=== PATIENT | male | born 1960 | race Caucasian/White ===

== ENCOUNTER 2024-02-17 12:21 | Outpatient (OUT) | payer OTHER, SELFPAY ==
--- NOTE | 2024-02-17 12:44 | XR_ITS ---
The [address] [address] Patient Name: ATIF CLEMONS MRN: [id number] date: 1960 Sex: M Assigned Patient Location: LAB Current Patient Location: LAB Accession/Order Number: [id number] Exam Date: 02/17/2024 12:50 Report Date: 02/17/2024 18:34 At the request of: TERRELL CORONADO Procedure: XR chest 2V EXAM: XR chest 2V HISTORY: Dyspnea on exertion COMPARISON: 10/09/2013 TECHNIQUE: Upright PA and lateral chest x-ray FINDINGS: The heart has increased in size since the prior study and is now mildly enlarged with vascular congestion centrally. No acute infiltrate, effusion or pneumothorax is identified. The osseous structures are grossly intact. XR/XR chest 2V IMPRESSION: There appears to be mild cardiac enlargement without overt cardiac decompensation. No focal infiltrate is identified. Electronically authenticated by: JHOAN FELIPE Date: 02/17/2024 18:34
[2024-02-17 13:07] LABS: Hematocrit 39.9 % (42.0-54.0); Hemoglobin 13.5 g/dL (14.0-18.0); Mean Corpuscular HGB Conc 33.8 g/dL (29.9-35.2); Mean Corpuscular Hemoglobin 30.8 pg (25.9-34.0); Mean Corpuscular Volume 91.1 fL (80.0-94.0); Mean Platelet Volume 9.5 fL (9.5-13.5); Platelet Count 134 10^3/uL (150-450); Red Blood Count 4.38 10^6/uL (4.70-6.10); Red Cell Distribution Width 14.4 % (11.0-15.0)
[2024-02-17 13:13] LABS: White Blood Count 66.1 10^3/uL (4.0-11.0)
[2024-02-17 13:36] LABS: Alanine Aminotransferase 27 U/L (16-63); Albumin Globulin Ratio 1.5; Albumin Level 4.3 g/dL (3.4-5.0); Alkaline Phosphatase 78 U/L (46-116); Anion Gap 14.2; Aspartate Amino Transferase 17 U/L (15-37); BUN Creatinine Ratio 20.2; Bilirubin Total 1.2 mg/dL (0.2-1.0); Calcium 9.4 mg/dL (8.5-10.1); Carbon Dioxide 27.1 mmol/L (21.0-32.0); Chloride 95 mmol/L (98-107); Estimated GFR (African America >60 (>=60); Estimated GFR (Non-African Ame >60 (>=60); Globulin 2.8 g/dL; Glucose 103 mg/dL (74-106); Potassium 4.3 mmol/L (3.5-5.1); Sodium 132 mmol/L (136-145); TSH W/ REFLEX FT4 1.803 uIU/mL (0.358-3.740); Total Protein 7.1 g/dL (6.4-8.2)
[2024-02-17 14:06] LABS: Basophils Abs Manual 0.66 10^3/uL (0.00-0.10); Eosinophils Absolute Manual 0.66 10^3/uL (0.00-0.70); Lymphocytes Absolute Manual 58.16 10^3/uL (1.20-3.80); Monocytes Absolute Manual 1.32 10^3/uL (0.30-0.80); Segmented Neut Absolute Manual 5.28 10^3/uL (1.4-6.5)
== END 2024-02-17 12:22 | disposition home or self-care (01) ==
LOC: LAB 12:28
PROVIDERS: PCP Family Medicine; Visit Provider Nurse Practitioner
DX: R06.09 Other forms of dyspnea (principal)
CPT/HCPCS: 36415; 71046; 80053; 83880; 84443; 85007; 85027

== ENCOUNTER 2024-02-27 08:53 | Outpatient (OUT) | payer OTHER, SELFPAY ==
--- NOTE | 2024-02-27 09:00 | CA_ITS ---
Patient Name: ATIF CLEMONS MR#: [id number] : 1960 Exam Date: 02/27/2024 Ordering Doctor: TERRELL CORONADO ECHOCARDIOGRAM REPORT PROCEDURE: CA ECHO DOPPLER COMPLETE INDICATIONS: Dyspnea on exertion, h/ atrial fibrillation, edema, hypertension COMPARISON: None. DESCRIPTION: COMPLETE ECHOCARDIOGRAM Real-time transthoracic echocardiography with 2D, M-mode, spectral and color flow Doppler performed. QUALITY: Technical quality was good. LEFT VENTRICLE: Normal chamber size. Mild concentric left ventricular hypertrophy. Systolic function appears to be at the lower limits of normal. LV EF: Lower limits of normal left ventricular ejection fraction, (50-55%). DIASTOLIC: Not adequately assessed due to heart rhythm. ATRIAL SEPTUM: Visually appears intact. LEFT ATRIUM: Moderate dilatation. RIGHT ATRIUM: Moderate dilatation. RIGHT VENTRICLE: Mild dilatation. Mildly reduced right ventricular systolic function. TRICUSPID VALVE: Normal mobility and thickness. No stenosis with mild regurgitation. Doppler studies reveal mildly (35-45) elevated right sided pressures. RVSP 41 mmHg MITRAL VALVE: Mildly thickened with normal mobility. No evidence of mitral valve stenosis. Mild mitral annular calcification. Trivial mitral regurgitation. AORTIC VALVE: Normal trileaflet appearance. Mildly calcified aortic valve. Normal leaflet mobility. No evidence of aortic valve stenosis. No aortic regurgitation. AORTIC ROOT: Normal diameter and appearance. PULMONIC VALVE: Normal thickness and mobility. No stenosis. No regurgitation. PERICARDIUM: No evidence of pericardial effusion. IVC: Collapses with inspirations. IVC is dilated (2.4 cm) PLEURA: CONCLUSION: 1. Mild concentric left ventricular hypertrophy with low normal systolic function. LVEF is estimated at 50 to 55%. 2. Mildly dilated right ventricle with mildly reduced systolic function. 3. Moderate biatrial dilatation. 4. Mild tricuspid regurgitation. 5. Mildly elevated right-sided pressures. RVSP is 41 mmHg. 6. The patient appears to be in atrial fibrillation during the exam. Adult Echocardiography Procedure Report Left Ventricle LVEDD (3.7 - 5.6 cm): 5.84 cm LVESD (2.2 - 4.0 cm): 4.57 cm LVIVS thickness (0.6 - 1.2 cm): 1.27 cm LVPW thickness (0.5 - 1.0 cm): 1.24 cm LVOT Max Gradient: 1.37 mm[Hg] LVOT Area (cm2): 0.59 m/s Peak Velocity (LVOT): 0.59 m/s LVOT Diameter 2.29 cm Left Atrium LA Volume Index (2D A2C): 46.73 ml/m2 Left Atrium Systolic Dimension: 5.96 cm Mitral Valve Right Ventricle Aorta AO Root Diam: 3.40 cm Ascending Ao Diam: 3.59 cm Aortic Valve AoV Area (Peak Khang): 2.33 cm2, 2.33 cm2 Peak Velocity(Antegrade Flow): 1.04 m/s Peak Gradient(Antegrade Flow): 4.29 mm[Hg] Tricuspid Valve Peak Velocity (Regurgitant Flow): 2.87 m/s Pulmonic Valve Peak Velocity: 0.97 m/s Peak Gradient: 3.43 mm[Hg], 4.12 mm[Hg] Right Atrium Right Atrium Systolic Pressure: 90.61 ml, 90.61 ml Dictated by: Jhon Fine M.D. on 02/27/2024 at 17:28 Approved by: Jhon Fine M.D. on 02/27/2024 at 17:31
[2024-02-27 10:46] LABS: BUN Creatinine Ratio 20.4; Calcium 9.5 mg/dL (8.5-10.1); Carbon Dioxide 30.4 mmol/L (21.0-32.0); Chloride 92 mmol/L (98-107); Estimated GFR (African America >60 (>=60); Estimated GFR (Non-African Ame >60 (>=60); Glucose 105 mg/dL (74-106); Potassium 4.4 mmol/L (3.5-5.1); Sodium 127 mmol/L (136-145)
== END 2024-02-27 08:54 | disposition home or self-care (01) ==
LOC: CARD 08:54
PROVIDERS: PCP Family Medicine; Visit Provider Nurse Practitioner
DX: R06.09 Other forms of dyspnea (principal); I50.33 Acute on chronic diastolic (congestive) heart failure
CPT/HCPCS: 36415; 80048; 93306

== ENCOUNTER 2024-03-02 10:26 | Outpatient (OUT) | payer OTHER, SELFPAY ==
--- NOTE | 2024-03-02 | NM_ITS ---
Patient Name: ATIF CLEMONS MR#: [id number] : 1960 Exam Date: 03/02/2024 Ordering Doctor: TERRELL CORONADO RADIOLOGY REPORT PROCEDURE: NM PABLO PERF SPECT REST STR COMPARISON: None. INDICATIONS: Other forms of dyspnea TECHNIQUE: Exam Description: Rest/Stress two day protocol gated SPECT Rest Imagin.3 mCi Tc-99m Cardiolite IV on 03/02/2024 Stress Imaging 25.9 mCi Tc-99m Cardiolite IV on 03/03/2024 Exercise Protocol: 0.4 mg Lexiscan given IV Heart Rate (bpm): Rest: 74 Max: 95 PMHR: 61 Blood Pressure: Rest: 110/72 Max: 110/80 Symptoms: Rest and peak stress ECG findings were normal and the exercise portion of the study was normal per attending physician Dr. Fine . For more details please see separate cardiac stress test report. FINDINGS: QUALITY OF STUDY: Good. PERFUSION DEFECT: LOCATION: Basal anterior. Mid-anterior. Apical anterior. SIZE: SEVERITY: Mild. TYPE: Persistent. WALL MOTION: Mild hypokinesis: Basal anteroseptal. LV SIZE: Enlarged; EDV 154 mL. TID / TCD: None; 1.0 LVEF: Abnormal. Calculated EF 44%. SUMMARY: Myocardial perfusion imaging study has ABNORMAL findings. CONCLUSION: 1. No reversible ischemia 2. Dilated left ventricle, EDV 154 milliliters 3. Low left ventricular ejection fraction of 44% 4. Normal exercise test Dictated by: Niall Rodriguez MD on 03/04/2024 at 13:06 Approved by: Niall Rodriguez MD on 03/04/2024 at 13:10
--- OUTSIDE RECORDS SUMMARY | 2024-03-02 10:38 | XMS_ITS | CCD ---
Author Organization [facility] Care Team Providers Care Can Line Examiner Name Role Phone Ericka, Hollis Naidu Primary Care Provider AL-NSOUR, MOHAMMAD A Referring Unavailable BLUNT, HOLLIS M Primary Care Unavailable Blunt, Hollis M Primary Care Provider Blunt, Hollis M Primary Care Provider [phone] Blunt, Hollis M Primary Care Provider Blunt, Hollis M Primary Care Provider Blunt, Hollis M Primary Care Provider AL-NSOUR, MOHAMMAD A Referring Unavailable BLUNT, HOLLIS M Primary Care Unavailable AL-NSOUR, MOHAMMAD A Referring Unavailable BLUNT, HOLLIS M Primary Care Unavailable HASMUKH STILL Referring Unavailable BLUNT, HOLLIS M Primary Care Unavailable AL-NSOUR, MOHAMMAD A Referring Unavailable BLUNT, HOLLIS M Primary Care Unavailable AL-NSOUR, MOHAMMAD A Referring Unavailable BLUNT, HOLLIS M Primary Care Unavailable AL-NSOUR, MOHAMMAD A Referring Unavailable BLUNT, HOLLIS M Primary Care Unavailable SIGIFREDO LOPEZ Attending Unavailable IVONNE, TERRELL Attending Unavailable Ivonne, MACHINIST TOOL [employer] DIE-C Terrell Attending Provider [phone] Ivonne, Terrell Admitting Unavailable Ivonne, Trerell Attending Unavailable Blunt, Hollis M Primary Care Unavailable Blunt, Hollis M Attending Unavailable Blunt, Hollis M Primary Care Unavailable Blunt, Hollis M Attending Unavailable Blunt, Hollis M Primary Care Unavailable Blunt, Hollis M Attending Unavailable Blunt, Hollis M Primary Care Unavailable Blunt, Hollis M Attending Unavailable Blunt, Hollis M Primary Care Unavailable Blunt, Hollis M Attending Unavailable Blunt, Hollis M Attending Unavailable Blunt, Hollis M Primary Care Unavailable Blunt, Hollis M Admitting Unavailable Hollis Barnett Primary Care Unavailable Hollis Barnett Attending Unavailable Allergies Allergy Classification Reported Allergen(s) Allergy Type Date of Onset Reaction(s) Facility Penicillins (antibiotic) (1 source) Penicillins Drug Allergy 05-06-2014 [facility] (10 sources) Penicillins; Translations: [PENICILLINS] Propensity to adverse reactions to drug 05-06-2014 [facility] [place] [place] (3 sources) Penicillins Propensity to adverse reactions to drug 05-06-2014 [facility] Medications Current Medications Medication Drug Class(es) Dates Sig (Normalized) Sig (Original) amLODIPine 5 mg oral tablet (11 sources) Dihydropyridine Calcium Channel Stacey Start: 02-19-2019 take 1 tablet by mouth once daily amLODIPine (NORVASC) 5 MG tablet TAKE 1 TABLET BY MOUTH EVERY DAY 5 02/19/2019 Active apixaban 5 mg oral tablet (2 sources) Factor Xa Inhibitor Start: 10-22-2022 take 1 tablet by mouth at bedtime ELIQUIS 5 MG TABS tablet TAKE 1 TABLET BY MOUTH IN THE MORNING AND AT BEDTIME 0 10/22/2022 Active ascorbic acid 500 mg chewable tablet (12 sources) Vitamin C take 2 tablets by mouth once daily ascorbic acid (VITAMIN C) 500 MG tablet Take 2 tablets by mouth daily 0 Active take 2 tablets by mouth once jeanette ly ascorbic acid (VITAMIN C) 500 MG tablet Take 1,000 mg by mouth daily. 0 Active atorvastatin 20 mg oral tablet (5 sources) HMG-CoA Reductase Inhibitor take 1 tablet by mouth once daily atorvastatin (LIPITOR) 20 MG tablet Take 1 tablet by mouth daily 0 Active diclofenac sodium 50 mg delayed release oral tablet (12 sources) Nonsteroidal Anti-inflammatory Drug Start: 9 take 1 tablet by mouth twice daily diclofenac (VOLTAREN) 50 MG EC tablet TAKE 1 TABLET BY MOUTH TWICE A DAY 5 04/21/2019 Active Start: 04-15-2016 take 1 tablet by ethel twice daily ZORVOLEX 35 MG CAPS Take 1 tablet by mouth 2 times daily 0 04/15/2016 Active hydroCHLOROthiazide 25 mg / lisinopril 20 mg oral tablet (11 sources) Thiazide Diuretic, Angiotensin Converting Enzyme Inhibitor Start: 01-28-2023 take 1 tablet by mouth once daily lisinopril-hydroCHLOROthiazide (PRINZIDE;ZESTORETIC) 20-25 MG per tablet TAKE 1 TABLET BY MOUTH EVERY DAY 90 tablet 1 01/28/2023 Active Start: 10-17-2021 take 1 tablet by ethel th once daily lisinopril-hydroCHLOROthiazide (PRINZIDE;ZESTORETIC) 20-25 MG per tablet Take 1 tablet by mouth daily 30 tablet 5 10/17/2021 Active Start: 01-15-2018 take 1 tablet by ethel th once daily lisinopril-hydrochlorothiazide (PRINZIDE;ZESTORETIC) 10-12.5 MG per tablet Take 1 tablet by mouth daily 3 01/15/2018 Active lisinopril 20 mg oral tablet (2 sources) Angiotensin Converting Enzyme Inhibitor Start: 10-22-2022 take 1 tablet by mouth once daily in the morning lisinopril (PRINIVIL;ZESTRIL) 20 MG tablet Take 1 tablet by mouth every morning 0 10/22/2022 Active 24 hr metoprolol succinate 50 mg extended release oral tablet (2 sources) beta-Adrenergic Stacey Start: 01-25-2022 take 2 tablets by mouth once daily metoprolol succinate (TOPROL XL) 50 MG extended release tablet Take 2 tablets by mouth daily 0 01/25/2022 Active omeprazole 20 mg delayed release oral tablet (12 sources) Proton Pump Inhibitor Start: 04-25-2016 take 1 tablet by mouth once daily omeprazole (PRILOSEC OTC) 20 MG tablet Take 1 tablet by mouth daily 30 tablet 1 04/25/2016 Active 3 ml sodium chloride 9 mg/ml injection (2 sources) Start: 05-20-2019 sodium chloride flush 0.9 % injection 10 mL Start: 05-20-2019 End: 05-20-2019 0.9 % sodium chloride bolus Vitamin B 12 (12 sources) Vitamin B12 take 1 tablet by ethel th once daily Cyanocobalamin (VITAMIN B 12 PO) Take 1 tablet by mouth daily. 0 Active Completed/Discontinued Medications Medication Drug Class(es) Dates Sig (Normalized) Sig (Original) iohexol (OMNIPAQUE 240) injection 50 mL (1 source) Start: 05-20-2019 End: 05-20-2019 iohexol (OMNIPAQUE 240) injection 50 mL ioversol (OPTIRAY) 74 % injection 75 mL (1 source) Start: 05-20-2019 End: 05-20-2019 ioversol (OPTIRAY) 74 % injection 75 mL Problems Active Problems Problem Classification Problem Date Documented Date Episodic/Chronic Cardiac dysrhythmias (2 sources) Paroxysmal atrial fibrillation; Translations: [Paroxysmal atrial fibrillation] Onset: 03-20-2023 Chronic Congestive heart failure; nonhypertensive (2 sources) Acute on chronic diastolic (congestive) heart failure; Translations: [Acute on chronic diastolic (congestive) heart failure] Onset: 11-13-2022 Chronic Diseases of white blood cells (20 sources) Lymphocytosis; Translations: [Leukocytosis] Onset: 10-21-2013 Resolved: 11-17-2015 11-17-2015 Chronic Disorders of lipid metabolism (2 sources) Mixed hyperlipidemia; Translations: [Mixed hyperlipidemia] Onset: 02-12-2024 Chronic Esophageal disorders (12 sources) Gastroesophageal reflux disease without esophagitis; Translations: [Gastro-esophageal reflux disease without esophagitis] Onset: 05-05-2015 05-05-2015 Chronic Essential hypertension (15 sources) Essential hypertension; Translations: [Essential (primary) hypertension] Onset: 02-05-2018 02-05-2018 Chronic Non-Hodgkin`s lymphoma (20 sources) Small cell B-cell lymphoma, spleen; Translations: [Non-Hodgkin's lymphoma (clinical)] Onset: 11-15-2013 Resolved: 11-17-2015 11-17-2015 Chronic Other lower respiratory disease (2 sources) Other forms of dyspnea; Translations: [Other forms of dyspnea] Onset: 02-17-2024 Episodic Unclassified (4 sources) Other persistent atrial fibrillation; Translations: [Other persistent atrial fibrillation] Onset: 12-22-2022 Past or Other Problems Problem Classification Problem Date Documented Date Episodic/Chronic Gastritis and duodenitis (12 sources) Gastritis; Translations: [Gastritis, unspecified, without bleeding] Onset: 12-24-2013 12-24-2013 Episodic Other screening for suspected conditions (not mental disorders or infectious disease) (2 sources) Abnormal electrocardiogram [ECG] [EKG]; Translations: [Abnormal electrocardiogram (ECG) (EKG)] Onset: 03-20-2023 Episodic Unclassified (11 sources) 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 Resolved: 11-17-2015 11-17-2015 Unclassified (1 source) MARGINAL ZONE LYMPHOMA Onset: 10-29-2013 Resolved: 11-17-2015 11-17-2015 Results Test Name Value Interpretation Reference Range Facility Outside Recordson 02-27-2024 Outside Records [id number] .[id number] [facility] 36on 02-17-2024 36 Reguarding lab resul ts from 02/16 ONESIMO Bah [place] CBC stable with known elevated WBC, Renal function noted- normal Liver function normal And BNP- heart failure marker was elevated= fluid overload- so yes take lasix as I instructed and take fluid off Tried to leave a message but could not will try to call back tomorrow. [facility] 37on 02-17-2024 37 Take lasix twice jeanette ly (spiral gear generator and then early afternoon) for the next 3 days with potassium daily. Then take lasix daily 40 mg after that- may repeat twice daily as needed for fluid overload *Continue heart healthy diet and low sodium diet. *Monitor daily weights, fluid restriction 1.5-2Liters/day, lab work to check kidney/renal function and electrolytes *Call office for weight gain of 2 pounds in 1 day or 5 pounds in 1 week, increased leg swelling, shortness of breath or shortness of breath at night and having to sleep sitting up taller/more pillows than normal or in recliner. [facility] Rubens 02-17-2024 L Specimen: [id number] Received: 02/19/24 Status: KALANI Recourtney Num: [id number] Spec Type: Impression Subm Dr: Terrell HILL Tissues: PATHPER Procedures: PATHREVIEW Age/ Patient Sex Location Account Attending Physician Cristian Hernandez 63/M LABELL [id number] Terrell HILL SPEC NUM: [id number] RECD: 02/19/24 STATUS: SOUT REQ NUM: [id number] MARLA: 02/17/24-[address]: Terrell HILL ENTERED: 02/19/241142 OTHR DR: Lizzy Diaz SPEC TYPE: Impression DEPT: MEREDITH Galvan ENTERED BY: [id number] RECV BY: [id number] ORDERED: PATHREVIEW ORDERED: PATHREVIEW Pathologist Review Abnormal CBC for peripheral blood smear review: -Moderate leukocytosis with moderate lymphocytosis, demonstrating a monotonous population of intermediate sized lymphocytes with indistinct nucleoli and occasional larger prolymphocytoid cells, compatible with chronic lymphoproliferative disorder, including CLL/SLL -Mild anemia of normocytic type -Mild thrombocytopenia -Mild monocytosis -Few occasional smudge cells without obvious basophil observable Comment: -Flow cytometry analysis of the peripheral blood cell can be confirmatory for the monoclonal natures of the atypical lymphocytes, and the definitive classification of the lymphoproliferative disorder in this case, if clinically is also indicated CPT: 31927 ---- ---- Specimen: [id number] Received: 02/19/24 Status: KALANI Clay Num: [id number] Spec Type: Impression Subm Dr: Terrell HILL Tissues: PATHPER Procedures: PATHREVIEW ---- Patient: AndinigelCristian [id number] (Continued) ---- Signed (signature on file) Chin-Khalif Grier MD 02/20/24 1200 Normal [facility] Office Visiton 02-17-2024 Follow-up visit [id number] Cristian Hernandez Jr. 1960 M Date Provider Department Center 02/17/2024 120-TERRELL CORONADO JENY Chery Family History Family history unknown: Yes Level of Service:06545 NE OFFICE/OUTPATIENT ESTABLISHED MOD MDM 30 MIN Normal [facility] CBC with Diffon 12-17-2023 Abs. Basophil 0.00 k/uL Normal 0.0-0.2 [facility] Comment on above: Performed By: #### C P, CDP #### [facility] [address] [place] [address] Marketing Recruiter: Haider Garcia MD #### LD #### [address] [address] Marketing Recruiter: Robb Tran MD Abs.Neutrophil (Seg) 7.34 k/uL Normal 1.8-7.7 [facility] Comment on above: Performed By: #### C P, CDP #### [facility] [address] [place] [address] Marketing Recruiter: Haider Garcia MD #### LD #### [address] [address] Marketing Recruiter: Robb Tran MD Basophils/100 WBC (Bld) 0 % Normal 0-2 [facility] Comment on above: Performed By: #### C P, CDP #### [address] [phone] Marketing Recruiter: Haider Garcia MD #### LD #### [address] [phone] Marketing Recruiter: Robb Tran MD Eosinophils (Bld) [#/Vol] 0.67 10*3/uL High 0.0-0.4 [facility] Comment on above: Performed By: #### C P, CDP #### [address] [phone] Marketing Recruiter: Haider Garcia MD #### LD #### [address] [phone] Marketing Recruiter: Robb Tran MD Eosinophils/100 WBC (Bld) 1 % Normal 1-4 [facility] Comment on above: Performed By: #### C P, CDP #### [address] [phone] Marketing Recruiter: Haider Garcia MD #### LD #### [address] [address] Marketing Recruiter: Robb Tran MD Lymphocytes (Bld) [#/Vol] 58.02 10*3/uL High 1.0-4.8 [facility] Comment on above: Result Comment: R/O Chronic Lymphoproliferative Disorder, recommend peripheral blood Flow Cytometry, if clinically indicated. Performed By: #### C P, CDP #### [place] [address] Marketing Recruiter: Haider Garcia MD #### LD #### [address] [phone] Marketing Recruiter: Robb Tran MD Lymphocytes/100 WBC (Bld) 87 % High 24-44 [facility] Comment on above: Performed By: #### C P, CDP #### [place] [address] Marketing Recruiter: Haider Garcia MD #### LD #### [place] [address] Marketing Recruiter: Robb Tran MD Monocytes (Bld) [#/Vol] 0.67 10*3/uL Normal 0.1-0.8 [facility] Comment on above: Performed By: #### C P, CDP #### [place] [address] Marketing Recruiter: Haider Garcia MD #### LD #### [place] [address] Marketing Recruiter: Robb Tran MD Monocytes/100 WBC (Bld) 1 % Normal 1-7 [facility] Comment on above: Performed By: #### C P, CDP #### [place] [address] Marketing Recruiter: Haider Garcia MD #### LD #### [place] [phone] Marketing Recruiter: Robb Tran MD Morphology Ruben (Bld) [Interp] SMUDGE CELLS PRESENT Normal [facility] Comment on above: Performed By: #### C P, CDP #### [place] [address] Marketing Recruiter: Haider Garcia MD #### LD #### [place] [address] Marketing Recruiter: Robb Tran MD Neutrophil (Seg) 11 % Low 36-66 [facility] Comment on above: Performed By: #### C P, CDP #### [address] [address] Marketing Recruiter: Haider Garcia MD #### LD #### [address] [phone] Marketing Recruiter: Robb Tran MD Erythrocyte distribution width (RBC) [Ratio] 14.4 % Normal 12.5-15.4 [facility] Comment on above: Performed By: #### C P, CDP #### [address] [address] Marketing Recruiter: Haider Garcia MD #### LD #### [address] [phone] Marketing Recruiter: Robb Tran MD Hematocrit (Bld) [Volume fraction] 41.6 % Normal 41-53 [facility] Comment on above: Performed By: #### C P, CDP #### [address] [address] Marketing Recruiter: Haider Garcia MD #### LD #### [address] [phone] Marketing Recruiter: Robb Tran MD Hemoglobin (Bld) [Mass/Vol] 13.7 g/dL Normal 13.5-17.5 [facility] Comment on above: Performed By: #### C P, CDP #### [address] [address] Marketing Recruiter: Haider Garcia MD #### LD #### [address] [phone] Marketing Recruiter: Robb Tran MD MCH (RBC) [Entitic mass] 30.4 pg Normal 26-34 [facility] Comment on above: Performed By: #### C P, CDP #### [address] [address] Marketing Recruiter: Haider Garcia MD #### LD #### [address] [phone] Marketing Recruiter: Robb Tran MD MCHC (RBC) [Mass/Vol] 32.8 g/dL Normal 31-37 [facility] Comment on above: Performed By: #### C P, CDP #### [address] [address] Marketing Recruiter: Haider Garcia MD #### LD #### [address] [address] Marketing Recruiter: Robb Tran MD MCV (RBC) [Entitic vol] 92.7 fL Normal 80-100 [facility] Comment on above: Performed By: #### C P, CDP #### [address] [address] Marketing Recruiter: Haider Garcia MD #### LD #### [address] [address] Marketing Recruiter: Robb Tran MD Platelet mean volume (Bld) [Entitic vol] 7.5 fL Normal 6.0-12.0 [facility] Comment on above: Performed By: #### C P, CDP #### [address] [address] Marketing Recruiter: Haider Garcia MD #### LD #### [address] [address] Marketing Recruiter: Robb Tran MD Platelets (Bld) [#/Vol] 148 10*3/uL Normal 140-450 [facility] Comment on above: Performed By: #### C P, CDP #### [place] [address] Marketing Recruiter: Haider Garcia MD #### LD #### [place] [phone] Marketing Recruiter: Robb Tran MD RBC (Bld) [#/Vol] 4.49 10*6/uL Low 4.5-5.9 [facility] Comment on above: Performed By: #### C P, CDP #### [place] [address] Marketing Recruiter: Haider Garcia MD #### LD #### [place] [address] Marketing Recruiter: Robb Tran MD WBC (Bld) [#/Vol] 66.7 10*3/uL Critically high 3.5-11.0 [facility] Comment on above: Result Comment: TEST CONFIRMED Performed By: #### C P, CDP #### [place] [address] Marketing Recruiter: Haider Garcia MD #### LD #### [place] [address] Marketing Recruiter: Robb Tran MD Comp Metabolic Profon 2023 Albumin [Mass/Vol] 4.7 g/dL Normal 3.5-5.2 [facility] Comment on above: Performed By: #### C P, CDP #### [place] [address] Marketing Recruiter: Haider Garcia MD #### LD #### [address] [phone] Marketing Recruiter: Robb Tran MD Albumin/Glob Ratio 1.8 Normal 1.0-2.5 [facility] Comment on above: Performed By: #### C P, CDP #### [address] [phone] Marketing Recruiter: Haider Garcia MD #### LD #### [address] [phone] Marketing Recruiter: Robb Tran MD Alkaline Phos 74 U/L Normal 40-129 [facility] Comment on above: Performed By: #### C P, CDP #### [address] [phone] Marketing Recruiter: Haider Garcia MD #### LD #### [address] [address] Marketing Recruiter: Robb Tran MD ALT [Catalytic activity/Vol] 23 U/L Normal 5-41 [facility] Comment on above: Performed By: #### C P, CDP #### [address] [phone] Marketing Recruiter: Haider Garcia MD #### LD #### [address] [address] Marketing Recruiter: Robb Tran MD Anion gap [Moles/Vol] 10 mmol/L Normal 9-17 [facility] Comment on above: Performed By: #### C P, CDP #### [address] [phone] Marketing Recruiter: Haider Garcia MD #### LD #### [address] [phone] Marketing Recruiter: Robb Tran MD AST [Catalytic activity/Vol] 19 U/L Normal <40 [facility] Comment on above: Performed By: #### C P, CDP #### [address] [phone] Marketing Recruiter: Haider Garcia MD #### LD #### [address] [phone] Marketing Recruiter: Robb Tran MD Bilirubin [Mass/Vol] 0.7 mg/dL Normal 0.3-1.2 [facility] Comment on above: Performed By: #### C P, CDP #### [address] [phone] Marketing Recruiter: Haider Garcia MD #### LD #### [address] [phone] Marketing Recruiter: Robb Tran MD Calcium [Mass/Vol] 9.8 mg/dL Normal 8.6-10.4 [facility] Comment on above: Performed By: #### C P, CDP #### [address] [phone] Marketing Recruiter: Haider Garcia MD #### LD #### [address] [phone] Marketing Recruiter: Robb Tran MD Chloride [Moles/Vol] 90 mmol/L Low 98-107 [facility] Comment on above: Performed By: #### C P, CDP #### [address] [phone] Marketing Recruiter: Haider Garcia MD #### LD #### [address] [phone] Marketing Recruiter: Robb Tran MD CO2 [Moles/Vol] 27 mmol/L Normal 20-31 [facility] Comment on above: Performed By: #### C P, CDP #### [address] [phone] Marketing Recruiter: Haider Garcia MD #### LD #### [address] [phone] Marketing Recruiter: Robb Tran MD Creatinine [Mass/Vol] 0.8 mg/dL Normal 0.7-1.2 [facility] Comment on above: Performed By: #### C P, CDP #### [address] [address] Marketing Recruiter: Haider Garcia MD #### LD #### [address] [phone] Marketing Recruiter: Robb Tran MD GFR/1.73 sq M.predicted among non-blacks MDRD (S/P/Bld) [Vol rate/Area] mL/min/{1.73_m2} Normal >60 [facility] Comment on above: Result Comment: These results are not intended for use in patients <18 years of age. eGFR results are calculated without a race factor using the 2020 CKD-EPI equation. Careful clinical correlation is recommended, particularly when comparing to results calculated using previous equations. The CKD-EPI equation is less accurate in patients with extremes of muscle mass, extra-renal metabolism of creatine, excessive creatine ingestion, or following therapy that affects renal tubular secretion. Performed By: #### C P, CDP #### [address] [phone] Marketing Recruiter: Haider Garcia MD #### LD #### [address] [phone] Marketing Recruiter: Robb Tran MD Glucose [Mass/Vol] 111 mg/dL High 70-99 [facility] Comment on above: Performed By: #### C P, CDP #### [address] [phone] Marketing Recruiter: Haider Garcia MD #### LD #### [address] [phone] Marketing Recruiter: Robb Tran MD Potassium [Moles/Vol] 4.8 mmol/L Normal 3.7-5.3 [facility] Comment on above: Performed By: #### C P, CDP #### [address] [phone] Marketing Recruiter: Haider Garcia MD #### LD #### [address] [phone] Marketing Recruiter: Robb Tran MD Protein [Mass/Vol] 7.3 g/dL Normal 6.4-8.3 [facility] Comment on above: Performed By: #### C P, CDP #### [address] [phone] Marketing Recruiter: Haider Garcia MD #### LD #### [address] [phone] Marketing Recruiter: Robb Tran MD Sodium [Moles/Vol] 127 mmol/L Low 135-144 [facility] Comment on above: Performed By: #### C P, CDP #### [address] [phone] Marketing Recruiter: Haider Garcia MD #### LD #### [address] [phone] Marketing Recruiter: Robb Tran MD Urea nitrogen [Mass/Vol] 14 mg/dL Normal 8-23 [facility] Comment on above: Performed By: #### C P, CDP #### [place] [id number] [place] [address] Marketing Recruiter: Haider Garcia MD #### LD #### [address] [phone] Marketing Recruiter: Robb Tran MD Lactate Dehydrogenaseon 12-01 LDH [Catalytic activity/Vol] 146 U/L Normal 135-225 [facility] Comment on above: Performed By: #### C P, CDP #### [address] [address] Marketing Recruiter: Haider Garcia MD #### LD #### [address] [address] Marketing Recruiter: Robb Tran MD Coding Summaryon 12-09-2023 Coding Summary [employer] 64 EomzqekySXs8mNt+PGhlYW Q+BB7YJTAkX38xvMEftL7v B1MELXxSEekqRLOKYMqDNc YmuaDwNL3mjOGgDLUq IC8+MT2jAXOsKdtyvQUrr9 H1rFC0Q35qwd1sTYgtoON4 PHXcSoDmjgqcl2xyfBr2TT cuNmluOyBt YYKnlQ98JKG0qE09Xo39xQ DqxOOrw8zwmIt6AwSlOKTz APV7pZdzXZiib4MnOTUqA0 8feZVuy2E3 BNFknYmmiJRaWbXtwBJ2xQ 4rLLoxueuko2awesmkVjw1 dg17dPEbj8H6pUK3R4Gxln S1LNReuSQf AcfkzARJcP8lizklt3kfwm qtQbNcWBBbTVe0PFm9YYSv qWmhPgMqRW47GQT9LQRyrk FzT2TfFUUf gUwcPzX4q3V9Ko2NU6URSb uiD8AMBAJKTRiqaFM+PC90 mb09V3XjQlwtHin3NTZbSN B3xHJ7aJ3q RAGuPZltv6U6bBI8T1Mzzs Azbq3tm2lpQIJnJPbfG26d lORbl6B4MIKciCZ9RUVitR jcReRclV57 Oyc+FMDloUiia5FwFtely9 bih6hhdCt7BwnpYUSqvuDq cFvaIZA2k5KuUi6xAJVnwI Y7wYA7pU8c JeLrWwD7WAwcP651WuPtmZ QyRhgmQ49dZ8AoxDR+PHRy Edj4XAFkzYzkGO5xV6WkUX RpbmctbGVm zFvdKC9tAUAonfazZCEblW 6hJWWbS7n9TfIlQeN9RTjm P5LfKHZdbjocTr56bP2wDk TkVmE7KOzt N2VjhaR0WCVolGCxKFzpTQ L6N87uc0W4EDCzLNZjMKN7 oCA8zY7cwKgnmixejORxwC sgdmVydGlj WQnqLAhyA205MERzyZskWs NvZGluZyBEYXRlOiAgMDcv MDgvMjAyNDwvdGQ+PHRkIH M8wBihTZWk rLNfDCkoPg2fqLuekPgkWC 8hBLSpudggMTNapZ6cLHLb mUMjnLtgRH5hIXBegdjpo6 48FkIuHYL4 VFWeiAOwW0CdwI1rZkPxLN ApZCFgF9NevLBcXXdgZ907 UFjvMoQ6MLHiwyWeS3KbUP FsaWduOiB0 y3D1Jc3Cv7XsvrkfO1NwiJ KvRlHgFbbhBQb4Q9LpWels dHI+TK25NSMtUM96EPr8VG S6qWkwTDtf TOFfC2XakH5jKtHwRCSqXD RkOyc+PHRhYmxlIHdpZHRo MRqiZNWlYuCleCnyTX3pOt 9yZGVyLWNv gPvanSXzWjEtk3rwNRHlWY iuWP2ohTeyW3PltTU4OTWo a9r4Fa18M85yB5ZuuFS+PG OfkSN8eOL4 bS8nEaRqJdJ8MAeeY853Jo TwqLClFpmkw2osd3yczUr0 PgP2IQXcgqGkrSxzJUP2j0 FmDo63O28e IHdpZHRoPSIxNSUiIHZhbG psln8xvL2oRb8+PGNvbCB3 sFM5lK5bFfBcStO2YObhX6 49InRvcCIv Nagfn7wfy8rwbFb6YsEeNC HfmrOysDxtUXC3i2WzPf60 G7KfjPxxu0BlCdu9wu68oY Ehp0I6yUS7 C4NsKMUrhfcwcWOlnThmVJ 4jGHJhteoaBZTizU1rNIAh I2o1KdCfGzV8CAwbP9Nuas K5ECSylNVd TEWimAMXaV7xltuqt6svmj yiDwCkMCVbDEr1KRc5CEFh lIjcFqXmEOV1IbB1FXV6tI ImyC8dlBpz mlajrW2sCpt+LBF0rUJrpU IMTK6sArlxgCF+PHRkIHN0 yPugYIbeBCDioZ8lHSHpS7 k2KdXxJvK1 IVlmJ6NpprF9EDKnfNJxEV GbzOPRvN0fqmedy5wcyagf GtItCTNxWCw7ZRp4QLPfwP duOiBsZWZ0 SlQ4HRN1vKAljF5mvBkatp xzdV6zFli+QmlydGggRGF0 CWx2L1RlTok9UMUsvOxcMP 0ncGFkZGlu Sh9iiIijbZadAO5uSVNqmf peo114TsJnd0onOABfeWZa CHqlPUU0L40ik0T7FHKoMU KrXEZ8hEX4 gE0jrXtfzdbonFGxjFbxxw BdrVlmZKdsSBrcJ166XNRm wIeqWzKyXJv5E7WrPlf3TW MxmFelAN3p qQYcNDdoWw7hsFhxtLyeBG 6cXXIopdbtw679FqLil4ew AFXanKOaYOfbPPV0F54je7 U6OTAvNDUm GXM0lJE3rN4zqZacplbenB VmdDsgdmVydGljYWwtYWxp Z424QEUqeXvvYhDdgWc0J1 EcUcb5BIGr fUelTT7moBWbGBknGd9qlL fqjNbdCO0jVIKtvapit923 XcCiu2kxBSSzzMRcZBjnWQ R5H66qz4H9 ZRWrZWXcHVN2pFU5xS2ccM lnbjogbGVmdDsgdmVydGlj GCetMGghE766JRUmcAyxOx BhdGllbnQg DAtvCIw9C3OuIhlicOX+PC 43VORoLL94sKQyuTJkv6xs qVv5KaVtNGPvPIR7tSqoWS efk6MoSFRe L35mqNUsr1Y7VMClaNseoO CrZlUixNL0dR9mYAdgfkvh c2sskfyxMrxjo5ghwo40vP 86Q97hDZbb ZHRoPSIzMCUiIHZhbGlnbj 2lbD9nEd0+OXEycAP7lTC5 mV2zIDHkZrF9PBxuU292Pv RvcCIvPjxj w7auu7mryPn2SeB5HAKdaf XmgAfgVHA1e2KyWp82C70s IHdpZHRoPSIyMCUiIHZhbG hpkd2rtX0y Ii8+YVSyfFU2gIA9xI6pQi LrUtM8DXhiI813FiKptZDa HbuaR10cX4RqvUB+PHRyPj b9WETgaDfh BX1liPUlHNicVe4vCLB2Vl MpRuMiWRwiR3SqPQHuopdg eixkgFV0FPTtCRIfnA89Ve 9udDogMTBw qQTAiS9ihysrz5soaihwNu MtBCSiJVv1XAm4YEMhePir TeAhQKC8ElM0CEG0xPEboI 1hbGlnbjog lK2vV4BbOGCayfdaBl18fX 2gTpLeUoV9HArsAya+QkVI PW8CJfXQErhgNwXVWG4OZO TVPG57UO45 mUSgd9P7jCS8G1FfBGQxct ikpvzyoBU9KWEoJBGxhY91 gEZoSExnMs1px1P4s080JV HcJEXfdO46 Oa0kyZajASPfqFGMtY3icd ska4bdabagJgGwJIVuTGp4 WIx6OGOklPynHaBkWWE4Sp P8VPX4gQFb mX0veSttkfrioL2dVjo+MT QhJbohAPw4WStkuYB+PHRk YFP8nSbfPNisRLDqfY0tEE HbK0u4TqJw DtV3CTzsZ7JeDLZhqjynWu 28yT4xRgEfMoO6DJkhO3Mr agK9YIIrwKPbAQciCKL5F1 8is2D0KQHj EUDgBVL8vBS8zZ5tmAcoig ogbGVmdDsgdmVydGljYWwt POwsQ467NLAgkYmdWwF2IH gwYSCrUT24 GT43eUQkn8C1lEJ4R0KdII WiuddlkmyxnSH9KXAwTINx qT15qVIhHCwoFz6he0S2v8 06IDAuMDUw bB55Pi9dcLxtGAEzfCSFkG 8oxrumy1gewibfQzOyDGEu JJh7ONn6VALbwFbjHlHaSX M8GzU8YJQ5 sLUtnA0csQvexcovpF8lFx c+TUFMRTwvdGQ+PHRkIHN0 jUaaLGotXHOwmK0nAPThD5 y2HhUoOyY9 EVphB5ZqLBThdlyhRg91jZ 6hQkVpKiX3OZekL1WpswD9 XSJahEBrEEhsBQD9K39bb1 D9XMHmWHRh TXN2cMK4gD5diJednemyfW VmdDsgdmVydGljYWwtYWxp E001CVKxwJoeHk7BUO72CO 09H5XwWfio dGFibGU+PHRhYmxlIHdpZH YrCKzsCUIlAvCdiJkmKY7g Lp2lWLOpOHPbrGmyzJAnLz Uiv7euXXPu KQjjKP1heCucY1VhwVH3SP Rid3r3Uh27F10rK3DgfUQ+ GCQxhXS5nCG3iB8bAlTlOi X1GDibR392 LcGcuAOcSrswn3uia3wcxE a1FxOdTMHvenIiqZpcBQK1 y5FmRv00A30oVDzgXPHsJJ IyMCUiIHZh tLqppz5tjR2qKr2+PGNvbC A8nHU5dB8uBvCaOwJ0IHxu Q841RzSomUZdWftdS80xQ9 JvdXA+PHRy Gzj4NNEysTtmMY1diMHsQP yqCk8jIAN8VnVlNbFiOTbo Z9MrQANtkikytctkrYY6QD GxEKKjyC29 Et5ahGncNc6mXDUiLOT6HH DixZOyM7RlyL9hObLiNSLf VOScV3IcaTBaNXmsY170OM bhNyN9ZHKk ydBtE9KvQFUsoUieYqG8q6 D9Jn0BeRkogGQmBG9aNwOx FUh4H1GtXiu3YFGwtAivEX 0ncGFkZGlu Nf2dlEoisAqdKF0gZDWsyc srg767KsYny2lpUIDtsTEd RFmxRFI3Z08tq7Q1DNLuVS BnGVN7rLX2 gE8nrXvibnhljYEkbShpzm LimOerBJqpERowT787AXXa sNdcWvIYMkw1K3SwEhp7DS HehAfdZA0b qIVdEQbhBs3xzAoxgCljKF 9xLDZcewpzk506KcDzh2ur DXTyvSXyGFkdDCH5X69qc7 F5FHRrMLDe VCX5sIC9iF0sxKktgmainN VmdDsgdmVydGljYWwtYWxp A486JSScmQwhXv1OFwj8U5 FpJbg5PMPr nYkpNE0alSQvXUxgBr5yfW kzgQnmRD2qFMGigijpn672 PwDhh8ftBVKmaZVyUOxlVS G2G62ms1I0 BIZuOTHmQRB1tGW4hK1ndE lnbjogbGVmdDsgdmVydGlj IQttWZlnN942FAKdjCsvWq BheWVyOjwv dGQ+BB89aj78G7FcMnluJn f5KUKlEET2cLP4aV1dONGr BPczv8Y6xHI5V4TimcPqak 6in6qwIWUm ZTo (more content not included)... Normal [facility] .Auto Diff 11-25-2023 Auto Monona % 1 % Normal 12 [facility] Comment on above: Performed By: #### 7 261443, 49359351, [id number], 6457038643, 704247687, 1846452 #### [facility] (DEFAULT) [address] [place] [address] Baso Abs# 0.1 x10 Normal 0.0-0.2 [facility] Comment on above: Performed By: #### 7 174989, 92228410, 0873468189, 9434999757, 786904427, 0468191 #### [facility] (DEFAULT) [address] [place] [address] 45253 Basophils/100 WBC (Bld) 0.3 % Normal 0.2-2.[address] [facility] Comment on above: Performed By: #### 7 325080, 40005417, 0553614986, 1249586751, 810313753, 1691902 #### [facility] (DEFAULT) [address] [place] [address] 56917 Eos Abs# 0.3 x10 Normal 0.0-0.4 [facility] Comment on above: Performed By: #### 7 729188, 49170354, 4313025118, 8694865012, 998763207, 4304111 #### [facility] (DEFAULT) [address] [place] [address] 22220 Eosinophils/100 WBC (Bld) 0.8 % Low 0.9-4.0 [facility] Comment on above: Performed By: #### 7 119901, 85616624, 2089778967, 2289306518, 109899555, 2361646 #### [facility] (DEFAULT) [address] [place] [address] 25599 Lymph Abs# 34.2 x10 High 1.3-2.9 [facility] Comment on above: Performed By: #### 7 813746, 29769846, 2126893544, 8711652840, 184687080, 9036436 #### [facility] (DEFAULT) [address] [place] [address] 44963 Lymphocytes/100 WBC (Bld) 84 % High 14-48 [facility] Comment on above: Performed By: #### 7 469185, 23836815, 5535423684, 4863286021, 662236154, 8805977 #### [facility] (DEFAULT) [address] [place] [address] 12773 Monona Abs# 0.3 x10 Normal 0.0-0.8 [facility] Comment on above: Performed By: #### 7 937385, 01867665, 0260103092, 6725045986, 668460505, 5758823 #### [facility] (DEFAULT) [address] [place] [address] Neut Abs# 5.7 x10 Normal 1.5-9.2 [facility] Comment on above: Performed By: #### 7 402175, 24850604, 9845529989, 3200373531, 911988525, 7616358 #### [facility] (DEFAULT) [address] [place] [address] Neutrophils/100 WBC (Bld) 14 % Low 44-88 [facility] Comment on above: Performed By: #### 7 576474, 01714370, 7871846563, 9900233633, 153271684, 4006657 #### [facility] (DEFAULT) [address] [place] [address] CBC w/ Auto Diffon Erythrocyte distribution width (RBC) [Ratio] 14.0 % Normal 11.5-15.0 [facility] Comment on above: Performed By: #### 7 931869, 84882636, 0909886974, 1363525031, 526766942, 5004603 #### [facility] (DEFAULT) [address] [place] [address] Hematocrit (Bld) [Volume fraction] 41.4 % Normal 34.8-51.9 [facility] Comment on above: Performed By: #### 7 611132, 49497776, 0107756923, 6480587993, 296833029, 3045472 #### [facility] (DEFAULT) [address] [place] [address] Hemoglobin (Bld) [Mass/Vol] 13.8 g/dL Normal 11.8-17.7 [facility] Comment on above: Performed By: #### 7 832074, 79611468, 4850926231, 8076947276, 892635759, 3033631 #### [facility] (DEFAULT) [address] [place] [address] MCH (RBC) [Entitic mass] 31 pg Normal 24-34 [facility] Comment on above: Performed By: #### 7 091909, 60829917, 5804384651, 4304502485, 115180621, 7648448 #### [facility] (DEFAULT) [address] [place] [address] 69576 MCHC (RBC) [Mass/Vol] 33 g/dL Normal 26-37 [facility] Comment on above: Performed By: #### 7 095385, 65203496, 8738558877, 1054951067, 086694857, 1193483 #### [facility] (DEFAULT) [address] [place] [address] 98282 MCV (RBC) [Entitic vol] 92 fL Normal 81-[address] [facility] Comment on above: Performed By: #### 7 340112, 67719550, 3687696539, 9023758398, 410471495, 7218081 #### [facility] (DEFAULT) [address] [place] [address] 61310 Platelet 147 x10 Normal 138-427 [facility] Comment on above: Performed By: #### 7 595031, 40537062, 8926141074, 5384152624, 629131236, 9444076 #### [facility] (DEFAULT) [address] [place] [address] 61076 Platelet mean volume (Bld) [Entitic vol] 8.0 fL Normal 6.3-10.2 [facility] Comment on above: Performed By: #### 7 364412, 11053095, 1388113263, 1826584529, 533706614, 2175952 #### [facility] (DEFAULT) [address] [place] [address] 75226 RBC 4.50 x10 Normal 3.70-5.30 [facility] Comment on above: Performed By: #### 7 752418, 18457717, 9395318820, 0143848825, 998680291, 3046985 #### [facility] (DEFAULT) [address] [place] [address] WBC 40.7 x10 High 3.5-10.5 [facility] Comment on above: Result Comment: Slid e Reviewed Performed By: #### 7 220647, 60203420, 7582988448, 2203666433, 030956615, 2743305 #### [facility] (DEFAULT) [address] [place] [address] Man Diff? Auto Invalid Interpretation Code [facility] Comment on above: Performed By: #### 7 433380, 65989232, 7350369504, 0625362293, 354168100, 7913516 #### [facility] (DEFAULT) [address] [place] [address] CMP Standardon 11-25-2023 eGFR Non AA >60 Invalid Interpretation Code [facility] Comment on above: Performed By: #### 7 975722, 30996619, 9525169602, 0385309534, 153525079, 6976075 #### [facility] (DEFAULT) [address] [place] [address] eGFR AA >60 Invalid Interpretation Code [facility] Comment on above: Performed By: #### 7 159444, 98841139, 6450165912, 4601040142, 816413561, 5343803 #### [facility] (DEFAULT) [address] [place] [address] Albumin [Mass/Vol] 4.5 g/dL Normal 3.5-5.0 [facility] Comment on above: Performed By: #### 7 389766, 57815847, 7454516507, 4908717485, 654729551, 5979297 #### [facility] (DEFAULT) [address] [place] [address] Albumin/Globulin [Mass ratio] 1.4 {ratio} Normal 1.4-2.6 [facility] Comment on above: Performed By: #### 7 362499, 61043893, 9209221310, 5871137713, 177890276, 1691643 #### [facility] (DEFAULT) [address] [place] [address] Alk Phos 64 IU/L Normal 32-91 [facility] Comment on above: Performed By: #### 7 113067, 55232306, 1126724777, 2012835929, 620559616, 8034139 #### [facility] (DEFAULT) [address] [place] [address] 24625 ALT [Catalytic activity/Vol] 28.0 U/L Normal 17.0-63.0 [facility] Comment on above: Performed By: #### 7 583716, 30051065, 8275800716, 8922244628, 531377629, 1882097 #### [facility] (DEFAULT) [address] [place] [address] Anion gap [Moles/Vol] 13.2 mmol/L Normal 5.0-19.0 [facility] Comment on above: Performed By: #### 7 707342, 01159818, 7789847755, 0978821166, 816463903, 2692553 #### [facility] (DEFAULT) [address] [place] [address] AST [Catalytic activity/Vol] 30 U/L Normal 15-41 [facility] Comment on above: Performed By: #### 7 731780, 61205068, 3696372818, 8833025712, 430058494, 9824855 #### [facility] (DEFAULT) [address] [place] [address] Bili Total 0.6 mg/dL Normal 0.3-1.2 [facility] Comment on above: Performed By: #### 7 833959, 88774868, 7321028997, 4275959304, 087551656, 2231944 #### [facility] (DEFAULT) [address] [place] [address] 86263 Calcium [Mass/Vol] 9.1 mg/dL Normal 8.9-10.3 [facility] Comment on above: Performed By: #### 7 598781, 89542828, 5672494720, 6672481331, 862773600, 3165302 #### [facility] (DEFAULT) [address] [place] [address] 46806 Chloride [Moles/Vol] 94 mmol/L Low 101-111 [facility] Comment on above: Performed By: #### 7 135387, 61117498, 0944900044, 8472105451, 460854658, 7190801 #### [facility] (DEFAULT) [address] [place] [address] 08850 CO2 [Moles/Vol] 25 mmol/L Normal 21-32 [facility] Comment on above: Performed By: #### 7 394858, 56935548, 7730410617, 5963319337, 632190950, 8992807 #### [facility] (DEFAULT) [address] [place] [address] 91367 Creatinine [Mass/Vol] 0.87 mg/dL Low 0.90-1.30 [facility] Comment on above: Performed By: #### 7 643287, 76904707, 6563387337, 6610777590, 981439864, 6673349 #### [facility] (DEFAULT) [address] [place] [address] 53588 Globulin (S) [Mass/Vol] 3.2 g/dL Normal 1.5-4.[address] [facility] Comment on above: Performed By: #### 7 391013, 90942722, 9088395172, 3551662137, 807794389, 6024770 #### [facility] (DEFAULT) [address] [place] [address] 49139 Glucose [Mass/Vol] 102.0 mg/dL Normal 74.0-118.0 [facility] Comment on above: Performed By: #### 7 327996, 62244336, 4907219728, 2169267360, 458000847, 5823594 #### [facility] (DEFAULT) [address] [place] [address] 80046 Osmolality 257 mOsm/L Invalid Interpretation Code [facility] Comment on above: Performed By: #### 7 762975, 67159150, 7372663893, 7147459446, 772790278, 7773107 #### [facility] (DEFAULT) [address] [place] [address] 53563 Potassium [Moles/Vol] 4.2 mmol/L Normal 3.6-5.1 [facility] Comment on above: Performed By: #### 7 122263, 42773923, 8223252003, 9620778633, 959891710, 7634834 #### [facility] (DEFAULT) [address] [place] [address] 08316 Protein [Mass/Vol] 7.7 g/dL Normal 6.5-8.1 [facility] Comment on above: Performed By: #### 7 465683, 69181211, 5131059353, 7530794121, 126073945, 7312392 #### [facility] (DEFAULT) [address] [place] [address] 94731 Sodium [Moles/Vol] 128.0 mmol/L Low 136.0-144.0 [facility] Comment on above: Performed By: #### 7 225416, 92729859, 8763601400, 3452975333, 717589380, 6369915 #### [facility] (DEFAULT) [address] [place] [address] 25739 Urea nitrogen [Mass/Vol] 13 mg/dL Normal 8-26 [facility] Comment on above: Performed By: #### 7 224835, 82953220, 2178867692, 7857447449, 499742419, 3971346 #### [facility] (DEFAULT) [address] [place] [address] 45337 Urea nitrogen/Creatinine [Mass ratio] 14.9 mg/mg Normal 4.6-16.2 [facility] Comment on above: Performed By: #### 7 827340, 66242585, 7908572915, 3830460950, 747880202, 0471495 #### [facility] (DEFAULT) [address] [place] [address] 36650 Lipid Panel Standardon 11-24 Cholesterol [Mass/Vol] 97.0 mg/dL Normal 66.0-200.0 [facility] Comment on above: Performed By: #### 7 863311, 17787858, 6867996844, 9944578703, 295395929, 1466720 #### [facility] (DEFAULT) [address] [place] [address] 34087 Cholesterol in HDL [Mass/Vol] 29 mg/dL Low 40-71 [facility] Comment on above: Performed By: #### 7 116766, 79353616, 1578017056, 4029719545, 174513739, 0547705 #### [facility] (DEFAULT) [address] [place] [address] 82499 Cholesterol in LDL [Mass/Vol] 54 mg/dL Normal 1-100 [facility] Comment on above: Performed By: #### 7 704465, 54209252, 2370175279, 8254267729, 796088574, 8651845 #### [facility] (DEFAULT) [address] [place] [address] Cholesterol.total/Cindy sterol in HDL [Mass ratio] 3.3 {ratio} Normal 0.0-4.5 [facility] Comment on above: Performed By: #### 7 424500, 83452448, 8132725933, 8706179350, 912972034, 5212836 #### [facility] (DEFAULT) [address] [place] [address] Triglyceride [Mass/Vol] 69.0 mg/dL Normal 0.0-150.[address] [facility] Comment on above: Performed By: #### 7 864835, 55152561, 3288961266, 7471947263, 049752716, 8935775 #### [facility] (DEFAULT) [address] [place] [address] VLDL. 14 mg/dL Normal 5-40 [facility] Comment on above: Performed By: #### 7 976573, 43996273, 1097238156, 1945661181, 587836098, 2653789 #### [facility] (DEFAULT) [address] [place] [address] PSA Screenon 11-25-2023 PSA Screen 8.74 ng/mL High 0.00-4.00 [facility] Comment on above: Result Comment: [employer] System (Chemiluminescence) Values obtained with different assay methods or kits cannot be used interchangeably. Results cannot be interpreted as absolute evidence of the presence or absence of malignant disease. Performed By: #### 7 492365, 95265611, 8305343971, 2211320691, 259795293, 2616876 #### [facility] (DEFAULT) [address] [place] [address] 26239 TSH w/ Reflex to FT4on 11-24 TSH Qn 0.94 m[IU]/L Normal 0.45-5.33 [facility] Comment on above: Performed By: #### 7 812599, 79174791, 8237369006, 8590693934, 785930180, 7907997 #### [facility] (DEFAULT) [address] [place] [address] CBC with Diffon 08-20-2023 Abs. Atypical Lymphs 2.99 k/uL Normal [facility] Comment on above: Performed By: #### C P, CDP #### [place] [address] Marketing Recruiter: Haider Garcia MD Abs. Basophil 0.00 k/uL Normal 0.0-0.2 [facility] Comment on above: Performed By: #### C P, CDP #### [place] [address] Marketing Recruiter: Haider Garcia MD Abs.Neutrophil (Seg) 5.49 k/uL Normal 1.8-7.7 [facility] Comment on above: Performed By: #### C P, CDP #### [place] [address] Marketing Recruiter: Haider Garcia MD Atypical Lymphs 6 % Normal [facility] Comment on above: Performed By: #### C P, CDP #### [place] [address] Marketing Recruiter: Haider Garcia MD Basophils/100 WBC (Bld) 0 % Normal 0-2 [facility] Comment on above: Performed By: #### C P, CDP #### [place] [address] Marketing Recruiter: Haider Garcia MD Eosinophils (Bld) [#/Vol] 0.50 10*3/uL High 0.0-0.4 [facility] Comment on above: Performed By: #### C P, CDP #### [place] [address] Marketing Recruiter: Haider Garcia MD Eosinophils/100 WBC (Bld) 1 % Normal 1-4 [facility] Comment on above: Performed By: #### C P, CDP #### [place] [address] Marketing Recruiter: Haider Garcia MD Lymphocytes (Bld) [#/Vol] 39.42 10*3/uL High 1.0-4.8 [facility] Comment on above: Performed By: #### C P, CDP #### [place] [address] Marketing Recruiter: Haider Garcia MD Lymphocytes/100 WBC (Bld) 79 % High 24-44 [facility] Comment on above: Performed By: #### C P, CDP #### [place] [address] Marketing Recruiter: Haider Garcia MD Monocytes (Bld) [#/Vol] 1.50 10*3/uL High 0.1-0.8 [facility] Comment on above: Performed By: #### C P, CDP #### [place] [address] Marketing Recruiter: Haider Garcia MD Monocytes/100 WBC (Bld) 3 % Normal 1-7 [facility] Comment on above: Performed By: #### C P, CDP #### [facility] [address] [place], [place] [id number] Marketing Recruiter: Haider Garcia MD Morphology Ruben (Bld) [Interp] SMUDGE CELLS PRESENT Normal [facility] Comment on above: Performed By: #### C P, CDP #### [place] [address] Marketing Recruiter: Haider Garcia MD Neutrophil (Seg) 11 % Low 36-66 [facility] Comment on above: Performed By: #### C P, CDP #### [place] [address] Marketing Recruiter: Haider Garcia MD Erythrocyte distribution width (RBC) [Ratio] 13.2 % Normal 12.5-15.4 [facility] Comment on above: Performed By: #### C P, CDP #### [place] [address] Marketing Recruiter: Haider Garcia MD Hematocrit (Bld) [Volume fraction] 42.3 % Normal 41-53 [facility] Comment on above: Performed By: #### C P, CDP #### [place] [address] Marketing Recruiter: Haider Garcia MD Hemoglobin (Bld) [Mass/Vol] 14.4 g/dL Normal 13.5-17.5 [facility] Comment on above: Performed By: #### C P, CDP #### [place] [address] Marketing Recruiter: Haider Garcia MD MCH (RBC) [Entitic mass] 31.5 pg Normal 26-34 [facility] Comment on above: Performed By: #### C P, CDP #### [facility] [id number] [place] [address] Marketing Recruiter: Haider Garcia MD MCHC (RBC) [Mass/Vol] 34.0 g/dL Normal 31-37 [facility] Comment on above: Performed By: #### C P, CDP #### [place] [address] [employer] Recruiter: Haider Garcia MD MCV (RBC) [Entitic vol] 92.7 fL Normal 80-100 [facility] Comment on above: Performed By: #### C P, CDP #### [place] [address] Marketing Recruiter: Haider Garcia MD Platelet mean volume (Bld) [Entitic vol] 7.1 fL Normal 6.0-12.0 [facility] Comment on above: Performed By: #### C P, CDP #### [place] [address] [employer] Recruiter: Haider Garcia MD Platelets (Bld) [#/Vol] 122 10*3/uL Low 140-450 [facility] Comment on above: Performed By: #### C P, CDP #### [place] [address] [employer] Recruiter: Haider Garcia MD RBC (Bld) [#/Vol] 4.56 10*6/uL Normal 4.5-5.9 [facility] Comment on above: Performed By: #### C P, CDP #### [place] [id number] [employer] Recruiter: Haider Garcia MD WBC (Bld) [#/Vol] 49.9 10*3/uL Critically high 3.5-11.0 [facility] Comment on above: Result Comment: TEST CONFIRMED Performed By: #### C P, CDP #### [place] [address] [employer] Recruiter: Haider Garcia MD Comp Metabolic Profon 2023 Albumin [Mass/Vol] 4.6 g/dL Normal 3.5-5.2 [facility] Comment on above: Performed By: #### C P, CDP #### [place] [address] [employer] Recruiter: Haider Garcia MD Albumin/Glob Ratio 1.7 Normal 1.0-2.5 [facility] Comment on above: Performed By: #### C P, CDP #### [place] [address] [employer] Recruiter: Haider Garcia MD Alkaline Phos 73 U/L Normal 40-129 [facility] Comment on above: Performed By: #### C P, CDP #### [place] [address] [employer] Recruiter: Haider Garcia MD ALT [Catalytic activity/Vol] 35 U/L Normal 5-41 [facility] Comment on above: Performed By: #### C P, CDP #### [place] [address] Marketing Recruiter: Haider Garcia MD Anion gap [Moles/Vol] 10 mmol/L Normal 9-17 [facility] Comment on above: Performed By: #### C P, CDP #### [address] [address] [employer] Recruiter: Haider Garcia MD AST [Catalytic activity/Vol] 26 U/L Normal <40 [facility] Comment on above: Performed By: #### C P, CDP #### [place] [address] Marketing Recruiter: Haider Garcia MD Bilirubin [Mass/Vol] 0.5 mg/dL Normal 0.3-1.2 [facility] Comment on above: Performed By: #### C P, CDP #### [place] [address] Marketing Recruiter: Haider Garcia MD Calcium [Mass/Vol] 9.7 mg/dL Normal 8.6-10.4 [facility] Comment on above: Performed By: #### C P, CDP #### [place] [address] Marketing Recruiter: Haider Garcia MD Chloride [Moles/Vol] 94 mmol/L Low 98-107 [facility] Comment on above: Performed By: #### C P, CDP #### [place] [address] [employer] Recruiter: Haider Garcia MD CO2 [Moles/Vol] 26 mmol/L Normal 20-31 [facility] Comment on above: Performed By: #### C P, CDP #### [place] [address] [employer] Recruiter: Haider Garcia MD Creatinine [Mass/Vol] 0.7 mg/dL Normal 0.7-1.2 [facility] Comment on above: Performed By: #### C P, CDP #### [place] [address] Marketing Recruiter: Haider Garcia MD GFR/1.73 sq M.predicted among non-blacks MDRD (S/P/Bld) [Vol rate/Area] mL/min/{1.73_m2} Normal >60 [facility] Comment on above: Result Comment: These results are not intended for use in patients <18 years of age. eGFR results are calculated without a race factor using the 2020 CKD-EPI equation. Careful clinical correlation is recommended, particularly when comparing to results calculated using previous equations. The CKD-EPI equation is less accurate in patients with extremes of muscle mass, extra-renal metabolism of creatine, excessive creatine ingestion, or following therapy that affects renal tubular secretion. Performed By: #### C P, CDP #### [place] [address] Marketing Recruiter: Haider Garcia MD Glucose [Mass/Vol] 111 mg/dL High 70-99 [facility] Comment on above: Performed By: #### C P, CDP #### [place] [address] Marketing Recruiter: Haider Garcia MD Potassium [Moles/Vol] 4.6 mmol/L Normal 3.7-5.3 [facility] Comment on above: Performed By: #### C P, CDP #### [place] [address] Marketing Recruiter: Haider Garcia MD Protein [Mass/Vol] 7.3 g/dL Normal 6.4-8.3 [facility] Comment on above: Performed By: #### C P, CDP #### [place] [address] Marketing Recruiter: Haider Garcia MD Sodium [Moles/Vol] 130 mmol/L Low 135-144 [facility] Comment on above: Performed By: #### C P, CDP #### [place] [address] Marketing Recruiter: Haider Garcia MD Urea nitrogen [Mass/Vol] 12 mg/dL Normal 8-23 [facility] Comment on above: Performed By: #### C P, CDP #### [facility] [id number] [place], [place] [id number] Marketing Recruiter: Haider Garcia MD Lactate Dehydrogenaseon 08-01 LDH [Catalytic activity/Vol] 204 U/L Normal 135-225 [facility] Comment on above: Result Comment: SPEC IMEN SLIGHTLY HEMOLYZED, RESULTS MAY BE ADVERSELY AFFECTED. Performed By: #### C P, CDP #### [place] [address] Marketing Recruiter: Haider Garcia MD CBC with Diffon 05-21-2023 Abs. Basophil 0.00 k/uL Normal 0.0-0.2 [facility] Comment on above: Performed By: #### C P, CDP #### [place] [address] Marketing Recruiter: Haider Garcia MD Abs.Neutrophil (Seg) 7.59 k/uL Normal 1.8-7.7 [facility] Comment on above: Performed By: #### C P, CDP #### [place] [address] Marketing Recruiter: Haider Garcia MD Basophils/100 WBC (Bld) 0 % Normal 0-2 [facility] Comment on above: Performed By: #### C P, CDP #### [place] [id number] [place] [phone] Marketing Recruiter: Haider Garcia MD Eosinophils (Bld) [#/Vol] 0.00 10*3/uL Normal 0.0-0.4 [facility] Comment on above: Performed By: #### C P, CDP #### [place] [address] Marketing Recruiter: Haider Garcia MD Eosinophils/100 WBC (Bld) 0 % Low 1-4 [facility] Comment on above: Performed By: #### C P, CDP #### [place] [address] Marketing Recruiter: Haider Garcia MD Lymphocytes (Bld) [#/Vol] 40.99 10*3/uL High 1.0-4.8 [facility] Comment on above: Performed By: #### C P, CDP #### [place] [address] Marketing Recruiter: Haider Garcia MD Lymphocytes/100 WBC (Bld) 81 % High 24-44 [facility] Comment on above: Performed By: #### C P, CDP #### [place] [address] Marketing Recruiter: Haider Garcia MD Monocytes (Bld) [#/Vol] 2.02 10*3/uL High 0.1-0.8 [facility] Comment on above: Performed By: #### C P, CDP #### [place] [address] Marketing Recruiter: Haider Garcia MD Monocytes/100 WBC (Bld) 4 % Normal 1-7 [facility] Comment on above: Performed By: #### C P, CDP #### [place] [address] Marketing Recruiter: Haider Garcia MD Morphology Ruben (Bld) [Interp] Normal Normal [facility] Comment on above: Performed By: #### C P, CDP #### [place] [address] Marketing Recruiter: Haider Garcia MD Neutrophil (Seg) 15 % Low 36-66 [facility] Comment on above: Performed By: #### C P, CDP #### [place] [address] Marketing Recruiter: Haider Garcia MD Erythrocyte distribution width (RBC) [Ratio] 14.5 % Normal 12.5-15.4 [facility] Comment on above: Performed By: #### C P, CDP #### [place] [address] Marketing Recruiter: Haider Garcia MD Hematocrit (Bld) [Volume fraction] 40.1 % Low 41-53 [facility] Comment on above: Performed By: #### C P, CDP #### [place] [address] Marketing Recruiter: Haider Garcia MD Hemoglobin (Bld) [Mass/Vol] 13.5 g/dL Normal 13.5-17.5 [facility] Comment on above: Performed By: #### C P, CDP #### [place] [address] Marketing Recruiter: Haider Garcia MD MCH (RBC) [Entitic mass] 31.3 pg Normal 26-34 [facility] Comment on above: Performed By: #### C P, CDP #### [place] [id number] Marketing Recruiter: Haider Garcia MD MCHC (RBC) [Mass/Vol] 33.7 g/dL Normal 31-37 [facility] Comment on above: Performed By: #### C P, CDP #### [place] [address] Marketing Recruiter: Haider Garcia MD MCV (RBC) [Entitic vol] 92.6 fL Normal 80-100 [facility] Comment on above: Performed By: #### C P, CDP #### [place] [address] Marketing Recruiter: Haider Garcia MD Platelet mean volume (Bld) [Entitic vol] 7.4 fL Normal 6.0-12.0 [facility] Comment on above: Performed By: #### C P, CDP #### [place] [address] Marketing Recruiter: Haidre Garcia MD Platelets (Bld) [#/Vol] 116 10*3/uL Low 140-450 [facility] Comment on above: Performed By: #### C P, CDP #### [place] [address] Marketing Recruiter: Haider Garcia MD RBC (Bld) [#/Vol] 4.33 10*6/uL Low 4.5-5.9 [facility] Comment on above: Performed By: #### C P, CDP #### [place] [address] Marketing Recruiter: Haider Garcia MD WBC (Bld) [#/Vol] 50.6 10*3/uL Critically high 3.5-11.0 [facility] Comment on above: Result Comment: TEST CONFIRMED Performed By: #### C P, CDP #### [place] [address] Marketing Recruiter: Haider Garcia MD Comp Metabolic Profon 2022 Albumin [Mass/Vol] 4.4 g/dL Normal 3.5-5.2 [facility] Comment on above: Performed By: #### C P, CDP #### [place] [address] Marketing Recruiter: Haider Garcia MD Albumin/Glob Ratio 1.6 Normal 1.0-2.5 [facility] Comment on above: Performed By: #### C P, CDP #### [place] [address] Marketing Recruiter: Haider Garcia MD Alkaline Phos 90 U/L Normal 40-129 [facility] Comment on above: Performed By: #### C P, CDP #### [place] [address] Marketing Recruiter: Haider Garcia MD ALT [Catalytic activity/Vol] 30 U/L Normal 5-41 [facility] Comment on above: Performed By: #### C P, CDP #### [place] [address] Marketing Recruiter: Haider Garcia MD Anion gap [Moles/Vol] 10 mmol/L Normal 9-17 [facility] Comment on above: Performed By: #### C P, CDP #### [facility] [address] [place] [address] Marketing Recruiter: Haider Garcia MD AST [Catalytic activity/Vol] 25 U/L Normal <40 [facility] Comment on above: Performed By: #### C P, CDP #### [place] [address] Marketing Recruiter: Haider Garcia MD Bilirubin [Mass/Vol] 0.9 mg/dL Normal 0.3-1.2 [facility] Comment on above: Performed By: #### C P, CDP #### [place] [address] Marketing Recruiter: Haider Garcia MD Calcium [Mass/Vol] 9.4 mg/dL Normal 8.6-10.4 [facility] Comment on above: Performed By: #### C P, CDP #### [place] [address] Marketing Recruiter: Haider Garcia MD Chloride [Moles/Vol] 103 mmol/L Normal 98-107 [facility] Comment on above: Performed By: #### C P, CDP #### [place] [address] Marketing Recruiter: Haider Garcia MD CO2 [Moles/Vol] 26 mmol/L Normal 20-31 [facility] Comment on above: Performed By: #### C P, CDP #### [place] [address] Marketing Recruiter: Haider Garcia MD Creatinine [Mass/Vol] 0.8 mg/dL Normal 0.7-1.2 [facility] Comment on above: Performed By: #### C P, CDP #### [place] [address] Marketing Recruiter: Haider Garcia MD GFR/1.73 sq M.predicted among non-blacks MDRD (S/P/Bld) [Vol rate/Area] mL/min/{1.73_m2} Normal >60 [facility] Comment on above: Result Comment: These results are not intended for use in patients <18 years of age. eGFR results are calculated without a race factor using the 2020 CKD-EPI equation. Careful clinical correlation is recommended, particularly when comparing to results calculated using previous equations. The CKD-EPI equation is less accurate in patients with extremes of muscle mass, extra-renal metabolism of creatine, excessive creatine ingestion, or following therapy that affects renal tubular secretion. Performed By: #### C P, CDP #### [place] [address] Marketing Recruiter: Haider Garcia MD Glucose [Mass/Vol] 108 mg/dL High 70-99 [facility] Comment on above: Performed By: #### C P, CDP #### [place] [address] Marketing Recruiter: Haider Garcia MD Potassium [Moles/Vol] 4.4 mmol/L Normal 3.7-5.3 [facility] Comment on above: Performed By: #### C P, CDP #### [place] [address] Marketing Recruiter: Haider Garcia MD Protein [Mass/Vol] 7.1 g/dL Normal 6.4-8.3 [facility] Comment on above: Performed By: #### C P, CDP #### [place] [address] Marketing Recruiter: Haider Garcia MD Sodium [Moles/Vol] 139 mmol/L Normal 135-144 [facility] Comment on above: Performed By: #### C P, CDP #### [place] [address] Marketing Recruiter: Haider Garcia MD Urea nitrogen [Mass/Vol] 11 mg/dL Normal 8-23 [facility] Comment on above: Performed By: #### C P, CDP #### [facility] [address] [place] [id number] Marketing Recruiter: Haider Garcia MD Outside Recordson 04-10-2023 Outside Records [id number] 30 [id number] Normal [facility] Office Visiton 03-20-2023 Follow-up visit [id number] Cristian Hernandez Jr. 1960 M Date Provider Department Center 03/20/2023 [id number] LOPEZ CARD [facility] Family History Family history unknown: Yes Level of Service:76811 NE OFFICE/OUTPATIENT ESTABLISHED MOD MDM 30-39 MIN Normal [facility] CBC with Auto Differentialon 02-19-2023 Basophils (Bld) [#/Vol] 0.00 10*3/uL [facility] Basophils/100 WBC (Bld) 0 % 0 - 2 % B ON [facility] Eosinophils (Bld) [#/Vol] 0.00 10*3/uL [facility] Eosinophils/100 WBC (Bld) 0 % Low 1 - 4 % [facility] Erythrocyte distribution width (RBC) [Ratio] 13.4 % 12.5 - 15.4 % [facility] Hematocrit (Bld) [Volume fraction] 45.1 % 41 - 53 % [facility] Hemoglobin (Bld) [Mass/Vol] 14.8 g/dL 13.5 - 17.5 g/dL [facility] Interpretation and review of laboratory results Abnormal [facility] Lymphocytes/100 WBC (Bld) 81 % High 24 - 44 % [facility] Lymphocytes/100 WBC (Bld) 42.36 % High [facility] MCH (RBC) [Entitic mass] 31.2 pg 26 - 34 pg [facility] MCHC (RBC) [Mass/Vol] 32.8 g/dL 31 - 3 7 g/dL [facility] MCV (RBC) [Entitic vol] 94.9 fL 80 - 100 fL [facility] Monocytes/100 WBC (Bld) 3 % 1 - 7 % B ON [facility] Monocytes/100 WBC (Bld) 1.57 % High B ON [facility] Morphology Ruben (Bld) [Interp] Normal [facility] Neutrophils/100 WBC (Bld) 16 % Low 36 - 66 % [facility] Platelet mean volume (Bld) [Entitic vol] 7.7 fL 6.0 - 12.0 fL [facility] Platelets (Bld) [#/Vol] 113 10*3/uL Low [facility] RBC (Bld) [#/Vol] 4.75 10*6/uL 4.5 - 5.9 m/uL [facility] Segmented neutrophils/100 WBC (Bld) 8.37 % High [facility] WBC other (Bld) [#/Vol] 52.3 Critically high [facility] CBC with Diffon 02-19-2023 Abs. Basophil 0.00 k/uL Normal 0.0-0.2 [facility] Comment on above: Performed By: #### L D #### [place] [address] [facility] [address] Marketing Recruiter: Robb Tran MD #### CP, CDP #### [address] [address] Marketing Recruiter: Haider Garcia MD Abs.Neutrophil (Seg) 8.37 k/uL High 1.8-7.7 [facility] Comment on above: Performed By: #### L D #### [facility] [address] [place] [address] Marketing Recruiter: Robb Tran MD #### CP, CDP #### [address] [address] Marketing Recruiter: Haider Garcia MD Basophils/100 WBC (Bld) 0 % Normal 0-2 [facility] Comment on above: Performed By: #### L D #### [address] [phone] Marketing Recruiter: Robb Tran MD #### CP, CDP #### [address] [phone] Marketing Recruiter: Haider Garcia MD Eosinophils (Bld) [#/Vol] 0.00 10*3/uL Normal 0.0-0.4 [facility] Comment on above: Performed By: #### L D #### [address] [phone] Marketing Recruiter: Robb Tran MD #### CP, CDP #### [address] [phone] Marketing Recruiter: Haider Garcia MD Eosinophils/100 WBC (Bld) 0 % Low 1-4 [facility] Comment on above: Performed By: #### L D #### [address] [phone] Marketing Recruiter: Robb Tran MD #### CP, CDP #### [address] [phone] Marketing Recruiter: Haider Garcia MD Lymphocytes (Bld) [#/Vol] 42.36 10*3/uL High 1.0-4.8 [facility] Comment on above: Performed By: #### L D #### [address] [phone] Marketing Recruiter: Robb Tran MD #### CP, CDP #### [address] [phone] Marketing Recruiter: Haider Garcia MD Lymphocytes/100 WBC (Bld) 81 % High 24-44 [facility] Comment on above: Performed By: #### L D #### [address] [id number] Marketing Recruiter: Robb Tran MD #### CP, CDP #### [address] [phone] Marketing Recruiter: Haider Garcia MD Monocytes (Bld) [#/Vol] 1.57 10*3/uL High 0.1-0.8 [facility] Comment on above: Performed By: #### L D #### [address] [phone] Marketing Recruiter: Robb Tran MD #### CP, CDP #### [address] [phone] Marketing Recruiter: Haider Garcia MD Monocytes/100 WBC (Bld) 3 % Normal 1-7 [facility] Comment on above: Performed By: #### L D #### [address] [id number] Marketing Recruiter: Robb Tran MD #### CP, CDP #### [address] [phone] Marketing Recruiter: Haider Garcia MD Morphology Ruben (Bld) [Interp] Normal Normal [facility] Comment on above: Performed By: #### L D #### [address] [phone] Marketing Recruiter: Robb Tran MD #### CP, CDP #### [address] [phone] Marketing Recruiter: Haider Garcia MD Neutrophil (Seg) 16 % Low 36-66 [facility] Comment on above: Performed By: #### L D #### [address] [phone] Marketing Recruiter: Robb Tarn MD #### CP, CDP #### [address] [phone] Marketing Recruiter: Haider Garcia MD Erythrocyte distribution width (RBC) [Ratio] 13.4 % Normal 12.5-15.4 [facility] Comment on above: Performed By: #### L D #### [address] [phone] Marketing Recruiter: Robb Tran MD #### CP, CDP #### [address] [address] Marketing Recruiter: Haider Garcia MD Hematocrit (Bld) [Volume fraction] 45.1 % Normal 41-53 [facility] Comment on above: Performed By: #### L D #### [address] [id number] Marketing Recruiter: Robb Tran MD #### CP, CDP #### [address] [address] Marketing Recruiter: Haider Gacria MD Hemoglobin (Bld) [Mass/Vol] 14.8 g/dL Normal 13.5-17.5 [facility] Comment on above: Performed By: #### L D #### [address] [phone] Marketing Recruiter: Robb Tran MD #### CP, CDP #### [address] [phone] Marketing Recruiter: Haider Garcia MD MCH (RBC) [Entitic mass] 31.2 pg Normal 26-34 [facility] Comment on above: Performed By: #### L D #### [address] [phone] Marketing Recruiter: Robb Tran MD #### CP, CDP #### [address] [phone] Marketing Recruiter: Haider Garcia MD MCHC (RBC) [Mass/Vol] 32.8 g/dL Normal 31-37 [facility] Comment on above: Performed By: #### L D #### [address] [phone] Marketing Recruiter: Robb Tran MD #### CP, CDP #### [address] [address] Marketing Recruiter: Haider Garcia MD MCV (RBC) [Entitic vol] 94.9 fL Normal 80-100 [facility] Comment on above: Performed By: #### L D #### [address] [id number] Marketing Recruiter: Robb Tran MD #### CP, CDP #### [address] [address] Marketing Recruiter: Haider Garcia MD Platelet mean volume (Bld) [Entitic vol] 7.7 fL Normal 6.0-12.0 [facility] Comment on above: Performed By: #### L D #### [address] [phone] Marketing Recruiter: Robb Tran MD #### CP, CDP #### [address] [address] Marketing Recruiter: Haider Garcia MD Platelets (Bld) [#/Vol] 113 10*3/uL Low 140-450 [facility] Comment on above: Performed By: #### L D #### [address] [address] Marketing Recruiter: Robb Tran MD #### CP, CDP #### [address] [phone] Marketing Recruiter: Haider Garcia MD RBC (Bld) [#/Vol] 4.75 10*6/uL Normal 4.5-5.9 [facility] Comment on above: Performed By: #### L D #### [address] [address] Marketing Recruiter: Robb Tran MD #### CP, CDP #### [place] [phone] Marketing Recruiter: Haider Garcia MD WBC (Bld) [#/Vol] 52.3 10*3/uL Critically high 3.5-11.0 [facility] Comment on above: Performed By: #### L D #### [address] [address] Marketing Recruiter: Robb Tran MD #### CP, CDP #### [address] [phone] Marketing Recruiter: Haider Garcia MD Comp Metabolic Profon 2022 Albumin [Mass/Vol] 4.8 g/dL Normal 3.5-5.2 [facility] Comment on above: Performed By: #### L D #### [address] [address] Marketing Recruiter: Robb Tran MD #### CP, CDP #### [address] [phone] Marketing Recruiter: Haider Garcia MD Albumin/Glob Ratio 2.2 Normal 1.0-2.5 [facility] Comment on above: Performed By: #### L D #### [address] [address] Marketing Recruiter: Robb Tran MD #### CP, CDP #### [address] [phone] Marketing Recruiter: Haider Garcia MD Alkaline Phos 70 U/L Normal 40-129 [facility] Comment on above: Performed By: #### L D #### [address] [address] Marketing Recruiter: Robb Tran MD #### CP, CDP #### [address] [address] Marketing Recruiter: Haider Garcia MD ALT [Catalytic activity/Vol] 28 U/L Normal 5-41 [facility] Comment on above: Performed By: #### L D #### [address] [address] Marketing Recruiter: Robb Tran MD #### CP, CDP #### [address] [phone] Marketing Recruiter: Haider Garcia MD Anion gap [Moles/Vol] 10 mmol/L Normal 9-17 [facility] Comment on above: Performed By: #### L D #### [address] [address] Marketing Recruiter: Robb Tran MD #### CP, CDP #### [address] [phone] Marketing Recruiter: Haider Garcia MD AST [Catalytic activity/Vol] 25 U/L Normal <40 [facility] Comment on above: Performed By: #### L D #### [address] [address] Marketing Recruiter: Robb Tran MD #### CP, CDP #### [address] [phone] Marketing Recruiter: Haider Garcia MD Bilirubin [Mass/Vol] 0.7 mg/dL Normal 0.3-1.2 [facility] Comment on above: Performed By: #### L D #### [address] [phone] Marketing Recruiter: Robb Tran MD #### CP, CDP #### [address] [phone] Marketing Recruiter: Haider Garcia MD Calcium [Mass/Vol] 9.4 mg/dL Normal 8.6-10.4 [facility] Comment on above: Performed By: #### L D #### [address] [phone] Marketing Recruiter: Robb Tran MD #### CP, CDP #### [address] [phone] Marketing Recruiter: Haider Garcia MD Chloride [Moles/Vol] 99 mmol/L Normal 98-107 [facility] Comment on above: Performed By: #### L D #### [address] [address] Marketing Recruiter: Robb Tran MD #### CP, CDP #### [address] [phone] Marketing Recruiter: Haider Garcia MD CO2 [Moles/Vol] 27 mmol/L Normal 20-31 [facility] Comment on above: Performed By: #### L D #### [address] [phone] Marketing Recruiter: Robb Tran MD #### CP, CDP #### [address] [address] Marketing Recruiter: Haider Garcia MD Creatinine [Mass/Vol] 0.7 mg/dL Normal 0.7-1.2 [facility] Comment on above: Performed By: #### L D #### [address] [phone] Marketing Recruiter: Robb Tran MD #### CP, CDP #### [address] [address] Marketing Recruiter: Haider Gracia MD GFR/1.73 sq M.predicted among non-blacks MDRD (S/P/Bld) [Vol rate/Area] mL/min/{1.73_m2} Normal >60 [facility] Comment on above: Result Comment: These results are not intended for use in patients <18 years of age. eGFR results are calculated without a race factor using the 2020 CKD-EPI equation. Careful clinical correlation is recommended, particularly when comparing to results calculated using previous equations. The CKD-EPI equation is less accurate in patients with extremes of muscle mass, extra-renal metabolism of creatine, excessive creatine ingestion, or following therapy that affects renal tubular secretion. Performed By: #### L D #### [address] [phone] Marketing Recruiter: Robb Tran MD #### CP, CDP #### [facility] [address] [place] [address] Marketing Recruiter: Haider Garcia MD Glucose [Mass/Vol] 112 mg/dL High 70-99 [facility] Comment on above: Performed By: #### L D #### [address] [phone] Marketing Recruiter: Robb Tran MD #### CP, CDP #### [address] [phone] Marketing Recruiter: Haider Garcia MD Potassium [Moles/Vol] 4.8 mmol/L Normal 3.7-5.3 [facility] Comment on above: Performed By: #### L D #### [address] [phone] Marketing Recruiter: Robb Tran MD #### CP, CDP #### [address] [address] Marketing Recruiter: Haider Garcia MD Protein [Mass/Vol] 7.0 g/dL Normal 6.4-8.3 [facility] Comment on above: Performed By: #### L D #### [address] [phone] Marketing Recruiter: Robb Tran MD #### CP, CDP #### [address] [address] Marketing Recruiter: Haider Garcia MD Sodium [Moles/Vol] 136 mmol/L Normal 135-144 [facility] Comment on above: Performed By: #### L D #### [address] [phone] Marketing Recruiter: Robb Tran MD #### CP, CDP #### [address] [address] Marketing Recruiter: Haider Garcia MD Urea nitrogen [Mass/Vol] 15 mg/dL Normal 8-23 [facility] Comment on above: Performed By: #### L D #### [facility] [address] [place] [address] Marketing Recruiter: Robb Tran MD #### CP, CDP #### [facility] [address] [place] [address] Marketing Recruiter: Haider Garcia MD Comprehensive Metabolic Pane [facility] 02-19-2023 Albumin [Mass/Vol] 4.8 g/dL 3.5 - 5.2 g/dL [facility] Albumin/Globulin [Mass ratio] 2.2 {ratio} 1.0 - 2.5 [facility] [employer] ALP [Catalytic activity/Vol] 70 U/L 40 - 129 U/L [facility] [employer] ALT [Catalytic activity/Vol] 28 U/L 5 - 41 U/L [facility]ITALL[facility] Based TechnologiesC[facility] Anion gap [Moles/Vol] 10 mmol/L 9 - 17 mmol/L [facility] AST [Catalytic activity/Vol] 25 U/L NINF - 40 U/L [facility] Bilirubin [Mass/Vol] 0.7 mg/dL 0.3 - 1 .2 mg/dL [facility] [employer] Calcium [Mass/Vol] 9.4 mg/dL 8.6 - 10. 4 mg/dL [facility] Chloride [Moles/Vol] 99 mmol/L 98 - 10 7 mmol/L [facility] [employer] CO2 [Moles/Vol] 27 mmol/L 20 - 31 mmol/L [facility] Creatinine [Mass/Vol] 0.7 mg/dL 0.7 - 1.2 mg/dL [facility]ITALAlt[facility] GFR/1.73 sq M.predicted MDRD (S/P/Bld) [Vol rate/Area] - [facility]ITALD[facility] Comment on above: These results are not intended for use in patients <18 years of age. eGFR results are calculated without a race factor using the 2020 CKD-EPI equation. Careful clinical correlation is recommended, particularly when comparing to results calculated using previous equations. The CKD-EPI equation is less accurate in patients with extremes of muscle mass, extra-renal metabolism of creatine, excessive creatine ingestion, or following therapy that affects renal tubular secretion. Glucose [Mass/Vol] 112 mg/dL High 70 - 99 mg/dL [facility] Interpretation and review of laboratory results Abnormal [facility] Potassium [Moles/Vol] 4.8 mmol/L 3.7 - 5.3 mmol/L [facility] Protein [Mass/Vol] 7.0 g/dL 6.4 - 8.3 g/dL [facility] Sodium [Moles/Vol] 136 mmol/L 135 - 144 mmol/L [facility] Urea nitrogen [Mass/Vol] 15 mg/dL 8 - 23 mg/dL [facility] Lactate Dehydrogenaseon 02-01 LDH [Catalytic activity/Vol] 178 U/L 135 - 225 U/L [facility] LDH [Catalytic activity/Vol] 178 U/L Normal 135-225 [facility] Comment on above: Performed By: #### L D #### [facility] [address] [place] [address] [phone] Marketing Recruiter: Robb Tran MD #### CP, CDP #### [address] [address] Marketing Recruiter: Haider Garcia MD Basic Metabolic Profon 02-05 Anion gap [Moles/Vol] 14 mmol/L Normal 9-17 [facility] Comment on above: Performed By: #### B MP, CBC #### [facility] [address] [place] [address] [phone] Marketing Recruiter: Robb Tran MD Calcium [Mass/Vol] 9.3 mg/dL Normal 8.6-10.4 [facility] Comment on above: Performed By: #### B MP, CBC #### [facility] [address] [place] [address] [phone] Marketing Recruiter: Robb Tran MD Chloride [Moles/Vol] 102 mmol/L Normal 98-107 [facility] Comment on above: Performed By: #### B MP, CBC #### [facility] [address] [place] [phone] Marketing Recruiter: Robb Tran MD CO2 [Moles/Vol] 21 mmol/L Normal 20-31 [facility] Comment on above: Performed By: #### B MP, CBC #### [address] [phone] Marketing Recruiter: Robb Tran MD Creatinine [Mass/Vol] 0.8 mg/dL Normal 0.7-1.2 [facility] Comment on above: Performed By: #### B MP, CBC #### [address] [phone] Marketing Recruiter: Robb Tran MD GFR/1.73 sq M.predicted among non-blacks MDRD (S/P/Bld) [Vol rate/Area] mL/min/{1.73_m2} Normal >60 [facility] Comment on above: Result Comment: These results are not intended for use in patients <18 years of age. eGFR results are calculated without a race factor using the 2020 CKD-EPI equation. Careful clinical correlation is recommended, particularly when comparing to results calculated using previous equations. The CKD-EPI equation is less accurate in patients with extremes of muscle mass, extra-renal metabolism of creatine, excessive creatine ingestion, or following therapy that affects renal tubular secretion. Performed By: #### B MP, CBC #### [address] [address] Marketing Recruiter: Robb Tran MD Glucose [Mass/Vol] 114 mg/dL High 70-99 [facility] Comment on above: Performed By: #### B MP, CBC #### [facility] [address] [place] [phone] Marketing Recruiter: Robb Tran MD Potassium [Moles/Vol] 4.5 mmol/L Normal 3.7-5.3 [facility] Comment on above: Performed By: #### B MP, CBC #### [facility] [address] [place] [phone] Marketing Recruiter: Robb Tran MD Sodium [Moles/Vol] 137 mmol/L Normal 135-144 [facility] Comment on above: Performed By: #### B MP, CBC #### [facility] [address] [place] [phone] Marketing Recruiter: Robb Tran MD Urea nitrogen [Mass/Vol] 20 mg/dL Normal 8-23 [facility] Comment on above: Performed By: #### B MP, CBC #### [facility] [address] [place] [phone] Marketing Recruiter: Robb Tran MD CBCon 02-05-2023 Erythrocyte distribution width (RBC) [Ratio] 14.2 % Normal 11.8-14.4 [facility] Comment on above: Performed By: #### B MP, CBC #### [facility] [address] [place] [phone] Marketing Recruiter: Robb Tran MD Hematocrit (Bld) [Volume fraction] 43.6 % Normal 40.7-50.3 [facility] Comment on above: Performed By: #### B MP, CBC #### [facility] [address] [place] [phone] Marketing Recruiter: Robb Tran MD Hemoglobin (Bld) [Mass/Vol] 13.9 g/dL Normal 13.0-17.0 [facility] Comment on above: Performed By: #### B MP, CBC #### [facility] [address] [place] [phone] Marketing Recruiter: Robb Tran MD MCH (RBC) [Entitic mass] 31.0 pg Normal 25.2-33.5 [facility] Comment on above: Performed By: #### B MP, CBC #### [address] [address] Marketing Recruiter: Robb Tran MD MCHC (RBC) [Mass/Vol] 31.9 g/dL Normal 28.4-34.8 [facility] Comment on above: Performed By: #### B MP, CBC #### [address] [address] Marketing Recruiter: Robb Tran MD MCV (RBC) [Entitic vol] 97.1 fL Normal 82.6-102.9 [facility] Comment on above: Performed By: #### B MP, CBC #### [address] [address] Marketing Recruiter: Robb Tran MD NRBC Automated 0.0 per 100 WBC Normal 0.0 [facility] Comment on above: Performed By: #### B MP, CBC #### [address] [address] Marketing Recruiter: Robb Tran MD Platelet mean volume (Bld) [Entitic vol] 10.7 fL Normal 8.1-13.5 [facility] Comment on above: Performed By: #### B MP, CBC #### [address] [address] Marketing Recruiter: Robb Tran MD Platelets (Bld) [#/Vol] 118 10*3/uL Low 138-453 [facility] Comment on above: Performed By: #### B MP, CBC #### [address] [phone] Marketing Recruiter: Robb Tran MD RBC (Bld) [#/Vol] 4.49 10*6/uL Normal 4.21-5.77 [facility] Comment on above: Performed By: #### B MP, CBC #### [address] [address] Marketing Recruiter: Robb Tran MD WBC (Bld) [#/Vol] 55.5 10*3/uL Critically high 3.5-11.3 [facility] Comment on above: Performed By: #### B MP, CBC #### [facility] [address] [place] [address] Marketing Recruiter: Robb Tran MD CBC with Auto Differentialon 11-13-2022 Basophils (Bld) [#/Vol] 0.00 10*3/uL [facility] Basophils/100 WBC (Bld) 0 % 0 - 2 % [facility] Eosinophils (Bld) [#/Vol] 0.00 10*3/uL [facility] Eosinophils/100 WBC (Bld) 0 % Low 1 - 4 % [facility] Erythrocyte distribution width (RBC) [Ratio] 14.5 % 12.5 - 15.4 % [facility] Hematocrit (Bld) [Volume fraction] 40.7 % Low 41 - 53 % [facility] Hemoglobin (Bld) [Mass/Vol] 13.4 g/dL Low 13.5 - 17.5 g/dL [facility] Interpretation and review of laboratory results Abnormal [facility] Lymphocytes/100 WBC (Bld) 95 % High 24 - 44 % [facility] Lymphocytes/100 WBC (Bld) 56.43 % High [facility] Comment on above: R/O Chronic Lymphopr oliferative Disorder, recommend peripheral blood Flow Cytometry, if clinically indicated. MCH (RBC) [Entitic mass] 30.7 pg 26 - 34 pg [facility] MCHC (RBC) [Mass/Vol] 32.8 g/dL 31 - 3 7 g/dL [facility] MCV (RBC) [Entitic vol] 93.4 fL 80 - 100 fL [facility] Monocytes/100 WBC (Bld) 0 % Low 1 - 7 % B ON [facility] Monocytes/100 WBC (Bld) 0.00 % Low B ON [facility] Morphology Ruben (Bld) [Interp] Normal [facility] Neutrophils/100 WBC (Bld) 5 % Low 36 - 66 % [facility] Platelet mean volume (Bld) [Entitic vol] 8.0 fL 6.0 - 12.0 fL [facility] Platelets (Bld) [#/Vol] 90 10*3/uL Low B ON [facility] RBC (Bld) [#/Vol] 4.36 10*6/uL Low 4.5 - 5.9 m/uL [facility] Segmented neutrophils/100 WBC (Bld) 2.97 % [facility] WBC other (Bld) [#/Vol] 59.4 Critically high [facility] Comment on above: TEST CONFIRMED [facility] Comprehensive Metabolic Pane rubens 11-13-2022 Albumin [Mass/Vol] 4.4 g/dL 3.5 - 5.2 g/dL [facility] Albumin/Globulin [Mass ratio] 2.1 {ratio} 1.0 - 2.5 [facility] ALP [Catalytic activity/Vol] 58 U/L 40 - 129 U/L [facility] ALT [Catalytic activity/Vol] 30 U/L 5 - 41 U/L [facility] Anion gap [Moles/Vol] 10 mmol/L 9 - 17 mmol/L [facility] AST [Catalytic activity/Vol] 20 U/L NINF - 40 U/L [facility] Bilirubin [Mass/Vol] 0.7 mg/dL 0.3 - 1 .2 mg/dL [facility] Calcium [Mass/Vol] 9.2 mg/dL 8.6 - 10. 4 mg/dL [facility] Chloride [Moles/Vol] 101 mmol/L 98 - 10 7 mmol/L [facility] CO2 [Moles/Vol] 24 mmol/L 20 - 31 mmol/L [facility] Creatinine [Mass/Vol] 0.79 mg/dL 0.70 - 1.20 mg/dL [facility] GFR/1.73 sq M.predicted MDRD (S/P/Bld) [Vol rate/Area] - PINF [facility] Comment on above: These results are not intended for use in patients <18 years of age. eGFR results are calculated without a race factor using the 2020 CKD-EPI equation. Careful clinical correlation is recommended, particularly when comparing to results calculated using previous equations. The CKD-EPI equation is less accurate in patients with extremes of muscle mass, extra-renal metabolism of creatine, excessive creatine ingestion, or following therapy that affects renal tubular secretion. Glucose [Mass/Vol] 103 mg/dL High 70 - 99 mg/dL [facility] Interpretation and review of laboratory results Abnormal [facility] Potassium [Moles/Vol] 4.8 mmol/L 3.7 - 5.3 mmol/L [facility] Protein [Mass/Vol] 6.5 g/dL 6.4 - 8.3 g/dL [facility] Sodium [Moles/Vol] 135 mmol/L 135 - 144 mmol/L [facility] Urea nitrogen [Mass/Vol] 12 mg/dL 8 - 23 mg/dL [facility] Lactate Dehydrogenaseon 11-01 LDH [Catalytic activity/Vol] 166 U/L 135 - 225 U/L [facility] CBC with Auto Differentialon 08-16-2022 Absolute Eos # 0.00 [place] [facility] Absolute Lymph # 52.55 [facility] Absolute Monona # 1.22 High [facility] Atypical Lymphocytes 4 % [facility] Atypical Lymphocytes Absolute 2.44 k/uL [facility] Basophils (Bld) [#/Vol] 0.00 10*3/uL [facility] Basophils/100 WBC (Bld) 0 % 0 - 2 % B [facility] Eosinophils/100 WBC (Bld) 0 % Low 1 - 4 % [facility] Hematocrit (Bld) [Volume fraction] 41.6 % 41 - 53 % [facility] Hemoglobin (Bld) [Mass/Vol] 13.6 g/dL 13.5 - 17.5 g/dL [facility] Interpretation and review of laboratory results Abnormal [facility] Lymphocytes/100 WBC (Bld) 86 % High 24 - 44 % [facility] MCH (RBC) [Entitic mass] 30.2 pg 26 - 34 pg [facility] MCHC (RBC) [Mass/Vol] 32.7 g/dL 31 - 3 7 g/dL [facility] MCV (RBC) [Entitic vol] 92.4 fL 80 - 100 fL [facility] Monocytes/100 WBC (Bld) 2 % 1 - 7 % B ON [facility] Morphology Ruben (Bld) [Interp] SMUDGE CELLS PRESENT [facility] Platelet distribution width (Bld) [Ratio] 13.8 % 12.5 - 15.4 % [facility] Platelet mean volume (Bld) [Entitic vol] 7.4 fL 6.0 - 12.0 fL [facility] Platelets (Bld) [#/Vol] 111 10*3/uL Low [facility] RBC (Bld) [#/Vol] 4.50 10*6/uL 4.5 - 5.9 m/uL [facility] Segmented neutrophils/100 WBC (Bld) 8 % Low 36 - 66 % [facility] Segs Absolute 4.89 [facility] WBC (Bld) [#/Vol] 61.1 10*3/uL Critically high [facility] Comprehensive Metabolic Pane rubens 08-16-2022 Albumin [Mass/Vol] 4.4 g/dL 3.5 - 5.2 g/dL [facility] Albumin/Globulin [Mass ratio] 1.8 {ratio} 1.0 - 2.5 [facility] ALP [Catalytic activity/Vol] 76 U/L 40 - 129 U/L [facility] ALT [Catalytic activity/Vol] 29 U/L 5 - 41 U/L [facility] Anion gap [Moles/Vol] 11 mmol/L 9 - 17 mmol/L [facility] AST [Catalytic activity/Vol] 25 U/L NINF - 40 U/L [facility] Bilirubin [Mass/Vol] 0.6 mg/dL 0.3 - 1 .2 mg/dL [facility] Calcium [Mass/Vol] 9.3 mg/dL 8.6 - 10. 4 mg/dL [facility] Chloride [Moles/Vol] 93 mmol/L Low 98 - 10 7 mmol/L [facility] CO2 [Moles/Vol] 25 mmol/L 20 - 31 mmol/L [facility] Creatinine [Mass/Vol] 0.77 mg/dL 0.70 - 1.20 mg/dL [facility] GFR/1.73 sq M.predicted MDRD (S/P/Bld) [Vol rate/Area] - PINF [facility] Comment on above: These results are not intended for use in patients <18 years of age. eGFR results are calculated without a race factor using the 2020 CKD-EPI equation. Careful clinical correlation is recommended, particularly when comparing to results calculated using previous equations. The CKD-EPI equation is less accurate in patients with extremes of muscle mass, extra-renal metabolism of creatine, excessive creatine ingestion, or following therapy that affects renal tubular secretion. Glucose [Mass/Vol] 119 mg/dL High 70 - 99 mg/dL [facility] Interpretation and review of laboratory results Abnormal [facility] Potassium [Moles/Vol] 4.7 mmol/L 3.7 - 5.3 mmol/L [facility] Protein [Mass/Vol] 6.9 g/dL 6.4 - 8.3 g/dL [facility] Sodium [Moles/Vol] 129 mmol/L Low 135 - 144 mmol/L [facility] Urea nitrogen [Mass/Vol] 13 mg/dL 8 - 23 mg/dL [facility] Lactate Dehydrogenaseon 08-01 Cholesterol in LDL [Mass/Vol] 174 U/L 135 - 225 U/L [facility] CBC Auto Differentialon 10-01 Absolute Eos # 1.00 High [facility] Absolute Lymph # 84.17 High [facility] Absolute Monona # 5.01 [facility] Basophils (Bld) [#/Vol] 0.00 10*3/uL [facility] Basophils/100 WBC (Bld) 0 % 0 - 2 % [facility] Eosinophils/100 WBC (Bld) 1 % 1 - 4 % [facility] Hematocrit (Bld) [Volume fraction] 44.5 % 41 - 53 % [facility] Hemoglobin.gastrointest inal spec 1 Ql (Stl) 14.0 g/dL 13.5 - 17.5 g/dL [facility] Interpretation and review of laboratory results Abnormal [facility] Lymphocytes/100 WBC (Bld) 84 % High 24 - 44 % [facility] MCH (RBC) [Entitic mass] 29.0 pg 26 - 34 pg [facility] MCHC (RBC) [Mass/Vol] 31.4 g/dL 31 - 3 7 g/dL [facility] MCV (RBC) [Entitic vol] 92.3 fL 80 - 100 fL [facility] Monocytes/100 WBC (Bld) 5 % 1 - 7 % M [facility] Morphology Ruben (Bld) [Interp] Normal [facility] Platelet distribution width (Bld) [Ratio] 14.4 % 12.5 - 15.4 % [facility] Platelet mean volume (Bld) [Entitic vol] 7.3 fL 6.0 - 12.0 fL [facility] Platelets (Bld) [#/Vol] 115 10*3/uL Low [facility] RBC (Bld) [#/Vol] 4.82 10*6/uL 4.5 - 5.9 m/uL [facility] Segmented neutrophils/100 WBC (Bld) 10 % Low 36 - 66 % [facility] Segs Absolute 10.02 [facility] W[facility] ([facility]ld[facility] [#/Vol] 100.2 10*3/uL Critically high [facility] Comprehensive Metabolic Pane rubens 10-17-2021 Albumin [Mass/Vol] 4.5 g/dL 3.5 - 5.2 g/dL [facility] Albumin/Globulin [Mass ratio] 1.6 {ratio} [facility] ALP (Bld) [Catalytic activity/Vol] 81 U/L 40 - 129 U/L [facility] ALT [Catalytic activity/Vol] 29 U/L 5 - 41 U/L [facility] Anion gap [Moles/Vol] 10 mmol/L 9 - 17 mmol/L [facility] AST [Catalytic activity/Vol] 24 U/L <40 [facility] Bilirubin [Mass/Vol] 0.61 mg/dL 0.3 - 1 .2 mg/dL [facility] Calcium [Mass/Vol] 9.7 mg/dL 8.6 - 10. 4 mg/dL [facility] Chloride [Moles/Vol] 93 mmol/L Low 98 - 10 7 mmol/L [facility] CO2 [Moles/Vol] 26 mmol/L 20 - 31 mmol/L [facility] Creatinine [Mass/Vol] 0.73 mg/dL 0.70 - 1.20 mg/dL [facility] Free PSA/Total PSA [Mass fraction] 7.3 g/dL 6.4 - 8.3 g/dL [facility] GFR >60 >60 mL/min [facility] GFR Non- >60 >60 mL/min [facility] GFR/1.73 sq M.predicted MDRD (S/P/Bld) [Vol rate/Area] [facility] Comment on above: Average GFR for 60-6 9 years old: 85 mL/min/1.73sq m Chronic Kidney Disease: <60 mL/min/1.73sq m Kidney failure: <15 mL/min/1.73sq m eGFR calculated using average adult body mass. Additional eGFR calculator available at: http://www.365looks (Coqueta.me)/multiple_crcl_2011.htm Glucose [Mass/Vol] 106 mg/dL High 70 - 99 mg/dL [facility] Interpretation and review of laboratory results Abnormal [facility] Potassium [Moles/Vol] 4.4 mmol/L 3.7 - 5.3 mmol/L [facility] Sodium [Moles/Vol] 129 mmol/L Low 135 - 144 mmol/L [facility] Urea nitrogen (BldV) [Mass/Vol] 13 mg/dL 8 - 23 mg/dL [facility] Lactate Dehydrogenaseon 10-01 LD 180 U/L 135 - 225 U/L [facility] CBC Auto DifferentialOrdered By: Leah Sam on 12-08-2020 Absolute Eos # 1.87 High [facility] Work Phone: Absolute Immature Granulocyte NOT REPORTED [facility] Work Phone: Absolute Lymph # 83.21 High [facility] Work Phone: Absolute Monona # 1.87 High [facility] Work Phone: Basophils (Bld) [#/Vol] 0.00 10*3/uL [employer] Phone: Basophils/100 WBC (Bld) 0 % 0 - 2 % [email or web address] Phone: Differential Type NOT REPORTED [employer] Phone: Eosinophils/100 WBC (Bld) 2 % 1 - 4 % [employer] Phone: Hematocrit (Bld) [Volume fraction] 41.7 % 41 - 53 % [employer] Phone: Hemoglobin.gastrointest inal spec 1 Ql (Stl) 13.4 g/dL Low 13.5 - 17.5 g/dL [employer] Phone: Immature Granulocytes NOT REPORTED 0 % M [email or web address] Phone: Interpretation and review of laboratory results Abnormal [employer] Phone: Lymphocytes/100 WBC (Bld) 89 % High 24 - 44 % [employer] Phone: MCH (RBC) [Entitic mass] 29.7 pg 26 - 34 pg [employer] Phone: MCHC (RBC) [Mass/Vol] 32.1 g/dL 31 - 3 7 g/dL [employer] Phone: MCV (RBC) [Entitic vol] 92.5 fL 80 - 100 fL [employer] Work Phone: Monocytes/100 WBC (Bld) 2 % 1 - 7 % M [email or web address] Phone: Morphology Ruben (Bld) [Interp] Normal [employer] Phone: NRBC Automated NOT REPORTED per 100 WBC [employer] Work Phone: Platelet distribution width (Bld) [Ratio] 15.3 % 12.5 - 15.4 % [employer] Phone: Platelet Estimate NOT REPORTED [employer] Phone: Platelet mean volume (Bld) [Entitic vol] 7.7 fL 6.0 - 12.0 fL [employer] Phone: Platelets (Bld) [#/Vol] 139 10*3/uL Low [employer] Phone: RBC (Bld) [#/Vol] 4.51 10*6/uL 4.5 - 5.9 m/uL [employer] Work Phone: RBC (Bld) [#/Vol] NOT REPORTED [employer] Phone: Segmented neutrophils/100 WBC (Bld) 7 % Low 36 - 66 % [employer] Work Phone: Segs Absolute 6.55 [employer] Work Phone: WBC (Bld) [#/Vol] 93.5 10*3/uL Critically high [employer] Phone: Comment on above: TEST CONFIRMED WBC (Bld) [#/Vol] NOT REPORTED [employer] Phone: [employer] Phone: Comprehensive Metabolic Pane lOrdered By: Leah Sam on 12-08-2020 Albumin [Mass/Vol] 4.5 g/dL 3.5 - 5.2 g/dL [employer] Phone: Albumin/Globulin [Mass ratio] 1.7 {ratio} [employer] Phone: ALP (Bld) [Catalytic activity/Vol] 83 U/L 40 - 129 U/L [employer] Phone: ALT [Catalytic activity/Vol] 48 U/L High 5 - 41 U/L [employer] Phone: Anion gap [Moles/Vol] 10 mmol/L 9 - 17 mmol/L [employer] Phone: AST [Catalytic activity/Vol] 36 U/L <40 [employer] Phone: Bilirubin [Mass/Vol] 0.54 mg/dL 0.3 - 1 .2 mg/dL [employer] Phone: Calcium [Mass/Vol] 9.7 mg/dL 8.6 - 10. 4 mg/dL [employer] Phone: Chloride [Moles/Vol] 99 mmol/L 98 - 10 7 mmol/L [employer] Phone: CO2 [Moles/Vol] 25 mmol/L 20 - 31 mmol/L [employer] Phone: Creatinine [Mass/Vol] 0.71 mg/dL 0.70 - 1.20 mg/dL [employer] Phone: Free PSA/Total PSA [Mass fraction] 7.2 g/dL 6.4 - 8.3 g/dL [employer] Phone: GFR >60 >60 mL/min [employer] Phone: GFR Non- >60 >60 mL/min [employer] Phone: GFR/1.73 sq M.predicted MDRD (S/P/Bld) [Vol rate/Area] [employer] Phone: Comment on above: Average GFR for 60-6 9 years old: 85 mL/min/1.73sq m Chronic Kidney Disease: <60 mL/min/1.73sq m Kidney failure: <15 mL/min/1.73sq m eGFR calculated using average adult body mass. Additional eGFR calculator available at: http://www.Beyond the Rack.Hol[employer] Propane/multiple_crcl_2012.htm GFR/1.73 sq M.predicted MDRD (S/P/Bld) [Vol rate/Area] NOT REPORTED [employer] Phone: Glucose [Mass/Vol] 111 mg/dL High 70 - 99 mg/dL [employer] Phone: Interpretation and review of laboratory results Abnormal [email or web address] Phone: Potassium [Moles/Vol] 4.8 mmol/L 3.7 - 5.3 mmol/L [email or web address] Phone: Sodium [Moles/Vol] 134 mmol/L Low 135 - 144 mmol/L [email or web address] Phone: Urea nitrogen (BldV) [Mass/Vol] 13 mg/dL 8 - 23 mg/dL [email or web address] Phone: Urea nitrogen/Creatinine (Bld) [Mass ratio] NOT REPORTED [email or web address] Phone: [email or web address] Phone: Lactate DehydrogenaseOrdered By: Leah Sam on 12-08-2020 LD 189 U/L 135 - 225 U/L [email or web address] Phone: [email or web address] Phone: BUN + Creatinineon 1 (cont.) Normal [facility] Comment on above: Result Comment: Aver age GFR for 60-69 years old: 85 mL/min/1.73sq m Chronic Kidney Disease: <60 mL/min/1.73sq m Kidney failure: <15 mL/min/1.73sq m eGFR calculated using average adult body mass. Additional eGFR calculator available at: http://www.Beyond the Rack.Hol[employer]/multiple_crcl_2011.htm Performed By: #### B UNCRT #### [facility] [address] [place], [place] [id number] Marketing Recruiter: Royal Sandoval DO Creatinine [Mass/Vol] 0.66 mg/dL Low 0.70-1.20 [facility] Comment on above: Performed By: #### B UNCRT #### [facility] [address] [place], [place] [id number] Marketing Recruiter: Royal Sandoval DO GFR, Amer >60 Normal >60 [facility] Comment on above: Performed By: #### B UNCRT #### [facility] [address] [place] [address] Marketing Recruiter: Royal Sandoval DO GFR,non Amer >60 Normal >60 [facility] Comment on above: Performed By: #### B UNCRT #### [facility] [address] [place] [address] Marketing Recruiter: Royal Sandoval DO Urea nitrogen [Mass/Vol] 11 mg/dL Normal 8-23 [facility] Comment on above: Performed By: #### B UNCRT #### [facility] [address] [place] [address] Marketing Recruiter: Royal Sandoval DO Staging: NOT REPORTED Normal [facility] Comment on above: Performed By: #### B UNCRT #### [facility] [address] [place] [address] Marketing Recruiter: Royal Sandoval DO CT CHEST ABDOMEN PELVIS W CO NTRASTon 11-25-2020 CT CHEST ABDOMEN PELVIS W CONTRAST EXAMINATION: CT OF THE CHEST, ABDOMEN, AND PELVIS WITH CONTRAST 11/25/2020 11:49 am TECHNIQUE: CT of the chest, abdomen and pelvis was performed with the administration of intravenous contrast. Multiplanar reformatted images are provided for review. Dose modulation, iterative reconstruction, and/or weight based adjustment of the mA/kV was utilized to reduce the radiation dose to as low as reasonably achievable. COMPARISON: CT chest, abdomen and pelvis May 20, 2019. HISTORY: ORDERING SYSTEM PROVIDED HISTORY: Marginal zone lymphoma of spleen (HCC) TECHNOLOGIST PROVIDED HISTORY: marginal zone lymphoma, staging Reason for Exam: lymphoma of spleen staging Acuity: Unknown Type of Exam: Unknown FINDINGS: Chest: Mediastinum: Thoracic aorta demonstrates mild calcification without aneurysm. Pulmonary trunk appears nondilated. No pericardial effusion. No pathologically enlarged lymph nodes are seen within the chest. The esophagus is grossly unremarkable. Lungs/pleura: Ill-defined consolidation involving the superior segment of the left lower lobe. Atelectasis/scarring involving the superior segment of the right lower lobe. Bibasilar scarring. No pneumothorax or pleural effusion. No suspicious pulmonary nodule or mass. Soft Tissues/Bones: Visualized soft tissue surrounding chest wall demonstrate no acute findings. Osseous structures demonstrate degenerative change. Abdomen/Pelvis: Organs: Splenomegaly measuring 21.3 cm. Liver gallbladder portal vein pancreas adrenal glands and kidneys all appear unremarkable. Abdominal aorta appears normal in caliber. GI/Bowel: Stomach is grossly unremarkable. Small bowel appears nondilated. Oral contrast reached the colon. A partially calcified lesion is identified involving the mesentery of the right lower quadrant measuring 1.2 x 1.0 cm in greatest axial dimension similar in size to the prior study. There appears to be interval progression of the calcification since 2019. no acute colonic abnormality. Pelvis: Prostatomegaly. Urinary bladder is grossly unremarkable. Peritoneum/Retroperito neum: No free air, free fluid or lymphadenopathy. Bones/Soft Tissues: Abdominal wall demonstrates no acute findings. Uncomplicated fat filled umbilical hernia. Osseous structures demonstrate degenerative changes. IMPRESSION: 1. No pathologically enlarged lymph nodes are seen within the chest, abdomen or pelvis. 2. Splenomegaly with minimal progression since the prior study. 3. Ill-defined consolidation superior segment left lower lobe. Developing pneumonia cannot be excluded. Repeat CT after therapy is recommended to ensure resolution. 4. Partially calcified soft tissue nodule involving the mesentery of the right lower quadrant grossly unchanged in size when compared to the prior study from 2019. There appears to be interval progression of the calcification since 2019. Carcinoid tumor cannot be excluded. 5. Prostatomegaly. Interpreted by: Gamal Cantu Jr., DO Signed by: Gamal Cantu Jr., DO 11/25/20 Final result Normal [facility] CBC Auto Differentialon 03-0 Basophils (Bld) [#/Vol] 0.00 10*3/uL [email or web address]: Basophils/100 WBC (Bld) 0 % 0 - 2 % [facility] [employer] Phone: Differential Type NOT REPORTED [email or web address] Phone: Eosinophils (Bld) [#/Vol] 0.95 10*3/uL High [employer] Phone: Eosinophils/100 WBC (Bld) 1 % 1 - 4 % [employer] Phone: Erythrocyte distribution width (RBC) [Ratio] 14.6 % High 11.8 - 14.4 % [employer] Phone: Hematocrit (Bld) [Volume fraction] 44.6 % 40.7 - 50.3 % [employer] Phone: Hemoglobin (Bld) [Mass/Vol] 14.0 g/dL 13.0 - 17.0 g/dL [employer] Phone: Immature granulocytes (Bld) [#/Vol] 0 % 0 [employer] Phone: Immature granulocytes (Bld) [#/Vol] 0.00 10*3/uL [employer] Phone: Interpretation and review of laboratory results Abnormal [employer] Phone: Lymphocytes (Bld) [#/Vol] 81.01 10*3/uL High [employer] Phone: Lymphocytes/100 WBC (Bld) 85 % High 24 - 44 % [employer] Phone: MCH (RBC) [Entitic mass] 29.5 pg 25.2 - 33.5 pg [employer] Phone: MCHC (RBC) [Mass/Vol] 31.4 g/dL 28.4 - 34.8 g/dL [employer] Phone: MCV (RBC) [Entitic vol] 93.9 fL 82.6 - 102.9 fL [employer] Phone: Monocytes (Bld) [#/Vol] 5.72 10*3/uL High [employer] Phone: Monocytes/100 WBC (Bld) 6 % 1 - 7 % [email or web address] Phone: Morphology Ruben (Bld) [Interp] ANISOCYTOSIS PRESENT [employer] Work Phone: Morphology Ruben (Bld) [Interp] SMUDGE CELLS PRESENT [employer] Work Phone: Platelet mean volume (Bld) [Entitic vol] 10.5 fL 8.1 - 13.5 fL [employer] Phone: Platelets (Bld) [#/Vol] NOT REPORTED [employer] Phone: Platelets (Bld) [#/Vol] 130 10*3/uL Low [employer] Phone: RBC (Bld) [#/Vol] 4.75 10*6/uL 4.21 - 5.7 7 m/uL [employer] Phone: RBC morphology finding Nom (Bld) NOT REPORTED [employer] Phone: Segmented neutrophils/100 WBC (Bld) 8 % Low 36 - 66 % [employer] Phone: Segs Absolute 7.62 [employer] Work Phone: WBC (Bld) [#/Vol] 95.3 10*3/uL Critically high [employer] Phone: WBC (Bld) [#/Vol] 0.0 10*3/uL 0.0 per 10 0 WBC [employer] Phone: WBC Morphology NOT REPORTED [facility] Work Phone: Comprehensive Metabolic Pane rubens 08-08-2020 Albumin [Mass/Vol] 4.6 g/dL 3.5 - 5.2 g/dL [employer] Phone: Albumin/Globulin [Mass ratio] 1.5 {ratio} [employer] Phone: ALP [Catalytic activity/Vol] 76 U/L 40 - 129 U/L [employer] Phone: ALT [Catalytic activity/Vol] 53 U/L High 5 - 41 U/L [employer] Phone: Anion gap [Moles/Vol] 18 mmol/L High 9 - 17 mmol/L [employer] Phone: AST [Catalytic activity/Vol] 44 U/L High <40 [employer] Phone: Bilirubin Ql (U) 0.63 mg/dL 0.3 - 1.2 mg/dL [employer] Phone: Bun/Cre Ratio NOT REPORTED [employer] Work Phone: Calcium [Mass/Vol] 10.2 mg/dL 8.6 - 10. 4 mg/dL [employer] Phone: Chloride [Moles/Vol] 96 mmol/L Low 98 - 10 7 mmol/L [employer] Phone: CO2 [Moles/Vol] 22 mmol/L 20 - 31 mmol/L [employer] Phone: Creatinine [Mass/Vol] 0.72 mg/dL 0.70 - 1.20 mg/dL [employer] Phone: GFR >60 >60 mL/min [employer] Phone: GFR Non- >60 >60 mL/min [employer] Phone: GFR/1.73 sq M predicted among non-blacks MDRD (S/P/Bld) [Vol rate/Area] [employer] Phone: Comment on above: Average GFR for 60-6 9 years old: 85 mL/min/1.73sq m Chronic Kidney Disease: <60 mL/min/1.73sq m Kidney failure: <15 mL/min/1.73sq m eGFR calculated using average adult body mass. Additional eGFR calculator available at: http://www.[employer]/multiple_crcl_2012.htm GFR/1.73 sq M predicted among non-blacks MDRD (S/P/Bld) [Vol rate/Area] NOT REPORTED [employer] Phone: Glucose [Mass/Vol] 89 mg/dL 70 - 99 mg/dL [employer] Phone: Interpretation and review of laboratory results Abnormal [employer] Phone: Potassium [Moles/Vol] 4.7 mmol/L 3.7 - 5.3 mmol/L [employer] Phone: Protein [Mass/Vol] 7.7 g/dL 6.4 - 8.3 g/dL [employer] Phone: Sodium [Moles/Vol] 136 mmol/L 135 - 144 mmol/L [employer] Phone: Urea nitrogen [Mass/Vol] 20 mg/dL 8 - 23 mg/dL [employer] Phone: Lactate Dehydrogenaseon 03-0 LD 184 U/L 135 - 225 U/L [employer] Phone: CBC Auto Differentialon 12-0 Basophils (Bld) [#/Vol] 0.00 10*3/uL [facility] [place] Basophils/100 WBC (Bld) 0 % 0 - 2 % M [facility] [employer] [place] Differential Type NOT REPORTED [facility] [place] Eosinophils (Bld) [#/Vol] 0.00 10*3/uL [facility] [employer] [place] Eosinophils/100 WBC (Bld) 0 % Low 1 - 4 % [facility] [place] Erythrocyte distribution width (RBC) [Ratio] 14.3 % 11.8 - 14.4 % [place] Hematocrit (Bld) [Volume fraction] 41.1 % 40.7 - 50.3 % [place] Hemoglobin (Bld) [Mass/Vol] 13.3 g/dL 13 - 17 g/dL [place] Immature granulocytes (Bld) [#/Vol] 0.00 10*3/uL [facility] [place] Immature granulocytes (Bld) [#/Vol] 0 % 0 [place] Interpretation and review of laboratory results Abnormal [place] Lymphocytes (Bld) [#/Vol] 77.08 10*3/uL [place] Lymphocytes/100 WBC (Bld) 91 % High 24 - 44 % [place] MCH (RBC) [Entitic mass] 30.4 pg 25.2 - 33.5 pg [place] MCHC (RBC) [Mass/Vol] 32.4 g/dL 28.4 - 34.8 g/dL [place] MCV (RBC) [Entitic vol] 94.1 fL 82.6 - 102.9 fL [place] Monocytes (Bld) [#/Vol] 1.69 10*3/uL [place] Monocytes/100 WBC (Bld) 2 % 1 - 7 % M [place] Morphology Ruben (Bld) [Interp] SMUDGE CELLS PRESENT [place] Platelet mean volume (Bld) [Entitic vol] 10.2 fL 8.1 - 13.5 fL [place] Platelets (Bld) [#/Vol] 132 10*3/uL [place] Platelets (Bld) [#/Vol] NOT REPORTED [place] RBC (Bld) [#/Vol] 4.37 10*6/uL 4.21 - 5.7 7 m/uL [place] RBC morphology finding Nom (Bld) NOT REPORTED [place] Segmented neutrophils/100 WBC (Bld) 7 % Low 36 - 66 % [place] Segs Absolute 5.93 [place] WBC (Bld) [#/Vol] 84.7 10*3/uL Critically high [place] WBC (Bld) [#/Vol] 0.0 10*3/uL 0.0 per 10 0 WBC [place] WBC Morphology NOT REPORTED [place] Comprehensive Metabolic Pane rubens 05-10-2020 Albumin [Mass/Vol] 4.3 g/dL 3.5 - 5.2 g/dL [place] Albumin/Globulin [Mass ratio] 1.5 {ratio} [place] ALP [Catalytic activity/Vol] 74 U/L 40 - 129 U/L [place] ALT [Catalytic activity/Vol] 49 U/L High 5 - 41 U/L [place] Anion gap [Moles/Vol] 17 mmol/L 9 - 17 mmol/L [place] AST [Catalytic activity/Vol] 32 U/L <40 [place] Bilirubin Ql (U) 0.35 mg/dL 0.3 - 1.2 mg/dL [place] Bun/Cre Ratio NOT REPORTED [place] Calcium [Mass/Vol] 9.7 mg/dL 8.6 - 10. 4 mg/dL [place] Chloride [Moles/Vol] 100 mmol/L 98 - 10 7 mmol/L [place] CO2 [Moles/Vol] 21 mmol/L 20 - 31 mmol/L [place] Creatinine [Mass/Vol] 0.74 mg/dL 0.7 - 1.2 mg/dL [place] GFR >60 >60 mL/min [place] GFR Non- >60 >60 mL/min [place] GFR/1.73 sq M predicted among non-blacks MDRD (S/P/Bld) [Vol rate/Area] [place] Comment on above: Average GFR for 60-6 9 years old: 85 mL/min/1.73sq m Chronic Kidney Disease: <60 mL/min/1.73sq m Kidney failure: <15 mL/min/1.73sq m eGFR calculated using average adult body mass. Additional eGFR calculator available at: http://www.[employer]/multiple_crcl_2012.htm GFR/1.73 sq M predicted among non-blacks MDRD (S/P/Bld) [Vol rate/Area] NOT REPORTED [place] Glucose [Mass/Vol] 100 mg/dL High 70 - 99 mg/dL [place] Interpretation and review of laboratory results Abnormal [place] Potassium [Moles/Vol] 4.4 mmol/L 3.7 - 5.3 mmol/L [place] Protein [Mass/Vol] 7.2 g/dL 6.4 - 8.3 g/dL [place] Sodium [Moles/Vol] 138 mmol/L 135 - 144 mmol/L [place] Urea nitrogen [Mass/Vol] 20 mg/dL 8 - 23 mg/dL [place] Lactate Dehydrogenaseon 12-0 LD 188 U/L 135 - 225 U/L [place] Comprehensive Metabolic Pane rubens 02-16-2020 Albumin [Mass/Vol] 4.4 g/dL 3.5 - 5.2 g/dL [place] Albumin/Globulin [Mass ratio] 1.6 {ratio} [place] ALP [Catalytic activity/Vol] 74 U/L 40 - 129 U/L [place] ALT [Catalytic activity/Vol] 43 U/L High 5 - 41 U/L [place] Anion gap [Moles/Vol] 11 mmol/L 9 - 17 mmol/L [place] AST [Catalytic activity/Vol] 33 U/L <40 [place] Bilirubin Ql (U) 0.38 mg/dL 0.3 - 1.2 mg/dL [place] Bun/Cre Ratio NOT REPORTED [place] Calcium [Mass/Vol] 9.5 mg/dL 8.6 - 10. 4 mg/dL [place] Chloride [Moles/Vol] 96 mmol/L Low 98 - 10 7 mmol/L [place] CO2 [Moles/Vol] 24 mmol/L 20 - 31 mmol/L [place] Creatinine [Mass/Vol] 0.65 mg/dL Low 0.7 - 1.2 mg/dL [place] GFR >60 >60 mL/min [place] GFR Non- >60 >60 mL/min [place] GFR/1.73 sq M predicted among non-blacks MDRD (S/P/Bld) [Vol rate/Area] [place] Comment on above: Average GFR for 60-6 9 years old: 85 mL/min/1.73sq m Chronic Kidney Disease: <60 mL/min/1.73sq m Kidney failure: <15 mL/min/1.73sq m eGFR calculated using average adult body mass. Additional eGFR calculator available at: http://www.365looks ([employer]me)/multiple_crcl_2012.htm GFR/1.73 sq M predicted among non-blacks MDRD (S/P/Bld) [Vol rate/Area] NOT REPORTED [place] Glucose [Mass/Vol] 93 mg/dL 70 - 99 mg/dL [place] Interpretation and review of laboratory results Abnormal [place] Potassium [Moles/Vol] 4.5 mmol/L 3.7 - 5.3 mmol/L [place] Protein [Mass/Vol] 7.1 g/dL 6.4 - 8.3 g/dL [place] Sodium [Moles/Vol] 131 mmol/L Low 135 - 144 mmol/L [place] Urea nitrogen [Mass/Vol] 18 mg/dL 8 - 23 mg/dL [place] Lactate Dehydrogenaseon 02-01 LD 164 U/L 135 - 225 U/L [place] Comprehensive Metabolic Pane rubens 11-09-2019 Albumin [Mass/Vol] 4.5 g/dL 3.5 - 5.2 g/dL [place] Albumin/Globulin [Mass ratio] 1.6 {ratio} [place] ALP [Catalytic activity/Vol] 80 U/L 40 - 129 U/L [place] ALT [Catalytic activity/Vol] 55 U/L High 5 - 41 U/L [place] Anion gap [Moles/Vol] 18 mmol/L High 9 - 17 mmol/L [place] AST [Catalytic activity/Vol] 47 U/L High <40 [place] Bilirubin Ql (U) 0.55 mg/dL 0.3 - 1.2 mg/dL [place] Bun/Cre Ratio NOT REPORTED [place] Calcium [Mass/Vol] 9.9 mg/dL 8.6 - 10. 4 mg/dL [place] Chloride [Moles/Vol] 98 mmol/L 98 - 10 7 mmol/L [place] CO2 [Moles/Vol] 19 mmol/L Low 20 - 31 mmol/L [place] Creatinine [Mass/Vol] 0.68 mg/dL Low 0.7 - 1.2 mg/dL [place] GFR >60 >60 mL/min [place] GFR Non- >60 >60 mL/min [place] GFR/1.73 sq M predicted among non-blacks MDRD (S/P/Bld) [Vol rate/Area] [place] Comment on above: Average GFR for 60-6 9 years old: 85 mL/min/1.73sq m Chronic Kidney Disease: <60 mL/min/1.73sq m Kidney failure: <15 mL/min/1.73sq m eGFR calculated using average adult body mass. Additional eGFR calculator available at: http://www.365looks ([employer].me)/multiple_crcl_2012.htm GFR/1.73 sq M predicted among non-blacks MDRD (S/P/Bld) [Vol rate/Area] NOT REPORTED [place] Glucose [Mass/Vol] 72 mg/dL 70 - 99 mg/dL [place] Interpretation and review of laboratory results Abnormal [place] Potassium [Moles/Vol] 4.4 mmol/L 3.7 - 5.3 mmol/L [place] Protein [Mass/Vol] 7.3 g/dL 6.4 - 8.3 g/dL [place] Sodium [Moles/Vol] 135 mmol/L 135 - 144 mmol/L [place] Urea nitrogen [Mass/Vol] 13 mg/dL 8 - 23 mg/dL [place] Lactate Dehydrogenaseon LD 214 U/L 135 - 225 U/L [place] CBC With Auto Differentialon 08-07-2019 Basophils (Bld) [#/Vol] 0.00 10*3/uL [place] Basophils/100 WBC (Bld) 0 % 0 - 2 % [place] Differential Type NOT REPORTED [place] Eosinophils (Bld) [#/Vol] 0.00 10*3/uL [place] Eosinophils/100 WBC (Bld) 0 % Low 1 - 4 % [place] Erythrocyte distribution width (RBC) [Ratio] 16.8 % High 11.8 - 14.4 % [place] Hematocrit (Bld) [Volume fraction] 42.8 % 40.7 - 50.3 % [place] Hemoglobin (Bld) [Mass/Vol] 13.2 g/dL 13 - 17 g/dL [place] Immature granulocytes (Bld) [#/Vol] 0.00 10*3/uL [place] Immature granulocytes (Bld) [#/Vol] 0 % 0 [place] Interpretation and review of laboratory results Abnormal [place] Lymphocytes (Bld) [#/Vol] 72.49 10*3/uL [place] Lymphocytes/100 WBC (Bld) 86 % High 24 - 44 % [place] MCH (RBC) [Entitic mass] 29.4 pg 25.2 - 33.5 pg [place] MCHC (RBC) [Mass/Vol] 30.8 g/dL 28.4 - 34.8 g/dL [place] MCV (RBC) [Entitic vol] 95.3 fL 82.6 - 102.9 fL [place] Monocytes (Bld) [#/Vol] 1.69 10*3/uL [place] Monocytes/100 WBC (Bld) 2 % 1 - 7 % [place] Morphology Ruben (Bld) [Interp] SMUDGE CELLS PRESENT [place] Morphology Ruben (Bld) [Interp] ANISOCYTOSIS PRESENT [place] Platelet mean volume (Bld) [Entitic vol] 10.0 fL 8.1 - 13.5 fL [place] Platelets (Bld) [#/Vol] 138 10*3/uL [place] Platelets (Bld) [#/Vol] NOT REPORTED [place] RBC (Bld) [#/Vol] 4.49 10*6/uL 4.21 - 5.7 7 m/uL [place] RBC morphology finding Nom (Bld) NOT REPORTED [place] Segmented neutrophils/100 WBC (Bld) 12 % Low 36 - 66 % [place] Segs Absolute 10.12 [place] WBC (Bld) [#/Vol] 0.0 10*3/uL 0.0 per 10 0 WBC [place] WBC (Bld) [#/Vol] 84.3 10*3/uL Critically high [place] WBC Morphology NOT REPORTED [place] Comprehensive Metabolic Pane rubens 08-07-2019 Albumin [Mass/Vol] 4.2 g/dL 3.5 - 5.2 g/dL [place] Albumin/Globulin [Mass ratio] 1.5 {ratio} [place] ALP [Catalytic activity/Vol] 91 U/L 40 - 129 U/L [place] ALT [Catalytic activity/Vol] 35 U/L 5 - 41 U/L [place] Anion gap [Moles/Vol] 14 mmol/L 9 - 17 mmol/L [place] AST [Catalytic activity/Vol] 26 U/L <40 [place] Bilirubin Ql (U) 0.44 mg/dL 0.3 - 1.2 mg/dL [place] Bun/Cre Ratio NOT REPORTED [place] Calcium [Mass/Vol] 9.3 mg/dL 8.6 - 10. 4 mg/dL [place] Chloride [Moles/Vol] 102 mmol/L 98 - 10 7 mmol/L [place] CO2 [Moles/Vol] 24 mmol/L 20 - 31 mmol/L [place] Creatinine [Mass/Vol] 0.65 mg/dL Low 0.7 - 1.2 mg/dL [place] GFR >60 >60 mL/min [place] GFR Non- >60 >60 mL/min [place] GFR/1.73 sq M predicted among non-blacks MDRD (S/P/Bld) [Vol rate/Area] [place] Comment on above: Average GFR for 60-6 9 years old: 85 mL/min/1.73sq m Chronic Kidney Disease: <60 mL/min/1.73sq m Kidney failure: <15 mL/min/1.73sq m eGFR calculated using average adult body mass. Additional eGFR calculator available at: http://www.365looks (Co[employer].me)/multiple_crcl_2012.htm GFR/1.73 sq M predicted among non-blacks MDRD (S/P/Bld) [Vol rate/Area] NOT REPORTED [place] Glucose [Mass/Vol] 91 mg/dL 70 - 99 mg/dL [place] Interpretation and review of laboratory results Abnormal [place] Potassium [Moles/Vol] 4.4 mmol/L 3.7 - 5.3 mmol/L [place] Protein [Mass/Vol] 7.0 g/dL 6.4 - 8.3 g/dL [place] Sodium [Moles/Vol] 140 mmol/L 135 - 144 mmol/L [place] Urea nitrogen [Mass/Vol] 10 mg/dL 8 - 23 mg/dL [place] Lactate Dehydrogenaseon 03-0 -2019 LD 156 U/L 135 - 225 U/L [place] CHEST ABDOMEN PELVIS W CO NTRASTOrdered By: Leah Sam on 05-20-2019 EXAMINATION: CT OF T HE CHEST, ABDOMEN, AND PELVIS WITH CONTRAST 05/20/2019 9:49 am TECHNIQUE: CT of the chest, abdomen and pelvis was performed with the administration of intravenous contrast. Multiplanar reformatted images are provided for review. Dose modulation, iterative reconstruction, and/or weight based adjustment of the mA/kV was utilized to reduce the radiation dose to as low as reasonably achievable. COMPARISON: December 22, 2013 HISTORY: ORDERING SYSTEM PROVIDED HISTORY: Marginal zone lymphoma of spleen (HCC) TECHNOLOGIST PROVIDED HISTORY: lymphoma, rising WBC, possible progression Reason for Exam: marginal zone lymphoma of spleen; rising wbc; possible progression Acuity: Unknown Type of Exam: Subsequent/Follow-up Additional signs and symptoms: pt has no current complaints Relevant Medical/Surgical History: hx hbp, no surgery to area of interest FINDINGS: Chest: Mediastinum: The heart and great vessels are normal in size. Calcified atheromatous plaque and coronary calcifications are noted. No pericardial effusion. No enlarged or suspicious-appearing lymph nodes are identified. Lungs/pleura: Mild respiratory motion artifact is noted. Minimal subpleural emphysematous changes in the lung apices. Subsegmental atelectasis or scarring in the inferior lingula and left lung base. No acute airspace disease identified. No effusion. Soft Tissues/Bones: Mild anterior vertebral body height loss of C7 and T1 are again noted, however these appear more prominent since 2013. Scattered areas of lucency within the thoracic spine, notably at T8 and T10, appear unchanged and are of uncertain significance. Abdomen/Pelvis: Organs: Benign calcification in the dome of the liver. No suspicious liver lesion identified. The gallbladder and biliary tree appear unremarkable. The pancreas, adrenals and kidneys reveal no significant findings. Splenomegaly is noted measuring 21 cm (previously 16 cm). An adjacent splenule along the inferior margin of the spleen is again noted measuring up to 2.4 cm, previously 1.6 cm. No focal splenic lesion identified. GI/Bowel: There is no bowel dilatation or wall thickening identified. Pelvis: No acute findings. Prostatomegaly with enlargement of the median lobe. Peritoneum/Retroperito neum: No free air or free fluid. The aorta is normal in caliber. The visceral branches are patent. Calcified atheromatous plaque is present. No lymphadenopathy. Bones/Soft Tissues: Multilevel moderately severe disc disease. Degenerative endplate changes involving L4 are noted. Advanced facet arthropathy in the lower lumbar spine. Subchondral cyst formation is noted about the left femoral head neck junction and there is moderate joint space narrowing in the hips. Transitional anatomy at the lumbosacral junction. [employer] Phone: Scotty, [employer] Incoming Radiant Results From [employer] [facility] - 05/20/2019 10:28 AM EST EXAMINATION: CT OF THE CHEST, ABDOMEN, AND PELVIS WITH CONTRAST 05/20/2019 9:49 am TECHNIQUE: CT of the chest, abdomen and pelvis was performed with the administration of intravenous contrast. Multiplanar reformatted images are provided for review. Dose modulation, iterative reconstruction, and/or weight based adjustment of the mA/kV was utilized to reduce the radiation dose to as low as reasonably achievable. COMPARISON: December 22, 2013 HISTORY: ORDERING SYSTEM PROVIDED HISTORY: Marginal zone lymphoma of spleen (HCC) TECHNOLOGIST PROVIDED HISTORY: lymphoma, rising WBC, possible progression Reason for Exam: marginal zone lymphoma of spleen; rising wbc; possible progression Acuity: Unknown Type of Exam: Subsequent/Follow-up Additional signs and symptoms: pt has no current complaints Relevant Medical/Surgical History: hx hbp, no surgery to area of interest FINDINGS: Chest: Mediastinum: The heart and great vessels are normal in size. Calcified atheromatous plaque and coronary calcifications are noted. No pericardial effusion. No enlarged or suspicious-appearing lymph nodes are identified. Lungs/pleura: Mild respiratory motion artifact is noted. Minimal subpleural emphysematous changes in the lung apices. Subsegmental atelectasis or scarring in the inferior lingula and left lung base. No acute airspace disease identified. No effusion. Soft Tissues/Bones: Mild anterior vertebral body height loss of C7 and T1 are again noted, however these appear more prominent since 2013. Scattered areas of lucency within the thoracic spine, notably at T8 and T10, appear unchanged and are of uncertain significance. Abdomen/Pelvis: Organs: Benign calcification in the dome of the liver. No suspicious liver lesion identified. The gallbladder and biliary tree appear unremarkable. The pancreas, adrenals and kidneys reveal no significant findings. Splenomegaly is noted measuring 21 cm (previously 16 cm). An adjacent splenule along the inferior margin of the spleen is again noted measuring up to 2.4 cm, previously 1.6 cm. No focal splenic lesion identified. GI/Bowel: There is no bowel dilatation or wall thickening identified. Pelvis: No acute findings. Prostatomegaly with enlargement of the median lobe. Peritoneum/Retroperito neum: No free air or free fluid. The aorta is normal in caliber. The visceral branches are patent. Calcified atheromatous plaque is present. No lymphadenopathy. Bones/Soft Tissues: Multilevel moderately severe disc disease. Degenerative endplate changes involving L4 are noted. Advanced facet arthropathy in the lower lumbar spine. Subchondral cyst formation is noted about the left femoral head neck junction and there is moderate joint space narrowing in the hips. Transitional anatomy at the lumbosacral junction. IMPRESSION: 1. Splenomegaly has progressed since the 2014 exam, now measuring 21 cm (previously 16 cm). No enlarged or suspicious-appearing lymph nodes identified in the chest, abdomen or pelvis. 2. Lucent areas in the T8 and T10 vertebral bodies are stable and are of uncertain significance. Attention to on follow-up is recommended. [employer] Work Phone: CBC With Auto Differentialon 05-07-2019 Basophils (Bld) [#/Vol] 0.74 10*3/uL [place] Basophils/100 WBC (Bld) 1 % 0 - 2 % [place] Differential Type NOT REPORTED [place] Eosinophils (Bld) [#/Vol] 0.00 10*3/uL [place] Eosinophils/100 WBC (Bld) 0 % Low 1 - 4 % [place] Erythrocyte distribution width (RBC) [Ratio] 14.2 % 11.8 - 14.4 % [place] Hematocrit (Bld) [Volume fraction] 40.3 % Low 40.7 - 50.3 % [place] Hemoglobin (Bld) [Mass/Vol] 13.0 g/dL 13 - 17 g/dL [place] Immature granulocytes (Bld) [#/Vol] 0.00 10*3/uL [place] Immature granulocytes (Bld) [#/Vol] 0 % 0 [place] Interpretation and review of laboratory results Abnormal [place] Lymphocytes (Bld) [#/Vol] 64.29 10*3/uL [place] Comment on above: R/O Chronic Lymphopr oliferative Disorder, recommend peripheral blood Flow Cytometry, if clinically indicated. Lymphocytes/100 WBC (Bld) 87 % High 24 - 44 % [place] MCH (RBC) [Entitic mass] 30.2 pg 25.2 - 33.5 pg [place] MCHC (RBC) [Mass/Vol] 32.3 g/dL 28.4 - 34.8 g/dL [place] MCV (RBC) [Entitic vol] 93.7 fL 82.6 - 102.9 fL [place] Monocytes (Bld) [#/Vol] 3.70 10*3/uL [place] Monocytes/100 WBC (Bld) 5 % 1 - 7 % [place] Morphology Ruben (Bld) [Interp] SMUDGE CELLS PRESENT [place] Nucleated RBC/100 WBC (Bld) [Ratio] 1 % High 0 per 100 WBC [place] Platelet mean volume (Bld) [Entitic vol] 10.3 fL 8.1 - 13.5 fL [place] Platelets (Bld) [#/Vol] 171 10*3/uL [place] Platelets (Bld) [#/Vol] NOT REPORTED [place] RBC (Bld) [#/Vol] 4.30 10*6/uL 4.21 - 5.7 7 m/uL [place] RBC morphology finding Nom (Bld) NOT REPORTED [place] Segmented neutrophils/100 WBC (Bld) 7 % Low 36 - 66 % [place] Segs Absolute 5.17 [place] WBC (Bld) [#/Vol] 73.9 10*3/uL Critically high [place] WBC (Bld) [#/Vol] 0.1 10*3/uL High 0.0 per 10 0 WBC [place] WBC Morphology NOT REPORTED [place] Comprehensive Metabolic Pane rubens 05-07-2019 Albumin [Mass/Vol] 4.3 g/dL 3.5 - 5.2 g/dL [place] Albumin/Globulin [Mass ratio] 1.5 {ratio} [place] ALP [Catalytic activity/Vol] 85 U/L 40 - 129 U/L [place] ALT [Catalytic activity/Vol] 37 U/L 5 - 41 U/L [place] Anion gap [Moles/Vol] 13 mmol/L 9 - 17 mmol/L [place] AST [Catalytic activity/Vol] 25 U/L <40 [place] Bilirubin Ql (U) 0.37 mg/dL 0.3 - 1.2 mg/dL [place] Bun/Cre Ratio NOT REPORTED [place] Calcium [Mass/Vol] 9.3 mg/dL 8.6 - 10. 4 mg/dL [place] Chloride [Moles/Vol] 101 mmol/L 98 - 10 7 mmol/L [place] CO2 [Moles/Vol] 24 mmol/L 20 - 31 mmol/L [place] Creatinine [Mass/Vol] 0.67 mg/dL Low 0.7 - 1.2 mg/dL [place] GFR >60 >60 mL/min [place] GFR Non- >60 >60 mL/min [place] GFR/1.73 sq M predicted among non-blacks MDRD (S/P/Bld) [Vol rate/Area] [place] Comment on above: Average GFR for 60-6 9 years old: 85 mL/min/1.73sq m Chronic Kidney Disease: <60 mL/min/1.73sq m Kidney failure: <15 mL/min/1.73sq m eGFR calculated using average adult body mass. Additional eGFR calculator available at: http://www.365looks [email or web address].me)/multiple_crcl_2012.htm GFR/1.73 sq M predicted among non-blacks MDRD (S/P/Bld) [Vol rate/Area] NOT REPORTED [place] Glucose [Mass/Vol] 97 mg/dL 70 - 99 mg/dL [place] Interpretation and review of laboratory results Abnormal [place] Potassium [Moles/Vol] 4.3 mmol/L 3.7 - 5.3 mmol/L [place] Protein [Mass/Vol] 7.2 g/dL 6.4 - 8.3 g/dL [place] Sodium [Moles/Vol] 138 mmol/L 135 - 144 mmol/L [place] Urea nitrogen [Mass/Vol] 11 mg/dL 8 - 23 mg/dL [place] Lactate Dehydrogenaseon 12-0 LD 177 U/L 135 - 225 U/L [place] Encounters Encounter Date Encounter Type Care Provider Facility Start: 03-05-2024 ambulatory Hollis M Blunt Facility:[facility] Start: 02-27-2024 ambulatory Hollis M Blunt Facility:[facility] Start: 02-18-2024 End: 02-18-2024 ambulatory Terrell Coronado [facility] Work Phone: Start: 02-18-2024 End: 02-18-2024 Departed Referred [employer] Terrell Coronado Work Phone: [facility] Start: 02-17-2024 End: 02-17-2024 ambulatory [facility] Start: 12-17-2023 End: 12-17-2023 ambulatory [facility] Start: 11-25-2023 End: 11-25-2023 ambulatory Hollis M Blunt Facility:[facility] Start: 11-21-2023 End: 11-21-2023 ambulatory Hollis M Blunt Facility: [facility] Start: 11-06-2023 End: 11-06-2023 ambulatory Hollis M Blunt Facility: [facility] Start: 08-20-2023 End: 08-20-2023 [facility]ulatory [facility] Start: 06-05-2023 End: 06-05-2023 ambulatory Hollis M Blunt Facility: [facility] Start: 05-21-2023 End: 05-21-2023 ambulatory [facility] Start: 03-20-2023 End: 03-20-2023 ambulatory [facility] Start: 03-07-2023 End: 03-07-2023 ambulatory Hollis M Blunt Facility: [facility] Start: 02-19-2023 End: 02-19-2023 [facility]ulatory [facility] Start: 02-19-2023 End: 02-19-2023 Subsequent hospital visit by physician Hollis Barnett Work Phone: [facility] Comment on above: Lymphocytosis; Marginal zone lymphoma of spleen (HCC) Start: 02-05-2023 End: 02-05-2023 ambulatory HASMUKH STILL [facility] Start: 11-13-2022 End: 11-13-2022 Subsequent hospital visit by physician Holils Barnett Work Phone: [facility] Comment on above: Lymphocytosis; Marginal zone lymphoma of spleen (HCC); Essential hypertension Start: 08-16-2022 End: 08-16-2022 Subsequent hospital visit by physician Hollis Barnett Work Phone: [facility] Comment on above: Marginal zone lympho ma of spleen (HCC) [C83.07 (ICD-10-CM)] Start: 10-17-2021 End: 10-17-2021 Subsequent hospital visit by physician Hollis Barnett Work Phone: [facility] Comment on above: Marginal zone lympho ma of spleen (HCC) Start: 12-08-2020 End: 12-08-2020 Subsequent hospital visit by physician Hollis Barnett Work Phone: [facility] Comment on above: Lymphocytosis; Marginal zone lymphoma of spleen (HCC) Start: 11-25-2020 End: 11-28-2020 ambulatory SEEMAJENSSelma Chalo RUFFINGERALDO [facility] Start: 08-08-2020 End: 08-08-2020 Subsequent hospital visit by physician Hollis DENIS [facility] Comment on above: Lymphocytosis; Marginal zone lymphoma of spleen (HCC) Start: 05-10-2020 End: 05-10-2020 Subsequent hospital visit by physician Hollis DENIS [facility] Comment on above: Lymphocytosis; Marginal zone lymphoma of spleen (HCC) Start: 02-16-2020 End: 02-16-2020 Subsequent hospital visit by physician Hollis TY [facility] Comment on above: Marginal zone lympho ma of spleen (HCC) Start: 11-09-2019 End: 11-09-2019 Subsequent hospital visit by physician Hollis DENIS [facility] Comment on above: Marginal zone lympho ma of spleen (HCC) Start: 08-07-2019 End: 08-07-2019 Subsequent hospital visit by physician Hollis DENIS [facility] Comment on above: Marginal zone lympho ma of spleen (HCC) Start: 05-20-2019 End: 05-22-2019 Subsequent hospital visit by physician 1 [place] [facility] CT Scan Comment on above: Marginal zone lympho ma of spleen (HCC); Lymphocytosis Start: 05-07-2019 End: 05-07-2019 Subsequent hospital visit by physician Hollis DENIS [facility] Comment on above: Marginal zone lympho ma of spleen (HCC) Procedures Date Procedure Procedure Detail Performing Clinician Start: 02-19-2023 Comprehensive metabo lic panel Leah Sam MD Work Phone: Start: 11-13-2022 Comprehensive metabo lic panel Leah Sam MD Work Phone: Start: 08-16-2022 Comprehensive metabo lic panel Leah Sam MD Work Phone: Start: 10-17-2021 Comprehensive metabo lic panel Leah Sam MD Work Phone: Start: 12-08-2020 Comprehensive metabo lic panel Leah Sam MD Work Phone: Start: 08-08-2020 Blood count complete auto&auto difrntl wbc Leah Sam Work Phone: Start: 08-08-2020 Comprehensive metabo lic panel Leah Sam Work Phone: Start: 08-08-2020 Lactate dehydrogenase ldh Leah Sam Work Phone: Start: 05-10-2020 Blood count complete auto&auto difrntl wbc Leah Sam Work Phone: Start: 05-10-2020 Comprehensive metabo lic panel Mohammad A Al-Nsour Work Phone: Start: 05-10-2020 Lactate dehydrogenase ldh Seemaammad A Al-Nsour Work Phone: Start: 02-16-2020 Blood count complete auto&auto difrntl wbc Vald Chalo Al-Nsour Work Phone: Start: 02-16-2020 Comprehensive metabo lic panel Seemaammad A Al-Nsour Work Phone: Start: 02-16-2020 Lactate dehydrogenase ldh Vald A Al-Nsour Work Phone: Start: 11-09-2019 Blood count complete auto&auto difrntl wbc Vald Chalo Al-Nssam Work Phone: Start: 11-09-2019 Comprehensive metabo lic panel Seemaammad A Al-Nsour Work Phone: Start: 11-09-2019 Lactate dehydrogenase ldh Vald A Al-Nsour Work Phone: Start: 08-07-2019 Blood count complete auto&auto difrntl wbc Vald Chalo Al-Nsour Work Phone: Start: 08-07-2019 Comprehensive metabo lic panel Seemaammad Chalo Al-Nsour Work Phone: Start: 08-07-2019 Lactate dehydrogenase ldh Vald A Al-Nsour Work Phone: Start: 05-20-2019 Ct thorax w/contrast material Leah Sam MD Work Phone: Start: 05-07-2019 Blood count complete auto&auto difrntl wbc Vald Chalo Al-Nssam Work Phone: Start: 05-07-2019 Comprehensive metabo lic panel Vald Chalo Al-Nssam Work Phone: Start: 05-07-2019 Lactate dehydrogenase ldh Vald A Al-Nssam Work Phone: Plan of Treatment Date Care Activity Detail Author Start: 10-18-2032 DTaP/Tdap/Td vaccine (2 - Td or Tdap) DTaP/Tdap/Td vaccine (2 - Td or Tdap) SHEFALI [facility] Start: 05-21-2023 End: 05-21-2023 Patient encounter procedure 05/21/2023 11:00 AM EST Office Visit [facility] [address] [place] [address] Leah Sam MD [address] [place] [address] draw cbc, cmp, ldh [facility] Comment on above: draw cbc, cmp, ldh Start: 02-19-2023 End: 02-19-2023 Patient encounter procedure 02/19/2023 Office Visit Oncology Leah Sam [facility] [address] [facility] [address] [facility] Start: 01-01-2023 Influenza vaccination B ON [facility] Start: 11-13-2022 End: 11-13-2022 Patient encounter procedure 11/13/2022 Office Visit Oncology Leah Sam MD [address] [place] [address] [facility] Start: 02-01-2022 Influenza vaccination Flu vacc ine (Season Ended) [facility] Start: 01-09-2022 End: 01-09-2022 Patient encounter procedure 01/09/2022 Office Visit Oncology Leah Sam MD [address] [facility] [place] [address] [facility] Start: 01-01-2022 Influenza vaccination Flu vaccine (# 1) [facility] Start: 12-08-2021 Creatinine measurement Creatinine mo [facility] [employer] Work Phone: Start: 12-08-2021 Potassium monitoring Potassium monit [facility] Work Phone: Start: 08-08-2021 Creatinine measurement Creatinine mo [facility] [employer] Phone: Start: 08-08-2021 Potassium [email or web address] Start: 06-12-2021 COVID-19 Vaccine (4 - Moderna risk series) COVID-19 Vaccine (4 - Moderna risk series) [facility] Start: 04-06-2021 End: 04-06-2021 Patient encounter procedure 04/06/2021 Office Visit Oncology Leah Sam MD [address] [facility] [place], [place] [id number] [facility] Start: 04-03-2021 Annual Wellness Visi t (AWV) Annual Wellness Visit (AWV) [facility] [employer] Start: 02-15-2021 Creatinine measurement Creatinine mo [facility] [place] Start: 02-15-2021 Potassium monitoring Potassium monit [facility] [place] Start: 02-01-2021 Influenza vaccination Flu vaccine (# 1) [facility] [employer] Phone: Start: 11-08-2020 Creatinine measurement Creatinine mo [facility] [place] Start: 11-08-2020 Potassium monitoring Potassium monit [facility] [place] Start: 08-16-2020 End: 08-16-2020 Office Visit 08/16/2020 Office Visit Oncology Leah Sam MD [address] [place], [place] [id number] [facility] Start: 08-06-2020 Creatinine measurement Creatinine mo [facility] [place] Start: 08-06-2020 Potassium monitoring Potassium monit [facility] [place] Start: 05-07-2020 Creatinine [facility] [employer] Phone: Start: 05-07-2020 Potassium monitoring [facility] monit [email or web address] Start: 02-23-2020 End: 02-23-2020 Office Visit 02/23/2020 Office Visit Oncology Leah Sam MD [address] [place], [place] [id number] [facility] Start: 02-02-2020 Influenza vaccination [place] Start: 11-19-2019 End: 11-19-2019 Office Visit 11/19/2019 Office Visit Oncology Leah Sam MD [address] [place] [address] [facility] Start: 08-22-2019 Creatinine monitoring Creatinine mon [place] Start: 08-22-2019 Potassium monitoring Potassium monit [place] Start: 08-13-2019 End: 08-13-2019 Office Visit [facility] Start: 05-13-2019 End: 05-13-2019 Office Visit 05/13/2019 Office Visit Oncology Leah Sam MD [address] [address] [phone] [facility] Start: 02-01-2019 Influenza vaccination Flu vaccine (# 1) [place] Start: 2008 Colon cancer screen colonoscopy Colon cancer screen colonoscopy [place] Start: 2008 Screening for malign ant neoplasm of colon Colon cancer screen colonoscopy [place] Start: 2008 Shingles Vaccine (1 of 2) Shingles Vaccine (1 of 2) [facility] Start: 2003 Screening for malign ant neoplasm of colon [facility] Start: 1998 Diabetes screen Diabetes screen [place], [place] Start: 1998 Lipid panel Lipid screen [place] Start: 1998 Lipid screen Lipid [place] Start: 1977 DTaP/Tdap/Td vaccine (1 - Tdap) DTaP/Tdap/Td vaccine (1 - Tdap) [facility] Start: 1977 Shingles vaccine (1 of 2) Shingles vaccine (1 of 2) [facility] Start: 1976 Hepatitis C screening Hepatitis C sc reen [facility] Start: 1974 COVID-19 Vaccine (1 of 2) COVID-19 Vaccine (1 of 2) [facility] Work Phone: Start: 1973 HIV screen HIV screen [place] Start: 1973 HIV screening HIV screen [facility] Start: 1970 COVID-19 Vaccine (1) COVID-19 Vaccin e (1) [facility] Start: 1970 Depression Screen Depression Screen [facility] Start: 1969 DTaP/Tdap/Td vaccine (1 - Tdap) DTaP/Tdap/Td vaccine (1 - Tdap) [place] Start: 1968 Lipid panel [facility] Start: 1964 Pneumococcal 0-64 ye ars Vaccine (1 - PCV) Pneumococcal 0-64 years Vaccine (1 - PCV) [facility] Start: 1964 Pneumococcal 0-64 ye ars Vaccine (1 of 3 - PCV13) Pneumococcal 0-64 years Vaccine (1 of 3 - PCV13) [place] Start: 1964 Pneumococcal 0-64 ye ars Vaccine (1 of 4 - PCV13) Pneumococcal 0-64 years Vaccine (1 of 4 - PCV13) [facility] Work Phone: Start: 1958 COVID-19 Vaccine (#1) COVID-19 Vacci ne (#1) [facility] Start: 1958 Annual Wellness Visi t (AWV) Annual Wellness Visit (AWV) [facility] Start: 1958 Hepatitis C screen Hepatitis C scree n [place] Start: 1958 Hepatitis C screening Hepatitis C sc reen [place] CBC With Auto Differential [place] Payers Date Payer Category Payer Self-pay 2021 Unknown [id number] 2020 Unknown [id number] 2014 Private Health Insurance [employer] Chalo ETNA xxxxxxxxxx 2014-Present [phone] [address] [place] [address] xxxxxxxxxx [id number] 2014 Private Health Insurance [employer] Chalo ETNA [id number] 2014-Present [phone] [address] [place] [address] [id number] 1958 Unknown [id number] 1958 Unknown [id number] 1958 Unknown [id number] 1958 Unknown [id number] 1958 Unknown [id number] .175 1958 Unknown [id number] .175 1958 Unknown [id number] .175 1958 Unknown [id number] 1958 Unknown [id number] .718 1958 Unknown [id number] .718 1958 Unknown [id number] .718 1958 Unknown [id number] .718 1958 Unknown [id number] .718 1958 Unknown [id number] Social History Date Type Detail Facility Start: 09-03-2018 End: 11-13-2022 Tobacco smoking status NHIS Former smoker [employer] Start: 09-03-2018 End: 02-19-2023 Cigarettes smoked current (pack per day) - Reported [facility] Start: 09-03-2018 End: 02-19-2023 Alcohol intake Not Asked [facility] Start: 1960 Sex Assigned At Not on file [facility] Start: 11-19-2019 End: 11-13-2022 Tobacco use and exposure Never used [employer] History of tobacco use Current smoker [facility] [employer] Work Phone: History of tobacco use Cigarette Smoker [facility] [employer] Work Phone: Start: 02-19-2023 Tobacco use panel [facility] [id number] Start: 1960 Sex Assigned At Male [facility] Clinical Notes 05-20-2019 to 02-17-2024 Note Date & Type Note Facility 02-17-2024 Note [id number] at leas t 3- Age, HTN, CHF Per EKG today he remains in A-fib, rate controlled heart rate 86 bpm Continue Eliquis anticoagulation, he denies any bleeding tendencies He remains on metoprolol 100 mg twice daily and remains rate controlled. [facility] 02-17-2024 Note Significant shortnes s of breath with exertion and occasionally with rest worsening over the last month will order echocardiogram and again will order stress test to obtain cardiac function and perfusion along with valvular function. Discussed with patient my concerns of acute heart failure along with being in current A-fib although rate controlled he may have decreased LV function, he voiced understanding [facility] 02-17-2024 Note Hypertension is well -controlled 135/86 continue all current meds. [facility] 02-17-2024 Note Continue statin Lipi tor 20 mg daily Liver function stable Lipids stable [facility] 02-17-2024 Note [facility] III-patient is fluid overloaded per assessment, 3+ edema bilateral lower extremities, diminished lung sounds, # weight is up almost 30 pounds, and activity limiting shortness of breath. Continue GDMT-will resume Lasix 40 mg p.o. twice daily for the next 3 days and then continue Lasix 40 mg daily thereafter along with potassium 20 mg daily. Will send patient for labs and chest x-ray today including CBC, CMP, BNP, thyroid function. At next visit he might benefit from a SGLT2 inhibitor and Aldactone if renal function remained stable Extended discussion with patient and regarding daily weights and to call office if he gains 2 pounds in 1 day or 5 pounds over a week this is significant water retention. Continue fluid restriction of 1-1/2 to 2 L/day no more and low-sodium diet Monitor daily weights, I&O, fluid restriction 1.5-2L/day, renal function and electrolytes- please maintain K+>4 and Mg > 2 [facility] 02-17-2024 Note [facility] CARDIOLOGY PROGR ESS NOTE HPI: Cristian Hernandez Jr. is a 63 y.o. male here for routine F/U HPI 63 yo male presents today for routine F/U Patient reports increased shortness of breath with exertion and occasionally at rest and with ADLs and has worsened over the last month. States within the last month he has developed productive cough, increased fatigue, shortness of breath that has limited his normal activities. Denies chest pain, lightheadedness, dizziness, syncope. Of note his PCP had stopped his Lasix and told him he could take it as needed and he states he has not needed it. Patient's weight is up almost 30 pounds since last March. Denies any recent hospitalizations. He did have some labs drawn at [facility] next November for his PCP Denies any palpitations, fast heart rates or bleeding tendencies. Stress test ordered per Selma Lopez was not completed after last visit Pt denies chest pain, palpatations, dizziness Review of Systems Respiratory: Positive for shortness of breath (for 3-4 weeks) Previous HPI per Selma Lopez [employer] A-fib 03/20/23: Patient for follow-up s/p cardioversion he was post start amiodarone with cardioversion and never did the cardioversion was done without medication and he converted to sinus rhythm discussed with patient starting amiodarone elevated in sinus rhythm we discussed long-term monitoring as he did not seem open to the idea of an ablation as he stated he did not need he opted not start amiodarone for long-term monitoring I discussed him doing stress testing to rule out ischemia and see if we can start a class Ic antiarrhythmic ECG 03/20/2023 sinus rhythm 02/07/2023 sinus rhythm 11/16/[address] still HPI: Cristian Hernandez Jr. is a 62 y.o. year old with past medical history of A-fib, recent cellulitis, hypertension. He was recently fishing he was bit by a catfish and then developed cellulitis. During his admission there was concern for sepsis and he was started on IV antibiotics per infectious disease and later developed A-fib RVR ECG today is A-fib with mild RVR Which settled after EKG as he has to get up to table to have EKG done. He is completely asymptomatic at this time continues to take Eliquis 5 mg twice daily and metoprolol 100 mg twice daily. was only recently started on anticoagulation and it has not been 2 weeks. While admitted she had questionable TIA symptoms but had an MRI done which ruled out stroke Visit Vitals BP 135/86 (BP Location: Left arm, Patient Position: Sitting) Pulse 73 Ht 1.905 m (6' 3 ) Wt (!) 154 kg (339 lb) SpO2 (!) 87% BMI 42.37 kg/m??? Smoking Status Former BSA 2.85 m??? Allergies Allergen Reactions Penicillins Unknown Medications: Current Outpatient Medications on File Prior to Visit Medication Sig Dispense Refill amLODIPine (Norvasc) 10 mg tablet Take 1 tablet (10 mg) by mouth in the morning. Do not start before October 23, 2022. 30 tablet 0 apixaban (Eliquis) 5 mg tablet Take 1 tablet (5 mg) by mouth in the morning and at bedtime. 60 tablet 0 atorvastatin (Lipitor) 20 mg tablet Take 20 mg by mouth in the morning. diclofenac (Voltaren) 50 mg EC tablet Take 50 mg by mouth in the morning and at bedtime. Do not crush, chew, or split. lisinopril 20 mg tablet Take 1 tablet (20 mg) by mouth in the morning. 30 tablet 0 metoprolol tartrate (Lopressor) 100 mg tablet Take 1 tablet (100 mg) by mouth in the morning and at bedtime. 60 tablet 0 omeprazole (PriLOSEC) [address] capsule Take 20 mg by mouth before breakfast. Do not crush or chew. [DISCONTINUED] furosemide (Lasix) 40 mg tablet TAKE 1 TABLET BY MOUTH EVERY DAY IN THE MORNING 90 tablet 3 ascorbic acid (Vitamin C) 500 mg chewable tablet Chew 2 tablets in the morning. cyanocobalamin (Vitamin B-12) 100 mcg tablet Take 1 tablet by mouth in the morning. cyclobenzaprine (Flexeril) 10 mg tablet TAKE 1 TABLET BY MOUTH TWICE A DAY NEEDED FOR SPASM lisinopriL-hydrochlorothiazide 20-25 mg tablet Take 1 tablet by mouth in the morning. No current facility-administered medications on file prior to visit. Physical Exam: Constitutional: Appearance: Normal appearance. Without apparent distress, obese, chronically ill HENT: Head: Normocephalic and atraumatic. Nose: Nose normal. Mouth/Throat: Mouth: Mucous membranes are moist. Eyes: Extraocular Movements: Extraocular movements intact. Conjunctiva/sclera: Conjunctivae normal. Neck: Vascular: No JVD. Cardiovascular: Rate and Rhythm: Normal rate and Irregular rhythm. Pulses: Dorsalis pedis pulses are 3 on the right side and 3on the left side. Posterior tibial pulses are 3 on the right side and 3 on the left side. Heart sounds: Normal heart sounds, S1 normal and S2 normal. Pulmonary: Effort: Pulmonary effort is normal. Breath sounds: Normal breath sounds. Abdominal: General: Bowel sounds are normal. Palpations: Abdomen is softly distended. Musculoskeletal: (more content not included)... [facility] 02-17-2024 Note Pt here for a one ye ar follow up. Pt denies chest pain, palpatations, dizziness Review of Systems Respiratory: Positive for shortness of breath (for 3-4 weeks). [facility] 01-27-2024 Note Entered by Selma Asher on January 27, 2024 13:53:35 EDT From: Adelaida Asher To: [facility]/pharmacy #[id number] Sent: 01/27/2024 13:53:35 EDT Subject: Medication Management Submitted: Complete:apixaban (Eliquis 5 mg oral tablet) Signed by Adelaida Asher 01/27/2024 13:53:00 EDT Approved with modifications: apixaban (ELIQUIS 5 MG TABLET) TAKE 1 TABLET BY MOUTH TWICE A DAY Qty: 180 tab(s) Days Supply: 90 Refills: 1 Substitutions Allowed Route To Pharmacy - [facility]/pharmacy #[id number] Signed by Adelaida Asher ---- From: [facility] STORE [id number] To: Hollis Barnett MD Sent: January 27, 2024 11:39:29 AM CDT Subject: Medication Management Due: January 28, 2024 12:11:57 AM CDT On Hold Pending Signature Dispensed Drug: apixaban (Eliquis 5 mg oral tablet), TAKE 1 TABLET BY MOUTH TWICE A DAY Quantity: 180 tab(s) Days Supply: 90 Refills: 1 Substitutions Allowed Notes from Pharmacy: ---- [facility] 12-23-2023 Note Entered by Selma Asher on December 23, 2023 14:09:44 EDT From: Adelaida Asher To: [facility]/pharmacy #[id number] Sent: 12/23/2023 14:09:44 EDT Subject: Medication Management Submitted: Complete:diclofenac (diclofenac sodium 50 mg oral delayed release tablet) Signed by Adelaida Asher 12/23/2023 14:09:00 EDT Approved with modifications: diclofenac (DICLOFENAC SOD EC 50 MG TAB) TAKE 1 TABLET BY MOUTH TWICE A DAY Qty: 180 tab(s) Days Supply: 90 Refills: 0 Substitutions Allowed Route To Pharmacy - [facility]/pharmacy #[id number] Signed by Adelaida Asher ---- From: [place] [id number] To: Hollis Barnett MD Sent: December 23, 2023 11:40:40 AM CDT Subject: Medication Management Due: December 24, 2023 12:02:10 AM CDT On Hold Pending Signature Dispensed Drug: diclofenac (diclofenac sodium 50 mg oral delayed release tablet), TAKE 1 TABLET BY MOUTH TWICE A DAY Quantity: 180 tab(s) Days Supply: 90 Refills: 1 Substitutions Allowed Notes from Pharmacy: ---- [facility] 10-30-2023 Note Entered by Selma Asher on October 30, 2023 14:31:11 EDT From: Adelaida Asher To: [facility]/pharmacy #[id number] Sent: 10/30/2023 14:31:11 EDT Subject: Medication Management Submitted: Complete:omeprazole (omeprazole 20 mg oral delayed release capsule) Signed by Adelaida Asher 10/30/2023 14:31:00 EDT Approved with modifications: omeprazole (OMEPRAZOLE DR 20 MG CAPSULE) TAKE 1 CAPSULE BY MOUTH EVERY DAY Qty: 90 cap(s) Days Supply: 90 Refills: 1 Substitutions Allowed Route To Pharmacy - [facility]/pharmacy #[id number] Signed by Adelaida Asher ---- From: [place] [id number] To: Hollis Barnett MD Sent: October 30, 2023 1:19:11 PM CDT Subject: Medication Management Due: October 31, 2023 12:11:25 AM CDT On Hold Pending Signature Dispensed Drug: omeprazole (omeprazole 20 mg oral delayed release capsule), TAKE 1 CAPSULE BY MOUTH EVERY DAY Quantity: 90 cap(s) Days Supply: 90 Refills: 1 Substitutions Allowed Notes from Pharmacy: ---- [facility] 10-22-2023 Note Entered by Selma Asher on October 22, 2023 07:15:06 EDT [facility]: [id number] Sent: 10/22/2023 07:15:06 EDT Subject: Medication Management Submitted: Complete:atorvastatin (atorvastatin 20 mg oral tablet) Signed by Adelaida Asher 10/22/2023 07:15:00 EDT Approved with modifications: atorvastatin (ATORVASTATIN 20 MG TABLET) TAKE 1 TABLET BY MOUTH EVERY DAY Qty: 90 tab(s) Days Supply: 90 Refills: 1 Substitutions Allowed Route To Pharmacy - [facility]/pharmacy #[id number] Signed by Adelaida Asher ---- From: [facility] [id number] To: Hollis Barnett MD Sent: October 22, 2023 5:46:00 AM CDT Subject: Medication Management Due: October 23, 2023 12:09:15 AM CDT On Hold Pending Signature Dispensed Drug: atorvastatin (atorvastatin 20 mg oral tablet), TAKE 1 TABLET BY MOUTH EVERY DAY Quantity: 90 tab(s) Days Supply: 90 Refills: 1 Substitutions Allowed Notes from Pharmacy: ---- [facility] 09-02-2023 Note Entered by Selma Asher on September 02, 2023 07:33:55 EDT From: Adelaida Asher To: [facility]/pharmacy #[id number] Sent: 09/02/2023 07:33:55 EDT Subject: Medication Management Submitted: Complete:amLODIPine (amLODIPine 10 mg oral tablet) Signed by Adelaida Asher 09/02/2023 07:33:00 EDT Approved with modifications: amLODIPine (AMLODIPINE BESYLATE 10 MG TAB) TAKE 1 TABLET BY MOUTH EVERY DAY Qty: 90 tab(s) Days Supply: 90 Refills: 1 Substitutions Allowed Route To Pharmacy - [facility]/pharmacy #[id number] Signed by Adelaida Asher ---- From: [facility] [id number] To: Hollis Barnett MD Sent: September 01, 2023 5:37:29 PM CDT Subject: Medication Management Due: September 02, 2023 12:30:48 AM CDT On Hold Pending Signature Dispensed Drug: amLODIPine (amLODIPine 10 mg oral tablet), TAKE 1 TABLET BY MOUTH EVERY DAY Quantity: 90 tab(s) Days Supply: 90 Refills: 3 Substitutions Allowed Notes from Pharmacy: ---- [facility] 08-21-2023 Note Entered by Selma Asher on August 21, 2023 11:31:51 EDT From: Adelaida Asher To: [facility]/pharmacy #[id number] Sent: 08/21/2023 11:31:51 EDT Subject: Medication Management Submitted: Complete:apixaban (apixaban 5 mg oral tablet) Signed by Adelaida Asher 08/21/2023 11:31:00 EDT Submitted: Complete:metoprolol (metoprolol tartrate 100 mg oral tablet) Signed by Adelaida Asher 08/21/2023 11:31:00 EDT Approved with modifications: metoprolol (METOPROLOL TARTRATE 100 MG TAB) TAKE 1 TABLET BY MOUTH TWICE A DAY Qty: 180 tab(s) Days Supply: 90 Refills: 1 Substitutions Allowed Route To Pharmacy - [facility]/pharmacy #[id number] Signed by Adelaida Asher Approved with modifications: apixaban (ELIQUIS 5 MG TABLET) TAKE 1 TABLET BY MOUTH TWICE A DAY Qty: 180 tab(s) Days Supply: 90 Refills: 1 Substitutions Allowed Route To Pharmacy - [facility]/pharmacy #[id number] Signed by Adelaida Asher ---- From: [facility] [id number] To: Hollis Barnett MD Sent: August 21, 2023 8:31:51 AM CDT Subject: Medication Management Due: August 22, 2023 12:19:13 AM CDT On Hold Pending Signature Dispensed Drug: metoprolol (Metoprolol Tartrate 100 mg oral tablet), TAKE 1 TABLET BY MOUTH TWICE A DAY Quantity: 180 tab(s) Days Supply: 90 Refills: 3 Substitutions Allowed Notes from Pharmacy: On Hold Pending Signature Dispensed Drug: apixaban (Eliquis 5 mg oral tablet), TAKE 1 TABLET BY MOUTH TWICE A DAY Quantity: 180 tab(s) Days Supply: 90 Refills: 3 Substitutions Allowed Notes from Pharmacy: ---- [facility] 07-31-2023 Note Entered by Selma Asher on July 31, 2023 14:13:18 EST From: Adelaida Asher To: [facility]/pharmacy #[id number] Sent: 07/31/2023 14:13:18 EST Subject: Medication Management Submitted: Complete:diclofenac (diclofenac sodium 50 mg oral delayed release tablet) Signed by Adelaida Asher 07/31/2023 14:13:00 EST Approved with modifications: diclofenac (DICLOFENAC SOD EC 50 MG TAB) TAKE 1 TABLET BY MOUTH TWICE A DAY Qty: 180 tab(s) Days Supply: 90 Refills: 1 Substitutions Allowed Route To Pharmacy - [facility]/pharmacy #[id number] Signed by Adelaida Asher ---- From: [place] [id number] To: Hollis Barnett MD Sent: July 31, 2023 1:02:29 PM 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 Subject: Medication Management Due: August 01, 2023 12:04:35 AM 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 On Hold Pending Signature Dispensed Drug: diclofenac (diclofenac sodium 50 mg oral delayed release tablet), TAKE 1 TABLET BY MOUTH TWICE A DAY Quantity: 180 tab(s) Days Supply: 90 Refills: 1 Substitutions Allowed Notes from Pharmacy: ---- [facility] 05-07-2023 Note Entered by Selma Asher on May 07, 2023 07:26:43 EST From: Adelaida Asher To: [facility]/pharmacy #[id number] Sent: 05/07/2023 07:26:43 EST Subject: Medication Management Submitted: Complete:omeprazole (omeprazole 20 mg oral delayed release capsule) Signed by Adelaida Asher 05/07/2023 07:26:00 EST Approved omeprazole (OMEPRAZOLE DR 20 MG CAPSULE) TAKE 1 CAPSULE BY MOUTH EVERY DAY Qty: 90 cap(s) Days Supply: 90 Refills: 1 Substitutions Allowed Route To Pharmacy - [facility]/pharmacy #[id number] Signed by Adelaida Asher ---- From: [place] [id number] To: Hollis Barnett MD Sent: May 07, 2023 6:25:09 AM 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 Subject: Medication Management Due: May 08, 2023 12:18:38 AM 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 On Hold Pending Signature Dispensed Drug: omeprazole (omeprazole 20 mg oral delayed release capsule), TAKE 1 CAPSULE BY MOUTH EVERY DAY Quantity: 90 cap(s) Days Supply: 90 Refills: 1 Substitutions Allowed Notes from Pharmacy: ---- [facility] 03-20-2023 Note [facility]rophys[facility] Consult Note Reason for visit: A-fib 03/20/23: Patient for follow-up s/p cardioversion he was post start amiodarone with cardioversion and never did the cardioversion was done without medication and he converted to sinus rhythm discussed with patient starting amiodarone elevated in sinus rhythm we discussed long-term monitoring as he did not seem open to the idea of an ablation as he stated he did not need he opted not start amiodarone for long-term monitoring I discussed him doing stress testing to rule out ischemia and see if we can start a class Ic antiarrhythmic ECG 03/20/2023 sinus rhythm 02/07/2023 sinus rhythm 11/16/[address] still HPI: Cristian Hernandez Jr. is a 62 y.o. year old with past medical history of A-fib, recent cellulitis, hypertension. He was recently fishing he was bit by a catfish and then developed cellulitis. During his admission there was concern for sepsis and he was started on IV antibiotics per infectious disease and later developed A-fib RVR ECG today is A-fib with mild RVR Which settled after EKG as he has to get up to table to have EKG done. He is completely asymptomatic at this time continues to take Eliquis 5 mg twice daily and metoprolol 100 mg twice daily. was only recently started on anticoagulation and it has not been 2 weeks. While admitted she had questionable TIA symptoms but had an MRI done which ruled out stroke PMH: Past Medical History: Diagnosis Date Hyperlipidemia Hypertension PSH: No past surgical history on file. SH: Social Determinants of Health Tobacco Use: Medium Risk (11/07/2022) Patient History Smoking Tobacco Use: Former Smokeless Tobacco Use: Never Passive Exposure: Not on file Alcohol Use: Not on file Financial Resource Strain: Low Risk (10/19/2022) Overall Financial Resource Strain (CARDIA) Difficulty of Paying Living Expenses: Not hard at all Food Insecurity: Unknown (10/19/2022) Hunger Vital Sign Worried About Running Out of Food in the Last Year: Never true Ran Out of Food in the Last Year: Not on file Transportation Needs: Unknown (10/19/2022) PRAPARE - Transportation Lack of Transportation (Medical): No Lack of Transportation (Non-Medical): Not on file Physical Activity: Not on file Stress: Not on file Social Connections: Not on file Intimate Partner Violence: Unknown (10/19/2022) Humiliation, Afraid, Rape, and Kick questionnaire Fear of Current or Ex-Partner: No Emotionally Abused: Not on file Physically Abused: Not on file Sexually Abused: Not on file Depression: Not at risk (11/07/2022) PHQ-2 PHQ-2 Score: 0 Housing Stability: Unknown (10/19/2022) Housing Stability Vital Sign Unable to Pay for Housing in the Last Year: Not on file Number of Places Lived in the Last Year: Not on file Unstable Housing in the Last Year: No Allergies: Allergies Allergen Reactions Penicillins Unknown Weight: 141kg Visit Vitals BP 139/79 (BP Location: Left arm, Patient Position: Sitting) Pulse 67 Ht 1.905 m (6' 3 ) Wt (!) 141 kg (310 lb) SpO2 93% BMI 38.75 kg/m??? Smoking Status Former BSA 2.73 m??? Meds: Current Outpatient Medications on File Prior to Visit Medication Sig Dispense Refill amLODIPine (Norvasc) 10 mg tablet Take 1 tablet (10 mg) by mouth in the morning. Do not start before October 23, 2022. 30 tablet 0 apixaban (Eliquis) 5 mg tablet Take 1 tablet (5 mg) by mouth in the morning and at bedtime. 60 tablet 0 ascorbic acid (Vitamin C) 500 mg chewable tablet Chew 2 tablets in the morning. atorvastatin (Lipitor) 20 mg tablet Take 20 mg by mouth in the morning. cyanocobalamin (Vitamin B-12) 100 mcg tablet Take 1 tablet by mouth in the morning. diclofenac (Voltaren) 50 mg EC tablet Take 50 mg by mouth in the morning and at bedtime. Do not crush, chew, or split. lisinopril 20 mg tablet Take 1 tablet (20 mg) by mouth in the morning. 30 tablet 0 metoprolol tartrate (Lopressor) 100 mg tablet Take 1 tablet (100 mg) by mouth in the morning and at bedtime. 60 tablet 0 omeprazole (PriLOSEC) [address] capsule Take 20 mg by mouth before breakfast. Do not crush or chew. cyclobenzaprine (Flexeril) 10 mg tablet TAKE 1 TABLET BY MOUTH TWICE A DAY NEEDED FOR SPASM furosemide (Lasix) 40 mg tablet TAKE 1 TABLET BY MOUTH EVERY DAY IN THE MORNING (Patient not taking: Reported on 02/07/2023) 90 tablet 3 lisinopriL-hydrochlorothiazide 20-25 mg tablet Take 1 tablet by mouth in the morning. No current facility-administered medications on file prior to visit. ROS: Cardio Basic Cardiovascular Symptoms: no lightheadedness, no leg edema, no syncope, no orthopnea, no PND, no claudication, Constitutional Constitutional: no fever, no night sweats, no significant weight gain, no significant weight loss, no exercise intolerance Eyes Eyes: no dry eyes, no irritation, no vision change ENMT Ears: no difficulty hearing, no ear pain Nose: no frequent nosebleed (more content not included)... [facility] 03-20-2023 Note Patient here for fol low up cardioversion. Denies chest pain, SOB, palpitations, lightheadedness, and bleeding on Eliquis. Review of Systems All other systems reviewed and are negative. [facility] 05-20-2019 Note 1. Splenomegaly has progressed since the 2014 exam, now measuring 21 cm (previously 16 cm). No enlarged or suspicious-appearing lymph nodes identified in the chest, abdomen or pelvis. 2. Lucent areas in the T8 and T10 vertebral bodies are stable and are of uncertain significance. Attention to on follow-up is recommended. 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, spleen documented in this encounter [employer]: evaluation note* Diagnosis 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 (ICD-10-CM)] Marginal zone lymphoma, spleen documented in this encounter [employer] Phone: [email or web address] note* Diagnosis Lymphocytosis Lymphocytosis (symptomatic) 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, spleen Essential hypertension Unspecified essential hypertension documented in this encounter [employer] Phone: [email or web address] note* Diagnosis Lymphocytosis Lymphocytosis (symptomatic) 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, spleen documented in this encounter [facility] [employer] AGEvaluation noteNo assessment information available [facility] Work Phone: Assessments Diagnosis 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, spleen Diagnosis 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, spleen Diagnosis Lymphocytosis Lymphocytosis (symptomatic) 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, spleen Advance Directives No Advanced Directives Records FoundDocuments on File Type Date Recorded 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 Advance Directives and Living Will Power of Metal And Plastic Heater Documents on File Type Date Recorded 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 ACP-Advance Directive ACP-Power of Metal And Plastic Heater Documents on File Type Date Recorded 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 Advance Directives and Living Will Power of Metal And Plastic 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 Summary Purpose Family History No Family History Records FoundNo Family History Records FoundNo Family History Records FoundNo Family History Records FoundNo Family History Records Found Additional Source Comments (unrecognized sect ion and content) No Status Records FoundNo Status Records FoundNo Status Records FoundNo Status Records FoundNo Status Records Found INFORMATION SOURCE (unrecogn ized section and content) DATE CREATED AUTHOR 11/27/2020 [facility] DATE CREATED AUTHOR AUTHOR'S ORGANIZ ATION 12/21/2023 [facility] DATE CREATED AUTHOR AUTHOR'S ORGANIZ ATION 02/18/2024 [facility] DATE CREATED AUTHOR AUTHOR'S ORGANIZ ATION 02/22/2024 [facility] DATE CREATED AUTHOR AUTHOR'S ORGANIZ ATION 03/02/2024 [facility] Reason for Visit (unrecogniz ed section and content) Status Reason Specialty Diagnoses / Procedures Referre d By Contact Referred To Contact [facility] Diagnoses Marginal zone lymphoma of spleen (HCC) Lymphocytosis Procedures CT CHEST ABDOMEN PELVIS W CONTRAST CT ABDOMEN PELVIS W IV CONTRAST Additional Contrast? Oral HC CT CHEST W/ CONTRAST HC CT ABD/PEL W CONT Leah Sam MD [id number] [facility] [address] [place] [address] Care Teams (unrecognized sec tion and content) Can Line Examiner Relationship Specialty Start Date End Date Hollis Barnett [id number] [place] [id number] PCP - General Family Medicine 05/07/19 Can Line Examiner Relationship Specialty Start Date End Date Hollis Barnett [address] [place] [id number] PCP - General Family Medicine 05/07/19 Can Line Examiner Relationship Specialty Start Date End Date Hollis Barnett [id number] [place] [id number] PCP - General Family Medicine 05/07/19 Can Line Examiner Relationship Specialty Start Date End Date Hollis Barnett [address] [place] [id number] PCP - General Family Medicine 05/07/19 Team Status: Inactive Member Role Status Dates LIZ Bah Attending Provider Active S tart: February 18, 2024 End: February 18, 2024 Goals (unrecognized section and content) Goals may be documented in a n alternate section FOR RECORDS PERTAINING TO PATIENTS WHO ARE OR HAVE BEEN ENROLLED IN A CHEMICAL DEPENDENCY/SUBSTANCEABUSE PROGRAM, SOME INFORMATION MAY BE OMITTED. This clinical summary was aggregated from multiple sources. Caution should be exercised in using it in the provision of clinical care. This summary normalizes information from multiple sources, and as a consequence, information in this document may materially change the coding, format and clinical context of patient data. In addition, data may be omitted in some cases. CLINICAL DECISIONS SHOULD BE BASED ON THE PRIMARY CLINICAL RECORDS. [facility] [employer]. provides no warranty or guarantee of the accuracy or completeness of information in this document.
== END 2024-03-02 10:27 | disposition home or self-care (01) ==
LOC: NM 10:26
PROVIDERS: PCP Family Medicine; Visit Provider Nurse Practitioner
DX: R06.09 Other forms of dyspnea (principal)
CPT/HCPCS: 78452; A9500

== ENCOUNTER 2024-03-03 08:01 | Outpatient (OUT) | payer OTHER, SELFPAY ==
--- NOTE | 2024-03-03 | PCN_ITS ---
CARDIAC STRESS TEST Requesting Physician: Procedure Date: 03/03/2024 This was a Lexiscan stress test with myocardial perfusion imaging performed at the [facility] on 03/03/2024. Informed consent was obtained. An intravenous line was secured. The patient was attached to electrocardiographic monitoring. Baseline vital signs were obtained. Lexiscan 0.4 mg was infused intravenously, followed by administration of Cardiolite. The patient then went on to obtain myocardial perfusion imaging performed. Resting heart rate was 74 BPM and maximum heart rate was 95 BPM. Resting blood pressure was 110/72 and maximum blood pressure was 110/80. Resting ECG showed atrial fibrillation with controlled ventricular response. ECG following infusion of Lexiscan showed evidence of atrial fibrillation with controlled ventricular response and no ischemic changes. SUMMARY OF THE FINDINGS: 1. No evidence of ischemic ECG changes seen following infusion of Lexiscan. 2. Baseline atrial fibrillation with controlled ventricular response. The patient remained in atrial fibrillation throughout the test. 3. Myocardial perfusion imaging will be reported separately. [facility]
[2024-03-03] MEDS: REGADENOSON 0.4 MG/5 ML SYRINGE IV (08:42)
--- NOTE | 2024-03-03 08:42 | PC.NURSE ---
Nursing Note Cardiac Stress Test Reviewed: Medication, allergies and patient history reviewed. Stress Test: [x ] Patient tolerated stress test well. [ ] Patient unable to tolerate walking on treadmill. Switched to Lexiscan stress test. [ x] No chest pain noted per patient [ ] Chest pain that resolved prior to leaving stress lab. [ ] No dyspnea noted. [ x] Dyspnea that resolved prior to leaving stress lab. [ x] Patient left stress lab asymptomatic and hemodynamically stable. [ ] Patient taken to the Emergency Room due to non-resolving symptoms following stress test. [ ] Patient achieved target heart rate. [ ] Patient unable to achieve target heart rate. [ ] Aminophylline administered as reversal agent to Lexiscan (Regadenoson). [ ] Nitro administered. Nursing Comments:Pt had lexiscan done no issues noted. AMbulated to cafeteria for breakfast unassisted. SOB after ilana that resolved within 2 minuts.
== END 2024-03-03 08:02 | disposition home or self-care (01) ==
LOC: CARD 08:01
PROVIDERS: PCP Family Medicine; Visit Provider Nurse Practitioner
DX: R06.09 Other forms of dyspnea (principal); I48.91 Unspecified atrial fibrillation
CPT/HCPCS: 93017; J2785

== ENCOUNTER 2024-03-18 08:33 | Outpatient (OUT) | payer OTHER, SELFPAY ==
--- OUTSIDE RECORDS SUMMARY | 2024-03-18 08:41 | XMS_ITS | CCD ---
Author Organization [facility] Care Team Providers Care Scraper Tender Name Role Phone Ericka, Hollis Naidu Primary Care Provider [phone] AL-NSOUR, MOHAMMAD A Referring Unavailable BLUNT, HOLLIS M Primary Care Unavailable Blunt, Hollis M Primary Care Provider [phone] Blunt, Hollis M Primary Care Provider Blunt, Hollis M Primary Care Provider Blunt, Hollis M Primary Care Provider [phone] Blunt, Hollis M Primary Care Provider [phone] AL-NSOUR, MOHAMMAD A Referring Unavailable BLUNT, HOLLIS [...] Attending Unavailable IVONNE, TERRELL Attending Unavailable Ivonne, RECORDING STUDIO SET UP WORKER-C Terrell Attending Provider Ivonne, Terrell Admitting Unavailable Ivonne, Terrell Attending Unavailable Blunt, Hollis M Attending Unavailable Blunt, Hollis M Primary Care Unavailable Blunt, Hollis M Primary Care Unavailable Blunt, Hollis M Admitting Unavailable Blunt, Hollis M Attending Unavailable Blunt, Hollis M Primary Care Unavailable Blunt, Hollis M Attending Unavailable Blunt, Hollis M Attending Unavailable Blunt, Hollis M Primary Care Unavailable Blunt, Hollis M Attending Unavailable Blunt, Hollis M Primary Care Unavailable Blunt, Hollis M Primary Care Unavailable Blunt, Hollis M Attending Unavailable Allergies Allergy Classification Reported Allergen(s) Allergy Type Date of Onset Reaction(s) Facility Penicillins (antibiotic) (1 source) Penicillins Drug Allergy 05-06-2014 [facility] (10 sources) Penicillins; Translations: [PENICILLINS] Propensity to adverse reactions to drug 05-06-2014 [facility] [place] [place] (3 sources) Penicillins Propensity to adverse reactions to drug 05-06-2014 [facility] Medications Current Medications Medication Drug Class(es) Dates [...] Test Name Value Interpretation Reference Range Facility Consultation/Specialist Note on 03-10-2024 Consultation/Specialist Note [id number]#[address] [place] [address] Cardiac Serviceson Cardiac Services [id number]#[facility] Echocardi[facility] [id number]#1.0 [facility] Echocardiogramon 03-04-2024 Echocardiography [id number]#1.00 [facility] Insuranceon 03-03-2024 Insurance [id number] 00 [id number]#1 .00[facility] Outside Recordson 02-27-2024 Outside Records [id number]#1 .00[facility] 36on 02-17-2024 36 Reguarding lab resul ts from 02/16 ONESIMO Bah, DOMINGO CBC stable with known elevated WBC, Renal function noted- normal Liver function normal And BNP- heart failure marker was elevated= fluid overload- so yes take lasix as I instructed and take fluid off Tried to leave a message but could not will try to call back tomorrow. [facility] 37on 02-17-2024 37 Take lasix twice jeanette ly (padder cushion and then early afternoon) for the next [...] taller/more pillows than normal or in recliner. [facility] Rubens 02-17-2024 L Specimen: Received: 02/19/24 Status: KALANI Clay Num: [id number] Spec Type: Impression Subm Dr: Terrell HILL Tissues: PATHPER Procedures: PATHREVIEW Age/ Patient Sex Location Account Attending Physician Cristian Hernandez 63/M LABELL [id number] Terrell HILL SPEC NUM: RECD: 02/19/24 STATUS: KALANI CLAY NUM: [id number] MARLA: 02/17/[address]: Terrell HILL ENTERED: 02/19/[address]: Joe,Lab SPEC TYPE: Impression DEPT: MEREDITH Galvan ENTERED BY: [id number] RECV BY: [id number] ORDERED: PATHREVIEW ORDERED: PATHREVIEW Pathologist Review Abnormal [...] case, if clinically is also indicated CPT: 66000 ---- ---- Specimen: [id number] Received: 02/19/24 Status: KALANI Clay Num: [id number] Spec Type: Impression Subm Dr: Terrell HILL Tissues: PATHPER Procedures: PATHREVIEW ---- Patient: Cristian Hernandez [id number] (Continued) ---- Signed (signature on file) Guadalupe Grier MD 02/20/24 1200 Normal [facility] Office Visiton 02-17-2024 Follow-up visit [id number] Cristian Hernandez Jr. 1960 M Date Provider Department Center 02/17/2024 Tim-TERRELL CORONADO JENY Chery Family History Family history unknown: Yes Level of Service:25459 GA OFFICE/OUTPATIENT ESTABLISHED MOD MDM 30 MIN Normal [facility] CBC with Diffon 12-17-2023 Abs. Basophil 0.00 k/uL Normal 0.0-0.2 [facility] Comment on above: Performed By: #### C P, CDP #### [facility] [address] [place] [address] Ticketing Agent: Haider Garcia MD #### LD #### [address] [phone] Ticketing Agent: Robb Tran MD Abs.Neutrophil (Seg) 7.34 k/uL Normal 1.8-7.7 [facility] Comment on above: Performed By: #### C P, CDP #### [address] [phone] Ticketing Agent: Haider Garcia MD #### LD #### [address] [phone] Ticketing Agent: Robb Tran MD Basophils/100 WBC (Bld) 0 % Normal 0-2 [facility] Comment on above: Performed By: #### C P, CDP #### [place] [address] Ticketing Agent: Haider Garcia MD #### LD #### [address] [address] Ticketing Agent: Robb Tran MD Eosinophils (Bld) [#/Vol] 0.67 10*3/uL High 0.0-0.4 [facility] Comment on above: Performed By: #### C P, CDP #### [place] [phone] Ticketing Agent: Haider Garcia MD #### LD #### [address] [phone] Ticketing Agent: Robb Tran MD Eosinophils/100 WBC (Bld) 1 % Normal 1-4 [facility] Comment on above: Performed By: #### C P, CDP #### [place] [phone] Ticketing Agent: Haider Garcia MD #### LD #### [address] [phone] Ticketing Agent: Robb rTan MD Lymphocytes (Bld) [#/Vol] 58.02 10*3/uL High 1.0-4.8 [facility] Comment on above: Result Comment: R/O Chronic Lymphoproliferative Disorder, recommend peripheral blood Flow Cytometry, if clinically indicated. Performed By: #### C P, CDP #### [address] [phone] Ticketing Agent: Haider Garcia MD #### LD #### [address] [phone] Ticketing Agent: Robb Tran MD Lymphocytes/100 WBC (Bld) 87 % High 24-44 [facility] Comment on above: Performed By: #### C P, CDP #### [place] [address] Ticketing Agent: Haider Garcia MD #### LD #### [place] [phone] Ticketing Agent: Robb Tran MD Monocytes (Bld) [#/Vol] 0.67 10*3/uL Normal 0.1-0.8 [facility] Comment on above: Performed By: #### C P, CDP #### [address] [phone] Ticketing Agent: Haider Garcia MD #### LD #### [address] [phone] Ticketing Agent: Robb Tran MD Monocytes/100 WBC (Bld) 1 % Normal 1-7 M [facility] Comment on above: Performed By: #### C P, CDP #### [address] [phone] Ticketing Agent: Haider Garcia MD #### LD #### [place] [phone] Ticketing Agent: Robb Tran MD Morphology Ruben (Bld) [Interp] SMUDGE CELLS PRESENT Normal [facility] Comment on above: Performed By: #### C P, CDP #### [place] [address] Ticketing Agent: Haider Garcia MD #### LD #### [place] [phone] Ticketing Agent: Robb Tran MD Neutrophil (Seg) 11 % Low 36-66 [facility] Comment on above: Performed By: #### C P, CDP #### [place] [address] Ticketing Agent: Haider Garcia MD #### LD #### [place] [phone] Ticketing Agent: Robb Tran MD Erythrocyte distribution width (RBC) [Ratio] 14.4 % Normal 12.5-15.4 [facility] Comment on above: Performed By: #### C P, CDP #### [place] [phone] Ticketing Agent: Haider Garcia MD #### LD #### [address] [phone] Ticketing Agent: Robb Tran MD Hematocrit (Bld) [Volume fraction] 41.6 % Normal 41-53 [facility] Comment on above: Performed By: #### C P, CDP #### [place] [phone] Ticketing Agent: Haider Garcia MD #### LD #### [address] [address] Ticketing Agent: Robb Tran MD Hemoglobin (Bld) [Mass/Vol] 13.7 g/dL Normal 13.5-17.5 [facility] Comment on above: Performed By: #### C P, CDP #### [address] [address] Ticketing Agent: Haider Garcia MD #### LD #### [address] [address] Ticketing Agent: Robb Tran MD MCH (RBC) [Entitic mass] 30.4 pg Normal 26-34 [facility] Comment on above: Performed By: #### C P, CDP #### [address] [address] Ticketing Agent: Haider Garcia MD #### LD #### [address] [address] Ticketing Agent: Robb Tran MD MCHC (RBC) [Mass/Vol] 32.8 g/dL Normal 31-37 [facility] [place] [facility] Comment on above: Performed By: #### C P, CDP #### [address] [address] Ticketing Agent: Haider Garcia MD #### LD #### [address] [address] Ticketing Agent: Robb Tran MD MCV (RBC) [Entitic vol] 92.7 fL Normal 80-100 M [facility] Comment on above: Performed By: #### C P, CDP #### [address] [address] Ticketing Agent: Haider Garcia MD #### LD #### [place] [phone] Ticketing Agent: Robb Tran MD Platelet mean volume (Bld) [Entitic vol] 7.5 fL Normal 6.0-12.0 [facility] Comment on above: Performed By: #### C P, CDP #### [place] [address] Ticketing Agent: Haider Garcia MD #### LD #### [place] [address] Ticketing Agent: Rbob Tran MD Platelets (Bld) [#/Vol] 148 10*3/uL Normal 140-450 [facility] Comment on above: Performed By: #### C P, CDP #### [place] [address] Ticketing Agent: Haider Garcia MD #### LD #### [place] [address] Ticketing Agent: Robb Tran MD RBC (Bld) [#/Vol] 4.49 10*6/uL Low 4.5-5.9 [facility] Comment on above: Performed By: #### C P, CDP #### [place] [phone] Ticketing Agent: Haider Garcia MD #### LD #### [place] [phone] Ticketing Agent: Robb Tran MD WBC (Bld) [#/Vol] 66.7 10*3/uL Critically high 3.5-11.0 [facility] Comment on above: Result Comment: TEST CONFIRMED Performed By: #### C P, CDP #### [place] [id number] [place], [place] [phone] Ticketing Agent: Haider Garcia MD #### LD #### [address] [address] Ticketing Agent: Robb Tran MD Comp Metabolic Profon 2023 Albumin [Mass/Vol] 4.7 g/dL Normal 3.5-5.2 [facility] Comment on above: Performed By: #### C P, CDP #### [address] [phone] Ticketing Agent: Haider Garcia MD #### LD #### [address] [phone] Ticketing Agent: Robb Tran MD Albumin/Glob Ratio 1.8 Normal 1.0-2.5 [facility] Comment on above: Performed By: #### C P, CDP #### [address] [address] Ticketing Agent: Haider Garcia MD #### LD #### [address] [address] Ticketing Agent: Robb Tran MD Alkaline Phos 74 U/L Normal 40-129 [facility] Comment on above: Performed By: #### C P, CDP #### [address] [phone] Ticketing Agent: Haider Garcia MD #### LD #### [address] [address] Ticketing Agent: Robb Tran MD ALT [Catalytic activity/Vol] 23 U/L Normal 5-41 [facility] Comment on above: Performed By: #### C P, CDP #### [facility] [address] [place], [place] [phone] Ticketing Agent: Haider Garcia MD #### LD #### [address] [phone] Ticketing Agent: Robb Tran MD Anion gap [Moles/Vol] 10 mmol/L Normal 9-17 [facility] [place] [facility] Comment on above: Performed By: #### C P, CDP #### [facility] [address] [place], [place] [phone] Ticketing Agent: Haider Garcia MD #### LD #### [address] [phone] Ticketing Agent: Robb Tran MD AST [Catalytic activity/Vol] 19 U/L Normal <40 [facility] Comment on above: Performed By: #### C P, CDP #### [facility] [address] [place], [place] [phone] Ticketing Agent: Haider Garcia MD #### LD #### [address] [phone] Ticketing Agent: Robb Tran MD Bilirubin [Mass/Vol] 0.7 mg/dL Normal 0.3-1.2 [facility] Comment on above: Performed By: #### C P, CDP #### [facility] [id number] [place] [address] [phone] Ticketing Agent: Haider Garcia MD #### LD #### [address] [phone] Ticketing Agent: Robb Tran MD Calcium [Mass/Vol] 9.8 mg/dL Normal 8.6-10.4 [facility] Comment on above: Performed By: #### C P, CDP #### [facility] [address] [place] [address] Ticketing Agent: Haider Garcia MD #### LD #### [address] [phone] Ticketing Agent: Robb Tran MD Chloride [Moles/Vol] 90 mmol/L Low 98-107 [facility] Comment on above: Performed By: #### C P, CDP #### [facility] [address] [place] [address] Ticketing Agent: Haider Garcia MD #### LD #### [address] [phone] Ticketing Agent: Robb Tran MD CO2 [Moles/Vol] 27 mmol/L Normal 20-31 [facility] Comment on above: Performed By: #### C P, CDP #### [facility] [address] [place] [address] Ticketing Agent: Haider Garcia MD #### LD #### [address] [phone] Ticketing Agent: Robb Tran MD Creatinine [Mass/Vol] 0.8 mg/dL Normal 0.7-1.2 [facility] [place] [facility] Comment on above: Performed By: #### C P, CDP #### [facility] [id number] [place] [address] Ticketing Agent: Haider Garcia MD #### LD #### [address] [phone] Ticketing Agent: Robb Tran MD GFR/1.73 sq M.predicted among non-blacks MDRD (S/P/Bld) [Vol rate/Area] mL/min/{1.73_m2} Normal >60 [facility] Comment on above: Result Comment: These [...] Performed By: #### C P, CDP #### [address] [phone] Ticketing Agent: Haider Garcia MD #### LD #### [address] [address] Ticketing Agent: Robb Tran MD Glucose [Mass/Vol] 111 mg/dL High 70-99 [facility] Comment on above: Performed By: #### C P, CDP #### [address] [address] Ticketing Agent: Haider Garcia MD #### LD #### [address] [address] Ticketing Agent: Robb Tran MD Potassium [Moles/Vol] 4.8 mmol/L Normal 3.7-5.3 [facility] [place] [facility] Comment on above: Performed By: #### C P, CDP #### [address] [address] Ticketing Agent: Haider Garcia MD #### LD #### [address] [address] Ticketing Agent: Robb Tran MD Protein [Mass/Vol] 7.3 g/dL Normal 6.4-8.3 [facility] Comment on above: Performed By: #### C P, CDP #### [facility] [address] [phone] Ticketing Agent: Haider Garcia MD #### LD #### [address] [phone] Ticketing Agent: Robb Tran MD Sodium [Moles/Vol] 127 mmol/L Low 135-144 [facility] Comment on above: Performed By: #### C P, CDP #### [address] [phone] Ticketing Agent: Haider Garcia MD #### LD #### [address] [phone] Ticketing Agent: Robb Tran MD Urea nitrogen [Mass/Vol] 14 mg/dL Normal 8-23 [facility] Comment on above: Performed By: #### C P, CDP #### [address] [phone] Ticketing Agent: Haider Garcia MD #### LD #### [address] [phone] Ticketing Agent: Robb Tran MD Lactate Dehydrogenaseon 12-01 LDH [Catalytic activity/Vol] 146 U/L Normal 135-225 [facility] Comment on above: Performed By: #### C P, CDP #### [address] [address] Ticketing Agent: Haider Garcia MD #### LD #### [address] [address] Ticketing Agent: Robb Tran MD Coding Summaryon 12-09-2023 Coding Summary HTMLBase 64 HggzmkacQZa0gJm+PGhlYW Q+HJ8IXZRoO53zdBJyqY4v Q7OIHJwPTsdkRIOTIGwLFy WwnrMjHR9byVUnREGc IC8+NN9vYTGpVvgpxMIuh5 T4sJK4Y06jfn2vGFnrqEZ7 NOKeWrYiadsnp1rjtBi6VB cuNmluOyBt NXHnpA58EPO9bN81Cg75kF LybCJzi5ajlSr0AyHjQMOc FIW8iEhfPTyig4BiXARmE1 5wcLToh8K0 EOMsqFgjzSSaLkIwaLY8hQ 8uAGwnoaprv9fghiriEjy2 bb25cYDod2O2pZY1C7Vpbj M3RSKlrLSm InodoHPMgU8utpoyk0jxuz yvRqIhOGTfPWw7VFo2COYp hHbaPoZqSP54FOL2QYWpjn GnX0GjECNg jOchHxQ0w6R6Rv5EX8BOAh llJ9PFEBTICJqkfJH+PC90 xj25Q1EfJnhhBdz3SAOvOJ O1wYK5rE3o LXWnPWrdf0M9qUM0L1Xqnw Oghq3eb9pjXGGcCPmdB41c jZSot7K4HNRnwIC2LOSwuW ouCuHbtQ15 Oyc+FGIomQmhk4JpCgecp7 hyn9mfaLd4IrsrHZQmgrGr kHkyPBW0m8RvRz4jGHRmkY U4xLN2zV8k XaDcQiP1OWdkH064JmGywL YuPikdH66cP5KctDW+PHRy Lyk7QXWhqCsvUM8nI0KjWT RpbmctbGVm zEjwNY7fFUMkcnqfBQHbkQ 5wEZUgN2t0HoCgIeY4KWnu H2LzGQCfpavxQr06lP7lHn NnVnU9RJgb D4UuocV5PKSgtPRtDUsxFL B0G66ve8N1EGMrEFMvNZC7 vLN8gC7asSaecpjscDPtfQ sgdmVydGlj FJjjMPucI483BQVavChkQa NvZGluZyBEYXRlOiAgMDcv MDgvMjAyNDwvdGQ+PHRkIH B7vPaoILFd bPEiXBhoSa0isBqupAweJY 0cBGFqgnniLNOsdU0xXDRi kLDpoMmnTL0mRFBaokkkq0 83OcCcWQW0 CCHasNXiM6XvbL4tZvOxRA StTTTvK7JufEEiAWbjZ120 FIllJuJ8LZTdnjYnK7EoQF FsaWduOiB0 p9P1Ou7Hg9ChuiveK0XwlV ZvWzVoHmeeLGo8P7TzGuhd dHI+CY21TDCySH41VXa4XV U6xQopTZhm NIWgI9OjlV7aQfFdBASbLE RkOyc+PHRhYmxlIHdpZHRo YLftQSHuFkNrvGniWG2mUz 9yZGVyLWNv jRgomCUcRiSoz2heUDEjEH paMY6ggEuvM4UyfWD3FHJo w5y1Fv28P85rI6LiqEP+PG CqaKI5xRI7 nD5vBsMmHjV2TAecY422Xz WxlMPnEpqyr0ezm2vcsBy4 OtI2MOCfqvGmnBnhRNF2s7 RkQq89X05x IHdpZHRoPSIxNSUiIHZhbG gype6aiL0dDe9+PGNvbCB3 hHX4xC0mJgMaNuP5KThmC5 49InRvcCIv Auwgh9ppd2ufwTa7JfCxKG UahrAsmLhhXUI3n7CmYp51 F3KgqYbmv6MtPop8xe55aZ Jdw3U9iOL2 G7MwRSWbklhydFBhfNrhGI 8kTSYynzfzETOrrV0bDYQj H7j6CwLkCxK6RJdoX9Jrtw B8BXTioAAt JKTahATTpH4walvrg8qtvq kcFfEuWUBlRPu3JQq0EFKd hKvdGvIuNVK2HcI5BZA9zQ EshS4qiTuy koglqN1xEmi+EHC1xHZoiZ RNHP1gQiutcWP+PHRkIHN0 iOfnWRomNSBhgC5kFDGfW9 s1JmQrHbZ9 VOngC0GtgvB3WRZfvSQkQP WtmRAIxR7rkckpc1kphvlm NhXkRWTvJRy4WLz0UPEaqT duOiBsZWZ0 ZoY5LSC6nTTpcX9vlUforr pwjX4xQuq+QmlydGggRGF0 SUn9W2BuUtj5UADhgVsyPS 0ncGFkZGlu Zj4rrMvgeIddQY2zOMUzql qhr203QjExc7klZFVqqMMa BLedHMJ7X59sz9N3KTMoRC ImLCK3wGD8 jU6lsJnvokvizPUguAvtsp MzxPhcRXgeXCanK246GZOs vJdjQkXcMPb1T1OrLlm2HU EubJlxLD6w fOYwGIbcGn6huQafnLsrVC 4uDSNuqtozm512JdGsp3qi XJXfeIPjAMdzHZW7E41xa3 F2ORGyFLEq GIX9oYG0cJ7riQpyafeckP VmdDsgdmVydGljYWwtYWxp F536ACBujCdtBnCfnBc9B9 QiVse4PTRw uYaiLA0wjYLtVEotAg5neA xxkVvpIW1fAQWczvgah132 UkQle2phBEVozKUlCLqyCK N0F04ou1Z2 CDHfTWKqLOM6xXP8mH0ziJ lnbjogbGVmdDsgdmVydGlj IRgiYSfrT714XZPwtLjqRq BhdGllbnQg HYmjEFl9O6YvEzlnmOQ+PC 60NXBvJK60yJTjoEOqy9iq pZi7DpPgFYKdFIN3hEfzCI kft3PrIEXx R14wiKZhf1T0RJRdkIlkqP RzWmTobXD0aG5lRHkuchev t8hedimsBqlwh4adqe46hR 47Q15pGAgu ZHRoPSIzMCUiIHZhbGlnbj 0htZ8kBn4+QNOhhAQ9zWY3 fE9kWDJkQcI4BBtdW506Dj RvcCIvPjxj u5swl1rucYv1CgT7GKZjqx KpzHrrDOC9l0ChEf50H23v IHdpZHRoPSIyMCUiIHZhbG jzvd8vyT8y Ii8+NWRmlYD7hNG5tP2vQr GcHfM4CObsR421XzKuhBJi JbfmF75kY6BekDI+PHRyPj d2FUEhwIbt SE7jwVYhVWazPk2wLQZ0Mt RpGmRdDAzdG7FjDDPfkuny aacalBJ7INCyCKEnhT51Mh 9udDogMTBw lYXXuO2imjpfy6nqwgrkEa FxYUZmDEl0XFj6JTPanCbr ZyChDKO0YnV3EVW7rIGypM 1hbGlnbjog fT6nQ2NkOCLilwkhXw03lD 5vMtRcSmJ5GEhiTkb+QkVI OW1LYpDQOfxrMiNSKP1QNM FNRV73IR93 iAFch4D0vSQ5B3CgMFAvon ctmodjhJX4KIUtTPTezK80 hLWfKSneFa1hq8I8i401VZ SxXNIzlW39 Cg7ovCrhGKNpnDAYvW0dgi lll3smpgcxWtZcMUIcOMf0 JNy0CBNosEdoEjHvGJU7By L3RCQ7dLEu eP7svYoibpujyM6yYjo+MT AkDwftDUp7HMgorIU+PHRk BRM7qNywLDetKBLklH4gQE JiW5j7TnMq CdA0MAgzU4ZyJTFrtqnqRl 46uM2iTtQyLqE9PEutK1Ky wtL7XEUssITiLXifHNA7W3 2ij6H2EPMr QVXxDLK6dOV0fO3cqGjlsv ogbGVmdDsgdmVydGljYWwt FUmfJ417PCMmvOrbPhK9DM fdGHWaAW48 ZD38tWEpm4N6iRQ1S5JuEI BqyuhbylqjzPG1XEQgQQTy sJ74iECzOTquEr9cj8N0f7 06IDAuMDUw dY32Eq5sqQquXPKevYRCwW 6ilgmex8jwymgpMwIuSDVj IPa2ATe4DBSzhZmsSlQwLU S5ZpV7YEU2 zLTrhJ3gcQxfbxjnpW5xMf c+TUFMRTwvdGQ+PHRkIHN0 aFdyQUhyXUMkpP4iGFKyM2 n6SrUjYbE2 VYyaV0OsYSHbmyyzZz95lD 5rEeVrTfY2SCqbE8NgsmY7 NJVnaNJdZVseGZJ1B46us0 O9YEMnFKYt WSZ8aSK2sY3qdPotujxpwV VmdDsgdmVydGljYWwtYWxp R081KHWyiTsxOk1RXI64YK 14H6EjGvmi dGFibGU+PHRhYmxlIHdpZH AdTFceVXHwBpHejElxMS7h Ik7sIAXlLHMldLipzGRqAu Vcs9evDTFn HXwzES8yrZjpD1JoxQM3XQ Wks3c9Qi68T46aR3XgpTL+ CIGhuTR1eMY4eY4jSeHuWo L5ZShpG077 TaAvrXArOjchy4wvf2hnzP k2XyCsIKKsyaCyhGsiLZK5 f4IhNq65F51nKGooJHDoUV IyMCUiIHZh mMurtv6rkQ9jZb1+PGNvbC M6eDR5cH0dKeMkIzT3VMwn X167DfOlpNBeFduqK70sU1 JvdXA+PHRy Ptl5IFWfhWumIP2uiVOdHM djJw0bVXI0ZpSuTiKkXGhy D6PgPKTyfowbzbyvvJV7IW DuBNEqsC94 Wt2abLljTi7xLOCcJTA7FB NgmFEsU4YrcU7qTpJqRGPh SSDhZ2AqwPEpINwsY161XH ebPlZ2WCCl vyXvR0EbCMCqoWayThY6u4 E6Ky1ZcEgtrOFqEQ8dEgKd AAe9M7MkAde3LWGfjPnqVR 0ncGFkZGlu Nn0ohFxawBrsIK2qUGObhq oxg623DhShe5voIGZegYIf HOifHQN1B53rx7W0SJZcTU ZqTYE9vOS0 bP5iwUeaqnelyUGeyGusdi DsnEetJHgrOTmxD279TDYj mDfjHdJOQra9L3OwXlg8PM YlgKegNE1c oLYwODddUb9rkQubeIzuAD 0xBSPdzakhh486MgJqg0ol HAQmvBIyFGfxGQH3D39pp0 S8EVXoOLZn WRG7aSM5lN2tvGbzwyhmeV VmdDsgdmVydGljYWwtYWxp Q612TAHcaVwkSo0PIri3M7 OeEcf1EXGj lAvjGV2igWHsFEyvJa4maO vzdExpAW2xFZKsqaxwj902 GfMfg9fhEZNccQZdSOmeLB A7T49gp3Q7 YSZoJOFhWRI9uXR7xT4wbZ lnbjogbGVmdDsgdmVydGlj JLuuAEqdX348KWCfiSzhTu BheWVyOjwv dGQ+HN85rk11K7CrLxfyGu y9LXLlZUN6lNO9gT4nYMId SGvod7Z2gOX5L3LlqtOnkf 1fv5mkMGKu ZTo (more content not included)... Normal [facility] .Auto Diff 11-25-2023 Auto [place] % 1 % Normal 12 [facility] Comment on above: Performed By: #### 7 [id number], [id number], [id number], [id number], [id number], [id number] ####[facility] (DEFAULT)[address] [place] [address] 03987 Baso Abs# 0.1 x10 Normal 0.0-0.2 [facility] Comment on above: Performed By: #### 7 [id number], [id number], [id number], [id number], [id number], [id number] ####[facility] (DEFAULT)[address] [place] [address] 99369 Basophils/100 WBC (Bld) 0.3 % Normal 0.2-2.0 [facility] Comment on above: Performed By: #### 7 [id number], 12530461, [id number], [id number], [id number], [id number] ####[facility] (DEFAULT)[address] [place] [address] 89671 Eos Abs# 0.3 x10 Normal 0.0-0.4 [facility] Comment on above: Performed By: #### 7 255279, [id number], [id number], 2412489402, 803544695, 2619706 ####[facility] (DEFAULT)[address] [place] [address] 59287 Eosinophils/100 WBC (Bld) 0.8 % Low 0.9-4.0 [facility] Comment on above: Performed By: #### 7 321987, 99117795, [id number], [id number], 429777080, 6317892 ####[facility] (DEFAULT)[address] [place] [address] 32339 Lymph Abs# 34.2 x10 High 1.3-2.9 [facility] Comment on above: Performed By: #### 7 082788, 35379142, [id number], [id number], 575894269, 9385367 ####[facility] (DEFAULT)[address] [place] [address] Lymphocytes/100 WBC (Bld) 84 % High 14-48 [facility] Comment on above: Performed By: #### 7 254261, 94650761, [id number], [id number], 296731636, 5290007 ####[facility] (DEFAULT)[address] [place] [address] [place] Abs# 0.3 x10 Normal 0.0-0.8 [facility] Comment on above: Performed By: #### 7 506521, 79111425, 1194707274, 2426576674, 510128327, 1462487 ####[facility] (DEFAULT)[address] [place] [address] Neut Abs# 5.7 x10 Normal 1.5-9.2 [facility] Comment on above: Performed By: #### 7 857013, 18606768, 1398575596, 1424761308, 048755804, 7768458 ####[facility] (DEFAULT)[address] [place] [address] Neutrophils/100 WBC (Bld) 14 % Low 44-88 [facility] Comment on above: Performed By: #### 7 170081, 43381296, [id number], 6039919390, 880343956, 7723140 ####[facility] (DEFAULT)[address] [place] [address] CBC w/ Auto Diffon 4 Erythrocyte distribution width (RBC) [Ratio] 14.0 % Normal 11.5-15.0 [facility] Comment on above: Performed By: #### 7 784783, 21747800, 6913248606, 0109147411, 396676463, 9905218 ####[facility] (DEFAULT)[address] [place] [address] Hematocrit (Bld) [Volume fraction] 41.4 % Normal 34.8-51.9 [facility] Comment on above: Performed By: #### 7 404126, 95005850, 4057857647, 3508626527, 160023179, 7732766 ####[facility] (DEFAULT)[address] [place] [address] 21767 Hemoglobin (Bld) [Mass/Vol] 13.8 g/dL Normal 11.8-17.7 [facility] Comment on above: Performed By: #### 7 360383, 56038059, 1864422057, 9142854029, 993653175, 8251330 ####[facility] (DEFAULT)[address] [place] [address] 77325 MCH (RBC) [Entitic mass] 31 pg Normal 24-34 [facility] Comment on above: Performed By: #### 7 055852, 87162314, 5350951628, 6355133350, 785425295, 0291543 ####[facility] (DEFAULT)[address] [place] [address] 98454 MCHC (RBC) [Mass/Vol] 33 g/dL Normal 26-37 [facility] Comment on above: Performed By: #### 7 601800, 12534876, 9476581674, 4445493412, 451646873, 3830238 ####[facility] (DEFAULT)[address] [place] [address] 77351 MCV (RBC) [Entitic vol] 92 fL Normal 81-100 [facility] Comment on above: Performed By: #### 7 555435, 72071767, 7716000628, 7730832244, 140975248, 2968281 ####[facility] (DEFAULT)[address] [place] [address] 43813 Platelet 147 x10 Normal 138-427 [facility] Comment on above: Performed By: #### 7 661192, 66770906, [id number], 7547438373, 038392505, 4734145 ####[facility] (DEFAULT)[address] [place] [address] 70261 Platelet mean volume (Bld) [Entitic vol] 8.0 fL Normal 6.3-10.2 [facility] Comment on above: Performed By: #### 7 241493, 18562484, [id number], [id number], 855381397, 8020639 ####[facility] (DEFAULT)[address] [place] [address] RBC 4.50 x10 Normal 3.70-5.30 [facility] Comment on above: Performed By: #### 7 038918, 85598055, 7416441882, 5426090758, 461286234, 2540655 ####[facility] (DEFAULT)[address] [place] [address] WBC 40.7 x10 High 3.5-10.5 [facility] Comment on above: Result Comment: Slid e Reviewed Performed By: #### 7 636280, 11768552, [id number], 9934019151, 886479380, 1721314 ####[facility] (DEFAULT)[address] [place] [address] Man Diff? Auto Invalid Interpretation Code [facility] Comment on above: Performed By: #### 7 251300, 81856751, [id number], [id number], 220264116, 9774379 ####[facility] (DEFAULT)[address] [place] [address] Standardon 11-25-2023 eGFR Non AA >60 Invalid Interpretation Code [facility] Comment on above: Performed By: #### 7 968052, 50842976, 0579313326, 7622141681, 016572181, 3438269 ####[facility] (DEFAULT)[address] [place] [address] eGFR AA >60 Invalid Interpretation Code [facility] Comment on above: Performed By: #### 7 305105, 08144781, 4204494575, 8075206664, 141298728, 6782858 ####[facility] (DEFAULT)[address] [place] [address] Albumin [Mass/Vol] 4.5 g/dL Normal 3.5-5.[address] [facility] Comment on above: Performed By: #### 7 169416, 84954919, 4926756736, 4829600069, 681547792, 9039043 ####[facility] (DEFAULT)[address] [place] [address] Albumin/Globulin [Mass ratio] 1.4 {ratio} Normal 1.4-2.6 [facility] Comment on above: Performed By: #### 7 656594, 15287083, 7991318397, 3756962084, 945869199, 5395713 ####[facility] (DEFAULT)[address] [place] [address] Alk Phos 64 IU/L Normal 32-91 [facility] Comment on above: Performed By: #### 7 894291, 29973834, 9267777387, 5759172405, 472487200, 4035192 ####[facility] (DEFAULT)[address] [place] [address] ALT [Catalytic activity/Vol] 28.0 U/L Normal 17.0-63.0 [facility] Comment on above: Performed By: #### 7 664175, 16832938, 5449495435, 1429002339, 884792078, 7252684 ####[facility] (DEFAULT)[address] [place] [address] Anion gap [Moles/Vol] 13.2 mmol/L Normal 5.0-19.0 [facility] Comment on above: Performed By: #### 7 426597, 84728347, 9013616819, 9903486657, 575154853, 4187245 ####[facility] (DEFAULT)[address] [place] [address] 11591 AST [Catalytic activity/Vol] 30 U/L Normal 15-41 [facility] Comment on above: Performed By: #### 7 994751, 43054861, 5023280617, 8289761558, 201690119, 4804377 ####[facility] (DEFAULT)[address] [place] [address] Bili Total 0.6 mg/dL Normal 0.3-1.2 [facility] Comment on above: Performed By: #### 7 087548, 91074247, 4008207712, 5167813692, 762986870, 8992316 ####[facility] (DEFAULT)[address] [place] [address] 42686 Calcium [Mass/Vol] 9.1 mg/dL Normal 8.9-10.[address] [facility] Comment on above: Performed By: #### 7 919111, 63337306, 2808878129, 5001642840, 382826739, 2467057 ####[facility] (DEFAULT)[address] [place] [address] 30120 Chloride [Moles/Vol] 94 mmol/L Low 101-111 [facility] Comment on above: Performed By: #### 7 090153, 22473869, 2271973464, 4278334425, 758351174, 6176105 ####[facility] (DEFAULT)[address] [place] [address] 36109 CO2 [Moles/Vol] 25 mmol/L Normal 21-32 [facility] Comment on above: Performed By: #### 7 312511, 70625921, 7850370672, 1633781061, 860509529, 5113992 ####[facility] (DEFAULT)[address] [place] [address] 89100 Creatinine [Mass/Vol] 0.87 mg/dL Low 0.90-1.30 [facility] Comment on above: Performed By: #### 7 857722, 71013961, 4263325260, 4922748028, 841485910, 9174557 ####[facility] (DEFAULT)[address] [place] [address] 46553 Globulin (S) [Mass/Vol] 3.2 g/dL Normal 1.5-4.3 [facility] Comment on above: Performed By: #### 7 718201, 73213979, 1381900817, 2867710488, 917139071, 4468691 ####[facility] (DEFAULT)[address] [place] [address] 68039 Glucose [Mass/Vol] 102.0 mg/dL Normal 74.0-118.0 [facility] Comment on above: Performed By: #### 7 246423, 58686661, 2470418781, 0061028900, 734287184, 3304036 ####[facility] (DEFAULT)[address] [place] [address] 25636 Osmolality 257 mOsm/L Invalid Interpretation Code [facility] Comment on above: Performed By: #### 7 467660, 21823392, 8055396931, 9109390291, 650987365, 3424543 ####[facility] (DEFAULT)[address] [place] [address] 76218 Potassium [Moles/Vol] 4.2 mmol/L Normal 3.6-5.1 [facility] Comment on above: Performed By: #### 7 720347, 49169913, 9091911435, 2623743638, 763393382, 7176056 ####[facility] (DEFAULT)[address] [place] [address] 92271 Protein [Mass/Vol] 7.7 g/dL Normal 6.5-8.[address] [facility] Comment on above: Performed By: #### 7 988431, 80948317, 0761299004, 5160182221, 434429089, 6887701 ####[facility] (DEFAULT)[address] [place] [address] 76366 Sodium [Moles/Vol] 128.0 mmol/L Low 136.0-144.0 [facility] Comment on above: Performed By: #### 7 882557, 91038862, 8997416373, 4975273057, 844856253, 3423206 ####[facility] (DEFAULT)[address] [place] [address] 12290 Urea nitrogen [Mass/Vol] 13 mg/dL Normal 8-26 [facility] Comment on above: Performed By: #### 7 365083, 48019682, 4015900575, 2755919886, 395964780, 6996515 ####[facility] (DEFAULT)[address] [place] [address] 89323 Urea nitrogen/Creatinine [Mass ratio] 14.9 mg/mg Normal 4.6-16.2 [facility] Comment on above: Performed By: #### 7 719563, 89509932, 1502439811, 6237798146, 974017116, 7071768 ####[facility] (DEFAULT)[address] [place] [address] 26075 Lipid Panel Standardon 11-24 Cholesterol [Mass/Vol] 97.0 mg/dL Normal 66.0-200.0 [facility] Comment on above: Performed By: #### 7 509892, 79590112, 4995341032, 0603096805, 087142364, 9910215 ####[facility] (DEFAULT)[address] [place] [address] 95502 Cholesterol in HDL [Mass/Vol] 29 mg/dL Low 40-71 [facility] Comment on above: Performed By: #### 7 124655, 61445314, 1974483579, 5031608414, 442811105, 8236819 ####[facility] (DEFAULT)[address] [place] [address] 96171 Cholesterol in LDL [Mass/Vol] 54 mg/dL Normal 1-100 [facility] Comment on above: Performed By: #### 7 607453, 93731227, 0315783489, 9873196486, 941282629, 3473808 ####[facility] (DEFAULT)[address] [place] [address] 46269 Cholesterol.total/Cindy sterol in HDL [Mass ratio] 3.3 {ratio} Normal 0.0-4.5 [facility] Comment on above: Performed By: #### 7 067130, 01859630, 9925170261, 8763260354, 670324293, 9215468 ####[facility] (DEFAULT)[address] [place] [address] 02253 Triglyceride [Mass/Vol] 69.0 mg/dL Normal 0.0-150.0 [facility] Comment on above: Performed By: #### 7 686522, 60737075, 5625693535, 1736000861, 925137465, 6192796 ####[facility] (DEFAULT)[address] [place] [address] 33835 VLDL. 14 mg/dL Normal 5-40 [facility] Comment on above: Performed By: #### 7 029962, 61423630, 0864285419, 8670885344, 436415780, 4097750 ####[facility] (DEFAULT)[address] [place] [address] PSA Screenon 11-25-2023 PSA Screen 8.74 ng/mL High 0.00-4.00 [facility] Comment on above: Result Comment: Uni [employer] DxI Synchron Access Clinical System (Chemiluminescence) Values obtained with different assay methods or kits cannot be used interchangeably. Results cannot be interpreted as absolute evidence of the presence or absence of malignant disease. Performed By: #### 7 727481, 39324019, 4464975435, 9604369237, 065698114, 9304243 ####[facility] (DEFAULT)[address] [place] [address] TSH w/ Reflex to FT4on 11-24 TSH Qn 0.94 m[IU]/L Normal 0.45-5.33 [facility] Comment on above: Performed By: #### 7 012503, 56171543, 9278938210, 0995472189, 423898966, 9086981 ####[facility] (DEFAULT)[address] [place] [address] CBC with Diffon 08-20-2023 Abs. Atypical Lymphs 2.99 k/uL Normal [facility] Comment on above: Performed By: #### C P, CDP #### [address] [address] Ticketing Agent: Haider Garcia MD Abs. Basophil 0.00 k/uL Normal 0.0-0.2 [facility] Comment on above: Performed By: #### C P, CDP #### [address] [address] Ticketing Agent: Haider Garcia MD Abs.Neutrophil (Seg) 5.49 k/uL Normal 1.8-7.7 [facility] Comment on above: Performed By: #### C P, CDP #### [place] [address] Ticketing Agent: Haider Garcia MD Atypical Lymphs 6 % Normal [facility] Comment on above: Performed By: #### C P, CDP #### [place] [address] Ticketing Agent: Haider Garcia MD Basophils/100 WBC (Bld) 0 % Normal 0-2 M [facility] Comment on above: Performed By: #### C P, CDP #### [place] [address] Ticketing Agent: Haider Garcia MD Eosinophils (Bld) [#/Vol] 0.50 10*3/uL High 0.0-0.4 [facility] Comment on above: Performed By: #### C P, CDP #### [place] [address] Ticketing Agent: Haider Garcia MD Eosinophils/100 WBC (Bld) 1 % Normal 1-4 [facility] Comment on above: Performed By: #### C P, CDP #### [place] [address] Ticketing Agent: Haider Garcia MD Lymphocytes (Bld) [#/Vol] 39.42 10*3/uL High 1.0-4.8 [facility] Comment on above: Performed By: #### C P, CDP #### [place] [address] Ticketing Agent: Haider Garcia MD Lymphocytes/100 WBC (Bld) 79 % High 24-44 [facility] Comment on above: Performed By: #### C P, CDP #### [place] [address] Ticketing Agent: Haider Garcia MD Monocytes (Bld) [#/Vol] 1.50 10*3/uL High 0.1-0.8 [facility] Comment on above: Performed By: #### C P, CDP #### [place] [address] Ticketing Agent: Haider Garcia MD Monocytes/100 WBC (Bld) 3 % Normal 1-7 M [facility] Comment on above: Performed By: #### C P, CDP #### [place] [address] Ticketing Agent: Haider Garcia MD Morphology Ruben (Bld) [Interp] SMUDGE CELLS PRESENT Normal [facility] Comment on above: Performed By: #### C P, CDP #### [place] [address] Ticketing Agent: Haider Garcia MD Neutrophil (Seg) 11 % Low 36-66 [facility] Comment on above: Performed By: #### C P, CDP #### [place] [address] Ticketing Agent: Haider Garcia MD Erythrocyte distribution width (RBC) [Ratio] 13.2 % Normal 12.5-15.4 [facility] Comment on above: Performed By: #### C P, CDP #### [place] [address] Ticketing Agent: Haider Garcia MD Hematocrit (Bld) [Volume fraction] 42.3 % Normal 41-53 [facility] Comment on above: Performed By: #### C P, CDP #### [place] [address] Ticketing Agent: Haider Garcia MD Hemoglobin (Bld) [Mass/Vol] 14.4 g/dL Normal 13.5-17.5 [facility] Comment on above: Performed By: #### C P, CDP #### [place] [address] Ticketing Agent: Haider Garcia MD MCH (RBC) [Entitic mass] 31.5 pg Normal 26-34 [facility] Comment on above: Performed By: #### C P, CDP #### [place] [address] Ticketing Agent: Haider Garcia MD MCHC (RBC) [Mass/Vol] 34.0 g/dL Normal 31-37 [facility] Comment on above: Performed By: #### C P, CDP #### [place] [address] Ticketing Agent: Haider Garcia MD MCV (RBC) [Entitic vol] 92.7 fL Normal 80-100 M [facility] Comment on above: Performed By: #### C P, CDP #### [place] [address] Ticketing Agent: Haider Garcia MD Platelet mean volume (Bld) [Entitic vol] 7.1 fL Normal 6.0-12.0 [facility] Comment on above: Performed By: #### C P, CDP #### [place] [id number] Ticketing Agent: Haider Garcia MD Platelets (Bld) [#/Vol] 122 10*3/uL Low 140-450 [facility] Comment on above: Performed By: #### C P, CDP #### [address] [id number] Ticketing Agent: Haider Garcia MD RBC (Bld) [#/Vol] 4.56 10*6/uL Normal 4.5-5.9 [facility] Comment on above: Performed By: #### C P, CDP #### [place] [id number] Ticketing Agent: Haider Garcia MD WBC (Bld) [#/Vol] 49.9 10*3/uL Critically high 3.5-11.0 [facility] Comment on above: Result Comment: TEST CONFIRMED Performed By: #### C P, CDP #### [place] [address] Ticketing Agent: Haider Garcia MD Comp Metabolic Profon 2023 Albumin [Mass/Vol] 4.6 g/dL Normal 3.5-5.2 [facility] Comment on above: Performed By: #### C P, CDP #### [place] [address] Ticketing Agent: Haider Garcia MD Albumin/Glob Ratio 1.7 Normal 1.0-2.5 [facility] Comment on above: Performed By: #### C P, CDP #### [place] [id number] Ticketing Agent: Haider Garcia MD Alkaline Phos 73 U/L Normal 40-129 [facility] Comment on above: Performed By: #### C P, CDP #### [address] [place] [address] Ticketing Agent: Haider Garcia MD ALT [Catalytic activity/Vol] 35 U/L Normal 5-41 [facility] Comment on above: Performed By: #### C P, CDP #### [place] [address] Ticketing Agent: Haider Garcia MD Anion gap [Moles/Vol] 10 mmol/L Normal 9-17 [facility] Comment on above: Performed By: #### C P, CDP #### [place] [address] Ticketing Agent: Haider Garcia MD AST [Catalytic activity/Vol] 26 U/L Normal <40 [facility] Comment on above: Performed By: #### C P, CDP #### [place] [address] Ticketing Agent: Haider Garcia MD Bilirubin [Mass/Vol] 0.5 mg/dL Normal 0.3-1.2 [facility] Comment on above: Performed By: #### C P, CDP #### [place] [address] Ticketing Agent: Haider Garcia MD Calcium [Mass/Vol] 9.7 mg/dL Normal 8.6-10.4 [facility] Comment on above: Performed By: #### C P, CDP #### [place] [address] Ticketing Agent: Haider Garcia MD Chloride [Moles/Vol] 94 mmol/L Low 98-107 [facility] Comment on above: Performed By: #### C P, CDP #### [address] [id number] Ticketing Agent: Haider Garcia MD CO2 [Moles/Vol] 26 mmol/L Normal 20-31 [facility] Comment on above: Performed By: #### C P, CDP #### [facility] [address] [place] [id number] Ticketing Agent: Haider Garcia MD Creatinine [Mass/Vol] 0.7 mg/dL Normal 0.7-1.2 [facility] Comment on above: Performed By: #### C P, CDP #### [facility] [address] [place] [address] Ticketing Agent: Haider Garcia MD GFR/1.73 sq M.predicted among non-blacks MDRD (S/P/Bld) [Vol rate/Area] mL/min/{1.73_m2} Normal >60 [facility] Comment on above: Result Comment: These [...] Performed By: #### C P, CDP #### [facility] [address] [place] [address] Ticketing Agent: Haider Garcia MD Glucose [Mass/Vol] 111 mg/dL High 70-99 [facility] Comment on above: Performed By: #### C P, CDP #### [facility] [address] [place] [phone] Ticketing Agent: Haider Garcia MD Potassium [Moles/Vol] 4.6 mmol/L Normal 3.7-5.3 [facility] Comment on above: Performed By: #### C P, CDP #### [facility] [address] [place] [phone] Ticketing Agent: Haider Garcia MD Protein [Mass/Vol] 7.3 g/dL Normal 6.4-8.3 [facility] Comment on above: Performed By: #### C P, CDP #### [facility] [address] [place] [phone] Ticketing Agent: Haider Garcia MD Sodium [Moles/Vol] 130 mmol/L Low 135-144 [facility] Comment on above: Performed By: #### C P, CDP #### [place] [address] Ticketing Agent: Haider Garcia MD Urea nitrogen [Mass/Vol] 12 mg/dL Normal 8-23 [facility] Comment on above: Performed By: #### C P, CDP #### [place] [phone] Ticketing Agent: Haider Garcia MD Lactate Dehydrogenaseon 08-01 LDH [Catalytic activity/Vol] 204 U/L Normal 135-225 [facility] Comment on above: Result Comment: SPEC IMEN SLIGHTLY HEMOLYZED, RESULTS MAY BE ADVERSELY AFFECTED. Performed By: #### C P, CDP #### [facility] [address] [place] [phone] Ticketing Agent: Haider Garcia MD CBC with Diffon 05-21-2023 Abs. Basophil 0.00 k/uL Normal 0.0-0.2 [facility] Comment on above: Performed By: #### C P, CDP #### [facility] [address] [place] [id number] Ticketing Agent: Haider Garcia MD Abs.Neutrophil (Seg) 7.59 k/uL Normal 1.8-7.7 [facility] Comment on above: Performed By: #### C P, CDP #### [place] [address] Ticketing Agent: Haider Garcia MD Basophils/100 WBC (Bld) 0 % Normal 0-2 M [facility] Comment on above: Performed By: #### C P, CDP #### [place] [address] Ticketing Agent: Haider Garcia MD Eosinophils (Bld) [#/Vol] 0.00 10*3/uL Normal 0.0-0.4 [facility] Comment on above: Performed By: #### C P, CDP #### [place] [address] Ticketing Agent: Haider Garcia MD Eosinophils/100 WBC (Bld) 0 % Low 1-4 [facility] Comment on above: Performed By: #### C P, CDP #### [place] [address] Ticketing Agent: Haider Garcia MD Lymphocytes (Bld) [#/Vol] 40.99 10*3/uL High 1.0-4.8 [facility] Comment on above: Performed By: #### C P, CDP #### [place] [address] Ticketing Agent: Haider Garcia MD Lymphocytes/100 WBC (Bld) 81 % High 24-44 [facility] Comment on above: Performed By: #### C P, CDP #### [place] [address] Ticketing Agent: Haider Garcia MD Monocytes (Bld) [#/Vol] 2.02 10*3/uL High 0.1-0.8 [facility] Comment on above: Performed By: #### C P, CDP #### [place] [address] Ticketing Agent: Haider Garcia MD Monocytes/100 WBC (Bld) 4 % Normal 1-7 M [facility] Comment on above: Performed By: #### C P, CDP #### [place] [address] Ticketing Agent: Haider Garcia MD Morphology Ruben (Bld) [Interp] Normal Normal [facility] Comment on above: Performed By: #### C P, CDP #### [place] [address] Ticketing Agent: Haider Garcia MD Neutrophil (Seg) 15 % Low 36-66 [facility] Comment on above: Performed By: #### C P, CDP #### [place] [address] Ticketing Agent: Haider Garcia MD Erythrocyte distribution width (RBC) [Ratio] 14.5 % Normal 12.5-15.4 [facility] Comment on above: Performed By: #### C P, CDP #### [place] [address] Ticketing Agent: Haider Garcia MD Hematocrit (Bld) [Volume fraction] 40.1 % Low 41-53 [facility] Comment on above: Performed By: #### C P, CDP #### [place] [address] Ticketing Agent: Haider Garcia MD Hemoglobin (Bld) [Mass/Vol] 13.5 g/dL Normal 13.5-17.5 [facility] Comment on above: Performed By: #### C P, CDP #### [place] [id number] Ticketing Agent: Haider Garcia MD MCH (RBC) [Entitic mass] 31.3 pg Normal 26-34 [facility] Comment on above: Performed By: #### C P, CDP #### [place] [address] Ticketing Agent: Haider Garcia MD MCHC (RBC) [Mass/Vol] 33.7 g/dL Normal 31-37 [facility] Comment on above: Performed By: #### C P, CDP #### [place] [address] Ticketing Agent: Haider Garcia MD MCV (RBC) [Entitic vol] 92.6 fL Normal 80-100 M [facility] Comment on above: Performed By: #### C P, CDP #### [place] [address] Ticketing Agent: Haider Garcia MD Platelet mean volume (Bld) [Entitic vol] 7.4 fL Normal 6.0-12.0 [facility] Comment on above: Performed By: #### C P, CDP #### [place] [address] Ticketing Agent: Haider Garcia MD Platelets (Bld) [#/Vol] 116 10*3/uL Low 140-450 [facility] Comment on above: Performed By: #### C P, CDP #### [facility] [place] [phone] Ticketing Agent: Haider Garcia MD RBC (Bld) [#/Vol] 4.33 10*6/uL Low 4.5-5.9 [facility] Comment on above: Performed By: #### C P, CDP #### [place] [address] Ticketing Agent: Haider Garcia MD WBC (Bld) [#/Vol] 50.6 10*3/uL Critically high 3.5-11.0 [facility] Comment on above: Result Comment: TEST CONFIRMED Performed By: #### C P, CDP #### [place] [address] Ticketing Agent: Haider Garcia MD Comp Metabolic Profon 2022 Albumin [Mass/Vol] 4.4 g/dL Normal 3.5-5.2 [facility] Comment on above: Performed By: #### C P, CDP #### [place] [address] Ticketing Agent: Haider Garcia MD Albumin/Glob Ratio 1.6 Normal 1.0-2.5 [facility] Comment on above: Performed By: #### C P, CDP #### [place] [address] Ticketing Agent: Haider Garcia MD Alkaline Phos 90 U/L Normal 40-129 [facility] Comment on above: Performed By: #### C P, CDP #### [place] [address] Ticketing Agent: Haider Garcia MD ALT [Catalytic activity/Vol] 30 U/L Normal 5-41 [facility] Comment on above: Performed By: #### C P, CDP #### [place] [address] Ticketing Agent: Haider Garcia MD Anion gap [Moles/Vol] 10 mmol/L Normal 9-17 [facility] Comment on above: Performed By: #### C P, CDP #### [place] [address] Ticketing Agent: Haider Garcia MD AST [Catalytic activity/Vol] 25 U/L Normal <40 [facility] Comment on above: Performed By: #### C P, CDP #### [place] [address] Ticketing Agent: Haider Garcia MD Bilirubin [Mass/Vol] 0.9 mg/dL Normal 0.3-1.2 [facility] Comment on above: Performed By: #### C P, CDP #### [place] [address] Ticketing Agent: Haider Garcia MD Calcium [Mass/Vol] 9.4 mg/dL Normal 8.6-10.4 [facility] Comment on above: Performed By: #### C P, CDP #### [place] [address] Ticketing Agent: Haider Garcia MD Chloride [Moles/Vol] 103 mmol/L Normal 98-107 [facility] Comment on above: Performed By: #### C P, CDP #### [place] [address] Ticketing Agent: Haider Garcia MD CO2 [Moles/Vol] 26 mmol/L Normal 20-31 [facility] Comment on above: Performed By: #### C P, CDP #### [facility] [address] [place] [phone] Ticketing Agent: Haider Garcia MD Creatinine [Mass/Vol] 0.8 mg/dL Normal 0.7-1.2 [facility] Comment on above: Performed By: #### C P, CDP #### [place] [address] Ticketing Agent: Haider Garcia MD GFR/1.73 sq M.predicted among non-blacks MDRD (S/P/Bld) [Vol rate/Area] mL/min/{1.73_m2} Normal >60 [facility] Comment on above: Result Comment: These [...] Performed By: #### C P, CDP #### [facility] [id number] [place] [address] Ticketing Agent: Haider Garcia MD Glucose [Mass/Vol] 108 mg/dL High 70-99 [facility] Comment on above: Performed By: #### C P, CDP #### [facility] [address] [place], [place] [id number] Ticketing Agent: Haider Garcia MD Potassium [Moles/Vol] 4.4 mmol/L Normal 3.7-5.3 [facility] Comment on above: Performed By: #### C P, CDP #### [place] [id number] Ticketing Agent: Haider Garcia MD Protein [Mass/Vol] 7.1 g/dL Normal 6.4-8.3 [facility] Comment on above: Performed By: #### C P, CDP #### [facility] [address] [place], [place] [phone] Ticketing Agent: Haider Garcia MD Sodium [Moles/Vol] 139 mmol/L Normal 135-144 [facility] Comment on above: Performed By: #### C P, CDP #### [facility] [address] [place], [place] [id number] Ticketing Agent: Haider Garcia MD Urea nitrogen [Mass/Vol] 11 mg/dL Normal 8-23 [facility] Comment on above: Performed By: #### C P, CDP #### [facility] [address] [place] [address] Ticketing Agent: Haider Garcia MD Outside Recordson 04-10-2023 Outside Records [id number] [facility] Center Office Visiton 03-20-2023 Follow-up visit [id number] Cristian Hernandez Jr. 1960 Date Provider Department Center 03/20/2023 Gus-SIGIFREDO LOPEZ [facility] Family History Family history unknown: Yes Level of Service:24494 GA OFFICE/OUTPATIENT ESTABLISHED MOD MDM 30-39 MIN Normal [facility] CBC with Auto Differentialon 02-19-2023 Basophils (Bld) [#/Vol] 0.00 10*3/uL [facility] Basophils/100 WBC (Bld) 0 % 0 - 2 % [facility] Eosinophils (Bld) [#/Vol] 0.00 10*3/uL [facility] Eosinophils/100 WBC (Bld) 0 % Low 1 - 4 % [facility] Erythrocyte distribution width (RBC) [Ratio] 13.4 % 12.5 - 15.4 % [facility] Hematocrit (Bld) [Volume fraction] 45.1 % 41 - 53 % [facility] Hemoglobin (Bld) [Mass/Vol] 14.8 g/dL 13.5 - 17.5 g/dL [facility] Interpretation and review of laboratory results Abnormal [facility] Lymphocytes/100 WBC (Bld) 81 % High 24 - 44 % [facility] Lymphocytes/100 WBC (Bld) 42.36 % High [facility] MCH (RBC) [Entitic mass] 31.2 pg 26 - 34 pg [facility] MCHC (RBC) [Mass/Vol] 32.8 g/dL 31 - 3 7 g/dL [facility] MCV (RBC) [Entitic vol] 94.9 fL 80 - 100 fL [facility] Monocytes/100 WBC (Bld) 3 % 1 - 7 % B ON [facility] Monocytes/100 WBC (Bld) 1.57 % High B ON [facility] Morphology Ruben (Bld) [Interp] Normal [facility] Neutrophils/100 WBC (Bld) 16 % Low 36 - 66 % [facility] Platelet mean volume (Bld) [Entitic vol] 7.7 fL 6.0 - 12.0 fL [facility] Platelets (Bld) [#/Vol] 113 10*3/uL Low [facility] RBC (Bld) [#/Vol] 4.75 10*6/uL 4.5 - 5.9 m/uL [facility] Segmented neutrophils/100 WBC (Bld) 8.37 % High [facility] WBC other (Bld) [#/Vol] 52.3 Critically high [facility] CBC with Diffon 02-19-2023 Abs. Basophil 0.00 k/uL Normal 0.0-0.2 [facility] Comment on above: Performed By: #### L D #### [facility] [place] [address] Ticketing Agent: Robb Tran MD #### CP, CDP #### [address] [address] Ticketing Agent: Haider Garcia MD Abs.Neutrophil (Seg) 8.37 k/uL High 1.8-7.7 [facility] Comment on above: Performed By: #### L D #### [address] [phone] Ticketing Agent: Robb Tran MD #### CP, CDP #### [address] [address] Ticketing Agent: Haider Garcia MD Basophils/100 WBC (Bld) 0 % Normal 0-2 [facility] Comment on above: Performed By: #### L D #### [address] [phone] Ticketing Agent: Robb Tran MD #### CP, CDP #### [address] [address] Ticketing Agent: Haider Garcia MD Eosinophils (Bld) [#/Vol] 0.00 10*3/uL Normal 0.0-0.4 [facility] Comment on above: Performed By: #### L D #### [address] [phone] Ticketing Agent: Robb Tran MD #### CP, CDP #### [address] [address] Ticketing Agent: Haider Garcia MD Eosinophils/100 WBC (Bld) 0 % Low 1-4 [facility] Comment on above: Performed By: #### L D #### [address] [phone] Ticketing Agent: Robb Tran MD #### CP, CDP #### [address] [phone] Ticketing Agent: Haider Garcia MD Lymphocytes (Bld) [#/Vol] 42.36 10*3/uL High 1.0-4.8 [facility] Comment on above: Performed By: #### L D #### [address] [address] Ticketing Agent: Robb Tran MD #### CP, CDP #### [address] [phone] Ticketing Agent: Haider Garcia MD Lymphocytes/100 WBC (Bld) 81 % High 24-44 [facility] Comment on above: Performed By: #### L D #### [address] [address] Ticketing Agent: Robb Tran MD #### CP, CDP #### [address] [phone] Ticketing Agent: Haider Garcia MD Monocytes (Bld) [#/Vol] 1.57 10*3/uL High 0.1-0.8 [facility] Comment on above: Performed By: #### L D #### [address] [address] Ticketing Agent: Robb Tran MD #### CP, CDP #### [address] [address] Ticketing Agent: Haider Garcia MD Monocytes/100 WBC (Bld) 3 % Normal 1-7 M [facility] Comment on above: Performed By: #### L D #### [address] [address] Ticketing Agent: Robb Tran MD #### CP, CDP #### [address] [address] Ticketing Agent: Haider Garcia MD Morphology Ruben (Bld) [Interp] Normal Normal [facility] Comment on above: Performed By: #### L D #### [address] [phone] Ticketing Agent: Robb Tran MD #### CP, CDP #### [address] [address] Ticketing Agent: Haider Garcia MD Neutrophil (Seg) 16 % Low 36-66 [facility] Comment on above: Performed By: #### L D #### [address] [phone] Ticketing Agent: Robb Tran MD #### CP, CDP #### [address] [address] Ticketing Agent: Haider Garcia MD Erythrocyte distribution width (RBC) [Ratio] 13.4 % Normal 12.5-15.4 [facility] Comment on above: Performed By: #### L D #### [address] [phone] Ticketing Agent: Robb Tran MD #### CP, CDP #### [address] [address] Ticketing Agent: Haider Garcia MD Hematocrit (Bld) [Volume fraction] 45.1 % Normal 41-53 [facility] Comment on above: Performed By: #### L D #### [address] [id number] Ticketing Agent: Robb Tran MD #### CP, CDP #### [address] [address] Ticketing Agent: Haider Garcia MD Hemoglobin (Bld) [Mass/Vol] 14.8 g/dL Normal 13.5-17.5 [facility] Comment on above: Performed By: #### L D #### [address] [phone] Ticketing Agent: Robb Tran MD #### CP, CDP #### [address] [address] Ticketing Agent: Haider Garcia MD MCH (RBC) [Entitic mass] 31.2 pg Normal 26-34 [facility] Comment on above: Performed By: #### L D #### [address] [phone] Ticketing Agent: Robb Tran MD #### CP, CDP #### [address] [address] Ticketing Agent: Haider Garcia MD MCHC (RBC) [Mass/Vol] 32.8 g/dL Normal 31-37 [facility] [place] Comment on above: Performed By: #### L D #### [address] [phone] Ticketing Agent: Robb Tran MD #### CP, CDP #### [address] [address] Ticketing Agent: Haider Garcia MD MCV (RBC) [Entitic vol] 94.9 fL Normal 80-100 M [facility] Comment on above: Performed By: #### L D #### [address] [phone] Ticketing Agent: Robb Tran MD #### CP, CDP #### [place] [phone] Ticketing Agent: Haider Garcia MD Platelet mean volume (Bld) [Entitic vol] 7.7 fL Normal 6.0-12.0 [facility] Comment on above: Performed By: #### L D #### [place] [address] Ticketing Agent: Robb Tran MD #### CP, CDP #### [place] [phone] Ticketing Agent: Haider Garcia MD Platelets (Bld) [#/Vol] 113 10*3/uL Low 140-450 [facility] Comment on above: Performed By: #### L D #### [place] [address] Ticketing Agent: Robb Tran MD #### CP, CDP #### [place] [phone] Ticketing Agent: Haider Garcia MD RBC (Bld) [#/Vol] 4.75 10*6/uL Normal 4.5-5.9 [facility] Comment on above: Performed By: #### L D #### [place] [address] Ticketing Agent: Robb Tran MD #### CP, CDP #### [place] [phone] Ticketing Agent: Haider Garcia MD WBC (Bld) [#/Vol] 52.3 10*3/uL Critically high 3.5-11.0 [facility] Comment on above: Performed By: #### L D #### [address] [place] [phone] Ticketing Agent: Robb Tran MD #### CP, CDP #### [address] [phone] Ticketing Agent: Haider Garcia MD Comp Metabolic Profon 2022 Albumin [Mass/Vol] 4.8 g/dL Normal 3.5-5.2 [facility] Comment on above: Performed By: #### L D #### [address] [address] Ticketing Agent: Robb Tran MD #### CP, CDP #### [address] [address] Ticketing Agent: Haider Garcia MD Albumin/Glob Ratio 2.2 Normal 1.0-2.5 [facility] Comment on above: Performed By: #### L D #### [address] [address] Ticketing Agent: Robb Tran MD #### CP, CDP #### [address] [address] Ticketing Agent: Haider Garcia MD Alkaline Phos 70 U/L Normal 40-129 [facility] Comment on above: Performed By: #### L D #### [address] [address] Ticketing Agent: Robb Tran MD #### CP, CDP #### [address] [address] Ticketing Agent: Haider Garcia MD ALT [Catalytic activity/Vol] 28 U/L Normal 5-41 [facility] Comment on above: Performed By: #### L D #### [address] [phone] Ticketing Agent: Robb Tran MD #### CP, CDP #### [address] [address] Ticketing Agent: Haider Garcia MD Anion gap [Moles/Vol] 10 mmol/L Normal 9-17 [facility] [place] [facility] Comment on above: Performed By: #### L D #### [address] [address] Ticketing Agent: Robb Tran MD #### CP, CDP #### [address] [address] Ticketing Agent: Haider Garcia MD AST [Catalytic activity/Vol] 25 U/L Normal <40 [facility] Comment on above: Performed By: #### L D #### [address] [address] Ticketing Agent: Robb Tran MD #### CP, CDP #### [address] [address] Ticketing Agent: Haider Garcia MD Bilirubin [Mass/Vol] 0.7 mg/dL Normal 0.3-1.2 [facility] Comment on above: Performed By: #### L D #### [address] [address] Ticketing Agent: Robb Tran MD #### CP, CDP #### [address] [address] Ticketing Agent: Haider Garcia MD Calcium [Mass/Vol] 9.4 mg/dL Normal 8.6-10.4 [facility] Comment on above: Performed By: #### L D #### [address] [phone] Ticketing Agent: Robb Tran MD #### CP, CDP #### [place] [id number] [place] [address] Ticketing Agent: Haider Garcia MD Chloride [Moles/Vol] 99 mmol/L Normal 98-107 [facility] Comment on above: Performed By: #### L D #### [address] [phone] Ticketing Agent: Robb Tran MD #### CP, CDP #### [address] [address] Ticketing Agent: Haider Garcia MD CO2 [Moles/Vol] 27 mmol/L Normal 20-31 [facility] Comment on above: Performed By: #### L D #### [address] [phone] Ticketing Agent: Robb Tran MD #### CP, CDP #### [address] [address] Ticketing Agent: Haider Garcia MD Creatinine [Mass/Vol] 0.7 mg/dL Normal 0.7-1.2 [facility] [place] [facility] Comment on above: Performed By: #### L D #### [address] [phone] Ticketing Agent: Robb Tran MD #### CP, CDP #### [address] [address] Ticketing Agent: Haider Garcia MD GFR/1.73 sq M.predicted among non-blacks MDRD (S/P/Bld) [Vol rate/Area] mL/min/{1.73_m2} Normal >60 [facility] Comment on above: Result Comment: These [...] secretion. Performed By: #### L D #### [address] [phone] Ticketing Agent: Robb Tran MD #### CP, CDP #### [address] [address] Ticketing Agent: Haider Garcia MD Glucose [Mass/Vol] 112 mg/dL High 70-99 [facility] Comment on above: Performed By: #### L D #### [address] [phone] Ticketing Agent: Robb Tran MD #### CP, CDP #### [address] [address] Ticketing Agent: Haider Garcia MD Potassium [Moles/Vol] 4.8 mmol/L Normal 3.7-5.3 [facility] [place] [facility] Comment on above: Performed By: #### L D #### [address] [phone] Ticketing Agent: Robb Tran MD #### CP, CDP #### [address] [address] Ticketing Agent: Haider Garcia MD Protein [Mass/Vol] 7.0 g/dL Normal 6.4-8.3 [facility] Comment on above: Performed By: #### L D #### [address] [phone] Ticketing Agent: Robb Tran MD #### CP, CDP #### [facility] [address] [place] [address] Ticketing Agent: Haider Garcia MD Sodium [Moles/Vol] 136 mmol/L Normal 135-144 [facility] Comment on above: Performed By: #### L D #### [address] [address] Ticketing Agent: Robb Tran MD #### CP, CDP #### [address] [address] Ticketing Agent: Haider Garcia MD Urea nitrogen [Mass/Vol] 15 mg/dL Normal 8-23 [facility] Comment on above: Performed By: #### L D #### [address] [address] Ticketing Agent: Robb Tran MD #### CP, CDP #### [facility] [id number] [place] [address] Ticketing Agent: Haider Garcia MD [facility] Metabolic [facility] 02-19-2023 Albumin [Mass/Vol] 4.8 g/dL 3.5 - 5.2 g/dL [facility] Albumin/Globulin [Mass ratio] 2.2 {ratio} 1.0 - 2.5 [facility] ALP [Catalytic activity/Vol] 70 U/L 40 - 129 U/L [facility] ALT [Catalytic activity/Vol] 28 U/L 5 - 41 U/L [facility] Anion gap [Moles/Vol] 10 mmol/L 9 - 17 mmol/L [facility] AST [Catalytic activity/Vol] 25 U/L NINF - 40 U/L [facility] Bilirubin [Mass/Vol] 0.7 mg/dL 0.3 - 1 .2 mg/dL [facility] Calcium [Mass/Vol] 9.4 mg/dL 8.6 - 10. 4 mg/dL [facility] Chloride [Moles/Vol] 99 mmol/L 98 - 10 7 mmol/L [facility] CO2 [Moles/Vol] 27 mmol/L 20 - 31 mmol/L [facility] Creatinine [Mass/Vol] 0.7 mg/dL 0.7 - 1.2 mg/dL [facility] GFR/1.73 sq M.predicted MDRD (S/P/Bld) [Vol rate/Area] - PINF [facility] Comment on above: These results are [...] mg/dL High 70 - 99 mg/dL [facility] Interpretation and review of laboratory results Abnormal [facility] Potassium [Moles/Vol] 4.8 mmol/L 3.7 - 5.3 mmol/L [facility] Protein [Mass/Vol] 7.0 g/dL 6.4 - 8.3 g/dL [facility] Sodium [Moles/Vol] 136 mmol/L 135 - 144 mmol/L [facility] Urea nitrogen [Mass/Vol] 15 mg/dL 8 - 23 mg/dL [facility] Lactate Dehydrogenaseon 02-01 LDH [Catalytic activity/Vol] 178 U/L 135 - 225 U/L [facility] LDH [Catalytic activity/Vol] 178 U/L Normal 135-225 [facility] Comment on above: Performed By: #### L D #### [facility] [place] [address] Ticketing Agent: Robb Tran MD #### HERMANN, SINGH #### [address] [address] Ticketing Agent: Haider Garcia MD Basic Metabolic Profon 02-05 Anion gap [Moles/Vol] 14 mmol/L Normal 9-17 [facility] [place] [facility] Comment on above: Performed By: #### B MP, CBC #### [address] [address] Ticketing Agent: Robb Tran MD Calcium [Mass/Vol] 9.3 mg/dL Normal 8.6-10.4 [facility] Comment on above: Performed By: #### B MP, CBC #### [address] [address] Ticketing Agent: Robb Tran MD Chloride [Moles/Vol] 102 mmol/L Normal 98-107 [facility] Comment on above: Performed By: #### B MP, CBC #### [facility] [employer] [address] [place] [phone] Ticketing Agent: Robb Tran MD CO2 [Moles/Vol] 21 mmol/L Normal 20-31 [facility] Comment on above: Performed By: #### B MP, CBC #### [facility] [address] [place] [phone] Ticketing Agent: Robb Tran MD Creatinine [Mass/Vol] 0.8 mg/dL Normal 0.7-1.2 [facility] [place] [facility] Comment on above: Performed By: #### B MP, CBC #### [facility] [employer] [address] [place] [id number] Ticketing Agent: Robb Tran MD GFR/1.73 sq M.predicted among non-blacks MDRD (S/P/Bld) [Vol rate/Area] mL/min/{1.73_m2} Normal >60 [facility] Comment on above: Result Comment: These [...] Performed By: #### B MP, CBC #### [facility] [address] [place] [address] Ticketing Agent: Robb Tran MD Glucose [Mass/Vol] 114 mg/dL High 70-99 [facility] Comment on above: Performed By: #### B MP, CBC #### [facility] [address] [place] [address] Ticketing Agent: Robb Tran MD Potassium [Moles/Vol] 4.5 mmol/L Normal 3.7-5.3 [facility] [place] [facility] Comment on above: Performed By: #### B MP, CBC #### [address] [address] Ticketing Agent: Robb Tran MD Sodium [Moles/Vol] 137 mmol/L Normal 135-144 [facility] Comment on above: Performed By: #### B MP, CBC #### [address] [address] Ticketing Agent: Robb Tran MD Urea nitrogen [Mass/Vol] 20 mg/dL Normal 8-23 [facility] Comment on above: Performed By: #### B MP, CBC #### [address] [address] Ticketing Agent: Robb Tran MD CBCon 02-05-2023 Erythrocyte distribution width (RBC) [Ratio] 14.2 % Normal 11.8-14.4 [facility] Comment on above: Performed By: #### B MP, CBC #### [facility] [address] [place] [address] Ticketing Agent: Robb Tran MD Hematocrit (Bld) [Volume fraction] 43.6 % Normal 40.7-50.3 [facility] Comment on above: Performed By: #### B MP, CBC #### [address] [address] Ticketing Agent: Robb Tran MD Hemoglobin (Bld) [Mass/Vol] 13.9 g/dL Normal 13.0-17.0 [facility] Comment on above: Performed By: #### B MP, CBC #### [address] [address] Ticketing Agent: Robb Tran MD MCH (RBC) [Entitic mass] 31.0 pg Normal 25.2-33.5 [facility] Comment on above: Performed By: #### B MP, CBC #### [address] [address] Ticketing Agent: Robb Tran MD MCHC (RBC) [Mass/Vol] 31.9 g/dL Normal 28.4-34.8 [facility] [place] [facility] Comment on above: Performed By: #### B MP, CBC #### [address] [address] Ticketing Agent: Robb Tran MD MCV (RBC) [Entitic vol] 97.1 fL Normal 82.6-102.9 [facility] Comment on above: Performed By: #### B MP, CBC #### [address] [phone] Ticketing Agent: Robb Tran MD NRBC Automated 0.0 per 100 WBC Normal 0.0 [facility] Comment on above: Performed By: #### B MP, CBC #### [address] [address] Ticketing Agent: Robb Tran MD Platelet mean volume (Bld) [Entitic vol] 10.7 fL Normal 8.1-13.5 [facility] Comment on above: Performed By: #### B MP, CBC #### [facility] [address] [place] [address] Ticketing Agent: Robb Tran MD Platelets (Bld) [#/Vol] 118 10*3/uL Low 138-453 [facility] Comment on above: Performed By: #### B MP, CBC #### [facility] [place] [address] Ticketing Agent: Robb Tran MD RBC (Bld) [#/Vol] 4.49 10*6/uL Normal 4.21-5.77 [facility] Comment on above: Performed By: #### B MP, CBC #### [facility] [place] [address] Ticketing Agent: Robb Tran MD WBC (Bld) [#/Vol] 55.5 10*3/uL Critically high 3.5-11.3 [facility] Comment on above: Performed By: #### B MP, CBC #### [facility] [place] [address] Ticketing Agent: Robb Tran MD CBC with Auto Differentialon 11-13-2022 Basophils (Bld) [#/Vol] 0.00 10*3/uL [facility] Basophils/100 WBC (Bld) 0 % 0 - 2 % [facility] Eosinophils (Bld) [#/Vol] 0.00 10*3/uL [facility] Eosinophils/100 WBC (Bld) 0 % Low 1 - 4 % [facility] Erythrocyte distribution width (RBC) [Ratio] 14.5 % 12.5 - 15.4 % [facility] Hematocrit (Bld) [Volume fraction] 40.7 % Low 41 - 53 % [facility] Hemoglobin (Bld) [Mass/Vol] 13.4 g/dL Low 13.5 - 17.5 g/dL [facility] Interpretation and review of laboratory results Abnormal [facility] Lymphocytes/100 WBC (Bld) 95 % High 24 - 44 % [facility] Lymphocytes/100 WBC (Bld) 56.43 % High [facility] Comment on above: R/O Chronic Lymphopr oliferative Disorder, recommend peripheral blood Flow Cytometry, if clinically indicated. MCH (RBC) [Entitic mass] 30.7 pg 26 - 34 pg [facility] MCHC (RBC) [Mass/Vol] 32.8 g/dL 31 - 3 7 g/dL [facility] MCV (RBC) [Entitic vol] 93.4 fL 80 - 100 fL [facility] Monocytes/100 WBC (Bld) 0 % Low 1 - 7 % [facility] Monocytes/100 WBC (Bld) 0.00 % Low B ON [facility] Morphology Ruben (Bld) [Interp] Normal [facility] Neutrophils/100 WBC (Bld) 5 % Low 36 - 66 % [facility] Platelet mean volume (Bld) [Entitic vol] 8.0 fL 6.0 - 12.0 fL [facility] Platelets (Bld) [#/Vol] 90 10*3/uL Low B ON [facility] RBC (Bld) [#/Vol] 4.36 10*6/uL Low 4.5 - 5.9 m/uL [facility] Segmented neutrophils/100 WBC (Bld) 2.97 % [facility] WBC other (Bld) [#/Vol] 59.4 Critically high [facility] Comment on above: TEST CONFIRMED [facility] Comprehensive Metabolic Pane rubens 11-13-2022 Albumin [Mass/Vol] 4.4 g/dL 3.5 - 5.2 g/dL [facility] Albumin/Globulin [Mass ratio] 2.1 {ratio} 1.0 - 2.5 [facility] ALP [Catalytic activity/Vol] 58 U/L 40 - 129 U/L [facility] ALT [Catalytic activity/Vol] 30 U/L 5 - 41 U/L [facility] Anion gap [Moles/Vol] 10 mmol/L 9 - 17 mmol/L [facility] AST [Catalytic activity/Vol] 20 U/L NINF - 40 U/L [facility] Bilirubin [Mass/Vol] 0.7 mg/dL 0.3 - 1 .2 mg/dL [facility] Calcium [Mass/Vol] 9.2 mg/dL 8.6 - 10. 4 mg/dL [facility] Chloride [Moles/Vol] 101 mmol/L 98 - 10 7 mmol/L [facility] CO2 [Moles/Vol] 24 mmol/L 20 - 31 mmol/L [facility] Creatinine [Mass/Vol] 0.79 mg/dL 0.70 - 1.20 mg/dL [facility] GFR/1.73 sq M.predicted MDRD (S/P/Bld) [Vol rate/Area] - PINF [facility] Comment on above: These results are [...] mg/dL High 70 - 99 mg/dL [facility] Interpretation and review of laboratory results Abnormal [facility] Potassium [Moles/Vol] 4.8 mmol/L 3.7 - 5.3 mmol/L [facility] Protein [Mass/Vol] 6.5 g/dL 6.4 - 8.3 g/dL [facility] Sodium [Moles/Vol] 135 mmol/L 135 - 144 mmol/L [facility] Urea nitrogen [Mass/Vol] 12 mg/dL 8 - 23 mg/dL [facility] Lactate Dehydrogenaseon 11-01 LDH [Catalytic activity/Vol] 166 U/L 135 - 225 U/L [facility] CBC with Auto Differentialon 08-16-2022 Absolute Eos # 0.[address] [place] [address] [facility] Absolute Lymph # 52.55 High [facility] Absolute [place] # 1.22 High [facility] Atypical Lymphocytes 4 % [facility] Atypical Lymphocytes Absolute 2.44 k/uL [facility] Basophils (Bld) [#/Vol] 0.00 10*3/uL [facility] Basophils/100 WBC (Bld) 0 % 0 - 2 % B ON [facility] Eosinophils/100 WBC (Bld) 0 % Low 1 - 4 % [facility] Hematocrit (Bld) [Volume fraction] 41.6 % 41 - 53 % [facility] Hemoglobin (Bld) [Mass/Vol] 13.6 g/dL 13.5 - 17.5 g/dL [facility] Interpretation and review of laboratory results Abnormal [facility] Lymphocytes/100 WBC (Bld) 86 % High 24 - 44 % [facility] MCH (RBC) [Entitic mass] 30.2 pg 26 - 34 pg [facility] MCHC (RBC) [Mass/Vol] 32.7 g/dL 31 - 3 7 g/dL [facility] MCV (RBC) [Entitic vol] 92.4 fL 80 - 100 fL [facility] Monocytes/100 WBC (Bld) 2 % 1 - 7 % B ON [facility] Morphology Ruben (Bld) [Interp] SMUDGE CELLS PRESENT [facility] Platelet distribution width (Bld) [Ratio] 13.8 % 12.5 - 15.4 % [facility] Platelet mean volume (Bld) [Entitic vol] 7.4 fL 6.0 - 12.0 fL [facility] Platelets (Bld) [#/Vol] 111 10*3/uL Low [facility] RBC (Bld) [#/Vol] 4.50 10*6/uL 4.5 - 5.9 m/uL [facility] Segmented neutrophils/100 WBC (Bld) 8 % Low 36 - 66 % [facility] Segs Absolute 4.89 [facility] WBC (Bld) [#/Vol] 61.1 10*3/uL Critically high [facility] Comprehensive Metabolic Pane rubens 08-16-2022 Albumin [Mass/Vol] 4.4 g/dL 3.5 - 5.2 g/dL [facility] Albumin/Globulin [Mass ratio] 1.8 {ratio} 1.0 - 2.5 [facility] ALP [Catalytic activity/Vol] 76 U/L 40 - 129 U/L [facility] ALT [Catalytic activity/Vol] 29 U/L 5 - 41 U/L [facility] Anion gap [Moles/Vol] 11 mmol/L 9 - 17 mmol/L [facility] AST [Catalytic activity/Vol] 25 U/L NINF - 40 U/L [facility] Bilirubin [Mass/Vol] 0.6 mg/dL 0.3 - 1 .2 mg/dL [facility] Calcium [Mass/Vol] 9.3 mg/dL 8.6 - 10. 4 mg/dL [facility] Chloride [Moles/Vol] 93 mmol/L Low 98 - 10 7 mmol/L [facility] CO2 [Moles/Vol] 25 mmol/L 20 - 31 mmol/L [facility] Creatinine [Mass/Vol] 0.77 mg/dL 0.70 - 1.20 mg/dL [facility] GFR/1.73 sq M.predicted MDRD (S/P/Bld) [Vol rate/Area] - [facility] Comment on above: These results are [...] mg/dL High 70 - 99 mg/dL [facility] Interpretation and review of laboratory results Abnormal [facility] Potassium [Moles/Vol] 4.7 mmol/L 3.7 - 5.3 mmol/L [facility] Protein [Mass/Vol] 6.9 g/dL 6.4 - 8.3 g/dL [facility] Sodium [Moles/Vol] 129 mmol/L Low 135 - 144 mmol/L [facility] Urea nitrogen [Mass/Vol] 13 mg/dL 8 - 23 mg/dL [facility] Lactate Dehydrogenaseon 08-01 Cholesterol in LDL [Mass/Vol] 174 U/L 135 - 225 U/L [facility] CBC Auto Differentialon 10-01 Absolute Eos # 1.00 High [facility] th Absolute Lymph # 84.17 High [facility] He alth Absolute [place] # 5.01 High [facility] Hea lth Basophils (Bld) [#/Vol] 0.00 10*3/uL [facility] Basophils/100 WBC (Bld) 0 % 0 - 2 % [facility] Eosinophils/100 WBC (Bld) 1 % 1 - 4 % [facility] Hematocrit (Bld) [Volume fraction] 44.5 % 41 - 53 % [facility] Hemoglobin.gastrointest inal spec 1 Ql (Stl) 14.0 g/dL 13.5 - 17.5 g/dL [facility] Interpretation and review of laboratory results Abnormal [facility] Lymphocytes/100 WBC (Bld) 84 % High 24 - 44 % [facility] MCH (RBC) [Entitic mass] 29.0 pg 26 - 34 pg [facility] MCHC (RBC) [Mass/Vol] 31.4 g/dL 31 - 3 7 g/dL [facility] MCV (RBC) [Entitic vol] 92.3 fL 80 - 100 fL [facility] Monocytes/100 WBC (Bld) 5 % 1 - 7 % [facility] Morphology Ruben (Bld) [Interp] Normal [facility] Platelet distribution width (Bld) [Ratio] 14.4 % 12.5 - 15.4 % [facility] Platelet mean volume (Bld) [Entitic vol] 7.3 fL 6.0 - 12.0 fL [facility] Platelets (Bld) [#/Vol] 115 10*3/uL Low [facility] RBC (Bld) [#/Vol] 4.82 10*6/uL 4.5 - 5.9 m/uL [facility] Segmented neutrophils/100 WBC (Bld) 10 % Low 36 - 66 % [facility] Segs Absolute 10.02 High [facility] WBC (Bld) [#/Vol] 100.2 10*3/uL Critically high [facility] Comprehensive Metabolic Pane rubens 10-17-2021 Albumin [Mass/Vol] 4.5 g/dL 3.5 - 5.2 g/dL [facility] Albumin/Globulin [Mass ratio] 1.6 {ratio} [facility] ALP (Bld) [Catalytic activity/Vol] 81 U/L 40 - 129 U/L [facility] ALT [Catalytic activity/Vol] 29 U/L 5 - 41 U/L [facility] Anion gap [Moles/Vol] 10 mmol/L 9 - 17 mmol/L [facility] AST [Catalytic activity/Vol] 24 U/L <40 [facility] Bilirubin [Mass/Vol] 0.61 mg/dL 0.3 - 1 .2 mg/dL [facility] Calcium [Mass/Vol] 9.7 mg/dL 8.6 - 10. 4 mg/dL [facility] Chloride [Moles/Vol] 93 mmol/L Low 98 - 10 7 mmol/L [facility] CO2 [Moles/Vol] 26 mmol/L 20 - 31 mmol/L [facility] Creatinine [Mass/Vol] 0.73 mg/dL 0.70 - 1.20 mg/dL [facility] Free PSA/Total PSA [Mass fraction] 7.3 g/dL 6.4 - 8.3 g/dL [facility] GFR >60 >60 mL/min [facility] GFR Non- >60 >60 mL/min [facility] GFR/1.73 sq M.predicted MDRD (S/P/Bld) [Vol rate/Area] [facility] Comment on above: Average GFR for 60-6 9 years old: 85 mL/min/1.73sq m Chronic Kidney Disease: <60 mL/min/1.73sq m Kidney failure: <15 mL/min/1.73sq m eGFR calculated using average adult body mass. Additional eGFR calculator available at: http://www.Medudem/multiple_crcl_2011.htm Glucose [Mass/Vol] 106 mg/dL High 70 - 99 mg/dL [facility] Interpretation and review of laboratory results Abnormal [facility] Potassium [Moles/Vol] 4.4 mmol/L 3.7 - 5.3 mmol/L [facility] Sodium [Moles/Vol] 129 mmol/L Low 135 - 144 mmol/L Inside Urea nitrogen (BldV) [Mass/Vol] 13 mg/dL 8 - 23 mg/dL [facility] Lactate Dehydrogenaseon 05- LD 180 U/L 135 - 225 U/L [facility] CBC Auto DifferentialOrdered By: Jv Zhou on 12-08-2020 Absolute Eos # 1.87 High [employer] [facility] Work Phone: Absolute Immature Granulocyte NOT REPORTED Inside Work Phone: Absolute Lymph # 83.21 High [employer] alth Work Phone: Absolute [place] # 1.87 High [employer] a lth Work Phone: Basophils (Bld) [#/Vol] 0.00 10*3/uL Inside Work Phone: Basophils/100 WBC (Bld) 0 % 0 - 2 % [facility] [employer] Work Phone: Differential Type NOT REPORTED Inside Work Phone: Eosinophils/100 WBC (Bld) 2 % 1 - 4 % [employer] Phone: Hematocrit (Bld) [Volume fraction] 41.7 % 41 - 53 % Inside Work Phone: Hemoglobin.gastrointest inal spec 1 Ql (Stl) 13.4 g/dL Low 13.5 - 17.5 g/dL Inside Work Phone: Immature Granulocytes NOT REPORTED 0 % M [employer] Work Phone: Interpretation and review of laboratory results Abnormal Inside Work Phone: Lymphocytes/100 WBC (Bld) 89 % High 24 - 44 % Inside Work Phone: MCH (RBC) [Entitic mass] 29.7 pg 26 - 34 pg Inside Work Phone: MCHC (RBC) [Mass/Vol] 32.1 g/dL 31 - 3 7 g/dL [employer] Phone: MCV (RBC) [Entitic vol] 92.5 fL 80 - 100 fL [employer] Phone: Monocytes/100 WBC (Bld) 2 % 1 - 7 % [facility] Phone: Morphology Ruben (Bld) [Interp] Normal [facility] Phone: NRBC Automated NOT REPORTED per 100 WBC [employer] [facility] Work Phone: Platelet distribution width (Bld) [Ratio] 15.3 % 12.5 - 15.4 % [employer] Phone: Platelet Estimate NOT REPORTED [employer] Phone: Platelet mean volume (Bld) [Entitic vol] 7.7 fL 6.0 - 12.0 fL [employer] Phone: Platelets (Bld) [#/Vol] 139 10*3/uL Low [employer] Phone: RBC (Bld) [#/Vol] 4.51 10*6/uL 4.5 - 5.9 m/uL [employer] Phone: RBC (Bld) [#/Vol] NOT REPORTED [employer] Phone: Segmented neutrophils/100 WBC (Bld) 7 % Low 36 - 66 % [employer] Phone: Segs Absolute 6.55 [employer] Work Phone: WBC (Bld) [#/Vol] 93.5 10*3/uL Critically high [employer] Phone: Comment on above: TEST CONFIRMED WBC (Bld) [#/Vol] NOT REPORTED [employer] Phone: Inside Work Phone: Comprehensive Metabolic Pane lOrdered By: Jv Zhou on 12-08-2020 Albumin [Mass/Vol] 4.5 g/dL 3.5 - 5.2 g/dL [employer] Phone: Albumin/Globulin [Mass ratio] 1.7 {ratio} [employer] Phone: ALP (Bld) [Catalytic activity/Vol] 83 U/L 40 - 129 U/L [employer] Phone: ALT [Catalytic activity/Vol] 48 U/L High 5 - 41 U/L [employer] Phone: Anion gap [Moles/Vol] 10 mmol/L 9 - 17 mmol/L [employer] Phone: AST [Catalytic activity/Vol] 36 U/L <40 [employer] Phone: Bilirubin [Mass/Vol] 0.54 mg/dL 0.3 - 1 .2 mg/dL [employer] Phone: Calcium [Mass/Vol] 9.7 mg/dL 8.6 - 10. 4 mg/dL [employer] Phone: Chloride [Moles/Vol] 99 mmol/L 98 - 10 7 mmol/L [employer] Phone: CO2 [Moles/Vol] 25 mmol/L 20 - 31 mmol/L [employer] Phone: Creatinine [Mass/Vol] 0.71 mg/dL 0.70 - 1.20 mg/dL [employer] Phone: Free PSA/Total PSA [Mass fraction] 7.2 g/dL 6.4 - 8.3 g/dL [employer] Phone: GFR >60 >60 mL/min [employer] Phone: GFR Non- >60 >60 mL/min [employer] Phone: GFR/1.73 sq M.predicted MDRD (S/P/Bld) [Vol rate/Area] [employer] Phone: Comment on above: Average GFR for 60-6 9 years old: 85 mL/min/1.73sq m Chronic Kidney Disease: <60 mL/min/1.73sq m Kidney failure: <15 mL/min/1.73sq m eGFR calculated using average adult body mass. Additional eGFR calculator available at: http://www.Medudem/multiple_crcl_2012.htm GFR/1.73 sq M.predicted MDRD (S/P/Bld) [Vol rate/Area] NOT REPORTED [employer] Phone: Glucose [Mass/Vol] 111 mg/dL High 70 - 99 mg/dL [employer] Phone: Interpretation and review of laboratory results Abnormal [employer] Phone: Potassium [Moles/Vol] 4.8 mmol/L 3.7 - 5.3 mmol/L [employer] Phone: Sodium [Moles/Vol] 134 mmol/L Low 135 - 144 mmol/L [employer] Phone: Urea nitrogen (BldV) [Mass/Vol] 13 mg/dL 8 - 23 mg/dL [employer] Phone: Urea nitrogen/Creatinine (Bld) [Mass ratio] NOT REPORTED [employer] Phone: [employer] Phone: Lactate DehydrogenaseOrdered By: Jv Zhou on 12-08-2020 LD 189 U/L 135 - 225 U/L [employer] Phone: [employer] Phone: BUN + Creatinineon 1 (cont.) Normal [facility] Comment on above: Result Comment: Aver age GFR for 60-69 years old: 85 mL/min/1.73sq m Chronic Kidney Disease: <60 mL/min/1.73sq m Kidney failure: <15 mL/min/1.73sq m eGFR calculated using average adult body mass. Additional eGFR calculator available at: http://www.[employer].Tealet/multiple_crcl_2012.htm Performed By: #### B UNCRT #### [facility] [address] [place] [address] Ticketing Agent: Royal Sandoval DO Creatinine [Mass/Vol] 0.66 mg/dL Low 0.70-1.20 [facility] Comment on above: Performed By: #### B UNCRT #### [facility] [address] [place] [id number] Ticketing Agent: Royal Sandoval DO GFR, Amer >60 Normal >60 [facility] Comment on above: Performed By: #### B UNCRT #### [facility] [place] [address] Ticketing Agent: Royal Sandoval DO GFR,non Amer >60 Normal >60 [facility] Comment on above: Performed By: #### B UNCRT #### [facility] [place] [address] Ticketing Agent: Royal Sandoval DO Urea nitrogen [Mass/Vol] 11 mg/dL Normal 8-23 [facility] Comment on above: Performed By: #### B UNCRT #### [facility] [place] [address] Ticketing Agent: Royal Sandoval DO Staging: NOT REPORTED Normal [facility] Comment on above: Performed By: #### B UNCRT #### [facility] [place] [address] Ticketing Agent: Royal Sandoval DO CT CHEST ABDOMEN PELVIS [...] Cantu Jr., DO 11/25/20 Final result Normal [facility] CBC Auto Differentialon 03-0 Basophils (Bld) [#/Vol] 0.00 10*3/uL [employer] Phone: Basophils/100 WBC (Bld) 0 % 0 - 2 % [facility] Phone: Differential Type NOT REPORTED [employer] Phone: Eosinophils (Bld) [#/Vol] 0.95 10*3/uL High [employer] Phone: Eosinophils/100 WBC (Bld) 1 % 1 - 4 % [employer] Phone: Erythrocyte distribution width (RBC) [Ratio] 14.6 % High 11.8 - 14.4 % [employer] Phone: Hematocrit (Bld) [Volume fraction] 44.6 % 40.7 - 50.3 % [employer] Phone: Hemoglobin (Bld) [Mass/Vol] 14.0 g/dL 13.0 - 17.0 g/dL [employer] Phone: Immature granulocytes (Bld) [#/Vol] 0 % 0 [employer] Phone: Immature granulocytes (Bld) [#/Vol] 0.00 10*3/uL [employer] Phone: Interpretation and review of laboratory results Abnormal [employer] Phone: Lymphocytes (Bld) [#/Vol] 81.01 10*3/uL High [employer] Phone: Lymphocytes/100 WBC (Bld) 85 % High 24 - 44 % [employer] Phone: MCH (RBC) [Entitic mass] 29.5 pg 25.2 - 33.5 pg [employer] Phone: MCHC (RBC) [Mass/Vol] 31.4 g/dL 28.4 - 34.8 g/dL [employer] Phone: MCV (RBC) [Entitic vol] 93.9 fL 82.6 - 102.9 fL [employer] Phone: Monocytes (Bld) [#/Vol] 5.72 10*3/uL High [employer] Phone: Monocytes/100 WBC (Bld) 6 % 1 - 7 % [facility] Work Phone: Morphology Ruben (Bld) [Interp] ANISOCYTOSIS PRESENT [employer] Work Phone: Morphology Ruben (Bld) [Interp] SMUDGE CELLS PRESENT [employer] Work Phone: Platelet mean volume (Bld) [Entitic vol] 10.5 fL 8.1 - 13.5 fL [employer] Phone: Platelets (Bld) [#/Vol] NOT REPORTED [employer] Phone: Platelets (Bld) [#/Vol] 130 10*3/uL Low [employer] Phone: RBC (Bld) [#/Vol] 4.75 10*6/uL 4.21 - 5.7 7 m/uL [facility] Phone: RBC morphology finding Nom (Bld) NOT REPORTED [employer] Phone: Segmented neutrophils/100 WBC (Bld) 8 % Low 36 - 66 % [employer] Phone: Segs Absolute 7.62 [employer] Work Phone: WBC (Bld) [#/Vol] 95.3 10*3/uL Critically high [employer] Phone: WBC (Bld) [#/Vol] 0.0 10*3/uL 0.0 per 10 0 WBC [employer] Phone: WBC Morphology NOT REPORTED [facility] Work Phone: Comprehensive Metabolic Pane rubens 08-08-2020 Albumin [Mass/Vol] 4.6 g/dL 3.5 - 5.2 g/dL Inside Work Phone: Albumin/Globulin [Mass ratio] 1.5 {ratio} [employer] Phone: ALP [Catalytic activity/Vol] 76 U/L 40 - 129 U/L Inside Work Phone: ALT [Catalytic activity/Vol] 53 U/L High 5 - 41 U/L [employer] Phone: Anion gap [Moles/Vol] 18 mmol/L High 9 - 17 mmol/L [facility] Work Phone: AST [Catalytic activity/Vol] 44 U/L High <40 [employer] Phone: Bilirubin Ql (U) 0.63 mg/dL 0.3 - 1.2 mg/dL [employer] Phone: Bun/Cre Ratio NOT REPORTED [facility] [place] Work Phone: Calcium [Mass/Vol] 10.2 mg/dL 8.6 - 10. 4 mg/dL Inside Work Phone: Chloride [Moles/Vol] 96 mmol/L Low 98 - 10 7 mmol/L [employer] Phone: CO2 [Moles/Vol] 22 mmol/L 20 - 31 mmol/L [employer] Phone: Creatinine [Mass/Vol] 0.72 mg/dL 0.70 - 1.20 mg/dL [employer] Phone: GFR >60 >60 mL/min [employer] Phone: GFR Non- >60 >60 mL/min [employer] Phone: GFR/1.73 sq M predicted among non-blacks MDRD (S/P/Bld) [Vol rate/Area] [employer] Phone: Comment on above: Average GFR for 60-6 9 years old: 85 mL/min/1.73sq m Chronic Kidney Disease: <60 mL/min/1.73sq m Kidney failure: <15 mL/min/1.73sq m eGFR calculated using average adult body mass. Additional eGFR calculator available at: http://www.Medudem/Ambronite_crcl_2012.htm GFR/1.73 sq M predicted among non-blacks MDRD (S/P/Bld) [Vol rate/Area] NOT REPORTED [employer] Phone: Glucose [Mass/Vol] 89 mg/dL 70 - 99 mg/dL [employer] Phone: Interpretation and review of laboratory results Abnormal [employer] Phone: Potassium [Moles/Vol] 4.7 mmol/L 3.7 - 5.3 mmol/L [employer] Phone: Protein [Mass/Vol] 7.7 g/dL 6.4 - 8.3 g/dL [employer] Phone: Sodium [Moles/Vol] 136 mmol/L 135 - 144 mmol/L [employer] Phone: Urea nitrogen [Mass/Vol] 20 mg/dL 8 - 23 mg/dL [employer] Phone: Lactate Dehydrogenaseon 03-0 LD 184 U/L 135 - 225 U/L [employer] Phone: CBC Auto Differentialon 12-0 Basophils (Bld) [#/Vol] 0.00 10*3/uL [place] Basophils/100 WBC (Bld) 0 % 0 - 2 % [place] Differential Type NOT REPORTED [place] Eosinophils (Bld) [#/Vol] 0.00 10*3/uL [place] Eosinophils/100 WBC (Bld) 0 % Low 1 - 4 % [place] Erythrocyte distribution width (RBC) [Ratio] 14.3 % 11.8 - 14.4 % [place] Hematocrit (Bld) [Volume fraction] 41.1 % 40.7 - 50.3 % [place] Hemoglobin (Bld) [Mass/Vol] 13.3 g/dL 13 - 17 g/dL [place] Immature granulocytes (Bld) [#/Vol] 0.00 10*3/uL [place] Immature granulocytes (Bld) [#/Vol] 0 % 0 [place] Interpretation and review of laboratory results Abnormal [place] Lymphocytes (Bld) [#/Vol] 77.08 10*3/uL High [place] Lymphocytes/100 WBC (Bld) 91 % High 24 - 44 % [place] MCH (RBC) [Entitic mass] 30.4 pg 25.2 - 33.5 pg [place] MCHC (RBC) [Mass/Vol] 32.4 g/dL 28.4 - 34.8 g/dL [place] MCV (RBC) [Entitic vol] 94.1 fL 82.6 - 102.9 fL [place] Monocytes (Bld) [#/Vol] 1.69 10*3/uL [place] Monocytes/100 WBC (Bld) 2 % 1 - 7 % [place] Morphology Ruben (Bld) [Interp] SMUDGE CELLS PRESENT [place] Platelet mean volume (Bld) [Entitic vol] 10.2 fL 8.1 - 13.5 fL [place] Platelets (Bld) [#/Vol] 132 10*3/uL Low [place] Platelets (Bld) [#/Vol] NOT REPORTED [place] RBC (Bld) [#/Vol] 4.37 10*6/uL 4.21 - 5.7 7 m/uL [place] RBC morphology finding Nom (Bld) NOT REPORTED [place] Segmented neutrophils/100 WBC (Bld) 7 % Low 36 - 66 % [place] Segs Absolute 5.93 [place] WBC (Bld) [#/Vol] 84.7 10*3/uL Critically high [place] WBC (Bld) [#/Vol] 0.0 10*3/uL 0.0 per 10 0 WBC [place] WBC Morphology NOT REPORTED [place] Comprehensive Metabolic Pane rubens 05-10-2020 Albumin [Mass/Vol] 4.3 g/dL 3.5 - 5.2 g/dL [place] Albumin/Globulin [Mass ratio] 1.5 {ratio} [place] ALP [Catalytic activity/Vol] 74 U/L 40 - 129 U/L [place] ALT [Catalytic activity/Vol] 49 U/L High 5 - 41 U/L [place] Anion gap [Moles/Vol] 17 mmol/L 9 - 17 mmol/L [place] AST [Catalytic activity/Vol] 32 U/L <40 [place] Bilirubin Ql (U) 0.35 mg/dL 0.3 - 1.2 mg/dL [place] Bun/Cre Ratio NOT REPORTED [place] Calcium [Mass/Vol] 9.7 mg/dL 8.6 - 10. 4 mg/dL [place] Chloride [Moles/Vol] 100 mmol/L 98 - 10 7 mmol/L [place] CO2 [Moles/Vol] 21 mmol/L 20 - 31 mmol/L [place] Creatinine [Mass/Vol] 0.74 mg/dL 0.7 - 1.2 mg/dL [place] GFR >60 >60 mL/min [place] GFR Non- >60 >60 mL/min [place] GFR/1.73 sq M predicted among non-blacks MDRD (S/P/Bld) [Vol rate/Area] [place] Comment on above: Average GFR for 60-6 9 years old: 85 mL/min/1.73sq m Chronic Kidney Disease: <60 mL/min/1.73sq m Kidney failure: <15 mL/min/1.73sq m eGFR calculated using average adult body mass. Additional eGFR calculator available at: http://www.Medudem/multiple_crcl_2012.htm GFR/1.73 sq M predicted among non-blacks MDRD (S/P/Bld) [Vol rate/Area] NOT REPORTED [place] Glucose [Mass/Vol] 100 mg/dL High 70 - 99 mg/dL [place] Interpretation and review of laboratory results Abnormal [place] Potassium [Moles/Vol] 4.4 mmol/L 3.7 - 5.3 mmol/L [place] Protein [Mass/Vol] 7.2 g/dL 6.4 - 8.3 g/dL [place] Sodium [Moles/Vol] 138 mmol/L 135 - 144 mmol/L [place] Urea nitrogen [Mass/Vol] 20 mg/dL 8 - 23 mg/dL [place] Lactate Dehydrogenaseon 12-0 LD 188 U/L 135 - 225 U/L [place] Comprehensive Metabolic Pane rubens 02-16-2020 Albumin [Mass/Vol] 4.4 g/dL 3.5 - 5.2 g/dL [place] Albumin/Globulin [Mass ratio] 1.6 {ratio} [place] ALP [Catalytic activity/Vol] 74 U/L 40 - 129 U/L [place] ALT [Catalytic activity/Vol] 43 U/L High 5 - 41 U/L [place] Anion gap [Moles/Vol] 11 mmol/L 9 - 17 mmol/L [place] AST [Catalytic activity/Vol] 33 U/L <40 [place] Bilirubin Ql (U) 0.38 mg/dL 0.3 - 1.2 mg/dL [place] Bun/Cre Ratio NOT REPORTED [place] Calcium [Mass/Vol] 9.5 mg/dL 8.6 - 10. 4 mg/dL [place] Chloride [Moles/Vol] 96 mmol/L Low 98 - 10 7 mmol/L [place] CO2 [Moles/Vol] 24 mmol/L 20 - 31 mmol/L [place] Creatinine [Mass/Vol] 0.65 mg/dL Low 0.7 - 1.2 mg/dL [place] GFR >60 >60 mL/min [place] GFR Non- >60 >60 mL/min [place] GFR/1.73 sq M predicted among non-blacks MDRD (S/P/Bld) [Vol rate/Area] [place] Comment on above: Average GFR for 60-6 9 years old: 85 mL/min/1.73sq m Chronic Kidney Disease: <60 mL/min/1.73sq m Kidney failure: <15 mL/min/1.73sq m eGFR calculated using average adult body mass. Additional eGFR calculator available at: http://www.Medudem/multiple_crcl_2012.htm GFR/1.73 sq M predicted among non-blacks MDRD (S/P/Bld) [Vol rate/Area] NOT REPORTED [place] Glucose [Mass/Vol] 93 mg/dL 70 - 99 mg/dL [place] Interpretation and review of laboratory results Abnormal [place] Potassium [Moles/Vol] 4.5 mmol/L 3.7 - 5.3 mmol/L [place] Protein [Mass/Vol] 7.1 g/dL 6.4 - 8.3 g/dL [place] Sodium [Moles/Vol] 131 mmol/L Low 135 - 144 mmol/L [place] Urea nitrogen [Mass/Vol] 18 mg/dL 8 - 23 mg/dL [place] Lactate Dehydrogenaseon 02-01 LD 164 U/L 135 - 225 U/L [place] Comprehensive Metabolic Pane rubens 11-09-2019 Albumin [Mass/Vol] 4.5 g/dL 3.5 - 5.2 g/dL [place] Albumin/Globulin [Mass ratio] 1.6 {ratio} [place] ALP [Catalytic activity/Vol] 80 U/L 40 - 129 U/L [place] ALT [Catalytic activity/Vol] 55 U/L High 5 - 41 U/L [place] Anion gap [Moles/Vol] 18 mmol/L High 9 - 17 mmol/L [place] AST [Catalytic activity/Vol] 47 U/L High <40 [place] Bilirubin Ql (U) 0.55 mg/dL 0.3 - 1.2 mg/dL [place] Bun/Cre Ratio NOT REPORTED [place] Calcium [Mass/Vol] 9.9 mg/dL 8.6 - 10. 4 mg/dL [place] Chloride [Moles/Vol] 98 mmol/L 98 - 10 7 mmol/L [place] CO2 [Moles/Vol] 19 mmol/L Low 20 - 31 mmol/L [place] Creatinine [Mass/Vol] 0.68 mg/dL Low 0.7 - 1.2 mg/dL [place] GFR >60 >60 mL/min [place] GFR Non- >60 >60 mL/min [place] GFR/1.73 sq M predicted among non-blacks MDRD (S/P/Bld) [Vol rate/Area] [place] Comment on above: Average GFR for 60-6 9 years old: 85 mL/min/1.73sq m Chronic Kidney Disease: <60 mL/min/1.73sq m Kidney failure: <15 mL/min/1.73sq m eGFR calculated using average adult body mass. Additional eGFR calculator available at: http://www.[employer].Tealet/multiple_crcl_2012.htm GFR/1.73 sq M predicted among non-blacks MDRD (S/P/Bld) [Vol rate/Area] NOT REPORTED [place] Glucose [Mass/Vol] 72 mg/dL 70 - 99 mg/dL [place] Interpretation and review of laboratory results Abnormal [place] Potassium [Moles/Vol] 4.4 mmol/L 3.7 - 5.3 mmol/L [place] Protein [Mass/Vol] 7.3 g/dL 6.4 - 8.3 g/dL [place] Sodium [Moles/Vol] 135 mmol/L 135 - 144 mmol/L [place] Urea nitrogen [Mass/Vol] 13 mg/dL 8 - 23 mg/dL [place] Lactate Dehydrogenaseon LD 214 U/L 135 - 225 U/L [place] CBC With Auto Differentialon 08-07-2019 Basophils (Bld) [#/Vol] 0.00 10*3/uL [place] Basophils/100 WBC (Bld) 0 % 0 - 2 % [place] Differential Type NOT REPORTED [place] Eosinophils (Bld) [#/Vol] 0.00 10*3/uL [place] Eosinophils/100 WBC (Bld) 0 % Low 1 - 4 % [place] Erythrocyte distribution width (RBC) [Ratio] 16.8 % High 11.8 - 14.4 % [place] Hematocrit (Bld) [Volume fraction] 42.8 % 40.7 - 50.3 % [place] Hemoglobin (Bld) [Mass/Vol] 13.2 g/dL 13 - 17 g/dL [place] Immature granulocytes (Bld) [#/Vol] 0.00 10*3/uL [place] Immature granulocytes (Bld) [#/Vol] 0 % 0 [place] Interpretation and review of laboratory results Abnormal [place] Lymphocytes (Bld) [#/Vol] 72.49 10*3/uL [place] Lymphocytes/100 WBC (Bld) 86 % High 24 - 44 % [place] MCH (RBC) [Entitic mass] 29.4 pg 25.2 - 33.5 pg [place] MCHC (RBC) [Mass/Vol] 30.8 g/dL 28.4 - 34.8 g/dL [place] MCV (RBC) [Entitic vol] 95.3 fL 82.6 - 102.9 fL [place] Monocytes (Bld) [#/Vol] 1.69 10*3/uL [place] Monocytes/100 WBC (Bld) 2 % 1 - 7 % [place] Morphology Ruben (Bld) [Interp] SMUDGE CELLS PRESENT [place] Morphology Ruben (Bld) [Interp] ANISOCYTOSIS PRESENT [place] Platelet mean volume (Bld) [Entitic vol] 10.0 fL 8.1 - 13.5 fL [place] Platelets (Bld) [#/Vol] 138 10*3/uL [place] Platelets (Bld) [#/Vol] NOT REPORTED [place] RBC (Bld) [#/Vol] 4.49 10*6/uL 4.21 - 5.7 7 m/uL [place] RBC morphology finding Nom (Bld) NOT REPORTED [place] Segmented neutrophils/100 WBC (Bld) 12 % Low 36 - 66 % [place] Segs Absolute 10.12 [place] WBC (Bld) [#/Vol] 0.0 10*3/uL 0.0 per 10 0 WBC [place] WBC (Bld) [#/Vol] 84.3 10*3/uL Critically high [place] WBC Morphology NOT REPORTED [place] Comprehensive Metabolic Pane rubens 08-07-2019 Albumin [Mass/Vol] 4.2 g/dL 3.5 - 5.2 g/dL [place] Albumin/Globulin [Mass ratio] 1.5 {ratio} [place] ALP [Catalytic activity/Vol] 91 U/L 40 - 129 U/L [place] ALT [Catalytic activity/Vol] 35 U/L 5 - 41 U/L [place] Anion gap [Moles/Vol] 14 mmol/L 9 - 17 mmol/L [place] AST [Catalytic activity/Vol] 26 U/L <40 [place] Bilirubin Ql (U) 0.44 mg/dL 0.3 - 1.2 mg/dL [place] Bun/Cre Ratio NOT REPORTED [place] Calcium [Mass/Vol] 9.3 mg/dL 8.6 - 10. 4 mg/dL [place] Chloride [Moles/Vol] 102 mmol/L 98 - 10 7 mmol/L [place] CO2 [Moles/Vol] 24 mmol/L 20 - 31 mmol/L [place] Creatinine [Mass/Vol] 0.65 mg/dL Low 0.7 - 1.2 mg/dL [place] GFR >60 >60 mL/min [place] GFR Non- >60 >60 mL/min [place] GFR/1.73 sq M predicted among non-blacks MDRD (S/P/Bld) [Vol rate/Area] [place] Comment on above: Average GFR for 60-6 9 years old: 85 mL/min/1.73sq m Chronic Kidney Disease: <60 mL/min/1.73sq m Kidney failure: <15 mL/min/1.73sq m eGFR calculated using average adult body mass. Additional eGFR calculator available at: http://www.[employer].Tealet/multiple_crcl_2012.htm GFR/1.73 sq M predicted among non-blacks MDRD (S/P/Bld) [Vol rate/Area] NOT REPORTED [place] Glucose [Mass/Vol] 91 mg/dL 70 - 99 mg/dL [place] Interpretation and review of laboratory results Abnormal [place] Potassium [Moles/Vol] 4.4 mmol/L 3.7 - 5.3 mmol/L [place] Protein [Mass/Vol] 7.0 g/dL 6.4 - 8.3 g/dL [place] Sodium [Moles/Vol] 140 mmol/L 135 - 144 mmol/L [place] Urea nitrogen [Mass/Vol] 10 mg/dL 8 - 23 mg/dL [place] Lactate Dehydrogenaseon 03-0 LD 156 U/L 135 - 225 U/L [place] CHEST ABDOMEN PELVIS W CO NTRASTOrdered By: Jv Zhou on 05-20-2019 EXAMINATION: CT OF T HE [...] noted, however these appear more prominent since 2014. Scattered areas of lucency within the thoracic [...] hips. Transitional anatomy at the lumbosacral junction. Impulsiv Phone: Scotty, pn Incoming Radiant Results From [employer] - 05/20/2019 10:28 AM EST EXAMINATION: CT [...] significance. Attention to on follow-up is recommended. Inside Work Phone: CBC With Auto Differentialon 05-07-2019 Basophils (Bld) [#/Vol] 0.74 10*3/uL [place] Basophils/100 WBC (Bld) 1 % 0 - 2 % [place] Differential Type NOT REPORTED [place] Eosinophils (Bld) [#/Vol] 0.00 10*3/uL [place] Eosinophils/100 WBC (Bld) 0 % Low 1 - 4 % [place] Erythrocyte distribution width (RBC) [Ratio] 14.2 % 11.8 - 14.4 % [place] Hematocrit (Bld) [Volume fraction] 40.3 % Low 40.7 - 50.3 % [place] Hemoglobin (Bld) [Mass/Vol] 13.0 g/dL 13 - 17 g/dL [place] Immature granulocytes (Bld) [#/Vol] 0.00 10*3/uL [place] Immature granulocytes (Bld) [#/Vol] 0 % 0 [place] Interpretation and review of laboratory results Abnormal [place] Lymphocytes (Bld) [#/Vol] 64.29 10*3/uL [place] Comment on above: R/O Chronic Lymphopr oliferative Disorder, recommend peripheral blood Flow Cytometry, if clinically indicated. Lymphocytes/100 WBC (Bld) 87 % High 24 - 44 % [place] MCH (RBC) [Entitic mass] 30.2 pg 25.2 - 33.5 pg [place] MCHC (RBC) [Mass/Vol] 32.3 g/dL 28.4 - 34.8 g/dL [place] MCV (RBC) [Entitic vol] 93.7 fL 82.6 - 102.9 fL [place] Monocytes (Bld) [#/Vol] 3.70 10*3/uL [place] Monocytes/100 WBC (Bld) 5 % 1 - 7 % [place] Morphology Ruben (Bld) [Interp] SMUDGE CELLS PRESENT [place] Nucleated RBC/100 WBC (Bld) [Ratio] 1 % High 0 per 100 WBC [place] Platelet mean volume (Bld) [Entitic vol] 10.3 fL 8.1 - 13.5 fL [place] Platelets (Bld) [#/Vol] 171 10*3/uL [place] Platelets (Bld) [#/Vol] NOT REPORTED [place] RBC (Bld) [#/Vol] 4.30 10*6/uL 4.21 - 5.7 7 m/uL [place] RBC morphology finding Nom (Bld) NOT REPORTED [place] Segmented neutrophils/100 WBC (Bld) 7 % Low 36 - 66 % [place] Segs Absolute 5.17 [place] WBC (Bld) [#/Vol] 73.9 10*3/uL Critically high [place] WBC (Bld) [#/Vol] 0.1 10*3/uL High 0.0 per 10 0 WBC [place] WBC Morphology NOT REPORTED [place] Comprehensive Metabolic Pane rubens 05-07-2019 Albumin [Mass/Vol] 4.3 g/dL 3.5 - 5.2 g/dL [place] Albumin/Globulin [Mass ratio] 1.5 {ratio} [place] ALP [Catalytic activity/Vol] 85 U/L 40 - 129 U/L [place] ALT [Catalytic activity/Vol] 37 U/L 5 - 41 U/L [place] Anion gap [Moles/Vol] 13 mmol/L 9 - 17 mmol/L [place] AST [Catalytic activity/Vol] 25 U/L <40 [place] Bilirubin Ql (U) 0.37 mg/dL 0.3 - 1.2 mg/dL [place] Bun/Cre Ratio NOT REPORTED [place] Calcium [Mass/Vol] 9.3 mg/dL 8.6 - 10. 4 mg/dL [place] Chloride [Moles/Vol] 101 mmol/L 98 - 10 7 mmol/L [place] CO2 [Moles/Vol] 24 mmol/L 20 - 31 mmol/L [place] Creatinine [Mass/Vol] 0.67 mg/dL Low 0.7 - 1.2 mg/dL [place] GFR >60 >60 mL/min [place] GFR Non- >60 >60 mL/min [place] GFR/1.73 sq M predicted among non-blacks MDRD (S/P/Bld) [Vol rate/Area] [place] Comment on above: Average GFR for 60-6 9 years old: 85 mL/min/1.73sq m Chronic Kidney Disease: <60 mL/min/1.73sq m Kidney failure: <15 mL/min/1.73sq m eGFR calculated using average adult body mass. Additional eGFR calculator available at: http://www.[employer].Tealet/multiple_crcl_2012.htm GFR/1.73 sq M predicted among non-blacks MDRD (S/P/Bld) [Vol rate/Area] NOT REPORTED [place] Glucose [Mass/Vol] 97 mg/dL 70 - 99 mg/dL [place] Interpretation and review of laboratory results Abnormal [place] Potassium [Moles/Vol] 4.3 mmol/L 3.7 - 5.3 mmol/L [place] Protein [Mass/Vol] 7.2 g/dL 6.4 - 8.3 g/dL [place] Sodium [Moles/Vol] 138 mmol/L 135 - 144 mmol/L [place] Urea nitrogen [Mass/Vol] 11 mg/dL 8 - 23 mg/dL [place] Lactate Dehydrogenaseon 12-0 LD 177 U/L 135 - 225 U/L [place] Encounters Encounter Date Encounter Type Care Provider Facility Start: 03-05-2024 End: 03-05-2024 ambulatory Hollis M Blunt Facility:[facility] Start: 02-27-2024 ambulatory Hollis M Blunt Facility:[facility] Start: 02-18-2024 End: 02-18-2024 ambulatory Terrell Coronado [facility] Work Phone: Start: 02-18-2024 End: 02-18-2024 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 Terrell Coronado Work Phone: [facility] Start: 02-17-2024 End: 02-17-2024 ambulatory TERRELL CORONADO [facility] Start: 12-17-2023 End: 12-17-2023 ambulatory JV RUFFINGERALDO [facility] Start: 11-25-2023 End: 11-25-2023 ambulatory Hollis M Blunt Facility:[facility] Start: 11-21-2023 End: 11-21-2023 ambulatory Hollis M Blunt Facility:[facility] Start: 11-06-2023 End: 11-06-2023 ambulatory Hollis Naidu Blunt Facility: [facility] Start: 08-20-2023 End: 08-20-2023 ambulatory JV RUFFINGERALDO [facility] Start: 06-05-2023 End: 06-05-2023 ambulatory Hollis Naidu Blunt Facility: [facility] Start: 05-21-2023 End: 05-21-[address] [facility] Start: 03-20-2023 End: 03-20-2023 ambulatory [facility] Start: 02-19-2023 End: 02-19-[address] [facility] Start: 02-19-2023 End: 02-19-2023 Subsequent hospital visit by physician Hollis Barnett Work Phone: [facility] Comment on above: Lymphocytosis; Marginal zone lymphoma of spleen (HCC) Start: 02-05-2023 End: 02-05-2023 [facility] Start: 11-13-2022 End: 11-13-2022 Subsequent hospital visit by physician Hollis Barnett Work Phone: [email or web address] Comment on above: Lymphocytosis; Marginal zone lymphoma of spleen (HCC); Essential hypertension Start: 08-16-2022 End: 08-16-2022 Subsequent hospital visit by physician Hollis Barnett Work Phone: [facility] Comment on above: Marginal zone lympho ma of spleen (HCC) [C83.07 (ICD-10-CM)] Start: 10-17-2021 End: 10-17-2021 Subsequent hospital visit by physician Hollis Barnett Work Phone: [facility] Comment on above: Marginal zone lympho ma of spleen (HCC) Start: 12-08-2020 End: 12-08-2020 Subsequent hospital visit by physician Hollis Barnett Work Phone: [facility] Comment on above: Lymphocytosis; Marginal zone lymphoma of spleen (HCC) Start: 11-25-2020 End: 11-28-2020 ambulatory JV ZHOU [facility] Start: 08-08-2020 End: 08-08-2020 Subsequent hospital visit by physician [facility]is [facility] Comment on above: Lymphocytosis; Marginal zone lymphoma of spleen (HCC) Start: 05-10-2020 End: 05-10-2020 [facility] on above: Lymphocytosis; Marginal zone lymphoma of spleen (HCC) Start: 02-16-2020 End: 02-16-2020 Subsequent hospital visit by physician Hollis TY [facility] Comment on above: Marginal zone lympho ma of spleen (HCC) Start: 11-09-2019 End: 11-09-2019 Subsequent hospital visit by physician Hollis TY [facility] Comment on above: Marginal zone lympho ma of spleen (HCC) Start: 08-07-2019 End: 08-07-2019 Subsequent hospital visit by physician Hollis TY [facility] Comment on above: Marginal zone lympho ma of spleen (HCC) Start: 05-20-2019 End: 05-22-2019 Subsequent hospital visit by physician [address] Scan Comment on above: Marginal zone lympho ma of spleen (HCC); Lymphocytosis Start: 05-07-2019 End: 05-07-2019 Subsequent hospital visit by physician Hollis TY [facility] Comment on above: Marginal zone lympho ma of spleen (HCC) Procedures Date Procedure Procedure Detail Performing Clinician Start: 02-19-2023 Comprehensive metabo lic panel Jv Zhou MD Work Phone: Start: 11-13-2022 Comprehensive metabo lic panel Jv Zhou MD Work Phone: Start: 08-16-2022 Comprehensive metabo lic panel Jv Zhou MD Work Phone: Start: 10-17-2021 Comprehensive metabo lic panel Jv Zhou MD Work Phone: Start: 12-08-2020 Comprehensive metabo lic panel Vald Chalo AlGersonDahliasam MD Work Phone: Start: 08-08-2020 Blood count complete auto&auto difrntl wbc Biggammad A Al-Nsour Work Phone: Start: 08-08-2020 Comprehensive metabo lic panel Biggammad A Al-Nsour Work Phone: Start: 08-08-2020 Lactate dehydrogenase ldh Biggammad A Al-Nsour Work Phone: Start: 05-10-2020 Blood count complete auto&auto difrntl wbc Biggammad A Al-Nsour Work Phone: Start: 05-10-2020 Comprehensive metabo lic panel Biggammad A Al-Nsour Work Phone: Start: 05-10-2020 Lactate dehydrogenase ldh Biggammad A Al-Nsour Work Phone: Start: 02-16-2020 Blood count complete auto&auto difrntl wbc Biggammad A Al-Nsour Work Phone: Start: 02-16-2020 Comprehensive metabo lic panel Biggammad A Al-Nsour Work Phone: Start: 02-16-2020 Lactate dehydrogenase ldh Biggammad A Al-Nsour Work Phone: Start: 11-09-2019 Blood count complete auto&auto difrntl wbc Biggammad A Al-Nsour Work Phone: Start: 11-09-2019 Comprehensive metabo lic panel Biggammad A Al-Nsour Work Phone: Start: 11-09-2019 Lactate dehydrogenase ldh Biggammad A Al-Nsour Work Phone: Start: 08-07-2019 Blood count complete auto&auto difrntl wbc Biggammad A Al-Nsour Work Phone: Start: 08-07-2019 Comprehensive metabo lic panel Mohammad A Al-Nsour Work Phone: Start: 08-07-2019 Lactate dehydrogenase ldh Biggammad A Al-Nsour Work Phone: Start: 05-20-2019 Ct thorax w/contrast material Jv Zhou MD Work Phone: Start: 05-07-2019 Blood count complete auto&auto difrntl wbc Jv Zhou Work Phone: Start: 05-07-2019 Comprehensive metabo lic panel Jv Zhou Work Phone: Start: 05-07-2019 Lactate dehydrogenase ldh vJ Zhou Work Phone: Plan of Treatment Date Care Activity Detail Author Start: 10-18-2032 DTaP/Tdap/Td vaccine (2 - Td or Tdap) DTaP/Tdap/Td vaccine (2 - Td or Tdap) [facility] Start: 05-21-2023 End: 05-21-2023 Patient encounter procedure 05/21/2023 11:00 [place] [address] Jv Zhou MD [address] [place] [address] draw cbc, cmp, ldh [facility] Comment on above: draw cbc, cmp, ldh Start: 02-19-2023 End: 02-19-2023 Patient encounter procedure 02/19/2023 Office Visit Oncology Jv Zhou MD [address] [place] [address] [facility] Start: 01-01-2023 Influenza vaccination B ON [facility] Start: 11-13-2022 End: 11-13-2022 Patient encounter procedure 11/13/2022 Office Visit Oncology Jv Zhou MD [address] [place] [address] [facility] Start: 02-01-2022 Influenza vaccination Flu vacc ine (Season Ended) [facility] Start: 01-09-2022 End: 01-09-2022 Patient encounter procedure 01/09/2022 Office Visit Oncology Jv Zhou MD [address] [place], [place] [id number] [facility] Start: 01-01-2022 Influenza vaccination Flu vaccine (# 1) [facility] Start: 12-08-2021 Creatinine measurement Creatinine mo [facility] Phone: Start: 12-08-2021 Potassium monitoring Potassium monit [facility] [employer] Phone: Start: 08-08-2021 Creatinine measurement Creatinine mo [facility] [employer] Phone: Start: 08-08-2021 Potassium monitoring Potassium monit [facility] [employer] Phone: Start: 06-12-2021 COVID-19 Vaccine (4 - Moderna risk series) COVID-19 Vaccine (4 - Moderna risk series) [facility] Start: 04-06-2021 End: 04-06-2021 Patient encounter procedure 04/06/2021 Office Visit Oncology Jv Zhou [facility] [address] [facility] [place] [address] [facility] Start: 04-03-2021 Annual Wellness Visi t (AWV) Annual Wellness Visit (AWV) [facility] Start: 02-15-2021 [facility] [place] Start: 02-15-2021 Potassium monitoring Potassium monit [facility] Start: 02-01-2021 Influenza vaccination Flu vaccine (# 1) [facility] inf[employer]ond Phone: Start: 11-08-2020 Creatinine measurement Creatinine mo [facility], [place] Start: 11-08-2020 Potassium monitoring Potassium monit [facility] Start: 08-16-2020 End: 08-16-2020 Office Visit 08/16/2020 Office Visit Oncology Jv Zhou MD [address] [place] [address] [facility] Start: 08-06-2020 Creatinine measurement Creatinine mo [place]itoring [place] Start: 08-06-2020 Potassium monitoring Potassium monit [place] Start: 05-07-2020 Creatinine monitoring Creatinine mon [facility] Phone: Start: 05-07-2020 Potassium monitoring Potassium monit [facility] Phone: Start: 02-23-2020 End: 02-23-2020 Office Visit 02/23/2020 Office Visit Oncology Jv Zhou MD [address] [facility] [place], [place] [id number] [facility] Start: 02-02-2020 Influenza vaccination [place] Start: 11-19-2019 End: 11-19-2019 Office Visit 11/19/2019 Office Visit Oncology Jv Zhou MD [address] [place], [place] [id number] [facility] Start: 08-22-2019 Creatinine monitoring Creatinine mon [place] Start: 08-22-2019 Potassium monitoring Potassium monit [place] Start: 08-13-2019 End: 08-13-2019 Office Visit [facility] Start: 05-13-2019 End: 05-13-2019 Office Visit 05/13/2019 Office Visit Oncology Jv Zhou MD [address] [address] [phone] [facility] Start: 02-01-2019 Influenza vaccination Flu vaccine (# 1) [place] Start: 2008 Colon cancer screen colonoscopy Colon cancer screen colonoscopy [place] Start: 2008 Screening for malign ant neoplasm of colon Colon cancer screen colonoscopy [place] Start: 2008 Shingles Vaccine (1 of 2) Shingles Vaccine (1 of 2) [facility] Start: 2003 Screening for malign ant neoplasm of colon [facility] Start: 1998 Diabetes screen Diabetes screen [place], [place] Start: 1998 Lipid panel Lipid screen [place] Start: 1998 Lipid screen Lipid [place] Start: 1977 DTaP/Tdap/Td vaccine (1 - Tdap) DTaP/Tdap/Td vaccine (1 - Tdap) [facility] Start: 1977 Shingles vaccine (1 of 2) Shingles vaccine (1 of 2) [facility] Start: 1976 Hepatitis C screening Hepatitis C sc reen [facility] Start: 1974 COVID-19 Vaccine (1 of 2) COVID-19 Vaccine (1 of 2) [facility] Work Phone: Start: 1973 HIV screen HIV screen [place] Start: 1973 HIV screening HIV screen [facility] Start: 1970 COVID-19 Vaccine (1) COVID-19 Vaccin e (1) [facility] Start: 1970 Depression Screen Depression Screen [facility] Start: 1969 DTaP/Tdap/Td vaccine (1 - Tdap) DTaP/Tdap/Td vaccine (1 - Tdap) [place] Start: 1968 Lipid panel [facility] Start: 1964 Pneumococcal 0-64 ye ars Vaccine (1 - PCV) Pneumococcal 0-64 years Vaccine (1 - PCV) [facility] Start: 1964 Pneumococcal 0-64 ye ars Vaccine (1 of 3 - PCV13) Pneumococcal 0-64 years Vaccine (1 of 3 - PCV13) [place] Start: 1964 Pneumococcal 0-64 ye ars Vaccine (1 of 4 - PCV13) Pneumococcal 0-64 years Vaccine (1 of 4 - PCV13) [facility] Work Phone: Start: 1958 COVID-19 Vaccine (#1) COVID-19 Vacci ne (#1) [facility] Start: 1958 Annual Wellness Visi t (AWV) Annual Wellness Visit (AWV) [facility] Start: 1958 Hepatitis C screen Hepatitis C vinod mahoney [place], [place] Start: 1958 Hepatitis C screening Hepatitis C sc radha [place] CBC With Auto Differential [place] Payers Date Payer Category Payer Self-pay 2021 Unknown [id number] 2020 Unknown [id number] 2014 Private Health Insurance [employer] A ETNA xxxxxxxxxx 2014-Present [phone] [address] [place] [address] xxxxxxxxxx [id number] 2014 Private Health Insurance [employer] A [employer]NA [id number] 2014-Present [phone] [address] [place] [address] [id number] 1958 Unknown [id number] 1958 Unknown [id number] 1958 Unknown [id number] 1958 Unknown [id number] 1958 Unknown [id number] 1958 Unknown [id number] .175 1958 Unknown [id number] 1958 Unknown [id number] 1958 Unknown [id number] 1958 Unknown [id number] 1958 Unknown [id number] 1958 Unknown [id number] 1958 Unknown [id number] Social History Date Type Detail Facility Start: 09-03-2018 End: 11-13-2022 Tobacco smoking status [facility] Former smoker Inside Start: 09-03-2018 End: 02-19-2023 Cigarettes smoked current (pack per day) - Reported [facility] [place] Start: 09-03-2018 End: 02-19-2023 Alcohol intake Not Asked [place], [place] Start: 1960 Sex Assigned At Not on file [place] Start: 11-19-2019 End: 11-13-2022 Tobacco use and exposure Never used [place] History of tobacco use Current smoker [facility] [employer] Phone: History of tobacco use Cigarette Smoker [facility] [employer] Phone: Start: 02-19-2023 Tobacco use panel [facility] [employer] Start: 1960 Sex Assigned At Male F [facility] Clinical Notes 05-20-2019 to 02-17-2024 Note Date & Type Note Facility 02-17-2024 Note [id number] at leas t 3- Age, HTN, CHF Per EKG today he remains in A-fib, rate controlled heart rate 86 bpm Continue Eliquis anticoagulation, he denies any bleeding tendencies He remains on metoprolol 100 mg twice daily and remains rate controlled. [facility] 02-17-2024 Note Significant shortnes s of [...] have decreased LV function, he voiced understanding [facility] 02-17-2024 Note Hypertension is well -controlled 135/86 continue all current meds. [facility] 02-17-2024 Note Continue statin Lipi tor 20 mg daily Liver function stable Lipids stable [facility] 02-17-2024 Note [facility] III-patient is fluid overloaded per assessment, 3+ [...] please maintain K+>4 and Mg > 2 [facility] 02-17-2024 Note [facility] CARDIOLOGY PROGR ESS NOTE HPI: Cristian Hernandez is a 63 y.o. male here for [...] He did have some labs drawn at [facility] next November for his PCP Denies any palpitations, fast heart rates or bleeding tendencies. Stress test ordered per Miah Lopez was not completed after last visit Pt denies chest pain, palpatations, dizziness Review of Systems Respiratory: Positive for shortness of breath (for 3-4 weeks) Previous HPI per Miah Lopez [employer] A-fib 03/20/23: Patient for follow-up s/p cardioversion [...] rhythm 11/16/[address] still HPI: Cristian Gary Hernandez Jr. is a 62 y.o. year [...] softly distended. Musculoskeletal: (more content not included)... [facility] 02-17-2024 Note Pt here for a one ye ar follow up. Pt denies chest pain, palpatations, dizziness Review of Systems Respiratory: Positive for shortness of breath (for 3-4 weeks). [facility] 01-27-2024 Note Entered by Miah Asher on January 27, 2024 13:53:35 EDT From: Adelaida Asher To: [facility]/pharmacy #[id number] Sent: 01/27/2024 13:53:35 EDT Subject: Medication Management Submitted: Complete:apixaban (Eliquis 5 mg oral tablet) Signed by Adelaida Asher 01/27/2024 13:53:00 EDT Approved with modifications: apixaban (ELIQUIS 5 MG TABLET) TAKE 1 TABLET BY MOUTH TWICE A DAY Qty: 180 tab(s) Days Supply: 90 Refills: 1 Substitutions Allowed Route To Pharmacy - [facility]/pharmacy #[id number] Signed by Adelaida Asher ---- From: [facility] STORE [id number] To: Hollis Barnett MD Sent: January 27, 2024 11:39:29 AM CDT Subject: Medication Management Due: January 28, 2024 12:11:57 AM CDT On Hold Pending Signature Dispensed Drug: apixaban (Eliquis 5 mg oral tablet), TAKE 1 TABLET BY MOUTH TWICE A DAY Quantity: 180 tab(s) Days Supply: 90 Refills: 1 Substitutions Allowed Notes from Pharmacy: ---- [facility] 12-23-2023 Note Entered by Miah Asher on December 23, 2023 14:09:44 EDT From: Adelaida Asher To: [facility]/pharmacy #[id number] Sent: 12/23/2023 14:09:44 EDT Subject: Medication Management Submitted: Complete:diclofenac (diclofenac sodium 50 mg oral delayed release tablet) Signed by Adelaida Asher 12/23/2023 14:09:00 EDT Approved with modifications: diclofenac (DICLOFENAC SOD EC 50 MG TAB) TAKE 1 TABLET BY MOUTH TWICE A DAY Qty: 180 tab(s) Days Supply: 90 Refills: 0 Substitutions Allowed Route To Pharmacy - [facility]/pharmacy #[id number] Signed by Adelaida Asher ---- From: [facility] STORE [id number] To: Hollis Barnett MD Sent: December 23, 2023 11:40:40 AM CDT Subject: Medication Management Due: December 24, 2023 12:02:10 AM CDT On Hold Pending Signature Dispensed Drug: diclofenac (diclofenac sodium 50 mg oral delayed release tablet), TAKE 1 TABLET BY MOUTH TWICE A DAY Quantity: 180 tab(s) Days Supply: 90 Refills: 1 Substitutions Allowed Notes from Pharmacy: ---- [facility] 10-30-2023 Note Entered by Miah Asher on October 30, 2023 14:31:11 EDT From: Adelaida Asher To: [facility]/pharmacy #[id number] Sent: 10/30/2023 14:31:11 EDT Subject: Medication Management Submitted: Complete:omeprazole (omeprazole 20 mg oral delayed release capsule) Signed by Adelaida Asher 10/30/2023 14:31:00 EDT Approved with modifications: omeprazole (OMEPRAZOLE DR 20 MG CAPSULE) TAKE 1 CAPSULE BY MOUTH EVERY DAY Qty: 90 cap(s) Days Supply: 90 Refills: 1 Substitutions Allowed Route To Pharmacy - [facility]/pharmacy #[id number] Signed by Adelaida Asher ---- From: [place] [id number] To: Hollis Barnett MD Sent: October 30, 2023 1:19:11 PM CDT Subject: Medication Management Due: October 31, 2023 12:11:25 AM CDT On Hold Pending Signature Dispensed Drug: omeprazole (omeprazole 20 mg oral delayed release capsule), TAKE 1 CAPSULE BY MOUTH EVERY DAY Quantity: 90 cap(s) Days Supply: 90 Refills: 1 Substitutions Allowed Notes from Pharmacy: ---- [facility] 10-22-2023 Note Entered by Miah Asher on October 22, 2023 07:15:06 EDT From: Adelaida Asher To: [facility]/pharmacy #[id number] Sent: 10/22/2023 07:15:06 EDT Subject: Medication Management Submitted: Complete:atorvastatin (atorvastatin 20 mg oral tablet) Signed by Adelaida Asher 10/22/2023 07:15:00 EDT Approved with modifications: atorvastatin (ATORVASTATIN 20 MG TABLET) TAKE 1 TABLET BY MOUTH EVERY DAY Qty: 90 tab(s) Days Supply: 90 Refills: 1 Substitutions Allowed Route To Pharmacy - [facility]/pharmacy #[id number] Signed by Adelaida Asher ---- From: [place] [id number] To: Hollis Barnett MD Sent: October 22, 2023 5:46:00 AM CDT Subject: Medication Management Due: October 23, 2023 12:09:15 AM CDT On Hold Pending Signature Dispensed Drug: atorvastatin (atorvastatin 20 mg oral tablet), TAKE 1 TABLET BY MOUTH EVERY DAY Quantity: 90 tab(s) Days Supply: 90 Refills: 1 Substitutions Allowed Notes from Pharmacy: ---- [facility] 09-02-2023 Note Entered by Miah Asher on September 02, 2023 07:33:55 EDT From: Adelaida Asher [id number] Sent: 09/02/2023 07:33:55 EDT Subject: Medication Management Submitted: Complete:amLODIPine (amLODIPine 10 mg oral tablet) Signed by Adelaida Asher 09/02/2023 07:33:00 EDT Approved with modifications: amLODIPine (AMLODIPINE BESYLATE 10 MG TAB) TAKE 1 TABLET BY MOUTH EVERY DAY Qty: 90 tab(s) Days Supply: 90 Refills: 1 Substitutions Allowed Route To Pharmacy - [facility]/pharmacy #[id number] Signed by Adelaida Asher ---- From: [facility] STORE [id number] To: Hollis Barnett MD Sent: September 01, 2023 5:37:29 PM CDT Subject: Medication Management Due: September 02, 2023 12:30:48 AM CDT On Hold Pending Signature Dispensed Drug: amLODIPine (amLODIPine 10 mg oral tablet), TAKE 1 TABLET BY MOUTH EVERY DAY Quantity: 90 tab(s) Days Supply: 90 Refills: 3 Substitutions Allowed Notes from Pharmacy: ---- [facility] 08-21-2023 Note Entered by Miah Asher on August 21, 2023 11:31:51 EDT From: Adelaida Asher To: [facility]/pharmacy #[id number] Sent: 08/21/2023 11:31:51 EDT Subject: [...] 1 Substitutions Allowed Route To Pharmacy - [facility]/pharmacy #[id number] Signed by Adelaida Asher Approved with modifications: apixaban (ELIQUIS 5 MG TABLET) TAKE 1 TABLET BY MOUTH TWICE A DAY Qty: 180 tab(s) Days Supply: 90 Refills: 1 Substitutions Allowed Route To Pharmacy - [facility]/pharmacy #[id number] Signed by Adelaida Asher ---- From: [facility] STORE [id number] To: Hollis Barnett MD Sent: August 21, [...] 3 Substitutions Allowed Notes from Pharmacy: ---- [facility] 07-31-2023 Note Entered by Miah Asher on July 31, 2023 14:13:18 EST From: Adelaida Asher [id number] Sent: 07/31/2023 14:13:18 EST Subject: Medication Management Submitted: Complete:diclofenac (diclofenac sodium 50 mg oral delayed release tablet) Signed by Adelaida Asher 07/31/2023 14:13:00 EST Approved with modifications: diclofenac (DICLOFENAC SOD EC 50 MG TAB) TAKE 1 TABLET BY MOUTH TWICE A DAY Qty: 180 tab(s) Days Supply: 90 Refills: 1 Substitutions Allowed Route To Pharmacy - [facility]/pharmacy #[id number] Signed by Adelaida Asher ---- From: [facility] STORE [id number] To: Hollis Barnett MD Sent: July 31, 2023 1:02:29 PM SENIOR PROPERTY MANAGER Subject: Medication Management Due: August 01, 2023 12:04:35 AM SENIOR PROPERTY MANAGER On Hold Pending Signature Dispensed Drug: diclofenac (diclofenac sodium 50 mg oral delayed release tablet), TAKE 1 TABLET BY MOUTH TWICE A DAY Quantity: 180 tab(s) Days Supply: 90 Refills: 1 Substitutions Allowed Notes from Pharmacy: ---- [facility] 05-07-2023 Note Entered by Miah Asher on May 07, 2023 07:26:43 EST From: Adelaida Asher To: [facility]/pharmacy #[id number] Sent: 05/07/2023 07:26:43 EST Subject: Medication Management Submitted: Complete:omeprazole (omeprazole 20 mg oral delayed release capsule) Signed by Adelaida Asher 05/07/2023 07:26:00 EST Approved omeprazole (OMEPRAZOLE DR 20 MG CAPSULE) TAKE 1 CAPSULE BY MOUTH EVERY DAY Qty: 90 cap(s) Days Supply: 90 Refills: 1 Substitutions Allowed Route To Pharmacy - [facility]/pharmacy #[id number] Signed by Adealida Asher ---- From: [facility] STORE [id number] To: Hollis Barnett MD Sent: May 07, 2023 6:25:09 AM SENIOR PROPERTY MANAGER Subject: Medication Management Due: May 08, 2023 12:18:38 AM SENIOR PROPERTY MANAGER On Hold Pending Signature Dispensed Drug: omeprazole (omeprazole 20 mg oral delayed release capsule), TAKE 1 CAPSULE BY MOUTH EVERY DAY Quantity: 90 cap(s) Days Supply: 90 Refills: 1 Substitutions Allowed Notes from Pharmacy: ---- [facility] 03-20-2023 Note [facility] Consult Note [...] sinus rhythm 11/16/[address] still HPI: Cristianori Hernandez Jr. is a 62 y.o. year [...] no frequent nosebleed (more content not included)... [facility] 03-20-2023 Note Patient here for fol low up cardioversion. Denies chest pain, SOB, palpitations, lightheadedness, and bleeding on Eliquis. Review of Systems All other systems reviewed and are negative. [facility] 05-20-2019 Note 1. Splenomegaly has progressed since the 2014 exam, now measuring 21 cm (previously 16 cm). No enlarged or suspicious-appearing lymph nodes identified in the chest, abdomen or pelvis. 2. Lucent areas in the T8 and T10 vertebral bodies are stable and are of uncertain significance. Attention to on follow-up is recommended. 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, spleen documented in this encounter [employer] Phone: evaluation note* Diagnosis 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, spleen Lymphocytosis Lymphocytosis (symptomatic) documented in this encounter [employer] Phone: [email or web address] note* Diagnosis 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, spleen documented in this encounter [employer] Phone: [email or web address] note* Diagnosis 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 (ICD-10-CM)] Marginal zone lymphoma, spleen documented in this encounter [employer] Phone: [email or web address] note* Diagnosis Lymphocytosis Lymphocytosis (symptomatic) 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, spleen Essential hypertension Unspecified essential hypertension documented in this encounter [employer] Phone: [email or web address] note* Diagnosis Lymphocytosis Lymphocytosis (symptomatic) 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, spleen documented in this encounter [employer]Evaluation noteNo assessment information available [facility] Work Phone: Assessments Diagnosis 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, spleen Diagnosis 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, spleen Diagnosis Lymphocytosis Lymphocytosis (symptomatic) 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, spleen Advance Directives No Advanced Directives Records FoundDocuments on File Type Date Recorded Patient Information Systems Security Manager Expl anation Advance Directives and Living Will Power of Data Processing Clerk Documents on File Type Date Recorded Patient Information Systems Security Manager Expl anation ACP-Advance Directive ACP-Power of Data Processing Clerk Documents on File Type Date Recorded Patient Information Systems Security Manager Expl anation Advance Directives and Living Will Power of Data Processing Clerk Summary Purpose Family History No Family History Records FoundNo Family History Records FoundNo Family History Records FoundNo Family History Records FoundNo Family History Records Found Additional Source Comments (unrecognized sect ion and content) No Status Records FoundNo Status Records FoundNo Status Records FoundNo Status Records FoundNo Status Records Found INFORMATION SOURCE (unrecogn ized section and content) DATE CREATED AUTHOR 11/27/2020 [facility] DATE CREATED AUTHOR AUTHOR'S ORGANIZ ATION 12/21/2023 [facility] DATE CREATED AUTHOR AUTHOR'S ORGANIZ ATION 02/18/2024 [facility] DATE CREATED AUTHOR AUTHOR'S ORGANIZ ATION 02/22/[address] [facility] DATE CREATED AUTHOR AUTHOR'S ORGANIZ ATION 03/10/2024 [facility] l Reason for Visit (unrecogniz ed section and content) Status Reason Specialty Diagnoses / Procedures Referre d By Contact Referred To Contact [facility] Diagnoses Marginal zone lymphoma of spleen (HCC) Lymphocytosis Procedures CT CHEST ABDOMEN PELVIS W CONTRAST CT ABDOMEN PELVIS W IV CONTRAST Additional Contrast? Oral HC CT CHEST W/ CONTRAST HC CT ABD/PEL W CONT Jv Zhou MD [id number] [address] Care Teams (unrecognized sec tion and content) Scraper Tender Relationship Specialty Start Date End Date Ericka Hollis M [address] [place] [id number] PCP - General Family Medicine 05/07/19 Scraper Tender Relationship Specialty Start Date End Date Hayley Barnettmiah Naidu [address] [place] [id number] PCP - General Family Medicine 05/07/19 Scraper Tender Relationship Specialty Start Date End Date Hayley Barnettmiah Naidu [address] [place] [id number] PCP - General Family Medicine 05/07/19 Scraper Tender Relationship Specialty Start Date End Date Hollis Barnett [address] [place] [phone] PCP - General Family Medicine 05/07/19 Team [...] BE BASED ON THE PRIMARY CLINICAL RECORDS. [facility] [employer] [facility] provides no warranty or guarantee of the accuracy or completeness of information in this document.
[2024-03-18 09:48] LABS: Prostate Specific Antigen Dx 6.48 ng/mL (<=4.00)
== END 2024-03-18 08:34 | disposition home or self-care (01) ==
LOC: LAB 08:34
PROVIDERS: PCP Family Medicine; Visit Provider Family Medicine
DX: R97.20 Elevated prostate specific antigen [PSA] (principal)
CPT/HCPCS: 36415; 84153

== ENCOUNTER 2024-03-18 08:36 | Outpatient (OUT) | payer OTHER, SELFPAY ==
--- OUTSIDE RECORDS SUMMARY | 2024-03-18 08:43 | XMS_ITS | CCD ---
Author Organization [facility] Care Team Providers Care Java Sql Developer Name Role Phone Ericka, Hollis Naidu Primary Care Provider AL-NSOUR, MOHAMMAD A Referring Unavailable BLUNT, HOLLIS M Primary Care Unavailable Blunt, Hollis M Primary Care Provider Blunt, Hollis M Primary Care Provider Blunt, Hollis M Primary Care Provider Blunt, Hollis M Primary Care Provider [phone] Blunt, Hollis M Primary Care Provider AL-NSOUR, [...] Attending Unavailable IVONNE, TERRELL Attending Unavailable Ivonne, HUMANITIES DIVISION CHAIR-C Terrell Attending Provider Ivonne, Terrell Admitting Unavailable [...] (antibiotic) (1 source) Penicillins Drug Allergy 05-06-2014 [facility] (10 sources) Penicillins; Translations: [PENICILLINS] Propensity to adverse reactions to drug 05-06-2014 [facility] [place] [place] (3 sources) Penicillins Propensity to adverse reactions to drug 05-06-2014 [facility] Medications Current Medications Medication Drug Class(es) Dates [...] Facility Consultation/Specialist Note on 03-10-2024 Consultation/Specialist Note [id number]#[address] [place] [address] Cardiac Serviceson Cardiac Services [id number] 00 [id number]#1 [facility]24 Echocardiography [id number] 40 [id number]#1.0 [facility] Echocardiogramon 03-04-2024 Echocardiography [id number]#1.00 [facility] Insuranceon 03-03-2024 Insurance [id number] 00 [id number]#1 .00[facility] Outside Recordson 02-27-2024 Outside Records [id number]#1 .00[facility] 36on 02-17-2024 36 Reguarding lab resul ts from 02/16 ONESIMO Bah, DOMINGO CBC stable with known elevated WBC, Renal function noted- normal Liver function normal And BNP- heart failure marker was elevated= fluid overload- so yes take lasix as I instructed and take fluid off Tried to leave a message but could not will try to call back tomorrow. 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 [facility] Rubens 02-17-2024 L Specimen: Received: 02/19/24 Status: KALANI Clay Num: [id number] Spec Type: Impression Subm Dr: Terrell HILL Tissues: PATHPER Procedures: PATHREVIEW Age/ Patient Sex Location Account Attending Physician Cristian Hernandez 63/M LABELL [id number] Terrell HILL SPEC NUM: RECD: 02/19/24 STATUS: KALANI CLAY NUM: [id number] MARLA: 02/17/[address]: Terrell HILL ENTERED: 02/19/[address]: Joe,Lab SPEC TYPE: Impression DEPT: MEREDITH Galvan ENTERED BY: [id number] RECV BY: [id number] ORDERED: PATHREVIEW ORDERED: PATHREVIEW Pathologist Review Abnormal [...] case, if clinically is also indicated CPT: 59856 ---- ---- Specimen: [id number] Received: 02/19/24 Status: KALANI Clay Num: [id number] Spec Type: Impression Subm Dr: Terrell HILL Tissues: PATHPER Procedures: PATHREVIEW ---- Patient: Cristian Hernandez [id number] (Continued) ---- Signed (signature on file) Guadalupe Grier MD 02/20/24 1200 Normal [facility] Office Visiton 02-17-2024 Follow-up visit [id number] Cristian Hernandez Jr. 1960 M Date Provider Department Center 02/17/2024 Tim-TERRELL CORONADO JENY Chery Family History Family history unknown: Yes Level of Service:86135 [place] OFFICE/OUTPATIENT ESTABLISHED MOD MDM 30 MIN Normal [facility] CBC with Diffon 12-17-2023 Abs. Basophil 0.00 k/uL Normal 0.0-0.2 [facility] Comment on above: Performed By: #### C P, CDP #### [facility] [address] [place] [address] Rejected Items Clerk: Haider Garcia MD #### LD #### [address] [id number] Rejected Items Clerk: Robb Tran MD Abs.Neutrophil (Seg) 7.34 k/uL Normal 1.8-7.7 [facility] Comment on above: Performed By: #### C P, CDP #### [address] [phone] Rejected Items Clerk: Haider Garcia MD #### LD #### [address] [phone] Rejected Items Clerk: Robb Tran MD Basophils/100 WBC (Bld) 0 % Normal 0-2 [facility] Comment on above: Performed By: #### C P, CDP #### [place] [address] Rejected Items Clerk: Haider Garcia MD #### LD #### [address] [address] Rejected Items Clerk: Robb Tran MD Eosinophils (Bld) [#/Vol] 0.67 10*3/uL High 0.0-0.4 [facility] Comment on above: Performed By: #### C P, CDP #### [place] [id number] Rejected Items Clerk: Haider Garcia MD #### LD #### [address] [phone] Rejected Items Clerk: Robb Tran MD Eosinophils/100 WBC (Bld) 1 % Normal 1-4 [facility] Comment on above: Performed By: #### C P, CDP #### [place] [id number] Rejected Items Clerk: Haider Garcia MD #### LD #### [address] [phone] Rejected Items Clerk: Robb Tran MD Lymphocytes (Bld) [#/Vol] 58.02 10*3/uL High 1.0-4.8 [facility] Comment on above: Result Comment: R/O Chronic Lymphoproliferative Disorder, recommend peripheral blood Flow Cytometry, if clinically indicated. Performed By: #### C P, CDP #### [address] [phone] Rejected Items Clerk: Haider Garcia MD #### LD #### [address] [phone] Rejected Items Clerk: Robb Tran MD Lymphocytes/100 WBC (Bld) 87 % High 24-44 [facility] Comment on above: Performed By: #### C P, CDP #### [place] [address] Rejected Items Clerk: Haider Garcia MD #### LD #### [place] [phone] Rejected Items Clerk: Robb Tran MD Monocytes (Bld) [#/Vol] 0.67 10*3/uL Normal 0.1-0.8 [facility] Comment on above: Performed By: #### C P, CDP #### [address] [phone] Rejected Items Clerk: Haider Garcia MD #### LD #### [address] [id number] Rejected Items Clerk: Robb Tran MD Monocytes/100 WBC (Bld) 1 % Normal 1-7 [facility] Comment on above: Performed By: #### C P, CDP #### [address] [phone] Rejected Items Clerk: Haider Garcia MD #### LD #### [place] [phone] Rejected Items Clerk: Robb Tran MD Morphology Ruben (Bld) [Interp] SMUDGE CELLS PRESENT Normal [facility] Comment on above: Performed By: #### C P, CDP #### [place] [address] Rejected Items Clerk: Haider Garcia MD #### LD #### [place] [phone] Rejected Items Clerk: Robb Tran MD Neutrophil (Seg) 11 % Low 36-66 [facility] Comment on above: Performed By: #### C P, CDP #### [place] [address] Rejected Items Clerk: Haider Garcia MD #### LD #### [place] [phone] Rejected Items Clerk: Robb Tran MD Erythrocyte distribution width (RBC) [Ratio] 14.4 % Normal 12.5-15.4 [facility] Comment on above: Performed By: #### C P, CDP #### [place] [phone] Rejected Items Clerk: Haider Garcia MD #### LD #### [address] [phone] Rejected Items Clerk: Robb Tran MD Hematocrit (Bld) [Volume fraction] 41.6 % Normal 41-53 [facility] Comment on above: Performed By: #### C P, CDP #### [place] [phone] Rejected Items Clerk: Haider Garcia MD #### LD #### [address] [address] Rejected Items Clerk: Robb Tran MD Hemoglobin (Bld) [Mass/Vol] 13.7 g/dL Normal 13.5-17.5 [facility] Comment on above: Performed By: #### C P, CDP #### [address] [address] Rejected Items Clerk: Haider Garcia MD #### LD #### [address] [address] Rejected Items Clerk: Robb Tran MD MCH (RBC) [Entitic mass] 30.4 pg Normal 26-34 [facility] Comment on above: Performed By: #### C P, CDP #### [address] [address] Rejected Items Clerk: Haider Garcia MD #### LD #### [address] [address] Rejected Items Clerk: Robb Tran MD MCHC (RBC) [Mass/Vol] 32.8 g/dL Normal 31-37 [facility] Comment on above: Performed By: #### C P, CDP #### [address] [address] Rejected Items Clerk: Haider Garcia MD #### LD #### [address] [address] Rejected Items Clerk: Robb Tran MD MCV (RBC) [Entitic vol] 92.7 fL Normal 80-100 [facility] Comment on above: Performed By: #### C P, CDP #### [address] [address] Rejected Items Clerk: Haider Garcia MD #### LD #### [place] [phone] Rejected Items Clerk: Robb Tran MD Platelet mean volume (Bld) [Entitic vol] 7.5 fL Normal 6.0-12.0 [facility] Comment on above: Performed By: #### C P, CDP #### [place] [address] Rejected Items Clerk: Haider Garcia MD #### LD #### [place] [address] Rejected Items Clerk: Robb Tran MD Platelets (Bld) [#/Vol] 148 10*3/uL Normal 140-450 [facility] Comment on above: Performed By: #### C P, CDP #### [place] [address] Rejected Items Clerk: Haider Garcia MD #### LD #### [place] [address] Rejected Items Clerk: Robb Tran MD RBC (Bld) [#/Vol] 4.49 10*6/uL Low 4.5-5.9 [facility] Comment on above: Performed By: #### C P, CDP #### [place] [phone] Rejected Items Clerk: Haider Garcia MD #### LD #### [place] [phone] Rejected Items Clerk: Robb Tran MD WBC (Bld) [#/Vol] 66.7 10*3/uL Critically high 3.5-11.0 [facility] Comment on above: Result Comment: TEST CONFIRMED Performed By: #### C P, CDP #### [place] [id number] [place], [place] [phone] Rejected Items Clerk: Haider Garcia MD #### LD #### [address] [address] Rejected Items Clerk: Robb Tran MD Comp Metabolic Profon 2023 Albumin [Mass/Vol] 4.7 g/dL Normal 3.5-5.2 [facility] Comment on above: Performed By: #### C P, CDP #### [address] [phone] Rejected Items Clerk: Haider Garcia MD #### LD #### [address] [phone] Rejected Items Clerk: Robb Tran MD Albumin/Glob Ratio 1.8 Normal 1.0-2.5 [facility] Comment on above: Performed By: #### C P, CDP #### [address] [address] Rejected Items Clerk: Haider Garcia MD #### LD #### [address] [address] Rejected Items Clerk: Robb Tran MD Alkaline Phos 74 U/L Normal 40-129 [facility] Comment on above: Performed By: #### C P, CDP #### [address] [phone] Rejected Items Clerk: Haider Garcia MD #### LD #### [address] [address] Rejected Items Clerk: Robb Tran MD ALT [Catalytic activity/Vol] 23 U/L Normal 5-41 [facility] Comment on above: Performed By: #### C P, CDP #### [facility] [address] [place], [place] [phone] Rejected Items Clerk: Haider Garcia MD #### LD #### [address] [phone] Rejected Items Clerk: Robb Tran MD Anion gap [Moles/Vol] 10 mmol/L Normal 9-17 [facility] Comment on above: Performed By: #### C P, CDP #### [facility] [address] [place], [place] [phone] Rejected Items Clerk: Haider Garcia MD #### LD #### [address] [phone] Rejected Items Clerk: Robb Tran MD AST [Catalytic activity/Vol] 19 U/L Normal <40 [facility] Comment on above: Performed By: #### C P, CDP #### [facility] [address] [place], [place] [phone] Rejected Items Clerk: Haider Garcia MD #### LD #### [address] [phone] Rejected Items Clerk: Robb Tran MD Bilirubin [Mass/Vol] 0.7 mg/dL Normal 0.3-1.2 [facility] Comment on above: Performed By: #### C P, CDP #### [facility] [id number] [place] [address] [phone] Rejected Items Clerk: Haider Garcia MD #### LD #### [address] [phone] Rejected Items Clerk: Robb Tran MD Calcium [Mass/Vol] 9.8 mg/dL Normal 8.6-10.4 [facility] Comment on above: Performed By: #### C P, CDP #### [facility] [address] [place] [address] Rejected Items Clerk: Haider Garcia MD #### LD #### [address] [phone] Rejected Items Clerk: Robb Tran MD Chloride [Moles/Vol] 90 mmol/L Low 98-107 [facility] Comment on above: Performed By: #### C P, CDP #### [facility] [address] [place] [address] Rejected Items Clerk: Haider Garcia MD #### LD #### [address] [phone] Rejected Items Clerk: Robb Tran MD CO2 [Moles/Vol] 27 mmol/L Normal 20-31 [facility] Comment on above: Performed By: #### C P, CDP #### [facility] [address] [place] [address] Rejected Items Clerk: Haider Garcia MD #### LD #### [address] [phone] Rejected Items Clerk: Robb Tran MD Creatinine [Mass/Vol] 0.8 mg/dL Normal 0.7-1.2 [facility] Comment on above: Performed By: #### C P, CDP #### [facility] [id number] [place] [address] Rejected Items Clerk: Haider Garcia MD #### LD #### [address] [phone] Rejected Items Clerk: Robb Tran MD GFR/1.73 sq M.predicted among non-blacks MDRD (S/P/Bld) [Vol rate/Area] mL/min/{1.73_m2} Normal >60 [facility] Comment on above: Result Comment: These results [...] Performed By: #### C P, CDP #### [address] [phone] Rejected Items Clerk: Haider Garcia MD #### LD #### [address] [address] Rejected Items Clerk: Robb Tran MD Glucose [Mass/Vol] 111 mg/dL High 70-99 [facility] Comment on above: Performed By: #### C P, CDP #### [address] [address] Rejected Items Clerk: Haider Garcia MD #### LD #### [address] [address] Rejected Items Clerk: Robb Tran MD Potassium [Moles/Vol] 4.8 mmol/L Normal 3.7-5.3 [facility] Comment on above: Performed By: #### C P, CDP #### [address] [address] Rejected Items Clerk: Haider Garcia MD #### LD #### [address] [address] Rejected Items Clerk: Robb Tran MD Protein [Mass/Vol] 7.3 g/dL Normal 6.4-8.3 [facility] Comment on above: Performed By: #### C P, CDP #### [facility] [address] [phone] Rejected Items Clerk: Haider Garcia MD #### LD #### [address] [phone] Rejected Items Clerk: Robb Tran MD Sodium [Moles/Vol] 127 mmol/L Low 135-144 [facility] Comment on above: Performed By: #### C P, CDP #### [address] [phone] Rejected Items Clerk: Haider Garcia MD #### LD #### [address] [phone] Rejected Items Clerk: Robb Tran MD Urea nitrogen [Mass/Vol] 14 mg/dL Normal 8-23 [facility] Comment on above: Performed By: #### C P, CDP #### [address] [phone] Rejected Items Clerk: Haider Garcia MD #### LD #### [address] [phone] Rejected Items Clerk: Robb Tran MD Lactate Dehydrogenaseon 12-01 LDH [Catalytic activity/Vol] 146 U/L Normal 135-225 [facility] Comment on above: Performed By: #### C P, CDP #### [address] [address] Rejected Items Clerk: Haider Garcia MD #### LD #### [address] [address] Rejected Items Clerk: Robb Tran MD Coding Summaryon 12-09-2023 Coding Summary HTMLBase 64 HonvsougUDw9tQk+PGhlYW Q+HQ0IIUOjU63zoNAymY0b W4JJHJlIIncqCRZWWAoQPt CltnBjYI2qiKBoPGFb IC8+JS8jPZQkYpotwPQqd5 E5mFM4J53nqa1rVEhcxRZ4 KEPxWuJqumfjp6hkhXj7MF cuNmluOyBt AERsvJ86QMV1hS39Pb99dE QfiGJkt9tofVd9BvLnDDOx CHW2qWslQRuhf9NxLEPcN4 0bbSPpm0M5 NBEuoHsvfQIjLcTsrIR8nZ 6eAZytmgmno8cveifaOro4 ji92yVRdu2T2mMP3H6Uddt X0JIMbxYMt IozeiJUNcQ8kejgcj9gaqj ugKnQzZXFvGUa4HSt3GQDq fVsiFxQvFH07IFZ4KRGlao HpQ2XnUKNp wNxuIiC1i8I8Db6CH5MNWw zbG5QRUMXBOGkkuOK+PC90 xl80U4FgNdkcEgm7RHUbIS K1qJV3nJ9s KRAbOBtfi5J5jYV2U5Wigm Ueaw2ms2xhOYZxKQssL30m bIKhs0F7GXOgoKX9AIJvpC ziBqIbsB50 Oyc+ERXrzUtik2EsTpuyc3 dfn2pjbAd6TjtxGEFlikIn cFyyTPC2i5EmQg1dZZRsgC C5xZL7tJ9t KrYuClU7XNtnJ095KjFgaW FzSldsK16uN4DifMB+PHRy Ihn9ERBquSclPF9uQ3XqVL RpbmctbGVm fBqmDY7vYSDtxhmlGYXguL 3qSGNlU6g8DmEqTiJ3VXjf D1VvJXKcupmgUw96gM7jEq PmSjK2SNim O7QdcvO1OJQcrDDfJJraSZ Z0E34co0P3VKYfCLRuNIX3 qUW2iQ1cjOktcaugpWHnbM sgdmVydGlj MDsnPAseT862EFYgdFmzQt NvZGluZyBEYXRlOiAgMDcv MDgvMjAyNDwvdGQ+PHRkIH T5lRheELCg dIZxZHwsGu2raPuqcQarJN 2rEKRdejyxUASpuB9qONTx hMXhyEkqYO3aEYWttstfh4 90FfLoDWP0 TPYrcTZhL0NilJ0iDcRoST PzSCMzR6SxbQUrYUkkP316 YEabVfD9MFEfrcPeE9QbNQ FsaWduOiB0 j5D5Mf9Oi5HyfbyzE9KjoM XtMrYoPpekTTe6S0AfOfvk dHI+SC25PUHtYY62JSe2LS K5pItyGGjx GHBaY8JfpE0nWdOqEXBoTY RkOyc+PHRhYmxlIHdpZHRo KKjgLSTmXfZevWqzWR9pZo 9yZGVyLWNv iPijuVZkEjTpk7xnSRHoQY unWN4brHjoZ4XvrPK4YBPf z0v1Fj77R17mD9CiyIW+PG FqtGJ5fLC1 iL7xXdClGgD8BRysU602Aw DrsKZmIphkv9hwa6vlwJz0 OzW8KEJmpuXmyRjtVRO5o2 MsIg93B18u IHdpZHRoPSIxNSUiIHZhbG uugy2nrT6fYd6+PGNvbCB3 eVD9mV1lVpWhThR4NFgbG0 49InRvcCIv Rnkid9kln3xvtZn2PlZlZE HfeeDcjTdnSCL5t6XlKo84 I3TuqSyiy5VnPuv0qi92lZ Mdo2E5sES6 J2XnMNRzqdlniVNeuUjiXR 5pAGBiqztkWAEkvQ8vBTBx K4y1GlSoSmM9DUpzL1Hhmh F6IHNapHMz ZBZuzBKOiZ9fbtyxl9pnfu unGxNzVVWoYOx8DEa9KJNs aBuvJvYoCJL5IbT7MZS4pV QaaB3yfHfx gafwpY2rTbi+EQV6lIHfdN ULCQ4rAajtwRV+PHRkIHN0 tRtxLZboPRNtnB9iRLHeU7 r3DcKxLcJ1 TNtsL3HblhL7ZYQszXUgHH LltVSVzS2rnsvmz1tfbmpt UiVmXSFtRWs7KXg6XDAnuN duOiBsZWZ0 PeI8XGR6aJIgdS6bmWazyt oayN9bZvt+QmlydGggRGF0 WCx0W5TcUwn7HXEwdAzqQZ 0ncGFkZGlu Mr0diTtsnLqrHG4zLOYsve efl094GhBvt8poYRGjaTYe VYgkCXI2C98vd4J5XXQkEX KmTYL5zQD9 oC9lfEpbojtjdXBpcZkxfw FrhTpfTFgaTTguZ872IAAu lWuyKcUfRRz3B8ByPzo5VW FwuTtuMX0b kNFoWIudTo3nrEervPirIB 7kKYHupwngj420UwCzj0gx AMVooCQoVMkyPEE3D11bz1 S2VQUeONQv XQY3dTO4tP3cnTaehpihuF VmdDsgdmVydGljYWwtYWxp Y172AXLaoXdcDsWipPw4U2 ZlEsy5VBIs oCwhOQ0mcOGcTKoqOn3buM eayDglIR3gTMQzgrraj780 RgUkd7bgNDDqhXOcMXrcYF C1F81xb4B0 JLInMIDnVBU1iDD8sK7pxY lnbjogbGVmdDsgdmVydGlj TDbdSLhtK139JRLhiRwbMp BhdGllbnQg IPagQJq2U3OoHbvnxWA+PC 29MJPbRY63nLFabFSti9sm rBi9RcWxNVQdMNI4dTdkSI nwl3MiIOCr L36xbAApn5F5KMPyzYwplC EzArHktNA0bF0dRYrreazi w0fcbltlSrpsn9jsen67pF 91U35eOZty ZHRoPSIzMCUiIHZhbGlnbj 0fnL7gQa4+NXSdjQU5zGA7 qM1vYFLwGhO8OKihN771As RvcCIvPjxj j8irk6wzbYn0XaY9BJJpvr HriYreZWR5l2GhTu44I05c IHdpZHRoPSIyMCUiIHZhbG lyss0htU6l Ii8+XOAxsSQ2kLN2sO6gOa EqBjU9TYimS414DaVwyLVb JtvnG60xA7WcaOY+PHRyPj g0QPMfeMey YE8tnUAdRIqpJx4oPCV6Qj MoCsMgRLbjN2EnKXJqnyap bjyxsQN3BNRjKONekT73Tg 9udDogMTBw uZOTbZ9xxgrtu0fxymivTo GfVIOhOBz0VRn4NXAuoVxh GlGaHDI6FsI6EZP5vKMuqY 1hbGlnbjog oD8aC5BgGKHoavsnKz98fF 3yOpTuVfR5QExvZqn+QkVI ST5MPiNDQibmHzPKSO7BER RTHZ95VX12 dZBtl5V0cOZ2S1BjSGVabg ctceaasAD4LNDeGGJipE78 bERoYMrvRs7qy1A1o465HL HtSEGavS30 He0asFtfJRKvbNVIqT4pwk jff0jwsnchZwCkEEAeETu7 QTs1UNIraXreBpVbHFC4Ne C4VKF7mPZy rH6buJyvrdflaW1yQvn+MT GaXveuCJp4QHtezCB+PHRk SYZ7bSxqBAeaYQPlqB0aFN ErF0c3WbAl UtV2GBdxP0DxVDOvrllqNd 67wR8dCbArLsQ3LIqnH1Rx vvP3NUDlgIKaTIrdQPY8U9 4mn8A4AIKt IWZoZAH3gOI6qB0wdXgbxj ogbGVmdDsgdmVydGljYWwt SSrpE549MWTncVzoXaC4BI ssKOMmIR09 RE40eQQjx7X6aYI6J6NlRR AaugupmbltpYS6YXXnEORf tX81xDXtQShrOv5fn9S0c9 06IDAuMDUw fZ51Od4grMonACAekSTUvS 0bsjomj1xygdlbToLiPKCa RZo6WGr5JTHljLorNnGxVN Y7HsB7FXD0 iRXhuQ8ivJtpjsbwwJ9qUx c+TUFMRTwvdGQ+PHRkIHN0 tMajVQdrETVhlP9hFFJkE0 t2QfSvNuC0 VPbaR8XdGLLvhmfvFl41gY 2oKdQmOgK6HGuxU2UavtF4 BRQkcYDkYYfeSBQ0Y62da3 M2ZEAqXARl CIR6zON4vF2nlTrmazthyX VmdDsgdmVydGljYWwtYWxp Y178DMSjxHevAv7EJW30LP 25O7VwJzid dGFibGU+PHRhYmxlIHdpZH AjTEdoFSIzNbIpnHywSN0m Cw5iJCZkRMIumUdqhOTyMp Kec2rcTMLx DZbxLK8vyRscG1OroZT6QS Vpr1i0Ij98F04eY1MklHX+ AFMqgEQ3jQS2qS9zQfZhUt A5TVieV193 QyXsmMSsItxkc6hku0fniL m4CwNbPEWkwfTyeWsrTAX0 f6FjKo46K14qUQzmCYVaXA IyMCUiIHZh kRwtli2zzC4zDv7+PGNvbC Y9gIZ5jH2xZnNwEsZ7ZUan W211YeElzOJcJeqbS64gA5 JvdXA+PHRy Iwm8CYJzhVosHL6rmZBtPA wjLl0oKYB7RcQbNxHvFKwm J0QqSGQwtkyjkkmzxQJ9TV DeFZGttQ39 Zp9avExxYk4iOFZwHSE9DG SwrSZuC2YaiR9oElBsXWSw TXSnQ8FefSIoOEgaX822IB sfLkR6DGNg euRdM5FbDGUysWbwAnV8w3 N4Bq5CcIfojKWsEC2nXjLj GSo0M1YtGfv2YKCltYowHA 0ncGFkZGlu Ru6jvPwjkQthVC1oHEJexg gfx419EmPik0iqIOGcgHWf JCypZQP7C99wp9I2NTKyQN KdVUS6bHT3 jN9uhSkmlsuauHTybYwjrm FgcVtsMEaaIKsyJ476XEUc hJqrTtVDRqg8R1PqSyq9MX FypQgjXP7o sVXzMLypCu6qzPqprTldNQ 5qMQAumufli616RbVxh2gb DKDkfHOhGPbwVBE4L59zs6 Q7AWMeMFIg GEV1uUI7oT1feYukjrjhrD VmdDsgdmVydGljYWwtYWxp Z863ZCCbyMevFj5MRhx5H6 YvTzg5HQTv pQslZG6nbNSuAWkxNf3xvD xhmModID5fNAKerenlu959 VhMio9iyAMFwbKPnSQilSH Q9W87yy8S9 PBTgULLzPVU8aKZ8oD7gvB lnbjogbGVmdDsgdmVydGlj GBxoLIlqG589STCrgIwhUr BheWVyOjwv dGQ+MG19pd57H1NiGyzfCr j9FOAiXLG5mNI0yY6jBIPw TAbpi3I2gEU0V6AtomWkcp 9wj1smZOWi ZTo (more content not included)... Normal [facility] .Auto Diff 11-25-2023 Auto [place] % 1 % Normal 12 [facility] Comment on above: Performed By: #### 7 [id number], [id number], [id number], [id number], [id number], [id number] ####[facility] (DEFAULT)[address] [place] [address] Baso Abs# 0.1 x10 Normal 0.0-0.2 [facility] Comment on above: Performed By: #### 7 [id number], [id number], [id number], [id number], [id number], [id number] ####[facility] (DEFAULT)[address] [place] [address] Basophils/100 WBC (Bld) 0.3 % Normal 0.2-2.0 [facility] Comment on above: Performed By: #### 7 [id number], 24026151, [id number], [id number], [id number], 4848599 ####[facility] (DEFAULT)[address] [place] [address] 38680 Eos Abs# 0.3 x10 Normal 0.0-0.4 [facility] Comment on above: Performed By: #### 7 121553, 61521581, [id number], [id number], 080597577, 2167673 ####[facility] (DEFAULT)[address] [place] [address] 67674 Eosinophils/100 WBC (Bld) 0.8 % Low 0.9-4.0 [facility] Comment on above: Performed By: #### 7 199186, 67333796, [id number], 6489919175, 539842453, 3670919 ####[facility] (DEFAULT)[address] [place] [address] 89205 Lymph Abs# 34.2 x10 High 1.3-2.9 [facility] Comment on above: Performed By: #### 7 535659, 53762854, 2119902583, 2737206814, 578391127, 2540390 ####[facility] (DEFAULT)[address] [place] [address] Lymphocytes/100 WBC (Bld) 84 % High 14-48 [facility] Comment on above: Performed By: #### 7 260379, 01863158, [id number], 5076385219, 038852072, 1008242 ####[facility] (DEFAULT)[address] [place] [address] [place] Abs# 0.3 x10 Normal 0.0-0.8 [facility] Comment on above: Performed By: #### 7 689953, 21572076, 5246339151, 6006306023, 784661190, 0489325 ####[facility] (DEFAULT)[address] [place] [address] Neut Abs# 5.7 x10 Normal 1.5-9.2 [facility] Comment on above: Performed By: #### 7 766001, 90180605, 5876231528, 2622953855, 199138709, 3086615 ####[facility] (DEFAULT)[address] [place] [address] Neutrophils/100 WBC (Bld) 14 % Low 44-88 [facility] Comment on above: Performed By: #### 7 546497, 03644136, [id number], 4835125242, 247860835, 1237325 ####[facility] (DEFAULT)[address] [place] [address] CBC w/ Auto Diffon 4 Erythrocyte distribution width (RBC) [Ratio] 14.0 % Normal 11.5-15.0 [facility] Comment on above: Performed By: #### 7 835091, 19952754, 1152789858, 9064135984, 767843001, 2471019 ####[facility] (DEFAULT)[address] [place] [address] Hematocrit (Bld) [Volume fraction] 41.4 % Normal 34.8-51.9 [facility] Comment on above: Performed By: #### 7 582230, 27661597, 1204335699, 9812475704, 258896877, 5288485 ####[facility] (DEFAULT)[address] [place] [address] 28744 Hemoglobin (Bld) [Mass/Vol] 13.8 g/dL Normal 11.8-17.7 [facility] Comment on above: Performed By: #### 7 510086, 83369990, 2879897471, 0884739135, 106918700, 8963694 ####[facility] (DEFAULT)[address] [place] [address] 95427 MCH (RBC) [Entitic mass] 31 pg Normal 24-34 [facility] Comment on above: Performed By: #### 7 506136, 67310372, 9157945783, 2684867163, 126896352, 4676325 ####[facility] (DEFAULT)[address] [place] [address] 39861 MCHC (RBC) [Mass/Vol] 33 g/dL Normal 26-37 [facility] Comment on above: Performed By: #### 7 947937, 51596906, 8551283869, 3189255569, 118796286, 8938289 ####[facility] (DEFAULT)[address] [place] [address] 62105 MCV (RBC) [Entitic vol] 92 fL Normal 81-100 [facility] Comment on above: Performed By: #### 7 115966, 47709661, 1463787881, [id number], [id number], [id number] ####[facility] (DEFAULT)[address] [place] [address] 75693 Platelet 147 x10 Normal 138-427 [facility] Comment on above: Performed By: #### 7 468879, [id number], [id number], [id number], 587574411, 2400682 ####[facility] (DEFAULT)[address] [place] [address] 82680 Platelet mean volume (Bld) [Entitic vol] 8.0 fL Normal 6.3-10.2 [facility] Comment on above: Performed By: #### 7 643746, 92634748, [id number], [id number], 945780544, [id number] ####[facility] (DEFAULT)[address] [place] [address] RBC 4.50 x10 Normal 3.70-5.30 [facility] Comment on above: Performed By: #### 7 973291, 66424551, [id number], 5726098947, 308306387, 6177867 ####[facility] (DEFAULT)[address] [place] [address] WBC 40.7 x10 High 3.5-10.5 [facility] Comment on above: Result Comment: Slid e Reviewed Performed By: #### 7 844998, 49414007, [id number], [id number], 526393576, 3291034 ####[facility] (DEFAULT)[address] [place] [address] Man Diff? Auto Invalid Interpretation Code [facility] Comment on above: Performed By: #### 7 301669, 49836627, [id number], [id number], 638844242, 7144651 ####[facility] (DEFAULT)[address] [place] [address] Standardon 11-25-2023 eGFR Non AA >60 Invalid Interpretation Code [facility] Comment on above: Performed By: #### 7 997204, 38779954, [id number], [id number], 527453314, 0452945 ####[facility] (DEFAULT)[address] [place] [address] eGFR AA >60 Invalid Interpretation Code [facility] Comment on above: Performed By: #### 7 808678, 80657278, 1539598579, 0290337415, 387773525, 1561721 ####[facility] (DEFAULT)[address] [place] [address] Albumin [Mass/Vol] 4.5 g/dL Normal 3.5-5.0 [facility] Comment on above: Performed By: #### 7 167652, 61240150, 1706353751, 4001216969, 470616463, 3618131 ####[facility] (DEFAULT)[address] [place] [address] Albumin/Globulin [Mass ratio] 1.4 {ratio} Normal 1.4-2.6 [facility] Comment on above: Performed By: #### 7 486607, 44606451, 5577115309, 2908332267, 183940330, 2001079 ####[facility] (DEFAULT)[address] [place] [address] Alk Phos 64 IU/L Normal 32-91 [facility] Comment on above: Performed By: #### 7 184123, 73198268, 8987390518, 7269506036, 486465900, 6964906 ####[facility] (DEFAULT)[address] [place] [address] ALT [Catalytic activity/Vol] 28.0 U/L Normal 17.0-63.0 [facility] Comment on above: Performed By: #### 7 114262, 54082607, 0690926139, 6221996477, 890755875, 0618270 ####[facility] (DEFAULT)[address] [place] [address] Anion gap [Moles/Vol] 13.2 mmol/L Normal 5.0-19.0 [facility] Comment on above: Performed By: #### 7 378291, 32340197, 4701496240, 9423077838, 279741746, 4663567 ####[facility] (DEFAULT)[address] [place] [address] 18503 AST [Catalytic activity/Vol] 30 U/L Normal 15-41 [facility] Comment on above: Performed By: #### 7 279163, 43649667, 8111642387, [id number], 014066842, 1262069 ####[facility] (DEFAULT)[address] [place] [address] Bili Total 0.6 mg/dL Normal 0.3-1.2 [facility] Comment on above: Performed By: #### 7 302574, 80052446, 4419399896, 7548994097, 332130218, 9957866 ####[facility] (DEFAULT)[address] [place] [address] 59826 Calcium [Mass/Vol] 9.1 mg/dL Normal 8.9-10.3 [facility] Comment on above: Performed By: #### 7 612145, 35358000, 2800909573, 5413646140, 201719893, 2695884 ####[facility] (DEFAULT)[address] [place] [address] 47611 Chloride [Moles/Vol] 94 mmol/L Low 101-111 [facility] Comment on above: Performed By: #### 7 260781, 66245219, 2081132398, 6659461767, 747177924, 0358429 ####[facility] (DEFAULT)[address] [place] [address] 88812 CO2 [Moles/Vol] 25 mmol/L Normal 21-32 [facility] Comment on above: Performed By: #### 7 730943, 05124309, 7669478393, 7934348163, 807096069, 2760523 ####[facility] (DEFAULT)[address] [place] [address] 07603 Creatinine [Mass/Vol] 0.87 mg/dL Low 0.90-1.30 [facility] Comment on above: Performed By: #### 7 619770, 58233317, 7099636060, 0661911912, 356723512, 0583325 ####[facility] (DEFAULT)[address] [place] [address] 47678 Globulin (S) [Mass/Vol] 3.2 g/dL Normal 1.5-4.3 [facility] Comment on above: Performed By: #### 7 884975, 14155486, 5292232049, 9851348317, 583004829, 1997673 ####[facility] (DEFAULT)[address] [place] [address] 98068 Glucose [Mass/Vol] 102.0 mg/dL Normal 74.0-118.0 [facility] Comment on above: Performed By: #### 7 252020, 14796290, 2921305380, 7313099186, 511733910, 5861983 ####[facility] (DEFAULT)[address] [place] [address] 64914 Osmolality 257 mOsm/L Invalid Interpretation Code [facility] Comment on above: Performed By: #### 7 185138, 22588801, 5150068978, 5003841188, 117536096, 6607179 ####[facility] (DEFAULT)[address] [place] [address] 48782 Potassium [Moles/Vol] 4.2 mmol/L Normal 3.6-5.1 [facility] Comment on above: Performed By: #### 7 039198, 13630289, 2416112945, 8966000891, 881670457, 2066469 ####[facility] (DEFAULT)[address] [place] [address] 16698 Protein [Mass/Vol] 7.7 g/dL Normal 6.5-8.1 [facility] Comment on above: Performed By: #### 7 966054, 17424073, 5082561600, 0535572622, 850294438, 2207069 ####[facility] (DEFAULT)[address] [place] [address] 63072 Sodium [Moles/Vol] 128.0 mmol/L Low 136.0-144.0 [facility] Comment on above: Performed By: #### 7 679737, 68573071, 4302788183, 0399229422, 028061954, 3341062 ####[facility] (DEFAULT)[address] [place] [address] 61763 Urea nitrogen [Mass/Vol] 13 mg/dL Normal 8-26 [facility] Comment on above: Performed By: #### 7 738297, 82434517, 5487767912, 4927070772, 087043684, 4158078 ####[facility] (DEFAULT)[address] [place] [address] 61815 Urea nitrogen/Creatinine [Mass ratio] 14.9 mg/mg Normal 4.6-16.2 [facility] Comment on above: Performed By: #### 7 312392, 77107866, 4095269886, 9757063777, 036106876, 6475827 ####[facility] (DEFAULT)[address] [place] [address] 86844 Lipid Panel Standardon 11-24 Cholesterol [Mass/Vol] 97.0 mg/dL Normal 66.0-200.0 [facility] Comment on above: Performed By: #### 7 826100, 84417065, 5377319742, 5068328350, 986872098, 9475071 ####[facility] (DEFAULT)[address] [place] [address] 34617 Cholesterol in HDL [Mass/Vol] 29 mg/dL Low 40-71 [facility] Comment on above: Performed By: #### 7 885280, 46998871, 0018885267, 7248525933, 347312176, 1410420 ####[facility] (DEFAULT)[address] [place] [address] 05053 Cholesterol in LDL [Mass/Vol] 54 mg/dL Normal 1-100 [facility] Comment on above: Performed By: #### 7 405920, 00807238, 0147487578, 8651801446, 736386773, 9550815 ####[facility] (DEFAULT)[address] [place] [address] 22274 Cholesterol.total/Cindy sterol in HDL [Mass ratio] 3.3 {ratio} Normal 0.0-4.5 [facility] Comment on above: Performed By: #### 7 877495, 22980884, 1113529825, 2376804716, 759164799, 4990223 ####[facility] (DEFAULT)[address] [place] [address] 78724 Triglyceride [Mass/Vol] 69.0 mg/dL Normal 0.0-150.0 [facility] Comment on above: Performed By: #### 7 532214, 28182588, 9979686398, 6438230126, 231953177, 3526372 ####[facility] (DEFAULT)[address] [place] [address] 74507 VLDL. 14 mg/dL Normal 5-40 [facility] Comment on above: Performed By: #### 7 510165, 17222892, 0719331838, 2951706829, 868533863, 2832417 ####[facility] (DEFAULT)[address] [place] [address] PSA Screenon 11-25-2023 PSA Screen 8.74 ng/mL High 0.00-4.00 [facility] Comment on above: Result Comment: [employer] D[employer] Synchron Access Clinical System (Chemiluminescence) Values obtained with different assay methods or kits cannot be used interchangeably. Results cannot be interpreted as absolute evidence of the presence or absence of malignant disease. Performed By: #### 7 316206, 12924245, 2594917075, 6420123747, 364624976, 0049146 ####[facility] (DEFAULT)[address] [place] [address] TSH w/ Reflex to FT4on 11-24 TSH Qn 0.94 m[IU]/L Normal 0.45-5.33 [facility] Comment on above: Performed By: #### 7 853936, 94780622, 6652504677, 1433023329, 831898499, 9907808 ####[facility] (DEFAULT)[address] [place] [address] CBC with Diffon 08-20-2023 Abs. Atypical Lymphs 2.99 k/uL Normal [facility] Comment on above: Performed By: #### C P, CDP #### [address] [address] Rejected Items Clerk: Haider Garcia MD Abs. Basophil 0.00 k/uL Normal 0.0-0.2 [facility] Comment on above: Performed By: #### C P, CDP #### [address] [address] Rejected Items Clerk: Haider Garcia MD Abs.Neutrophil (Seg) 5.49 k/uL Normal 1.8-7.7 [facility] Comment on above: Performed By: #### C P, CDP #### [place] [address] Rejected Items Clerk: Haider Garcia MD Atypical Lymphs 6 % Normal [facility] Comment on above: Performed By: #### C P, CDP #### [place] [address] Rejected Items Clerk: Haider Garcia MD Basophils/100 WBC (Bld) 0 % Normal 0-2 [facility] Comment on above: Performed By: #### C P, CDP #### [place] [address] Rejected Items Clerk: Haider Garcia MD Eosinophils (Bld) [#/Vol] 0.50 10*3/uL High 0.0-0.4 [facility] Comment on above: Performed By: #### C P, CDP #### [place] [address] Rejected Items Clerk: Haider Garcia MD Eosinophils/100 WBC (Bld) 1 % Normal 1-4 [facility] Comment on above: Performed By: #### C P, CDP #### [place] [address] Rejected Items Clerk: Haider Garcia MD Lymphocytes (Bld) [#/Vol] 39.42 10*3/uL High 1.0-4.8 [facility] Comment on above: Performed By: #### C P, CDP #### [place] [address] Rejected Items Clerk: Haider Garcia MD Lymphocytes/100 WBC (Bld) 79 % High 24-44 [facility] Comment on above: Performed By: #### C P, CDP #### [place] [address] Rejected Items Clerk: Haider Garcia MD Monocytes (Bld) [#/Vol] 1.50 10*3/uL High 0.1-0.8 [facility] Comment on above: Performed By: #### C P, CDP #### [place] [address] Rejected Items Clerk: Haider Garcia MD Monocytes/100 WBC (Bld) 3 % Normal 1-7 [facility] Comment on above: Performed By: #### C P, CDP #### [place] [address] Rejected Items Clerk: Haider Garcia MD Morphology Ruben (Bld) [Interp] SMUDGE CELLS PRESENT Normal [facility] Comment on above: Performed By: #### C P, CDP #### [place] [address] Rejected Items Clerk: Haider Garcia MD Neutrophil (Seg) 11 % Low 36-66 [facility] Comment on above: Performed By: #### C P, CDP #### [place] [address] Rejected Items Clerk: Haider Garcia MD Erythrocyte distribution width (RBC) [Ratio] 13.2 % Normal 12.5-15.4 [facility] Comment on above: Performed By: #### C P, CDP #### [place] [address] Rejected Items Clerk: Haider Garcia MD Hematocrit (Bld) [Volume fraction] 42.3 % Normal 41-53 [facility] Comment on above: Performed By: #### C P, CDP #### [place] [address] Rejected Items Clerk: Haider Garcia MD Hemoglobin (Bld) [Mass/Vol] 14.4 g/dL Normal 13.5-17.5 [facility] Comment on above: Performed By: #### C P, CDP #### [place] [address] Rejected Items Clerk: Haider Garcia MD MCH (RBC) [Entitic mass] 31.5 pg Normal 26-34 [facility] Comment on above: Performed By: #### C P, CDP #### [place] [address] Rejected Items Clerk: Haider Garcia MD MCHC (RBC) [Mass/Vol] 34.0 g/dL Normal 31-37 [facility] Comment on above: Performed By: #### C P, CDP #### [place] [address] Rejected Items Clerk: Haider Garcia MD MCV (RBC) [Entitic vol] 92.7 fL Normal 80-100 [facility] Comment on above: Performed By: #### C P, CDP #### [place] [address] Rejected Items Clerk: Haider Garcia MD Platelet mean volume (Bld) [Entitic vol] 7.1 fL Normal 6.0-12.0 [facility] Comment on above: Performed By: #### C P, CDP #### [place] [id number] Rejected Items Clerk: Haider Garcia MD Platelets (Bld) [#/Vol] 122 10*3/uL Low 140-450 [facility] Comment on above: Performed By: #### C P, CDP #### [address] [id number] Rejected Items Clerk: Haider Garcia MD RBC (Bld) [#/Vol] 4.56 10*6/uL Normal 4.5-5.9 [facility] Comment on above: Performed By: #### C P, CDP #### [place] [id number] Rejected Items Clerk: Haider Garcia MD WBC (Bld) [#/Vol] 49.9 10*3/uL Critically high 3.5-11.0 [facility] Comment on above: Result Comment: TEST CONFIRMED Performed By: #### C P, CDP #### [place] [address] Rejected Items Clerk: Haider Garcia MD Comp Metabolic Profon 2023 Albumin [Mass/Vol] 4.6 g/dL Normal 3.5-5.2 [facility] Comment on above: Performed By: #### C P, CDP #### [place] [address] Rejected Items Clerk: Haider Garcia MD Albumin/Glob Ratio 1.7 Normal 1.0-2.5 [facility] Comment on above: Performed By: #### C P, CDP #### [place] [id number] Rejected Items Clerk: Haider Garcia MD Alkaline Phos 73 U/L Normal 40-129 [facility] Comment on above: Performed By: #### C P, CDP #### [address] [place] [address] Rejected Items Clerk: Haider Garcia MD ALT [Catalytic activity/Vol] 35 U/L Normal 5-41 [facility] Comment on above: Performed By: #### C P, CDP #### [place] [address] Rejected Items Clerk: Haider Garcia MD Anion gap [Moles/Vol] 10 mmol/L Normal 9-17 [facility] Comment on above: Performed By: #### C P, CDP #### [place] [address] Rejected Items Clerk: Haider Garcia MD AST [Catalytic activity/Vol] 26 U/L Normal <40 [facility] Comment on above: Performed By: #### C P, CDP #### [place] [address] Rejected Items Clerk: Haider Garcia MD Bilirubin [Mass/Vol] 0.5 mg/dL Normal 0.3-1.2 [facility] Comment on above: Performed By: #### C P, CDP #### [place] [address] Rejected Items Clerk: Haider Garcia MD Calcium [Mass/Vol] 9.7 mg/dL Normal 8.6-10.4 [facility] Comment on above: Performed By: #### C P, CDP #### [place] [address] Rejected Items Clerk: Haider Garcia MD Chloride [Moles/Vol] 94 mmol/L Low 98-107 [facility] Comment on above: Performed By: #### C P, CDP #### [address] [id number] Rejected Items Clerk: Haider Garcia MD CO2 [Moles/Vol] 26 mmol/L Normal 20-31 [facility] Comment on above: Performed By: #### C P, CDP #### [facility] [address] [place] [id number] Rejected Items Clerk: Haider Garcia MD Creatinine [Mass/Vol] 0.7 mg/dL Normal 0.7-1.2 [facility] Comment on above: Performed By: #### C P, CDP #### [facility] [address] [place] [address] Rejected Items Clerk: Haider Garcia MD GFR/1.73 sq M.predicted among non-blacks MDRD (S/P/Bld) [Vol rate/Area] mL/min/{1.73_m2} Normal >60 [facility] Comment on above: Result Comment: These results [...] Performed By: #### C P, CDP #### [facility] [address] [place] [address] Rejected Items Clerk: Haider Garcia MD Glucose [Mass/Vol] 111 mg/dL High 70-99 [facility] Comment on above: Performed By: #### C P, CDP #### [facility] [address] [place] [id number] Rejected Items Clerk: Haider Garcia MD Potassium [Moles/Vol] 4.6 mmol/L Normal 3.7-5.3 [facility] Comment on above: Performed By: #### C P, CDP #### [facility] [address] [place] [id number] Rejected Items Clerk: Haider Garcia MD Protein [Mass/Vol] 7.3 g/dL Normal 6.4-8.3 [facility] Comment on above: Performed By: #### C P, CDP #### [facility] [address] [place] [id number] Rejected Items Clerk: Haider Garcia MD Sodium [Moles/Vol] 130 mmol/L Low 135-144 [facility] Comment on above: Performed By: #### C P, CDP #### [place] [address] Rejected Items Clerk: Haider Garcia MD Urea nitrogen [Mass/Vol] 12 mg/dL Normal 8-23 [facility] Comment on above: Performed By: #### C P, CDP #### [place] [id number] Rejected Items Clerk: Haider Garcia MD Lactate Dehydrogenaseon 08-01 LDH [Catalytic activity/Vol] 204 U/L Normal 135-225 [facility] Comment on above: Result Comment: SPEC IMEN SLIGHTLY HEMOLYZED, RESULTS MAY BE ADVERSELY AFFECTED. Performed By: #### C P, CDP #### [facility] [address] [place] [id number] Rejected Items Clerk: Haider Garcia MD CBC with Diffon 05-21-2023 Abs. Basophil 0.00 k/uL Normal 0.0-0.2 [facility] Comment on above: Performed By: #### C P, CDP #### [facility] [address] [place] [phone] Rejected Items Clerk: Haider Garcia MD Abs.Neutrophil (Seg) 7.59 k/uL Normal 1.8-7.7 [facility] Comment on above: Performed By: #### C P, CDP #### [place] [address] Rejected Items Clerk: Haider Garcia MD Basophils/100 WBC (Bld) 0 % Normal 0-2 [facility] Comment on above: Performed By: #### C P, CDP #### [place] [address] Rejected Items Clerk: Haider Garcia MD Eosinophils (Bld) [#/Vol] 0.00 10*3/uL Normal 0.0-0.4 [facility] Comment on above: Performed By: #### C P, CDP #### [place] [address] Rejected Items Clerk: Haider Garcia MD Eosinophils/100 WBC (Bld) 0 % Low 1-4 [facility] Comment on above: Performed By: #### C P, CDP #### [place] [address] Rejected Items Clerk: Haider Garcia MD Lymphocytes (Bld) [#/Vol] 40.99 10*3/uL High 1.0-4.8 [facility] Comment on above: Performed By: #### C P, CDP #### [place] [address] Rejected Items Clerk: Haider Garcia MD Lymphocytes/100 WBC (Bld) 81 % High 24-44 [facility] Comment on above: Performed By: #### C P, CDP #### [place] [address] Rejected Items Clerk: Haider Garcia MD Monocytes (Bld) [#/Vol] 2.02 10*3/uL High 0.1-0.8 [facility] Comment on above: Performed By: #### C P, CDP #### [place] [address] Rejected Items Clerk: Haider Garcia MD Monocytes/100 WBC (Bld) 4 % Normal 1-7 [facility] Comment on above: Performed By: #### C P, CDP #### [place] [address] Rejected Items Clerk: Haider Garcia MD Morphology Ruben (Bld) [Interp] Normal Normal [facility] Comment on above: Performed By: #### C P, CDP #### [place] [address] Rejected Items Clerk: Haider Garcia MD Neutrophil (Seg) 15 % Low 36-66 [facility] Comment on above: Performed By: #### C P, CDP #### [place] [address] Rejected Items Clerk: Haider Garcia MD Erythrocyte distribution width (RBC) [Ratio] 14.5 % Normal 12.5-15.4 [facility] Comment on above: Performed By: #### C P, CDP #### [place] [address] Rejected Items Clerk: Haider Garcia MD Hematocrit (Bld) [Volume fraction] 40.1 % Low 41-53 [facility] Comment on above: Performed By: #### C P, CDP #### [place] [address] Rejected Items Clerk: Haider Garcia MD Hemoglobin (Bld) [Mass/Vol] 13.5 g/dL Normal 13.5-17.5 [facility] Comment on above: Performed By: #### C P, CDP #### [place] [id number] Rejected Items Clerk: Haider Garcia MD MCH (RBC) [Entitic mass] 31.3 pg Normal 26-34 [facility] Comment on above: Performed By: #### C P, CDP #### [place] [address] Rejected Items Clerk: Haider Garcia MD MCHC (RBC) [Mass/Vol] 33.7 g/dL Normal 31-37 [facility] Comment on above: Performed By: #### C P, CDP #### [place] [address] Rejected Items Clerk: Haider Garcia MD MCV (RBC) [Entitic vol] 92.6 fL Normal 80-100 [facility] Comment on above: Performed By: #### C P, CDP #### [place] [address] Rejected Items Clerk: Haider Garcia MD Platelet mean volume (Bld) [Entitic vol] 7.4 fL Normal 6.0-12.0 [facility] Comment on above: Performed By: #### C P, CDP #### [place] [address] Rejected Items Clerk: Haider Garcia MD Platelets (Bld) [#/Vol] 116 10*3/uL Low 140-450 [facility] Comment on above: Performed By: #### C P, CDP #### [facility] [id number] Rejected Items Clerk: Haider Garcia MD RBC (Bld) [#/Vol] 4.33 10*6/uL Low 4.5-5.9 [facility] Comment on above: Performed By: #### C P, CDP #### [place] [address] Rejected Items Clerk: Haider Garcia MD WBC (Bld) [#/Vol] 50.6 10*3/uL Critically high 3.5-11.0 [facility] Comment on above: Result Comment: TEST CONFIRMED Performed By: #### C P, CDP #### [place] [address] Rejected Items Clerk: Haider Garcia MD Comp Metabolic Profon 2022 Albumin [Mass/Vol] 4.4 g/dL Normal 3.5-5.2 [facility] Comment on above: Performed By: #### C P, CDP #### [place] [address] Rejected Items Clerk: Haider Garcia MD Albumin/Glob Ratio 1.6 Normal 1.0-2.5 [facility] Comment on above: Performed By: #### C P, CDP #### [place] [address] Rejected Items Clerk: Haider Garcia MD Alkaline Phos 90 U/L Normal 40-129 [facility] Comment on above: Performed By: #### C P, CDP #### [place] [address] Rejected Items Clerk: Haider Garcia MD ALT [Catalytic activity/Vol] 30 U/L Normal 5-41 [facility] Comment on above: Performed By: #### C P, CDP #### [place] [address] Rejected Items Clerk: Haider Garcia MD Anion gap [Moles/Vol] 10 mmol/L Normal 9-17 [facility] Comment on above: Performed By: #### C P, CDP #### [place] [address] Rejected Items Clerk: Haider Garcia MD AST [Catalytic activity/Vol] 25 U/L Normal <40 [facility] Comment on above: Performed By: #### C P, CDP #### [place] [address] Rejected Items Clerk: Haider Garcia MD Bilirubin [Mass/Vol] 0.9 mg/dL Normal 0.3-1.2 [facility] Comment on above: Performed By: #### C P, CDP #### [place] [address] Rejected Items Clerk: Haider Garcia MD Calcium [Mass/Vol] 9.4 mg/dL Normal 8.6-10.4 [facility] Comment on above: Performed By: #### C P, CDP #### [place] [address] Rejected Items Clerk: Haider Garcia MD Chloride [Moles/Vol] 103 mmol/L Normal 98-107 [facility] Comment on above: Performed By: #### C P, CDP #### [place] [address] Rejected Items Clerk: Haider Garcia MD CO2 [Moles/Vol] 26 mmol/L Normal 20-31 [facility] Comment on above: Performed By: #### C P, CDP #### [facility] [address] [place] [id number] Rejected Items Clerk: Haider Garcia MD Creatinine [Mass/Vol] 0.8 mg/dL Normal 0.7-1.2 [facility] Comment on above: Performed By: #### C P, CDP #### [place] [address] Rejected Items Clerk: Haider Garcia MD GFR/1.73 sq M.predicted among non-blacks MDRD (S/P/Bld) [Vol rate/Area] mL/min/{1.73_m2} Normal >60 [facility] Comment on above: Result Comment: These results [...] Performed By: #### C P, CDP #### [facility] [id number] [place] [address] Rejected Items Clerk: Haider Garcia MD Glucose [Mass/Vol] 108 mg/dL High 70-99 [facility] Comment on above: Performed By: #### C P, CDP #### [facility] [id number] [place], [place] [phone] Rejected Items Clerk: Haider Garcia MD Potassium [Moles/Vol] 4.4 mmol/L Normal 3.7-5.3 [facility] Comment on above: Performed By: #### C P, CDP #### [place] [id number] Rejected Items Clerk: Haider Garcia MD Protein [Mass/Vol] 7.1 g/dL Normal 6.4-8.3 [facility] Comment on above: Performed By: #### C P, CDP #### [facility] [address] [place], [place] [phone] Rejected Items Clerk: Haider Garcia MD Sodium [Moles/Vol] 139 mmol/L Normal 135-144 [facility] Comment on above: Performed By: #### C P, CDP #### [facility] [address] [place], [place] [phone] Rejected Items Clerk: Haider Garcia MD Urea nitrogen [Mass/Vol] 11 mg/dL Normal 8-23 [facility] Comment on above: Performed By: #### C P, CDP #### [facility] [id number] [place] [address] Rejected Items Clerk: Haider Garcia MD Outside Recordson 04-10-2023 Outside Records [id number] 30 [id number] [facility] Office Visiton 03-20-2023 Follow-up visit [id number] Cristian Hernandez Jr. 1960 Date Provider Department Center 03/20/2023 Gus-SIGIFREDO LOPEZ [facility] Family History Family history unknown: Yes Level of Service:99038 [place] OFFICE/OUTPATIENT ESTABLISHED MOD MDM 30-39 MIN Normal [facility] CBC with Auto Differentialon 02-19-2023 Basophils (Bld) [#/Vol] 0.00 10*3/uL [facility] Basophils/100 WBC (Bld) 0 % 0 - 2 % [facility] Eosinophils (Bld) [#/Vol] 0.00 10*3/uL [facility] Eosinophils/100 WBC (Bld) 0 % Low 1 - 4 % [facility] Erythrocyte distribution width (RBC) [Ratio] 13.4 % 12.5 - 15.4 % [facility] Hematocrit (Bld) [Volume fraction] 45.1 % 41 - 53 % [facility] Hemoglobin (Bld) [Mass/Vol] 14.8 g/dL 13.5 - 17.5 g/dL [facility] Interpretation and review of laboratory results Abnormal [facility] Lymphocytes/100 WBC (Bld) 81 % High 24 - 44 % [facility] Lymphocytes/100 WBC (Bld) 42.36 % High [facility] MCH (RBC) [Entitic mass] 31.2 pg 26 - 34 pg [facility] MCHC (RBC) [Mass/Vol] 32.8 g/dL 31 - 3 7 g/dL [facility] MCV (RBC) [Entitic vol] 94.9 fL 80 - 100 fL [facility] Monocytes/100 WBC (Bld) 3 % 1 - 7 % B ON [facility] Monocytes/100 WBC (Bld) 1.57 % High B [facility] Morphology Ruben (Bld) [Interp] Normal [facility] Neutrophils/100 WBC (Bld) 16 % Low 36 - 66 % [facility] Platelet mean volume (Bld) [Entitic vol] 7.7 fL 6.0 - 12.0 fL [facility] Platelets (Bld) [#/Vol] 113 10*3/uL Low [facility] RBC (Bld) [#/Vol] 4.75 10*6/uL 4.5 - 5.9 m/uL [facility] Segmented neutrophils/100 WBC (Bld) 8.37 % High [facility] WBC other (Bld) [#/Vol] 52.3 Critically high [facility] CBC with Diffon 02-19-2023 Abs. Basophil 0.00 k/uL Normal 0.0-0.2 [facility] Comment on above: Performed By: #### L D #### [employer] [facility] [place] [address] Rejected Items Clerk: Robb Tran MD #### CP, CDP #### [address] [address] Rejected Items Clerk: Haider Garcia MD Abs.Neutrophil (Seg) 8.37 k/uL High 1.8-7.7 [facility] Comment on above: Performed By: #### L D #### [address] [phone] Rejected Items Clerk: Robb Tran MD #### CP, CDP #### [address] [address] Rejected Items Clerk: Haider Garcia MD Basophils/100 WBC (Bld) 0 % Normal 0-2 [facility] Comment on above: Performed By: #### L D #### [address] [id number] Rejected Items Clerk: Robb Tran MD #### CP, CDP #### [address] [address] Rejected Items Clerk: Haider Garcia MD Eosinophils (Bld) [#/Vol] 0.00 10*3/uL Normal 0.0-0.4 [facility] Comment on above: Performed By: #### L D #### [address] [id number] Rejected Items Clerk: Robb Tran MD #### CP, CDP #### [address] [address] Rejected Items Clerk: Haider Garcia MD Eosinophils/100 WBC (Bld) 0 % Low 1-4 [facility] Comment on above: Performed By: #### L D #### [address] [phone] Rejected Items Clerk: Robb Tran MD #### CP, CDP #### [address] [phone] Rejected Items Clerk: Haider Garcia MD Lymphocytes (Bld) [#/Vol] 42.36 10*3/uL High 1.0-4.8 [facility] Comment on above: Performed By: #### L D #### [address] [address] Rejected Items Clerk: Robb Tran MD #### CP, CDP #### [address] [phone] Rejected Items Clerk: Haider Garcia MD Lymphocytes/100 WBC (Bld) 81 % High 24-44 [facility] Comment on above: Performed By: #### L D #### [address] [address] Rejected Items Clerk: Robb Tran MD #### CP, CDP #### [address] [phone] Rejected Items Clerk: Haider Garcia MD Monocytes (Bld) [#/Vol] 1.57 10*3/uL High 0.1-0.8 [facility] Comment on above: Performed By: #### L D #### [address] [address] Rejected Items Clerk: Robb Tran MD #### CP, CDP #### [address] [address] Rejected Items Clerk: Haider Garcia MD Monocytes/100 WBC (Bld) 3 % Normal 1-7 [facility] Comment on above: Performed By: #### L D #### [address] [address] Rejected Items Clerk: Robb Tran MD #### CP, CDP #### [address] [address] Rejected Items Clerk: Haider Garcia MD Morphology Ruben (Bld) [Interp] Normal Normal [facility] Comment on above: Performed By: #### L D #### [address] [phone] Rejected Items Clerk: Robb Tran MD #### CP, CDP #### [address] [address] Rejected Items Clerk: Haider Garcia MD Neutrophil (Seg) 16 % Low 36-66 [facility] Comment on above: Performed By: #### L D #### [address] [phone] Rejected Items Clerk: Robb Tran MD #### CP, CDP #### [address] [address] Rejected Items Clerk: Haider Garcia MD Erythrocyte distribution width (RBC) [Ratio] 13.4 % Normal 12.5-15.4 [facility] Comment on above: Performed By: #### L D #### [address] [phone] Rejected Items Clerk: Robb Tran MD #### CP, CDP #### [address] [address] Rejected Items Clerk: Haider Garcia MD Hematocrit (Bld) [Volume fraction] 45.1 % Normal 41-53 [facility] Comment on above: Performed By: #### L D #### [address] [phone] Rejected Items Clerk: Robb Tran MD #### CP, CDP #### [address] [address] Rejected Items Clerk: Haider Garcia MD Hemoglobin (Bld) [Mass/Vol] 14.8 g/dL Normal 13.5-17.5 [facility] Comment on above: Performed By: #### L D #### [address] [phone] Rejected Items Clerk: Robb Tran MD #### CP, CDP #### [address] [address] Rejected Items Clerk: Haider Garcia MD MCH (RBC) [Entitic mass] 31.2 pg Normal 26-34 [facility] Comment on above: Performed By: #### L D #### [address] [id number] Rejected Items Clerk: Robb Tran MD #### CP, CDP #### [address] [address] Rejected Items Clerk: Haider Garcia MD MCHC (RBC) [Mass/Vol] 32.8 g/dL Normal 31-37 [facility] Comment on above: Performed By: #### L D #### [address] [phone] Rejected Items Clerk: Robb Tran MD #### CP, CDP #### [address] [address] Rejected Items Clerk: Haider Garcia MD MCV (RBC) [Entitic vol] 94.9 fL Normal 80-100 [facility] Comment on above: Performed By: #### L D #### [address] [phone] Rejected Items Clerk: Robb Tran MD #### CP, CDP #### [place] [phone] Rejected Items Clerk: Haider Garcia MD Platelet mean volume (Bld) [Entitic vol] 7.7 fL Normal 6.0-12.0 [facility] Comment on above: Performed By: #### L D #### [place] [address] Rejected Items Clerk: Robb Tran MD #### CP, CDP #### [place] [phone] Rejected Items Clerk: Haider Garcia MD Platelets (Bld) [#/Vol] 113 10*3/uL Low 140-450 [facility] Comment on above: Performed By: #### L D #### [place] [address] Rejected Items Clerk: Robb Tran MD #### CP, CDP #### [place] [phone] Rejected Items Clerk: Haider Garcia MD RBC (Bld) [#/Vol] 4.75 10*6/uL Normal 4.5-5.9 [facility] Comment on above: Performed By: #### L D #### [place] [address] Rejected Items Clerk: Robb Tran MD #### CP, CDP #### [place] [phone] Rejected Items Clerk: Haider Garcia MD WBC (Bld) [#/Vol] 52.3 10*3/uL Critically high 3.5-11.0 [facility] Comment on above: Performed By: #### L D #### [address] [place] [phone] Rejected Items Clerk: Robb Tran MD #### CP, CDP #### [address] [phone] Rejected Items Clerk: Haider Garcia MD Comp Metabolic Profon 2022 Albumin [Mass/Vol] 4.8 g/dL Normal 3.5-5.2 [facility] Comment on above: Performed By: #### L D #### [address] [address] Rejected Items Clerk: Robb Tran MD #### CP, CDP #### [address] [address] Rejected Items Clerk: Haider Garcia MD Albumin/Glob Ratio 2.2 Normal 1.0-2.5 [facility] Comment on above: Performed By: #### L D #### [address] [address] Rejected Items Clerk: Robb Tran MD #### CP, CDP #### [address] [address] Rejected Items Clerk: Haider Garcia MD Alkaline Phos 70 U/L Normal 40-129 [facility] Comment on above: Performed By: #### L D #### [address] [address] Rejected Items Clerk: Robb Tran MD #### CP, CDP #### [address] [address] Rejected Items Clerk: Haider Garcia MD ALT [Catalytic activity/Vol] 28 U/L Normal 5-41 [facility] Comment on above: Performed By: #### L D #### [address] [phone] Rejected Items Clerk: Robb Tran MD #### CP, CDP #### [address] [address] Rejected Items Clerk: Haider Garcia MD Anion gap [Moles/Vol] 10 mmol/L Normal 9-17 [facility] Comment on above: Performed By: #### L D #### [address] [address] Rejected Items Clerk: Robb Tran MD #### CP, CDP #### [address] [address] Rejected Items Clerk: Haider Garcia MD AST [Catalytic activity/Vol] 25 U/L Normal <40 [facility] Comment on above: Performed By: #### L D #### [address] [address] Rejected Items Clerk: Robb Tran MD #### CP, CDP #### [address] [address] Rejected Items Clerk: Haider Garcia MD Bilirubin [Mass/Vol] 0.7 mg/dL Normal 0.3-1.2 [facility] Comment on above: Performed By: #### L D #### [address] [address] Rejected Items Clerk: Robb Tran MD #### CP, CDP #### [address] [address] Rejected Items Clerk: Haider Garcia MD Calcium [Mass/Vol] 9.4 mg/dL Normal 8.6-10.4 [facility] Comment on above: Performed By: #### L D #### [address] [phone] Rejected Items Clerk: Robb Tran MD #### CP, CDP #### [place] [id number] [place] [address] Rejected Items Clerk: Haider Garcia MD Chloride [Moles/Vol] 99 mmol/L Normal 98-107 [facility] Comment on above: Performed By: #### L D #### [address] [phone] Rejected Items Clerk: Robb Tran MD #### CP, CDP #### [address] [address] Rejected Items Clerk: Haider Garcia MD CO2 [Moles/Vol] 27 mmol/L Normal 20-31 [facility] Comment on above: Performed By: #### L D #### [address] [phone] Rejected Items Clerk: Robb Tran MD #### CP, CDP #### [address] [address] Rejected Items Clerk: Haider Garcia MD Creatinine [Mass/Vol] 0.7 mg/dL Normal 0.7-1.2 [facility] Comment on above: Performed By: #### L D #### [address] [phone] Rejected Items Clerk: Robb Tran MD #### CP, CDP #### [address] [address] Rejected Items Clerk: Haider Garcia MD GFR/1.73 sq M.predicted among non-blacks MDRD (S/P/Bld) [Vol rate/Area] mL/min/{1.73_m2} Normal >60 [facility] Comment on above: Result Comment: These results [...] secretion. Performed By: #### L D #### [address] [phone] Rejected Items Clerk: Robb Tran MD #### CP, CDP #### [address] [address] Rejected Items Clerk: Haider Garcia MD Glucose [Mass/Vol] 112 mg/dL High 70-99 [facility] Comment on above: Performed By: #### L D #### [address] [phone] Rejected Items Clerk: Robb Tran MD #### CP, CDP #### [address] [address] Rejected Items Clerk: Haider Garcia MD Potassium [Moles/Vol] 4.8 mmol/L Normal 3.7-5.3 [facility] Comment on above: Performed By: #### L D #### [address] [phone] Rejected Items Clerk: Robb Tran MD #### CP, CDP #### [address] [address] Rejected Items Clerk: Haider Garcia MD Protein [Mass/Vol] 7.0 g/dL Normal 6.4-8.3 [facility] Comment on above: Performed By: #### L D #### [address] [phone] Rejected Items Clerk: Robb Tran MD #### CP, CDP #### [facility] [address] [place] [address] Rejected Items Clerk: Haider Garcia MD Sodium [Moles/Vol] 136 mmol/L Normal 135-144 [facility] Comment on above: Performed By: #### L D #### [address] [address] Rejected Items Clerk: Robb Tran MD #### CP, CDP #### [address] [address] Rejected Items Clerk: Haider Garcia MD Urea nitrogen [Mass/Vol] 15 mg/dL Normal 8-23 [facility] Comment on above: Performed By: #### L D #### [address] [address] Rejected Items Clerk: Robb Tran MD #### CP, CDP #### [facility] [id number] [place] [address] Rejected Items Clerk: Hadier Garcia MD [facility] Metabolic formerly [facility] 02-19-2023 Albumin [Mass/Vol] 4.8 g/dL 3.5 - 5.2 g/dL [facility] Albumin/Globulin [Mass ratio] 2.2 {ratio} 1.0 - 2.5 [facility] ALP [Catalytic activity/Vol] 70 U/L 40 - 129 U/L [facility] ALT [Catalytic activity/Vol] 28 U/L 5 - 41 U/L [facility] Anion gap [Moles/Vol] 10 mmol/L 9 - 17 mmol/L [facility] AST [Catalytic activity/Vol] 25 U/L NINF - 40 U/L [facility] Bilirubin [Mass/Vol] 0.7 mg/dL 0.3 - 1 .2 mg/dL [facility] Calcium [Mass/Vol] 9.4 mg/dL 8.6 - 10. 4 mg/dL [facility] Chloride [Moles/Vol] 99 mmol/L 98 - 10 7 mmol/L [facility] CO2 [Moles/Vol] 27 mmol/L 20 - 31 mmol/L [facility] Creatinine [Mass/Vol] 0.7 mg/dL 0.7 - 1.2 mg/dL [facility] GFR/1.73 sq M.predicted MDRD (S/P/Bld) [Vol rate/Area] - PINF [facility] Comment on above: These results are not [...] 112 mg/dL High 70 - 99 mg/dL [facility] Interpretation and review of laboratory results Abnormal [facility] Potassium [Moles/Vol] 4.8 mmol/L 3.7 - 5.3 mmol/L [facility] Protein [Mass/Vol] 7.0 g/dL 6.4 - 8.3 g/dL [facility] Sodium [Moles/Vol] 136 mmol/L 135 - 144 mmol/L [facility] Urea nitrogen [Mass/Vol] 15 mg/dL 8 - 23 mg/dL [facility] Lactate Dehydrogenaseon 02-01 LDH [Catalytic activity/Vol] 178 U/L 135 - 225 U/L [facility] LDH [Catalytic activity/Vol] 178 U/L Normal 135-225 [facility] Comment on above: Performed By: #### L D #### [facility] [employer] [facility] [place] [address] Rejected Items Clerk: Robb Tran MD #### HERMANN, SINGH #### [address] [address] Rejected Items Clerk: Haider Garcia MD Basic Metabolic Profon 02-05 Anion gap [Moles/Vol] 14 mmol/L Normal 9-17 [facility] Comment on above: Performed By: #### B MP, CBC #### [address] [address] Rejected Items Clerk: Robb Tran MD Calcium [Mass/Vol] 9.3 mg/dL Normal 8.6-10.4 [facility] Comment on above: Performed By: #### B MP, CBC #### [address] [address] Rejected Items Clerk: Robb Tran MD Chloride [Moles/Vol] 102 mmol/L Normal 98-107 [facility] Comment on above: Performed By: #### B MP, CBC #### [facility] [employer] [address] [place] [address] Rejected Items Clerk: Robb Tran MD CO2 [Moles/Vol] 21 mmol/L Normal 20-31 [facility] Comment on above: Performed By: #### B MP, CBC #### [facility] [employer] [address] [place] [address] Rejected Items Clerk: Robb Tran MD Creatinine [Mass/Vol] 0.8 mg/dL Normal 0.7-1.2 [facility] Comment on above: Performed By: #### B MP, CBC #### [facility] [employer] [address] [place] [address] Rejected Items Clerk: Robb Tran MD GFR/1.73 sq M.predicted among non-blacks MDRD (S/P/Bld) [Vol rate/Area] mL/min/{1.73_m2} Normal >60 [facility] Comment on above: Result Comment: These results [...] Performed By: #### B MP, CBC #### [facility] [employer] [address] [place] [phone] Rejected Items Clerk: Robb Tran MD Glucose [Mass/Vol] 114 mg/dL High 70-99 [facility] Comment on above: Performed By: #### B MP, CBC #### [facility] [employer] [address] [place] [address] Rejected Items Clerk: Robb Tran MD Potassium [Moles/Vol] 4.5 mmol/L Normal 3.7-5.3 [facility] Comment on above: Performed By: #### B MP, CBC #### [address] [address] Rejected Items Clerk: Robb Tran MD Sodium [Moles/Vol] 137 mmol/L Normal 135-144 [facility] Comment on above: Performed By: #### B MP, CBC #### [address] [address] Rejected Items Clerk: Robb Tran MD Urea nitrogen [Mass/Vol] 20 mg/dL Normal 8-23 [facility] Comment on above: Performed By: #### B MP, CBC #### [address] [address] Rejected Items Clerk: Robb Tran MD CBCon 02-05-2023 Erythrocyte distribution width (RBC) [Ratio] 14.2 % Normal 11.8-14.4 [facility] Comment on above: Performed By: #### B MP, CBC #### [facility] [employer] [address] [place] [address] Rejected Items Clerk: Robb Tran MD Hematocrit (Bld) [Volume fraction] 43.6 % Normal 40.7-50.3 [facility] Comment on above: Performed By: #### B MP, CBC #### [address] [address] Rejected Items Clerk: Robb Tran MD Hemoglobin (Bld) [Mass/Vol] 13.9 g/dL Normal 13.0-17.0 [facility] Comment on above: Performed By: #### B MP, CBC #### [address] [address] Rejected Items Clerk: Robb Tran MD MCH (RBC) [Entitic mass] 31.0 pg Normal 25.2-33.5 [facility] Comment on above: Performed By: #### B MP, CBC #### [address] [address] Rejected Items Clerk: Robb Tran MD MCHC (RBC) [Mass/Vol] 31.9 g/dL Normal 28.4-34.8 [facility] Comment on above: Performed By: #### B MP, CBC #### [address] [address] Rejected Items Clerk: Robb Tran MD MCV (RBC) [Entitic vol] 97.1 fL Normal 82.6-102.9 [facility] Comment on above: Performed By: #### B MP, CBC #### [address] [phone] Rejected Items Clerk: Robb Tran MD NRBC Automated 0.0 per 100 WBC Normal 0.0 [facility] Comment on above: Performed By: #### B MP, CBC #### [address] [address] Rejected Items Clerk: Robb Tran MD Platelet mean volume (Bld) [Entitic vol] 10.7 fL Normal 8.1-13.5 [facility] Comment on above: Performed By: #### B MP, CBC #### [facility] [address] [place] [address] Rejected Items Clerk: Robb Tran MD Platelets (Bld) [#/Vol] 118 10*3/uL Low 138-453 [facility] Comment on above: Performed By: #### B MP, CBC #### [facility] [place] [address] Rejected Items Clerk: Robb Tran MD RBC (Bld) [#/Vol] 4.49 10*6/uL Normal 4.21-5.77 [facility] Comment on above: Performed By: #### B MP, CBC #### [facility] [place] [address] Rejected Items Clerk: Robb Tran MD WBC (Bld) [#/Vol] 55.5 10*3/uL Critically high 3.5-11.3 [facility] Comment on above: Performed By: #### B MP, CBC #### [facility] [place] [address] Rejected Items Clerk: Robb Tran MD CBC with Auto Differentialon 11-13-2022 Basophils (Bld) [#/Vol] 0.00 10*3/uL [facility] Basophils/100 WBC (Bld) 0 % 0 - 2 % [facility] Eosinophils (Bld) [#/Vol] 0.00 10*3/uL [facility] Eosinophils/100 WBC (Bld) 0 % Low 1 - 4 % [facility] Erythrocyte distribution width (RBC) [Ratio] 14.5 % 12.5 - 15.4 % [facility] Hematocrit (Bld) [Volume fraction] 40.7 % Low 41 - 53 % [facility] Hemoglobin (Bld) [Mass/Vol] 13.4 g/dL Low 13.5 - 17.5 g/dL [facility] Interpretation and review of laboratory results Abnormal [facility] Lymphocytes/100 WBC (Bld) 95 % High 24 - 44 % [facility] Lymphocytes/100 WBC (Bld) 56.43 % High [facility] Comment on above: R/O Chronic Lymphopr oliferative Disorder, recommend peripheral blood Flow Cytometry, if clinically indicated. MCH (RBC) [Entitic mass] 30.7 pg 26 - 34 pg [facility] MCHC (RBC) [Mass/Vol] 32.8 g/dL 31 - 3 7 g/dL [facility] MCV (RBC) [Entitic vol] 93.4 fL 80 - 100 fL [facility] Monocytes/100 WBC (Bld) 0 % Low 1 - 7 % B ON [facility] Monocytes/100 WBC (Bld) 0.00 % Low B ON [facility] Morphology Ruben (Bld) [Interp] Normal [facility] Neutrophils/100 WBC (Bld) 5 % Low 36 - 66 % [facility] Platelet mean volume (Bld) [Entitic vol] 8.0 fL 6.0 - 12.0 fL [facility] Platelets (Bld) [#/Vol] 90 10*3/uL Low B [facility] RBC (Bld) [#/Vol] 4.36 10*6/uL Low 4.5 - 5.9 m/uL [facility] Segmented neutrophils/100 WBC (Bld) 2.97 % [facility] WBC other (Bld) [#/Vol] 59.4 Critically high [facility] Comment on above: TEST CONFIRMED [facility] Comprehensive Metabolic Pane rubens 11-13-2022 Albumin [Mass/Vol] 4.4 g/dL 3.5 - 5.2 g/dL [facility] Albumin/Globulin [Mass ratio] 2.1 {ratio} 1.0 - 2.5 [facility] ALP [Catalytic activity/Vol] 58 U/L 40 - 129 U/L [facility] ALT [Catalytic activity/Vol] 30 U/L 5 - 41 U/L [facility] Anion gap [Moles/Vol] 10 mmol/L 9 - 17 mmol/L [facility] AST [Catalytic activity/Vol] 20 U/L NINF - 40 U/L [facility] Bilirubin [Mass/Vol] 0.7 mg/dL 0.3 - 1 .2 mg/dL [facility] Calcium [Mass/Vol] 9.2 mg/dL 8.6 - 10. 4 mg/dL [facility] Chloride [Moles/Vol] 101 mmol/L 98 - 10 7 mmol/L [facility] CO2 [Moles/Vol] 24 mmol/L 20 - 31 mmol/L [facility] Creatinine [Mass/Vol] 0.79 mg/dL 0.70 - 1.20 mg/dL [facility] GFR/1.73 sq M.predicted MDRD (S/P/Bld) [Vol rate/Area] - [facility] Comment on above: These results are not [...] 103 mg/dL High 70 - 99 mg/dL [facility] Interpretation and review of laboratory results Abnormal [facility] Potassium [Moles/Vol] 4.8 mmol/L 3.7 - 5.3 mmol/L [facility] Protein [Mass/Vol] 6.5 g/dL 6.4 - 8.3 g/dL [facility] Sodium [Moles/Vol] 135 mmol/L 135 - 144 mmol/L [facility] Urea nitrogen [Mass/Vol] 12 mg/dL 8 - 23 mg/dL [facility] Lactate Dehydrogenaseon 11-01 LDH [Catalytic activity/Vol] 166 U/L 135 - 225 U/L [facility] CBC with Auto Differentialon 08-16-2022 Absolute Eos # 0.00 [place] [facility] Absolute Lymph # 52.55 High [facility] Absolute [place] # 1.22 High [facility] Atypical Lymphocytes 4 % [facility] Atypical Lymphocytes Absolute 2.44 k/uL [facility] Basophils (Bld) [#/Vol] 0.00 10*3/uL [facility] Basophils/100 WBC (Bld) 0 % 0 - 2 % B ON [facility] Eosinophils/100 WBC (Bld) 0 % Low 1 - 4 % [facility] Hematocrit (Bld) [Volume fraction] 41.6 % 41 - 53 % [facility] Hemoglobin (Bld) [Mass/Vol] 13.6 g/dL 13.5 - 17.5 g/dL [facility] Interpretation and review of laboratory results Abnormal [facility] Lymphocytes/100 WBC (Bld) 86 % High 24 - 44 % [facility] MCH (RBC) [Entitic mass] 30.2 pg 26 - 34 pg [facility] MCHC (RBC) [Mass/Vol] 32.7 g/dL 31 - 3 7 g/dL [facility] MCV (RBC) [Entitic vol] 92.4 fL 80 - 100 fL [facility] Monocytes/100 WBC (Bld) 2 % 1 - 7 % B ON [facility] Morphology Ruben (Bld) [Interp] SMUDGE CELLS PRESENT [facility] Platelet distribution width (Bld) [Ratio] 13.8 % 12.5 - 15.4 % [facility] Platelet mean volume (Bld) [Entitic vol] 7.4 fL 6.0 - 12.0 fL [facility] Platelets (Bld) [#/Vol] 111 10*3/uL Low [facility] RBC (Bld) [#/Vol] 4.50 10*6/uL 4.5 - 5.9 m/uL [facility] Segmented neutrophils/100 WBC (Bld) 8 % Low 36 - 66 % [facility] Segs Absolute 4.89 [facility] WBC (Bld) [#/Vol] 61.1 10*3/uL Critically high [facility] Comprehensive Metabolic Pane rubens 08-16-2022 Albumin [Mass/Vol] 4.4 g/dL 3.5 - 5.2 g/dL [facility] Albumin/Globulin [Mass ratio] 1.8 {ratio} 1.0 - 2.5 [facility] ALP [Catalytic activity/Vol] 76 U/L 40 - 129 U/L [facility] ALT [Catalytic activity/Vol] 29 U/L 5 - 41 U/L [facility] Anion gap [Moles/Vol] 11 mmol/L 9 - 17 mmol/L [facility] AST [Catalytic activity/Vol] 25 U/L NINF - 40 U/L [facility] Bilirubin [Mass/Vol] 0.6 mg/dL 0.3 - 1 .2 mg/dL [facility] Calcium [Mass/Vol] 9.3 mg/dL 8.6 - 10. 4 mg/dL [facility] Chloride [Moles/Vol] 93 mmol/L Low 98 - 10 7 mmol/L [facility] CO2 [Moles/Vol] 25 mmol/L 20 - 31 mmol/L [facility] Creatinine [Mass/Vol] 0.77 mg/dL 0.70 - 1.20 mg/dL [facility] GFR/1.73 sq M.predicted MDRD (S/P/Bld) [Vol rate/Area] - [facility] Comment on above: These results are [...] 119 mg/dL High 70 - 99 mg/dL [facility] Interpretation and review of laboratory results Abnormal [facility] Potassium [Moles/Vol] 4.7 mmol/L 3.7 - 5.3 mmol/L [facility] Protein [Mass/Vol] 6.9 g/dL 6.4 - 8.3 g/dL [facility] Sodium [Moles/Vol] 129 mmol/L Low 135 - 144 mmol/L [facility] Urea nitrogen [Mass/Vol] 13 mg/dL 8 - 23 mg/dL [facility] Lactate Dehydrogenaseon 08-01 Cholesterol in LDL [Mass/Vol] 174 U/L 135 - 225 U/L [facility] CBC Auto Differentialon 10-01 Absolute Eos # 1.00 High [facility] th Absolute Lymph # 84.17 High [facility] Absolute [place] # 5.01 High [facility] Basophils (Bld) [#/Vol] 0.00 10*3/uL [facility] Basophils/100 WBC (Bld) 0 % 0 - 2 % [facility] Eosinophils/100 WBC (Bld) 1 % 1 - 4 % [facility] Hematocrit (Bld) [Volume fraction] 44.5 % 41 - 53 % [facility] Hemoglobin.gastrointest inal spec 1 Ql (Stl) 14.0 g/dL 13.5 - 17.5 g/dL [facility] Interpretation and review of laboratory results Abnormal [facility] Lymphocytes/100 WBC (Bld) 84 % High 24 - 44 % [facility] MCH (RBC) [Entitic mass] 29.0 pg 26 - 34 pg [facility] MCHC (RBC) [Mass/Vol] 31.4 g/dL 31 - 3 7 g/dL [facility] MCV (RBC) [Entitic vol] 92.3 fL 80 - 100 fL [facility] Monocytes/100 WBC (Bld) 5 % 1 - 7 % [facility] Morphology Ruben (Bld) [Interp] Normal [facility] Platelet distribution width (Bld) [Ratio] 14.4 % 12.5 - 15.4 % [facility] Platelet mean volume (Bld) [Entitic vol] 7.3 fL 6.0 - 12.0 fL [facility] Platelets (Bld) [#/Vol] 115 10*3/uL Low [facility] RBC (Bld) [#/Vol] 4.82 10*6/uL 4.5 - 5.9 m/uL [facility] Segmented neutrophils/100 WBC (Bld) 10 % Low 36 - 66 % [facility] Segs Absolute 10.02 [facility] W[facility] (Bld[facility] [#/Vol] 100.2 10*3/uL Critically high [facility] Comprehensive Metabolic Pane rubens 10-17-2021 Albumin [Mass/Vol] 4.5 g/dL 3.5 - 5.2 g/dL [facility] Albumin/Globulin [Mass ratio] 1.6 {ratio} [facility] ALP (Bld) [Catalytic activity/Vol] 81 U/L 40 - 129 U/L [facility] ALT [Catalytic activity/Vol] 29 U/L 5 - 41 U/L [facility] Anion gap [Moles/Vol] 10 mmol/L 9 - 17 mmol/L [facility] AST [Catalytic activity/Vol] 24 U/L <40 [facility] Bilirubin [Mass/Vol] 0.61 mg/dL 0.3 - 1 .2 mg/dL [facility] Calcium [Mass/Vol] 9.7 mg/dL 8.6 - 10. 4 mg/dL [facility] Chloride [Moles/Vol] 93 mmol/L Low 98 - 10 7 mmol/L [facility] CO2 [Moles/Vol] 26 mmol/L 20 - 31 mmol/L [facility] Creatinine [Mass/Vol] 0.73 mg/dL 0.70 - 1.20 mg/dL [facility] Free PSA/Total PSA [Mass fraction] 7.3 g/dL 6.4 - 8.3 g/dL [facility] GFR >60 >60 mL/min [facility] GFR Non- >60 >60 mL/min [facility] GFR/1.73 sq M.predicted MDRD (S/P/Bld) [Vol rate/Area] [facility] Comment on above: Average GFR for 60-6 9 years old: 85 mL/min/1.73sq m Chronic Kidney Disease: <60 mL/min/1.73sq m Kidney failure: <15 mL/min/1.73sq m eGFR calculated using average adult body mass. Additional eGFR calculator available at: http://www.[employer]/multiple_crcl_2011.htm Glucose [Mass/Vol] 106 mg/dL High 70 - 99 mg/dL [facility] Interpretation and review of laboratory results Abnormal [facility] Potassium [Moles/Vol] 4.4 mmol/L 3.7 - 5.3 mmol/L [facility] Sodium [Moles/Vol] 129 mmol/L Low 135 - 144 mmol/L [employer] Urea nitrogen (BldV) [Mass/Vol] 13 mg/dL 8 - 23 mg/dL [facility] Lactate Dehydrogenaseon 05- LD 180 U/L 135 - 225 U/L [facility] CBC Auto DifferentialOrdered By: Jv Zhou on 12-08-2020 Absolute Eos # 1.87 [employer] [facility] Work Phone: Absolute Immature Granulocyte NOT REPORTED [employer] Work Phone: Absolute Lymph # 83.21 [employer] [facility] Work Phone: Absolute [place] # 1.87 [employer] [facility] Work Phone: Basophils (Bld) [#/Vol] 0.00 10*3/uL [employer] Work Phone: Basophils/100 WBC (Bld) 0 % 0 - 2 % M [employer] Work Phone: Differential Type NOT REPORTED [employer] Work Phone: Eosinophils/100 WBC (Bld) 2 % 1 - 4 % [facility] Phone: Hematocrit (Bld) [Volume fraction] 41.7 % 41 - 53 % [employer] Work Phone: Hemoglobin.gastrointest inal spec 1 Ql (Stl) 13.4 g/dL Low 13.5 - 17.5 g/dL [employer] Work Phone: Immature Granulocytes NOT REPORTED 0 % M [employer] Work Phone: Interpretation and review of laboratory results Abnormal [employer] Work Phone: Lymphocytes/100 WBC (Bld) 89 % High 24 - 44 % [employer] Work Phone: MCH (RBC) [Entitic mass] 29.7 pg 26 - 34 pg [employer] Work Phone: MCHC (RBC) [Mass/Vol] 32.1 g/dL 31 - 3 7 g/dL [facility] Phone: MCV (RBC) [Entitic vol] 92.5 fL 80 - 100 fL [facility] Phone: Monocytes/100 WBC (Bld) 2 % 1 - 7 % [facility] Phone: Morphology Ruben (Bld) [Interp] Normal [facility] Phone: NRBC Automated NOT REPORTED per 100 WBC [place] [facility] Work Phone: Platelet distribution width (Bld) [Ratio] 15.3 % 12.5 - 15.4 % [facility] Phone: Platelet Estimate NOT REPORTED [facility] Phone: Platelet mean volume (Bld) [Entitic vol] 7.7 fL 6.0 - 12.0 fL [facility] Phone: Platelets (Bld) [#/Vol] 139 10*3/uL Low [employer] Phone: RBC (Bld) [#/Vol] 4.51 10*6/uL 4.5 - 5.9 m/uL [facility] Phone: RBC (Bld) [#/Vol] NOT REPORTED [facility] Phone: Segmented neutrophils/100 WBC (Bld) 7 % Low 36 - 66 % [facility] Phone: Segs Absolute 6.55 [employer] Work Phone: WBC (Bld) [#/Vol] 93.5 10*3/uL Critically high [facility] Phone: Comment on above: TEST CONFIRMED WBC (Bld) [#/Vol] NOT REPORTED [facility] Phone: [employer] Work Phone: Comprehensive Metabolic Pane lOrdered By: Jv Zhou on 12-08-2020 Albumin [Mass/Vol] 4.5 g/dL 3.5 - 5.2 g/dL [facility] Phone: Albumin/Globulin [Mass ratio] 1.7 {ratio} [facility] Phone: ALP (Bld) [Catalytic activity/Vol] 83 U/L 40 - 129 U/L [facility] Phone: ALT [Catalytic activity/Vol] 48 U/L High 5 - 41 U/L [facility] Phone: Anion gap [Moles/Vol] 10 mmol/L 9 - 17 mmol/L [facility] Phone: AST [Catalytic activity/Vol] 36 U/L <40 [facility] Phone: Bilirubin [Mass/Vol] 0.54 mg/dL 0.3 - 1 .2 mg/dL [facility] Phone: Calcium [Mass/Vol] 9.7 mg/dL 8.6 - 10. 4 mg/dL [facility] Phone: Chloride [Moles/Vol] 99 mmol/L 98 - 10 7 mmol/L [facility] Phone: CO2 [Moles/Vol] 25 mmol/L 20 - 31 mmol/L [facility] Phone: Creatinine [Mass/Vol] 0.71 mg/dL 0.70 - 1.20 mg/dL [facility] Phone: Free PSA/Total PSA [Mass fraction] 7.2 g/dL 6.4 - 8.3 g/dL [facility] Phone: GFR >60 >60 mL/min [employer] Phone: GFR Non- >60 >60 mL/min [facility] Phone: GFR/1.73 sq M.predicted MDRD (S/P/Bld) [Vol rate/Area] [facility] Phone: Comment on above: Average GFR for 60-6 9 years old: 85 mL/min/1.73sq m Chronic Kidney Disease: <60 mL/min/1.73sq m Kidney failure: <15 mL/min/1.73sq m eGFR calculated using average adult body mass. Additional eGFR calculator available at: http://www.[employer]/multiple_crcl_2012.htm GFR/1.73 sq M.predicted MDRD (S/P/Bld) [Vol rate/Area] NOT REPORTED [facility] Phone: Glucose [Mass/Vol] 111 mg/dL High 70 - 99 mg/dL [facility] Phone: Interpretation and review of laboratory results Abnormal [facility] Phone: Potassium [Moles/Vol] 4.8 mmol/L 3.7 - 5.3 mmol/L [facility] Phone: Sodium [Moles/Vol] 134 mmol/L Low 135 - 144 mmol/L [facility] Phone: Urea nitrogen (BldV) [Mass/Vol] 13 mg/dL 8 - 23 mg/dL [facility] Phone: Urea nitrogen/Creatinine (Bld) [Mass ratio] NOT REPORTED [facility] Phone: [facility] Phone: Lactate DehydrogenaseOrdered By: Jv Zhou on 12-08-2020 LD 189 U/L 135 - 225 U/L [facility] Phone: [facility] Phone: BUN + Creatinineon 1 (cont.) Normal [facility] Comment on above: Result Comment: Aver age GFR for 60-69 years old: 85 mL/min/1.73sq m Chronic Kidney Disease: <60 mL/min/1.73sq m Kidney failure: <15 mL/min/1.73sq m eGFR calculated using average adult body mass. Additional eGFR calculator available at: http://www.[employer]/multiple_crcl_2012.htm Performed By: #### B UNCRT #### [facility] [address] [place] [address] Rejected Items Clerk: Royal Sandoval DO Creatinine [Mass/Vol] 0.66 mg/dL Low 0.70-1.[address] [facility] Comment on above: Performed By: #### B UNCRT #### [facility] [address] [place] [id number] Rejected Items Clerk: Royal Sandoval DO GFR, Amer >60 Normal >60 [facility] Comment on above: Performed By: #### B UNCRT #### [facility] [place] [address] Rejected Items Clerk: Royal Sandoval DO GFR,non Amer >60 Normal >60 [facility] Comment on above: Performed By: #### B UNCRT #### [facility] [place] [address] Rejected Items Clerk: Royal Sandoval DO Urea nitrogen [Mass/Vol] 11 mg/dL Normal 8-23 [facility] Comment on above: Performed By: #### B UNCRT #### [facility] [place] [address] Rejected Items Clerk: Royal Sandoval DO Staging: NOT REPORTED Normal [facility] Comment on above: Performed By: #### B UNCRT #### [facility] [place] [address] Rejected Items Clerk: Royal Sandoval DO CT CHEST ABDOMEN PELVIS [...] Cantu Jr., DO 11/25/20 Final result Normal [facility] CBC Auto Differentialon 03-0 Basophils (Bld) [#/Vol] 0.00 10*3/uL [facility] Phone: Basophils/100 WBC (Bld) 0 % 0 - 2 % [facility] Phone: Differential Type NOT REPORTED [facility] Phone: Eosinophils (Bld) [#/Vol] 0.95 10*3/uL High [facility] Phone: Eosinophils/100 WBC (Bld) 1 % 1 - 4 % [facility] Phone: Erythrocyte distribution width (RBC) [Ratio] 14.6 % High 11.8 - 14.4 % [facility] Phone: Hematocrit (Bld) [Volume fraction] 44.6 % 40.7 - 50.3 % [facility] Phone: Hemoglobin (Bld) [Mass/Vol] 14.0 g/dL 13.0 - 17.0 g/dL [facility] Phone: Immature granulocytes (Bld) [#/Vol] 0 % 0 [facility] Phone: Immature granulocytes (Bld) [#/Vol] 0.00 10*3/uL [facility] Phone: Interpretation and review of laboratory results Abnormal [facility] Phone: Lymphocytes (Bld) [#/Vol] 81.01 10*3/uL High [facility] Phone: Lymphocytes/100 WBC (Bld) 85 % High 24 - 44 % [facility] Phone: MCH (RBC) [Entitic mass] 29.5 pg 25.2 - 33.5 pg [facility] Phone: MCHC (RBC) [Mass/Vol] 31.4 g/dL 28.4 - 34.8 g/dL [facility] Phone: MCV (RBC) [Entitic vol] 93.9 fL 82.6 - 102.9 fL [facility] Phone: Monocytes (Bld) [#/Vol] 5.72 10*3/uL High [facility] Phone: Monocytes/100 WBC (Bld) 6 % 1 - 7 % M [facility] Work Phone: Morphology Ruben (Bld) [Interp] ANISOCYTOSIS PRESENT [employer] Work Phone: Morphology Ruben (Bld) [Interp] SMUDGE CELLS PRESENT [employer] Work Phone: Platelet mean volume (Bld) [Entitic vol] 10.5 fL 8.1 - 13.5 fL [facility] Phone: Platelets (Bld) [#/Vol] NOT REPORTED [facility] Phone: Platelets (Bld) [#/Vol] 130 10*3/uL Low [facility] Phone: RBC (Bld) [#/Vol] 4.75 10*6/uL 4.21 - 5.7 7 m/uL [facility] Phone: RBC morphology finding Nom (Bld) NOT REPORTED [facility] Phone: Segmented neutrophils/100 WBC (Bld) 8 % Low 36 - 66 % [facility] Phone: Segs Absolute 7.62 [employer] Work Phone: WBC (Bld) [#/Vol] 95.3 10*3/uL Critically high [facility] Phone: WBC (Bld) [#/Vol] 0.0 10*3/uL 0.0 per 10 0 WBC [facility] Phone: WBC Morphology NOT REPORTED [employer] [facility] Work Phone: Comprehensive Metabolic Pane rub[place] 08-08-2020 Albumin [Mass/Vol] 4.6 g/dL 3.5 - 5.2 g/dL [employer] Work Phone: Albumin/Globulin [Mass ratio] 1.5 {ratio} [facility] Phone: ALP [Catalytic activity/Vol] 76 U/L 40 - 129 U/L [employer] Work Phone: ALT [Catalytic activity/Vol] 53 U/L High 5 - 41 U/L [facility] Phone: Anion gap [Moles/Vol] 18 mmol/L High 9 - 17 mmol/L [employer] Work Phone: AST [Catalytic activity/Vol] 44 U/L High <40 [facility] Phone: Bilirubin Ql (U) 0.63 mg/dL 0.3 - 1.2 mg/dL [facility] Phone: Bun/Cre Ratio NOT REPORTED [facility] Work Phone: Calcium [Mass/Vol] 10.2 mg/dL 8.6 - 10. 4 mg/dL [employer] Work Phone: Chloride [Moles/Vol] 96 mmol/L Low 98 - 10 7 mmol/L [facility] Phone: CO2 [Moles/Vol] 22 mmol/L 20 - 31 mmol/L [facility] Phone: Creatinine [Mass/Vol] 0.72 mg/dL 0.70 - 1.20 mg/dL [facility] Phone: GFR >60 >60 mL/min [employer] Phone: GFR Non- >60 >60 mL/min [facility] Phone: GFR/1.73 sq M predicted among non-blacks MDRD (S/P/Bld) [Vol rate/Area] [facility] Phone: Comment on above: Average GFR for 60-6 9 years old: 85 mL/min/1.73sq m Chronic Kidney Disease: <60 mL/min/1.73sq m Kidney failure: <15 mL/min/1.73sq m eGFR calculated using average adult body mass. Additional eGFR calculator available at: http://www.[employer]/Airspan_crcl_2012.htm GFR/1.73 sq M predicted among non-blacks MDRD (S/P/Bld) [Vol rate/Area] NOT REPORTED [facility] Phone: Glucose [Mass/Vol] 89 mg/dL 70 - 99 mg/dL [facility] Phone: Interpretation and review of laboratory results Abnormal [facility] Phone: Potassium [Moles/Vol] 4.7 mmol/L 3.7 - 5.3 mmol/L [facility] Phone: Protein [Mass/Vol] 7.7 g/dL 6.4 - 8.3 g/dL [facility] Phone: Sodium [Moles/Vol] 136 mmol/L 135 - 144 mmol/L [facility] Phone: Urea nitrogen [Mass/Vol] 20 mg/dL 8 - 23 mg/dL [facility] Phone: Lactate Dehydrogenaseon 03-0 LD 184 U/L 135 - 225 U/L [facility] Phone: CBC Auto Differentialon 12-0 Basophils (Bld) [#/Vol] 0.00 10*3/uL [place] Basophils/100 WBC (Bld) 0 % 0 - 2 % M [place] Differential Type NOT REPORTED [place] Eosinophils (Bld) [#/Vol] 0.00 10*3/uL [place] Eosinophils/100 WBC (Bld) 0 % Low 1 - 4 % [place] Erythrocyte distribution width (RBC) [Ratio] 14.3 % 11.8 - 14.4 % [place] Hematocrit (Bld) [Volume fraction] 41.1 % 40.7 - 50.3 % [place] Hemoglobin (Bld) [Mass/Vol] 13.3 g/dL 13 - 17 g/dL [place] Immature granulocytes (Bld) [#/Vol] 0.00 10*3/uL [place] Immature granulocytes (Bld) [#/Vol] 0 % 0 [place] Interpretation and review of laboratory results Abnormal [place] Lymphocytes (Bld) [#/Vol] 77.08 10*3/uL High [place] Lymphocytes/100 WBC (Bld) 91 % High 24 - 44 % [place] MCH (RBC) [Entitic mass] 30.4 pg 25.2 - 33.5 pg [place] MCHC (RBC) [Mass/Vol] 32.4 g/dL 28.4 - 34.8 g/dL [place] MCV (RBC) [Entitic vol] 94.1 fL 82.6 - 102.9 fL [place] Monocytes (Bld) [#/Vol] 1.69 10*3/uL High [place] Monocytes/100 WBC (Bld) 2 % 1 - 7 % [place] Morphology Ruben (Bld) [Interp] SMUDGE CELLS PRESENT [place] Platelet mean volume (Bld) [Entitic vol] 10.2 fL 8.1 - 13.5 fL [place] Platelets (Bld) [#/Vol] 132 10*3/uL Low [place] Platelets (Bld) [#/Vol] NOT REPORTED [place] RBC (Bld) [#/Vol] 4.37 10*6/uL 4.21 - 5.7 7 m/uL [place] RBC morphology finding Nom (Bld) NOT REPORTED [place] Segmented neutrophils/100 WBC (Bld) 7 % Low 36 - 66 % [place] Segs Absolute 5.93 [place] WBC (Bld) [#/Vol] 84.7 10*3/uL Critically high [place] WBC (Bld) [#/Vol] 0.0 10*3/uL 0.0 per 10 0 WBC [place] WBC Morphology NOT REPORTED [place] Comprehensive Metabolic Pane [place] 05-10-2020 Albumin [Mass/Vol] 4.3 g/dL 3.5 - 5.2 g/dL [place] Albumin/Globulin [Mass ratio] 1.5 {ratio} [place] ALP [Catalytic activity/Vol] 74 U/L 40 - 129 U/L [place] ALT [Catalytic activity/Vol] 49 U/L High 5 - 41 U/L [place] Anion gap [Moles/Vol] 17 mmol/L 9 - 17 mmol/L [place] AST [Catalytic activity/Vol] 32 U/L <40 [place] Bilirubin Ql (U) 0.35 mg/dL 0.3 - 1.2 mg/dL [place] Bun/Cre Ratio NOT REPORTED [place] Calcium [Mass/Vol] 9.7 mg/dL 8.6 - 10. 4 mg/dL [place] Chloride [Moles/Vol] 100 mmol/L 98 - 10 7 mmol/L [place] CO2 [Moles/Vol] 21 mmol/L 20 - 31 mmol/L [place] Creatinine [Mass/Vol] 0.74 mg/dL 0.7 - 1.2 mg/dL [place] GFR >60 >60 mL/min [place] GFR Non- >60 >60 mL/min [place] GFR/1.73 sq M predicted among non-blacks MDRD (S/P/Bld) [Vol rate/Area] [place] Comment on above: Average GFR for 60-6 9 years old: 85 mL/min/1.73sq m Chronic Kidney Disease: <60 mL/min/1.73sq m Kidney failure: <15 mL/min/1.73sq m eGFR calculated using average adult body mass. Additional eGFR calculator available at: http://www.[employer]/multiple_crcl_2012.htm GFR/1.73 sq M predicted among non-blacks MDRD (S/P/Bld) [Vol rate/Area] NOT REPORTED [place] Glucose [Mass/Vol] 100 mg/dL High 70 - 99 mg/dL [place] Interpretation and review of laboratory results Abnormal [place] Potassium [Moles/Vol] 4.4 mmol/L 3.7 - 5.3 mmol/L [place] Protein [Mass/Vol] 7.2 g/dL 6.4 - 8.3 g/dL [place] Sodium [Moles/Vol] 138 mmol/L 135 - 144 mmol/L [place] Urea nitrogen [Mass/Vol] 20 mg/dL 8 - 23 mg/dL [place] Lactate Dehydrogenaseon 12-0 LD 188 U/L 135 - 225 U/L [place] Comprehensive Metabolic Pane [place] 02-16-2020 Albumin [Mass/Vol] 4.4 g/dL 3.5 - 5.2 g/dL [place] Albumin/Globulin [Mass ratio] 1.6 {ratio} [place] ALP [Catalytic activity/Vol] 74 U/L 40 - 129 U/L [place] ALT [Catalytic activity/Vol] 43 U/L High 5 - 41 U/L [place] Anion gap [Moles/Vol] 11 mmol/L 9 - 17 mmol/L [place] AST [Catalytic activity/Vol] 33 U/L <40 [place] Bilirubin Ql (U) 0.38 mg/dL 0.3 - 1.2 mg/dL [place] Bun/Cre Ratio NOT REPORTED [place] Calcium [Mass/Vol] 9.5 mg/dL 8.6 - 10. 4 mg/dL [place] Chloride [Moles/Vol] 96 mmol/L Low 98 - 10 7 mmol/L [place] CO2 [Moles/Vol] 24 mmol/L 20 - 31 mmol/L [place] Creatinine [Mass/Vol] 0.65 mg/dL Low 0.7 - 1.2 mg/dL [place] GFR >60 >60 mL/min [place] GFR Non- >60 >60 mL/min [place] GFR/1.73 sq M predicted among non-blacks MDRD (S/P/Bld) [Vol rate/Area] [place] Comment on above: Average GFR for 60-6 9 years old: 85 mL/min/1.73sq m Chronic Kidney Disease: <60 mL/min/1.73sq m Kidney failure: <15 mL/min/1.73sq m eGFR calculated using average adult body mass. Additional eGFR calculator available at: http://www.[employer]/multiple_crcl_2012.htm GFR/1.73 sq M predicted among non-blacks MDRD (S/P/Bld) [Vol rate/Area] NOT REPORTED [place] Glucose [Mass/Vol] 93 mg/dL 70 - 99 mg/dL [place] Interpretation and review of laboratory results Abnormal [place] Potassium [Moles/Vol] 4.5 mmol/L 3.7 - 5.3 mmol/L [place] Protein [Mass/Vol] 7.1 g/dL 6.4 - 8.3 g/dL [place] Sodium [Moles/Vol] 131 mmol/L Low 135 - 144 mmol/L [place] Urea nitrogen [Mass/Vol] 18 mg/dL 8 - 23 mg/dL [place] Lactate Dehydrogenaseon 02-01 LD 164 U/L 135 - 225 U/L [place] Comprehensive Metabolic Pane [place] 11-09-2019 Albumin [Mass/Vol] 4.5 g/dL 3.5 - 5.2 g/dL [place] Albumin/Globulin [Mass ratio] 1.6 {ratio} [place] ALP [Catalytic activity/Vol] 80 U/L 40 - 129 U/L [place] ALT [Catalytic activity/Vol] 55 U/L High 5 - 41 U/L [place] Anion gap [Moles/Vol] 18 mmol/L High 9 - 17 mmol/L [place] AST [Catalytic activity/Vol] 47 U/L High <40 [place] Bilirubin Ql (U) 0.55 mg/dL 0.3 - 1.2 mg/dL [place] Bun/Cre Ratio NOT REPORTED [place] Calcium [Mass/Vol] 9.9 mg/dL 8.6 - 10. 4 mg/dL [place] Chloride [Moles/Vol] 98 mmol/L 98 - 10 7 mmol/L [place] CO2 [Moles/Vol] 19 mmol/L Low 20 - 31 mmol/L [place] Creatinine [Mass/Vol] 0.68 mg/dL Low 0.7 - 1.2 mg/dL [place] GFR >60 >60 mL/min [place] GFR Non- >60 >60 mL/min [place] GFR/1.73 sq M predicted among non-blacks MDRD (S/P/Bld) [Vol rate/Area] [place] Comment on above: Average GFR for 60-6 9 years old: 85 mL/min/1.73sq m Chronic Kidney Disease: <60 mL/min/1.73sq m Kidney failure: <15 mL/min/1.73sq m eGFR calculated using average adult body mass. Additional eGFR calculator available at: http://[email or web address]/multiple_crcl_[email or web address].htm GFR/1.73 sq M predicted among non-blacks MDRD (S/P/Bld) [Vol rate/Area] NOT REPORTED [place] Glucose [Mass/Vol] 72 mg/dL 70 - 99 mg/dL [place] Interpretation and review of laboratory results Abnormal [place] Potassium [Moles/Vol] 4.4 mmol/L 3.7 - 5.3 mmol/L [place] Protein [Mass/Vol] 7.3 g/dL 6.4 - 8.3 g/dL [place] Sodium [Moles/Vol] 135 mmol/L 135 - 144 mmol/L [place] Urea nitrogen [Mass/Vol] 13 mg/dL 8 - 23 mg/dL [place] Lactate Dehydrogenaseon LD 214 U/L 135 - 225 U/L [place] CBC With Auto Differentialon 08-07-2019 Basophils (Bld) [#/Vol] 0.00 10*3/uL [place] Basophils/100 WBC (Bld) 0 % 0 - 2 % M [place], [place] Differential Type NOT REPORTED [place] Eosinophils (Bld) [#/Vol] 0.00 10*3/uL [place] Eosinophils/100 WBC (Bld) 0 % Low 1 - 4 % [place] Erythrocyte distribution width (RBC) [Ratio] 16.8 % High 11.8 - 14.4 % [place] Hematocrit (Bld) [Volume fraction] 42.8 % 40.7 - 50.3 % [place] Hemoglobin (Bld) [Mass/Vol] 13.2 g/dL 13 - 17 g/dL [place] Immature granulocytes (Bld) [#/Vol] 0.00 10*3/uL [place] Immature granulocytes (Bld) [#/Vol] 0 % 0 [place] Interpretation and review of laboratory results Abnormal [place] Lymphocytes (Bld) [#/Vol] 72.49 10*3/uL [place] Lymphocytes/100 WBC (Bld) 86 % High 24 - 44 % [place] MCH (RBC) [Entitic mass] 29.4 pg 25.2 - 33.5 pg [place] MCHC (RBC) [Mass/Vol] 30.8 g/dL 28.4 - 34.8 g/dL [place] MCV (RBC) [Entitic vol] 95.3 fL 82.6 - 102.9 fL [place] Monocytes (Bld) [#/Vol] 1.69 10*3/uL [place] Monocytes/100 WBC (Bld) 2 % 1 - 7 % [place] Morphology Ruben (Bld) [Interp] SMUDGE CELLS PRESENT [place] Morphology Ruben (Bld) [Interp] ANISOCYTOSIS PRESENT [place] Platelet mean volume (Bld) [Entitic vol] 10.0 fL 8.1 - 13.5 fL [place] Platelets (Bld) [#/Vol] 138 10*3/uL [place] Platelets (Bld) [#/Vol] NOT REPORTED [place] RBC (Bld) [#/Vol] 4.49 10*6/uL 4.21 - 5.7 7 m/uL [place] RBC morphology finding Nom (Bld) NOT REPORTED [place] Segmented neutrophils/100 WBC (Bld) 12 % Low 36 - 66 % [place] Segs Absolute 10.12 High [place] WBC (Bld) [#/Vol] 0.0 10*3/uL 0.0 per 10 0 WBC [place] WBC (Bld) [#/Vol] 84.3 10*3/uL Critically high [place] WBC Morphology NOT REPORTED [place] Comprehensive Metabolic Pane rubens 08-07-2019 Albumin [Mass/Vol] 4.2 g/dL 3.5 - 5.2 g/dL [place] Albumin/Globulin [Mass ratio] 1.5 {ratio} [place] ALP [Catalytic activity/Vol] 91 U/L 40 - 129 U/L [place] ALT [Catalytic activity/Vol] 35 U/L 5 - 41 U/L [place] Anion gap [Moles/Vol] 14 mmol/L 9 - 17 mmol/L [place] AST [Catalytic activity/Vol] 26 U/L <40 [place] Bilirubin Ql (U) 0.44 mg/dL 0.3 - 1.2 mg/dL [place] Bun/Cre Ratio NOT REPORTED [place] Calcium [Mass/Vol] 9.3 mg/dL 8.6 - 10. 4 mg/dL [place] Chloride [Moles/Vol] 102 mmol/L 98 - 10 7 mmol/L [place] CO2 [Moles/Vol] 24 mmol/L 20 - 31 mmol/L [place] Creatinine [Mass/Vol] 0.65 mg/dL Low 0.7 - 1.2 mg/dL [place] GFR >60 >60 mL/min [place] GFR Non- >60 >60 mL/min [place] GFR/1.73 sq M predicted among non-blacks MDRD (S/P/Bld) [Vol rate/Area] [place] Comment on above: Average GFR for 60-6 9 years old: 85 mL/min/1.73sq m Chronic Kidney Disease: <60 mL/min/1.73sq m Kidney failure: <15 mL/min/1.73sq m eGFR calculated using average adult body mass. Additional eGFR calculator available at: http://www.[employer]/multiple_crcl_2012.htm GFR/1.73 sq M predicted among non-blacks MDRD (S/P/Bld) [Vol rate/Area] NOT REPORTED [place] Glucose [Mass/Vol] 91 mg/dL 70 - 99 mg/dL [place] Interpretation and review of laboratory results Abnormal [place] Potassium [Moles/Vol] 4.4 mmol/L 3.7 - 5.3 mmol/L [place] Protein [Mass/Vol] 7.0 g/dL 6.4 - 8.3 g/dL [place] Sodium [Moles/Vol] 140 mmol/L 135 - 144 mmol/L [place] Urea nitrogen [Mass/Vol] 10 mg/dL 8 - 23 mg/dL [place] Lactate Dehydrogenaseon 03-0 LD 156 U/L 135 - 225 U/L [place] CT CHEST ABDOMEN PELVIS W CO [...] hips. Transitional anatomy at the lumbosacral junction. [employer] Phone: Scotty, pn Incoming Radiant Results From [employer] - 05/20/2019 10:28 AM EST EXAMINATION: CT [...] significance. Attention to on follow-up is recommended. [employer] Work Phone: CBC With Auto Differentialon 05-07-2019 Basophils (Bld) [#/Vol] 0.74 10*3/uL [place] Basophils/100 WBC (Bld) 1 % 0 - 2 % [place] Differential Type NOT REPORTED [place] Eosinophils (Bld) [#/Vol] 0.00 10*3/uL [place] Eosinophils/100 WBC (Bld) 0 % Low 1 - 4 % [place] Erythrocyte distribution width (RBC) [Ratio] 14.2 % 11.8 - 14.4 % [place] Hematocrit (Bld) [Volume fraction] 40.3 % Low 40.7 - 50.3 % [place] Hemoglobin (Bld) [Mass/Vol] 13.0 g/dL 13 - 17 g/dL [place] Immature granulocytes (Bld) [#/Vol] 0.00 10*3/uL [place] Immature granulocytes (Bld) [#/Vol] 0 % 0 [place] Interpretation and review of laboratory results Abnormal [place] Lymphocytes (Bld) [#/Vol] 64.29 10*3/uL [place] Comment on above: R/O Chronic Lymphopr oliferative Disorder, recommend peripheral blood Flow Cytometry, if clinically indicated. Lymphocytes/100 WBC (Bld) 87 % High 24 - 44 % [place] MCH (RBC) [Entitic mass] 30.2 pg 25.2 - 33.5 pg [place] MCHC (RBC) [Mass/Vol] 32.3 g/dL 28.4 - 34.8 g/dL [place] MCV (RBC) [Entitic vol] 93.7 fL 82.6 - 102.9 fL [place] Monocytes (Bld) [#/Vol] 3.70 10*3/uL [place] Monocytes/100 WBC (Bld) 5 % 1 - 7 % [place] Morphology Ruben (Bld) [Interp] SMUDGE CELLS PRESENT [place] Nucleated RBC/100 WBC (Bld) [Ratio] 1 % High 0 per 100 WBC [place] Platelet mean volume (Bld) [Entitic vol] 10.3 fL 8.1 - 13.5 fL [place] Platelets (Bld) [#/Vol] 171 10*3/uL [place] Platelets (Bld) [#/Vol] NOT REPORTED [place] RBC (Bld) [#/Vol] 4.30 10*6/uL 4.21 - 5.7 7 m/uL [place] RBC morphology finding Nom (Bld) NOT REPORTED [place] Segmented neutrophils/100 WBC (Bld) 7 % Low 36 - 66 % [place] Segs Absolute 5.17 [place] WBC (Bld) [#/Vol] 73.9 10*3/uL Critically high [place] WBC (Bld) [#/Vol] 0.1 10*3/uL High 0.0 per 10 0 WBC [place] WBC Morphology NOT REPORTED [place] Comprehensive Metabolic Pane rubens 05-07-2019 Albumin [Mass/Vol] 4.3 g/dL 3.5 - 5.2 g/dL [place] Albumin/Globulin [Mass ratio] 1.5 {ratio} [place] ALP [Catalytic activity/Vol] 85 U/L 40 - 129 U/L [place] ALT [Catalytic activity/Vol] 37 U/L 5 - 41 U/L [place] Anion gap [Moles/Vol] 13 mmol/L 9 - 17 mmol/L [place] AST [Catalytic activity/Vol] 25 U/L <40 [place] Bilirubin Ql (U) 0.37 mg/dL 0.3 - 1.2 mg/dL [place] Bun/Cre Ratio NOT REPORTED [place] Calcium [Mass/Vol] 9.3 mg/dL 8.6 - 10. 4 mg/dL [place] Chloride [Moles/Vol] 101 mmol/L 98 - 10 7 mmol/L [place] CO2 [Moles/Vol] 24 mmol/L 20 - 31 mmol/L [place] Creatinine [Mass/Vol] 0.67 mg/dL Low 0.7 - 1.2 mg/dL [place] GFR >60 >60 mL/min [place] GFR Non- >60 >60 mL/min [place] GFR/1.73 sq M predicted among non-blacks MDRD (S/P/Bld) [Vol rate/Area] [place] Comment on above: Average GFR for 60-6 9 years old: 85 mL/min/1.73sq m Chronic Kidney Disease: <60 mL/min/1.73sq m Kidney failure: <15 mL/min/1.73sq m eGFR calculated using average adult body mass. Additional eGFR calculator available at: http://www.[employer]/multiple_crcl_2012.htm GFR/1.73 sq M predicted among non-blacks MDRD (S/P/Bld) [Vol rate/Area] NOT REPORTED [place] Glucose [Mass/Vol] 97 mg/dL 70 - 99 mg/dL [place] Interpretation and review of laboratory results Abnormal [place] Potassium [Moles/Vol] 4.3 mmol/L 3.7 - 5.3 mmol/L [place] Protein [Mass/Vol] 7.2 g/dL 6.4 - 8.3 g/dL [place] Sodium [Moles/Vol] 138 mmol/L 135 - 144 mmol/L [place] Urea nitrogen [Mass/Vol] 11 mg/dL 8 - 23 mg/dL [place] Lactate Dehydrogenaseon 12-0 LD 177 U/L 135 - 225 U/L [place] Encounters Encounter Date Encounter Type Care Provider Facility Start: 03-05-2024 End: 03-05-2024 ambulatory Hollis M Blunt Facility:[facility] Start: 02-27-2024 ambulatory Hollis M Blunt Facility:[facility] Start: 02-18-2024 End: 02-18-2024 ambulatory Terrell Coronado [facility] Work Phone: Start: 02-18-2024 End: 02-18-2024 Departed [facility] [facility] Terrell Coronado Work Phone: [facility] Start: 02-17-2024 End: 02-17-2024 ambulatory TERRELL CORONADO [facility] Start: 12-17-2023 End: 12-17-2023 ambulatory JV RUFFINGERALDO [facility] Start: 11-25-2023 End: 11-25-2023 ambulatory Hollis M Blunt Facility:[facility] Start: 11-21-2023 End: 11-21-2023 ambulatory Hollis M Blunt Facility:[facility] Start: 11-06-2023 End: 11-06-2023 ambulatory Hollis Naidu Blunt Facility: [facility] Start: 08-20-2023 End: 08-20-2023 ambulatory JV RUFFINGERALDO [facility] Start: 06-05-2023 End: 06-05-2023 ambulatory Hollis Naidu Blunt Facility: [facility] Start: 05-21-2023 End: 05-21-2023 ambulatory [facility]V Isabel [facility] Start: 03-20-2023 End: 03-20-2023 ambulatory [facility] Start: 02-19-2023 End: 02-19-2023 ambulatory JV Isabel [facility] Start: 02-19-2023 End: 02-19-2023 Subsequent hospital visit by physician Hollis Barnett Work Phone: [facility] Comment on above: Lymphocytosis; Marginal zone lymphoma of spleen (HCC) Start: 02-05-2023 End: 02-05-2023 [facility] Start: 11-13-2022 End: 11-13-2022 Subsequent hospital visit by physician Hollis Barnett Work Phone: [employer] Comment on above: Lymphocytosis; Marginal zone lymphoma of spleen (HCC); Essential hypertension Start: 08-16-2022 End: 08-16-2022 Subsequent hospital visit by physician Hollis Barnett Work Phone: [facility] Comment on above: Marginal zone lympho ma of spleen (HCC) [C83.07 (ICD-10-CM)] Start: 10-17-2021 End: 10-17-2021 Subsequent hospital visit by physician oHllis Barnett Work Phone: [facility] Comment on above: Marginal zone lympho ma of spleen (HCC) Start: 12-08-2020 End: 12-08-2020 Subsequent hospital visit by physician Hollis Barnett Work Phone: [facility] Comment on above: Lymphocytosis; Marginal zone lymphoma of spleen (HCC) Start: 11-25-2020 End: 11-28-2020 ambulatory JV ZHOU [facility] Start: 08-08-2020 End: 08-08-2020 [facility] Comment on above: Lymphocytosis; Marginal zone lymphoma of spleen (HCC) Start: 05-10-2020 End: 05-10-2020 [facility] Comment on above: Lymphocytosis; Marginal zone lymphoma of spleen (HCC) Start: 02-16-2020 End: 02-16-2020 Subsequent hospital visit by physician Hollis TY [facility] Comment on above: Marginal zone lympho ma of spleen (HCC) Start: 11-09-2019 End: 11-09-2019 Subsequent hospital visit by physician Hollis TY [facility] Comment on above: Marginal zone lympho ma of spleen (HCC) Start: 08-07-2019 End: 08-07-2019 Subsequent hospital visit by physician Hollis TY [facility] Comment on above: Marginal zone lympho ma of spleen (HCC) Start: 05-20-2019 End: 05-22-2019 Subsequent hospital visit by physician [address] Scan Comment on above: Marginal zone lympho ma of spleen (HCC); Lymphocytosis Start: 05-07-2019 End: 05-07-2019 Subsequent hospital visit by physician Hollis TY [facility] Comment on above: Marginal zone lympho [...] Work Phone: Start: 05-07-2019 Lactate dehydrogenase ldh Jv Zhou Work Phone: Plan of Treatment Date Care Activity Detail Author Start: 10-18-2032 DTaP/Tdap/Td vaccine (2 - Td or Tdap) DTaP/Tdap/Td vaccine (2 - Td or Tdap) [facility] Start: 05-21-2023 End: 05-21-2023 Patient encounter procedure 05/21/2023 11:00 [place] [address] Jv Zhou MD [address] [place] [address] draw cbc, cmp, ldh [facility] Comment on above: draw cbc, cmp, ldh Start: 02-19-2023 End: 02-19-2023 Patient encounter procedure 02/19/2023 Office Visit Oncology Jv Zhou MD [address] [place] [address] [facility] Start: 01-01-2023 Influenza vaccination B [facility] Start: 11-13-2022 End: 11-13-2022 Patient encounter procedure 11/13/2022 Office Visit Oncology Jv Zhou MD [address] [place] [address] [facility] Start: 02-01-2022 Influenza vaccination Flu vacc ine (Season Ended) [facility] Start: 01-09-2022 End: 01-09-2022 Patient encounter procedure 01/09/2022 Office Visit Oncology Jv Zhou MD [address] [place], [place] [id number] [facility] Start: 01-01-2022 Influenza vaccination Flu vaccine (# 1) [facility] Start: 12-08-2021 Creatinine measurement Creatinine mo [facility] [employer] Phone: Start: 12-08-2021 Potassium monitoring Potassium monit [facility] [employer] Phone: Start: 08-08-2021 Creatinine measurement Creatinine mo [facility] [employer] Phone: Start: 08-08-2021 Potassium monitoring Potassium monit [facility] [employer] Phone: Start: 06-12-2021 COVID-19 Vaccine (4 - Moderna risk series) COVID-19 Vaccine (4 - Moderna risk series) [facility] Start: 04-06-2021 End: 04-06-2021 Patient encounter procedure 04/06/2021 Office Visit Oncology Jv [facility] [address] [facility] [place] [address] [facility] Start: 04-03-2021 Annual Wellness Visi t (AWV) Annual Wellness Visit (AWV) [facility] Start: 02-15-2021 [facility]inine [facility] [place] Start: 02-15-2021 Potassium monitoring Potassium monit [facility], [place] Start: 02-01-2021 Influenza vaccination Flu vaccine (# 1) [facility] [employer] Phone: Start: 11-08-2020 Creatinine measurement Creatinine mo [facility], [place] Start: 11-08-2020 Potassium monitoring Potassium monit [facility], [place] Start: 08-16-2020 End: 08-16-2020 Office Visit 08/16/2020 Office Visit Oncology Jv Zhou MD [address] [place] [address] [facility] Start: 08-06-2020 Creatinine measurement Creatinine mo [place]itoring [place] Start: 08-06-2020 Potassium monitoring Potassium monit [place] Start: 05-07-2020 Creatinine monitoring Creatinine mon [facility] Phone: Start: 05-07-2020 Potassium monitoring Potassium monit [facility] Phone: Start: 02-23-2020 End: 02-23-2020 Office Visit 02/23/2020 Office Visit Oncology Jv Zhou MD [address] [facility] [place], [place] [id number] [facility] Start: 02-02-2020 Influenza vaccination [place] Start: 11-19-2019 End: 11-19-2019 Office Visit 11/19/2019 Office Visit Oncology Jv Zhou MD [address] [place], [place] [id number] [facility] Start: 08-22-2019 Creatinine monitoring Creatinine mon [place] Start: 08-22-2019 Potassium monitoring Potassium monit [place] Start: 08-13-2019 End: 08-13-2019 Office Visit [facility] Start: 05-13-2019 End: 05-13-2019 Office Visit 05/13/2019 Office Visit Oncology Jv Zhou MD [address] [address] [phone] [facility] Start: 02-01-2019 Influenza vaccination Flu vaccine (# 1) [place] Start: 2008 Colon cancer screen colonoscopy Colon cancer screen colonoscopy [place] Start: 2008 Screening for malign ant neoplasm of colon Colon cancer screen colonoscopy [place] Start: 2008 Shingles Vaccine (1 of 2) Shingles Vaccine (1 of 2) [facility] Start: 2003 Screening for malign ant neoplasm of colon [facility] Start: 1998 Diabetes screen Diabetes screen [place], [place] Start: 1998 Lipid panel Lipid [place] Start: 1998 Lipid screen [place]id [place] Start: 1977 DTaP/Tdap/Td vaccine (1 - Tdap) DTaP/Tdap/Td vaccine (1 - Tdap) [facility] Start: 1977 Shingles vaccine (1 of 2) Shingles vaccine (1 of 2) [facility] Start: 1976 Hepatitis C screening Hepatitis C sc reen [facility] Start: 1974 COVID-19 Vaccine (1 of 2) COVID-19 Vaccine (1 of 2) [facility] Work Phone: Start: 1973 HIV screen HIV screen [place] Start: 1973 HIV screening HIV screen [facility] Start: 1970 COVID-19 Vaccine (1) COVID-19 Vaccin e (1) [facility] Start: 1970 Depression Screen Depression Screen [facility] Start: 1969 DTaP/Tdap/Td vaccine (1 - Tdap) DTaP/Tdap/Td vaccine (1 - Tdap) [place] Start: 1968 Lipid panel [facility] Start: 1964 Pneumococcal 0-64 ye ars Vaccine (1 - PCV) Pneumococcal 0-64 years Vaccine (1 - PCV) [facility] Start: 1964 Pneumococcal 0-64 ye ars Vaccine (1 of 3 - PCV13) Pneumococcal 0-64 years Vaccine (1 of 3 - PCV13) [place] Start: 1964 Pneumococcal 0-64 ye ars Vaccine (1 of 4 - PCV13) Pneumococcal 0-64 years Vaccine (1 of 4 - PCV13) [facility] Work Phone: Start: 1958 COVID-19 Vaccine (#1) COVID-19 Vacci ne (#1) [facility] Start: 1958 Annual Wellness Visi t (AWV) Annual Wellness Visit (AWV) [facility] Start: 1958 Hepatitis C screen Hepatitis C vinod mahoney [place], [place] Start: 1958 Hepatitis C screening Hepatitis C sc radha [place] CBC With Auto Differential [place] Payers Date Payer Category Payer Self-pay 2021 Unknown [id number] 2020 Unknown [id number] 2014 Private Health Insurance [employer] A ETNA xxxxxxxxxx 2014-Present [phone] [address] [place] [address] xxxxxxxxxx [id number] 2014 Private Health Insurance [employer] A ETNA [id number] 2014-Present [phone] [address] [place] [address] [id number] 1958 Unknown [id number] 1958 Unknown [id number] .175 1958 Unknown [id number] .175 1958 Unknown [id number] .175 1958 Unknown [id number] .175 1958 Unknown [id number] .175 1958 Unknown [id number] .175 1958 Unknown [id number] 1958 Unknown [id number] 1958 Unknown [id number] .718 1958 Unknown [id number] .718 1958 Unknown [id number] 1958 Unknown [id number] Social History Date Type Detail Facility Start: 09-03-2018 End: 11-13-2022 Tobacco smoking status NHIS Former smoker [employer] Start: 09-03-2018 End: 02-19-2023 Cigarettes smoked current (pack per day) - Reported [facility] [place] Start: 09-03-2018 End: 02-19-2023 Alcohol intake Not Asked [place], [place] Start: 1960 Sex Assigned At Not on file [place] Start: 11-19-2019 End: 11-13-2022 Tobacco use and exposure Never used [employer] [place] History of tobacco use Current smoker [facility] Phone: History of tobacco use Cigarette Smoker [facility] Phone: Start: 02-19-2023 Tobacco use panel [facility] Start: 1960 Sex Assigned At Male F [facility] Clinical Notes 05-20-2019 to 02-17-2024 Note Date & Type Note Facility 02-17-2024 Note [id number] at leas t 3- Age, HTN, CHF Per EKG today he remains in A-fib, rate controlled heart rate 86 bpm Continue Eliquis anticoagulation, he denies any bleeding tendencies He remains on metoprolol 100 mg twice daily and remains rate controlled. [facility] 02-17-2024 Note Significant shortnes s of breath [...] have decreased LV function, he voiced understanding [facility] 02-17-2024 Note Hypertension is well -controlled 135/86 continue all current meds. [facility] 02-17-2024 Note Continue statin Lipi tor 20 mg daily Liver function stable Lipids stable [facility] 02-17-2024 Note [facility] III-patient is fluid overloaded [...] please maintain K+>4 and Mg > 2 [facility] 02-17-2024 Note [facility] CARDIOLOGY PROGR ESS NOTE [...] He did have some labs drawn at [facility] next November for his PCP Denies any palpitations, fast heart rates or bleeding tendencies. 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 Musculoskeletal: (more content not included)... [facility] 02-17-2024 Note Pt here for a one ye ar follow up. Pt denies chest pain, palpatations, dizziness Review of Systems Respiratory: Positive for shortness of breath (for 3-4 weeks). [facility] 01-27-2024 Note Entered by Miah Asher on January 27, 2024 13:53:35 EDT From: Adelaida Asher To: [facility]/pharmacy #[id number] Sent: 01/27/2024 13:53:35 EDT Subject: Medication Management Submitted: Complete:apixaban (Eliquis 5 mg oral tablet) Signed by Adelaida Asher 01/27/2024 13:53:00 EDT Approved with modifications: apixaban (ELIQUIS 5 MG TABLET) TAKE 1 TABLET BY MOUTH TWICE A DAY Qty: 180 tab(s) Days Supply: 90 Refills: 1 Substitutions Allowed Route To Pharmacy - [facility]/pharmacy #[id number] Signed by Adelaida Asher ---- From: [facility] STORE [id number] To: Hollis Barnett MD Sent: January 27, 2024 11:39:29 AM CDT Subject: Medication Management Due: January 28, 2024 12:11:57 AM CDT On Hold Pending Signature Dispensed Drug: apixaban (Eliquis 5 mg oral tablet), TAKE 1 TABLET BY MOUTH TWICE A DAY Quantity: 180 tab(s) Days Supply: 90 Refills: 1 Substitutions Allowed Notes from Pharmacy: ---- [facility] 12-23-2023 Note Entered by Miah Asher on December 23, 2023 14:09:44 EDT From: Adelaida Asher To: [facility]/pharmacy #[id number] Sent: 12/23/2023 14:09:44 EDT Subject: Medication Management Submitted: Complete:diclofenac (diclofenac sodium 50 mg oral delayed release tablet) Signed by Adelaida Asher 12/23/2023 14:09:00 EDT Approved with modifications: diclofenac (DICLOFENAC SOD EC 50 MG TAB) TAKE 1 TABLET BY MOUTH TWICE A DAY Qty: 180 tab(s) Days Supply: 90 Refills: 0 Substitutions Allowed Route To Pharmacy - [facility]/pharmacy #[id number] Signed by Adelaida Asher ---- From: [facility] STORE [id number] To: Hollis Barnett MD Sent: December 23, 2023 11:40:40 AM CDT Subject: Medication Management Due: December 24, 2023 12:02:10 AM CDT On Hold Pending Signature Dispensed Drug: diclofenac (diclofenac sodium 50 mg oral delayed release tablet), TAKE 1 TABLET BY MOUTH TWICE A DAY Quantity: 180 tab(s) Days Supply: 90 Refills: 1 Substitutions Allowed Notes from Pharmacy: ---- [facility] 10-30-2023 Note Entered by Miah Asher on October 30, 2023 14:31:11 EDT From: Adelaida Asher To: [facility]/pharmacy #[id number] Sent: 10/30/2023 14:31:11 EDT Subject: Medication Management Submitted: Complete:omeprazole (omeprazole 20 mg oral delayed release capsule) Signed by Adelaida Asher 10/30/2023 14:31:00 EDT Approved with modifications: omeprazole (OMEPRAZOLE DR 20 MG CAPSULE) TAKE 1 CAPSULE BY MOUTH EVERY DAY Qty: 90 cap(s) Days Supply: 90 Refills: 1 Substitutions Allowed Route To Pharmacy - [facility]/pharmacy #[id number] Signed by Adelaida Asher ---- From: [place] [id number] To: Hollis Barnett MD Sent: October 30, 2023 1:19:11 PM CDT Subject: Medication Management Due: October 31, 2023 12:11:25 AM CDT On Hold Pending Signature Dispensed Drug: omeprazole (omeprazole 20 mg oral delayed release capsule), TAKE 1 CAPSULE BY MOUTH EVERY DAY Quantity: 90 cap(s) Days Supply: 90 Refills: 1 Substitutions Allowed Notes from Pharmacy: ---- [facility] 10-22-2023 Note Entered by Miah Asher on October 22, 2023 07:15:06 EDT From: Adelaida Asher To: [facility]/pharmacy #[id number] Sent: 10/22/2023 07:15:06 EDT Subject: Medication Management Submitted: Complete:atorvastatin (atorvastatin 20 mg oral tablet) Signed by Adelaida Asher 10/22/2023 07:15:00 EDT Approved with modifications: atorvastatin (ATORVASTATIN 20 MG TABLET) TAKE 1 TABLET BY MOUTH EVERY DAY Qty: 90 tab(s) Days Supply: 90 Refills: 1 Substitutions Allowed Route To Pharmacy - [facility]/pharmacy #[id number] Signed by Adelaida Asher ---- From: [place] [id number] To: Hollis Barnett MD Sent: October 22, 2023 5:46:00 AM CDT Subject: Medication Management Due: October 23, 2023 12:09:15 AM CDT On Hold Pending Signature Dispensed Drug: atorvastatin (atorvastatin 20 mg oral tablet), TAKE 1 TABLET BY MOUTH EVERY DAY Quantity: 90 tab(s) Days Supply: 90 Refills: 1 Substitutions Allowed Notes from Pharmacy: ---- [facility] 09-02-2023 Note Entered by Miah Asher on September 02, 2023 07:33:55 EDT [facility]: Ad[facility]her [id number] Sent: 09/02/2023 07:33:55 EDT Subject: Medication Management Submitted: Complete:amLODIPine (amLODIPine 10 mg oral tablet) Signed by Adelaida Asher 09/02/2023 07:33:00 EDT Approved with modifications: amLODIPine (AMLODIPINE BESYLATE 10 MG TAB) TAKE 1 TABLET BY MOUTH EVERY DAY Qty: 90 tab(s) Days Supply: 90 Refills: 1 Substitutions Allowed Route To Pharmacy - [facility]/pharmacy #[id number] Signed by Adelaida Asher ---- From: [facility] STORE [id number] To: Hollis Barnett MD Sent: September 01, 2023 5:37:29 PM CDT Subject: Medication Management Due: September 02, 2023 12:30:48 AM CDT On Hold Pending Signature Dispensed Drug: amLODIPine (amLODIPine 10 mg oral tablet), TAKE 1 TABLET BY MOUTH EVERY DAY Quantity: 90 tab(s) Days Supply: 90 Refills: 3 Substitutions Allowed Notes from Pharmacy: ---- [facility] 08-21-2023 Note Entered by Miah Asher on August 21, 2023 11:31:51 EDT From: Adelaida Asher To: [facility]/pharmacy #[id number] Sent: 08/21/2023 11:31:51 EDT Subject: Medication [...] 1 Substitutions Allowed Route To Pharmacy - [facility]/pharmacy #[id number] Signed by Adelaida Asher Approved with modifications: apixaban (ELIQUIS 5 MG TABLET) TAKE 1 TABLET BY MOUTH TWICE A DAY Qty: 180 tab(s) Days Supply: 90 Refills: 1 Substitutions Allowed Route To Pharmacy - [facility]/pharmacy #[id number] Signed by Adelaida Asher ---- From: [facility] STORE [id number] To: Hollis Barnett MD Sent: August 21, [...] 3 Substitutions Allowed Notes from Pharmacy: ---- [facility] 07-31-2023 Note Entered by Miah Asher on July 31, 2023 14:13:18 EST From: [facility]her [id number] Sent: 07/31/2023 14:13:18 EST Subject: Medication Management Submitted: Complete:diclofenac (diclofenac sodium 50 mg oral delayed release tablet) Signed by Adelaida Asher 07/31/2023 14:13:00 EST Approved with modifications: diclofenac (DICLOFENAC SOD EC 50 MG TAB) TAKE 1 TABLET BY MOUTH TWICE A DAY Qty: 180 tab(s) Days Supply: 90 Refills: 1 Substitutions Allowed Route To Pharmacy - [facility]/pharmacy #[id number] Signed by Adelaida Asher ---- From: [facility] STORE [id number] To: Hollis Barnett MD Sent: July 31, 2023 1:02:29 PM [facility] Subject: Medication Management Due: August 01, 2023 12:04:35 AM [facility] [employer] [facility] On Hold Pending Signature Dispensed Drug: diclofenac (diclofenac sodium 50 mg oral delayed release tablet), TAKE 1 TABLET BY MOUTH TWICE A DAY Quantity: 180 tab(s) Days Supply: 90 Refills: 1 Substitutions Allowed Notes from Pharmacy: ---- [facility] 05-07-2023 Note Entered by Miah Asher on May 07, 2023 07:26:43 EST From: Adelaida Asher To: [facility]/pharmacy #[id number] Sent: 05/07/2023 07:26:43 EST Subject: Medication Management Submitted: Complete:omeprazole (omeprazole 20 mg oral delayed release capsule) Signed by Adelaida Asher 05/07/2023 07:26:00 EST Approved omeprazole (OMEPRAZOLE DR 20 MG CAPSULE) TAKE 1 CAPSULE BY MOUTH EVERY DAY Qty: 90 cap(s) Days Supply: 90 Refills: 1 Substitutions Allowed Route To Pharmacy - [facility]/pharmacy #[id number] Signed by Adelaida Asher ---- From: [facility] STORE [id number] To: Hollis Barnett MD Sent: May 07, 2023 6:25:09 AM [facility] [employer] [facility] Subject: Medication Management Due: May 08, 2023 12:18:38 AM [facility] On Hold Pending Signature Dispensed Drug: omeprazole (omeprazole 20 mg oral delayed release capsule), TAKE 1 CAPSULE BY MOUTH EVERY DAY Quantity: 90 cap(s) Days Supply: 90 Refills: 1 Substitutions Allowed Notes from Pharmacy: ---- [facility] 03-20-2023 Note [facility] Electrophysiology Consult Note Reason [...] no frequent nosebleed (more content not included)... [facility] 03-20-2023 Note Patient here for fol low up cardioversion. Denies chest pain, SOB, palpitations, lightheadedness, and bleeding on Eliquis. Review of Systems All other systems reviewed and are negative. [facility] 05-20-2019 Note 1. Splenomegaly has progressed since the 2014 exam, now measuring 21 cm (previously 16 cm). No enlarged or suspicious-appearing lymph nodes identified in the chest, abdomen or pelvis. 2. Lucent areas in the T8 and T10 vertebral bodies are stable and are of uncertain significance. Attention to on follow-up is recommended. [employer] Phone: Evaluation note Diagnosis Lymphocytosis Lymphocytosis (symptomatic) 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, spleen documented in this encounter [employer] Phone: evaluation note* Diagnosis 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, spleen Lymphocytosis Lymphocytosis (symptomatic) documented in this encounter [employer] Phone: [email or web address] note* Diagnosis 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, spleen documented in this encounter [employer] Phone: [email or web address] note* Diagnosis 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 (ICD-10-CM)] Marginal zone lymphoma, spleen documented in this encounter [employer] Phone: [email or web address] note* Diagnosis Lymphocytosis Lymphocytosis (symptomatic) 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, spleen Essential hypertension Unspecified essential hypertension documented in this encounter [employer] Phone: [email or web address] note* Diagnosis Lymphocytosis Lymphocytosis (symptomatic) 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, spleen documented in this encounter [employer] noteNo assessment information available [facility] Work Phone: Assessments Diagnosis 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, spleen Diagnosis 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, spleen Diagnosis Lymphocytosis Lymphocytosis (symptomatic) 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, spleen Advance Directives No Advanced Directives Records FoundDocuments on File Type Date Recorded Patient Telephone Answering Service Operator Expl anation Advance Directives and Living Will Power of Plate Preparer Documents on File Type Date Recorded Patient Telephone Answering Service Operator Expl anation ACP-Advance Directive ACP-Power of Plate Preparer Documents on File Type Date Recorded Patient Telephone Answering Service Operator Expl anation Advance Directives and Living Will Power of Plate Preparer Summary Purpose Family History No Family History Records FoundNo Family History Records FoundNo Family History Records FoundNo Family History Records FoundNo Family History Records Found Additional Source Comments (unrecognized sect ion and content) No Status Records FoundNo Status Records FoundNo Status Records FoundNo Status Records FoundNo Status Records Found INFORMATION SOURCE (unrecogn ized section and content) DATE CREATED AUTHOR 11/27/2020 [facility] DATE CREATED AUTHOR AUTHOR'S ORGANIZ ATION 12/21/2023 [facility] DATE CREATED AUTHOR AUTHOR'S ORGANIZ ATION 02/18/2024 [facility] DATE CREATED AUTHOR AUTHOR'S ORGANIZ ATION 02/22/2024 [facility] DATE CREATED AUTHOR AUTHOR'S ORGANIZ ATION 03/10/2024 [facility] l Reason for Visit (unrecogniz ed section and content) Status Reason Specialty Diagnoses / Procedures Referre d By Contact Referred To Contact [facility] Diagnoses Marginal zone lymphoma of spleen (HCC) Lymphocytosis Procedures CT CHEST ABDOMEN PELVIS W CONTRAST CT ABDOMEN PELVIS W IV CONTRAST Additional Contrast? Oral HC CT CHEST W/ CONTRAST HC CT ABD/PEL W CONT Jv Zhou MD [address] [address] Care Teams (unrecognized sec tion and content) Java Sql Developer Relationship Specialty Start Date End Date Ericka Hollis M [address] [place] [id number] PCP - General Family Medicine 05/07/19 Java Sql Developer Relationship Specialty Start Date End Date Hayley Barnettmiah Naidu [address] [place] [id number] PCP - General Family Medicine 05/07/19 Java Sql Developer Relationship Specialty Start Date End Date Hayley Barnettmiah Naidu [address] [place] [address] PCP - General Family Medicine 05/07/19 Java Sql Developer Relationship Specialty Start Date End Date Hollis Barnett [address] [place] [id number] PCP - General Family Medicine 05/07/19 Team [...] BE BASED ON THE PRIMARY CLINICAL RECORDS. [facility] [employer] [facility]. provides no warranty or guarantee of the accuracy or completeness of information in this document.
[2024-03-18 09:09] LABS: Anion Gap 15.2; BUN Creatinine Ratio 20.5; Calcium 9.8 mg/dL (8.5-10.1); Carbon Dioxide 28.6 mmol/L (21.0-32.0); Chloride 101 mmol/L (98-107); Estimated GFR (African America >60 (>=60 mL/min/1.73m^2); Estimated GFR (Non-African Ame >60 (>=60 mL/min/1.73m^2); Glucose 110 mg/dL (74-106); Potassium 4.8 mmol/L (3.5-5.1); Sodium 140 mmol/L (136-145)
== END 2024-03-18 08:37 | disposition home or self-care (01) ==
LOC: LAB 08:38
PROVIDERS: PCP Family Medicine; Visit Provider Nurse Practitioner
DX: R97.20 Elevated prostate specific antigen [PSA] (principal); R60.9 Edema, unspecified
CPT/HCPCS: 36415; 80048; 84153

== ENCOUNTER 2024-08-11 12:48 | Outpatient (OUT) | payer MEDICARE, SELFPAY ==
[2024-08-11 13:23] LABS: Hematocrit 41.3 % (42.0-54.0); Hemoglobin 13.6 g/dL (14.0-18.0); Mean Corpuscular HGB Conc 32.9 g/dL (29.9-35.2); Mean Corpuscular Hemoglobin 30.6 pg (25.9-34.0); Mean Platelet Volume 10.1 fL (9.5-13.5); Platelet Count 132 10^3/uL (150-450); Red Blood Count 4.44 10^6/uL (4.70-6.10); Red Cell Distribution Width 14.8 % (11.0-15.0)
[2024-08-11 13:28] LABS: Anion Gap 13.4; BUN Creatinine Ratio 11.6; Calcium 9.5 mg/dL (8.5-10.1); Carbon Dioxide 29.1 mmol/L (21.0-32.0); Chloride 103 mmol/L (98-107); Estimated GFR (African America >60 (>=60 mL/min/1.73m^2); Estimated GFR (Non-African Ame >60 (>=60 mL/min/1.73m^2); Glucose 98 mg/dL (74-106); Potassium 4.5 mmol/L (3.5-5.1); Sodium 141 mmol/L (136-145)
[2024-08-11 15:00] LABS: White Blood Count 64.3 10^3/uL (4.0-11.0)
[2024-08-11 15:09] LABS: Basophils Abs Manual 0.64 10^3/uL (0.00-0.10); Eosinophils Absolute Manual 0.64 10^3/uL (0.00-0.70); Lymphocytes Absolute Manual 55.94 10^3/uL (1.20-3.80); Monocytes Absolute Manual 0.64 10^3/uL (0.30-0.80); Segmented Neut Absolute Manual 6.43 10^3/uL (1.4-6.5)
== END 2024-08-11 12:49 | disposition home or self-care (01) ==
LOC: LAB 12:50
PROVIDERS: PCP Family Medicine; Visit Provider Internal Medicine Cardiovascular Disease
DX: I48.19 Other persistent atrial fibrillation (principal)
CPT/HCPCS: 36415; 80048; 85007; 85027

== ENCOUNTER 2025-05-18 11:37 | Outpatient (OUT) | payer MEDICARE, SELFPAY ==
--- OUTSIDE RECORDS SUMMARY | 2025-05-18 11:00 | XMS_ITS | Encounter Summary ---
Author Organization [facility] Address [address] [place] [address] Care Team Providers Care X Ray Consultant Name Role Phone Phillip Barnett MD Primary Care Provider [phone] Addie Dickerson [employer] Unavailable Unavailabl e Reason for Visit * ReasonCommentsFollow-upPatient is here today for an H & P, consent for A-Fib ablation.HypertensionCongestive Heart FailureAtrial FibrillationCoronary Artery DiseaseHyperlipidemiaPalpitations Encounter Details DateTypeDepartmentCare Team (Latest Contact Info)Htqecslidcu37/16/2025 11:00 AM ESTOffice Visit [facility] [address] [place] [address] Ariel Caba MD [address] [place] [phone] Persistent atrial fibrillation (CMS/HCC) (Primary Dx) Social History Tobacco UseTypesPacks/DayYears UsedDateSmoking Tobacco: [id number] - 1983Smokeless Tobacco: NeverAlcohol UseStandard Drinks/WeekCommentsNot Currently 0 (1 standard drink = 0.6 oz pure alcohol)Humiliation, Afraid, Rape, and Kick questionnaireAnswerDate RecordedWithin the last year, have you been afraid of your partner or ex-partner?No10/19/2022Emotionally AbusedNot on file10/19/2022 Physically AbusedNot on file10/19/2022Sexually AbusedNot on file10/19/2022 Overall Financial Resource Strain (CARDIA)AnswerDate RecordedHow hard is it for you to pay for the very basics like food, housing, medical care, and heating?Not hard at all10/19/2022HQ-2AnswerDate RecordedPatient Health Questionnaire-2 [id number] Safety & EnvironmentAnswerDate RecordedFear of Current or Ex-PartnerNot on file10/24/2023Emotionally AbusedNot on file10/24/2023hysically AbusedNot on file10/24/2023Sexually AbusedNot on file10/24/2023hysically or Sexually AbusedNot on file10/24/2023TransportationAnswerDate RecordedIn the past 12 months, has lack of transportation kept you from medical appointments or from getting medications?No10/19/2022Lack of Transportation (Non-Medical)Not on file 10/19/2022Housing Stability Vital SignAnswerDate RecordedUnable to Pay for Housing in the Last YearNot on file10/19/2022Number of Places Lived in the Last YearNot on file10/19/2022In the last 12 months, was there a time when you did not have a steady place to sleep or slept in ashelter (including now)?No 10/19/2022Hunger Vital SignAnswerDate RecordedWithin the past 12 months, you worried that your food would run out before you got the money to buymore.Never true10/19/2022Ran Out of Food in the Last YearNot on file10/19/2022Sex and Gender InformationValueDate RecordedSex Assigned at LwkyzLxpz58/07/2025 11:33 AM EDTLegal XabBnfv5410/18/2022 2:19 PM EDTGender UvthfyzpNuqj24/07/2025 11:33 AM EDT Sexual OrientationHeterosexual or Iqzrafbp91/07/2025 11:33 AM EDTdocumented as of this encounter Last Filed Vital Signs Vital SignReadingTime TakenCommentsBlood Kcagzvyc045/7305/18/2025 10:54 AM EST Erunb502505/18/2025 10:54 AM ESTTemperature--Respiratory Rate--Oxygen Saturation 96%05/18/2025 10:54 AM ESTInhaled Oxygen Concentration--Fpkjcx104 kg (261 lb) 05/18/2025 10:54 AM BEFKeyhte586.5 cm (6' 3 )05/18/2025 10:54 AM ESTBody Mass Index32.6205/18/2025 10:54 AM ESTdocumented in this encounter Progress Notes * Ariel Caba MD - 05/18/2025 11:00 AM EST Images from the original note were not included. [place] Electrophysiology Consult Note Reason for visit: A-fib 05/18/2025 Patient here to discuss about A-fib ablation Review of Systems Cardiovascular: Positive for irregular heartbeat and palpitations. 01/12/25 Pt underwent Afib ablation on 08/19/24 where PVI+Post box+CTI was done with RF. There was difficultyin attaining posterior box completely. He had recurrence and has come for Afib ablation. 08/11/24 Patient here to discuss up coming ablation. 04/14/24 Patient has had exacerbations of heart failure that been managed with diuretics. Previously he had declined the use of amiodarone as well as ablation despite having tachycardia mediated cardiomyopathy. He had a stress test that was done on 03/04/2024 which showed no reversible ischemia however the EF was noted to be 44% on the study. Echocardiogram performed on 02/27/2024 reveals EF of 50 to 55% with moderate biatrial enlargement as well as mild TR with mildly reduced RV function Pulse check: Afib with RVR. 03/20/23:Ez ECHOLS Patient for follow-up s/p cardioversion he was post start amiodarone with cardioversion and never did the cardioversion was done without medication and he converted to sinus rhythm. discussed with patient starting amiodarone elevated in sinus rhythm we discussed long-term monitoring as he did not seem open to the idea of an ablation as he stated he did not need he opted not start amiodarone for long-term monitoring I discussed him doing stress testing to ruleout ischemia and see if we can start a class Ic antiarrhythmic ECG 03/20/2023 sinus rhythm 02/07/2023 sinus rhythm 11/16/[address] caba HPI: Cristian Hernandez Jr. is a 65 y.o. year old with past medical history of A- fib, recent cellulitis, hypertension. He was recently fishing [...] stroke PMH: Past Medical History: Diagnosis Date Abnormal ECG Afib (CMS/HCC) Arrhythmia Atrial fibrillation (CMS/HCC) Bilateral carotid artery stenosis BPH (benign prostatic hyperplasia) Elevated PSA GERD (gastroesophageal reflux disease) Heart failure (CMS/HCC) History of transfusion Hyperlipidemia Hypertension Lymphoid leukemia (CMS/HCC) Osteoarthritis Peripheral vascular disease Sleep apnea PSH: Past Surgical History: Procedure Laterality Date ABLATION OF DYSRHYTHMIC FOCUS CARDIAC CATHETERIZATION CARDIOVERSION 02/07/2023 CARDIOVERSION 05/20/2024 UPPER GASTROINTESTINAL ENDOSCOPY SH: [employer] Tobacco Use: Medium Risk (05/18/2025) Patient History Smoking Tobacco Use: Former Smokeless Tobacco Use: Never Passive Exposure: Not on file Alcohol Use: Not on file Financial Resource Strain: Low Risk (10/19/2022) Overall Financial Resource Strain (CARDIA) Difficulty of Paying Living Expenses: Not hard at all Food Insecurity: No Food Insecurity (10/19/2022) Hunger Vital Sign Worried About Running Out of Food in the Last Year: Never true Ran Out of Food in the Last Year: Not on file Transportation Needs: No Transportation Needs (10/19/2022) Transportation Lack of Transportation (Medical): No Lack of Transportation (Non-Medical): Not on file Physical Activity: Not on file Stress: Not on file Social Connections: Not on file Intimate Partner Violence: Unknown (10/24/2023) [place] Safety & Environment Fear of Current or Ex-Partner: Not on file Emotionally Abused: Not on file Physically Abused: Not on file Sexually Abused: Not on file Physically or Sexually Abused: Not on file Depression: Not at risk (11/07/2022) PHQ-2 PHQ-2 Score: 0 Housing Stability: Low Risk (10/19/2022) Housing Stability Vital Sign Unable to Pay for Housing in the Last Year: Not on file Number of Places Lived in the Last Year: Not on file Unstable Housing in the Last Year: No Utilities: Not on file Health Literacy: Not on file Allergies: Allergies Allergen Reactions Penicillins Unknown Weight: 118kg Visit Vitals BP 116/73 (BP Location: Right arm, Patient Position: Sitting) Pulse 56 Ht 1.905 m (6' 3 ) Wt 118 kg (261 lb) SpO2 96% BMI 32.62 kg/m?? Smoking Status Former BSA 2.5 m?? Meds: Current Outpatient Medications on File Prior to Visit Medication Sig Dispense Refill amiodarone (Pacerone) 200 mg tablet Take 1 tablet (200 mg) by mouth once daily as directed. 90 tablet 1 amLODIPine (Norvasc) 10 mg tablet Take 1 tablet (10 mg) by mouth in the morning. Do not start before October 23, 2022. 30 tablet 0 apixaban (Eliquis) 5 mg tablet Take 1 tablet (5 mg) by mouth two times daily. 180 tablet 3 ascorbic acid (Vitamin C) 500 mg chewable tablet Chew 2 tablets in the morning. atorvastatin (Lipitor) 20 mg tablet Take 20 mg by mouth in the morning. diclofenac (Voltaren) 50 mg EC tablet Take 50 mg by mouth in the morning and at bedtime. Do not crush, chew, or split. furosemide (Lasix) 40 mg tablet TAKE 1 TABLET BY MOUTH EVERY DAY IN THE MORNING (Patient taking differently: 40 mg if needed.) 90 tablet 3 lisinopriL-hydrochlorothiazide 20-25 mg tablet Take 1 tablet by mouth in the morning. metoprolol tartrate (Lopressor) 100 mg tablet Take 1 tablet (100 mg) by mouth in the morning and atbedtime. 60 tablet 0 omeprazole (PriLOSEC) [address] capsule Take 20 mg by mouth before breakfast. Do not crush or chew. No current facility-administered medications on file prior to visit. ROS: Review of Systems Cardiovascular: Positive for palpitations (mostly when sleeping on left side). All other systems reviewed and are negative. Physical Exam: Constitutional General Appearance: well-nourished, well-developed, appears stated age Level of Distress: comfortable Psychiatric Mental Status: alert, normal affect Orientation: oriented to time, place, and person Insight: good judgement Eyes Lids and Conjunctivae: non-injected, no xanthelasma ENMT Ears: no lesions on external ear Nose: no lesions on external nose Oropharynx: no cyanosis, no pallor Neck Neck: supple, trachea midline Carotid Arteries: bilateral normal upstroke, no bruits Jugular Veins: normal jugular venous pressure Thyroid: not enlarged Lungs Respiratory Effort: unlabored Chest Exam: normal curvature, no thoracic deformity Auscultation: clear, no wheezing, no rales, no rhonchi Cardiovascular Rate And Rhythm: regular Heart Sounds: normal S1, normal s2, no gallop Systolic Murmur: not heard Diastolic Murmur: not heard Extremities: no cyanosis, no edema, no peripheral signs of emboli Peripheral Pulses Radial Pulse: normal Abdomen Inspection and Palpation: soft, non distended, no bruit, non tender Musculoskeletal Inspection: no joint swelling Neurologic Gait: normal gait Skin Inspection and Palpation: warm and dry Nails: no clubbing Labs: @LABRESULTS@ Lab Results Component Value Date BNP 256 (H) 10/18/2022 EKG: No results found for this or any previous visit (from the past 4464 hours). Echo: 02/27/24 10/19/22 Echo Left Ventricle: The left ventricle is normal size. Global left ventricular systolic function is normal. Left ventricular wall thickness is normal. No regional wall motion abnormality. Unable to assess diastolic dysfunction. Right Ventricle: The right ventricle is mildly enlarged. Normal right ventricular systolic function. Doppler studiessuggest mildly elevated right sided pressures. Left Atrium: The left atrium is severely enlarged. Right Atrium: The right atrium is severely enlarged. Great Vessels: IVC: The IVC is dilated. There is no inspiratory collapse of the IVC. Overall Conclusions: No significant valvular abnormalities Stress test: 03/04/24 Coronary angiogram: @CATH@ Diagnostic Imaging: EP Study 08/19/24 LA baseline (mmHg) 1st and 2nd (HR 52bpm Afib), HR 66 Afib LA 600ms pacing (mmHg) NA LA 400ms pacing (mmHg) NA AHms 51 HVms 71 VERPms 600/330, VA condunction- AV Wenkebach ms 640ms AH jump ms NA AVNERP ms 700/480 AERP ms 700/290 POST PROCEDURE DIAGNOSIS 1. Persistent atrial fibrillation s/p PVI (WACA)+ Superior and Inferior roof line (Post Box isolaton)+ Substrate modification. 2. Atrial flutter s/p CTI ablation with confirmed block. 3. Elevated LA filling pressures with tachycardia. 4. Poor AV papi conduction Assessment and Plan: Persistent atrial fibrillation: s/pPVI+Post box+CTI but post box isolation seen. - continue Eliquis 5 mg twice daily, Hypertension - continue amlodipine 10 mg, metoprolol 25 mg twice daily, lisinopril 20 mg, Lasix 40 mg daily, Lipitor 20 mg Chronic heart failure with preserved ejection fraction (CMS/HCC) - stable NYHA I-II - on Lasix for LE edema which was likely exacerbated by his A-fib - GDMT: Metoprolol tartrat 100mg twice daily, lisinopril 20 mg daily, amlodipine 10mg, eliquis 5mg BID. Afib ablation would require placement of multiple catheters in the heart under moderate sedation which will include diagnostic catheters, ICE catheters and ablation catheters. The risk of the procedures can be described as minor and major minor complications being discomfort in the groin area, bleeding, infection and vascular complications at this fistula formation, pseudoaneurysm, nerve injury. Major complications would include catheter induced cardiac perforation leading to tamponade/ pericardial effusion which may or may not require surgical intervention. Other complications are phrenic nerve injury leading to paralysis, thromboembolism including pulmonary and systemic event leading to stroke or endorgan injury or or PV stenosis or AE fistula as post ablation adverse effects. There could be a possibility of catheter induced valve entrapment which may require surgical intervention and valve replacement. Given that these procedures are performed under x-ray, they could be acuteor long-term side effects from radiation . Gven the comorbidities, the likelihood of attaining sinus rhythm would be ~75% and reiterated the importance of weight loss and an exercise regimen as well as treatment of sleep apnea which would be beneficial in long-term maintenance of sinus rhythm basedon data from LEGACY and CARDIOFIT trials. Overall the risk of these complications ranged anywhere from 1-5%. Patient verbalized understanding and have agreed to proceed with the procedure. Ariel Caba MD Cardiac Electrophysiology [facility] documented in this encounter Plan of Treatment DateTypeDepartmentCare Team (Latest Contact Info)Zaxfdbvvstz69/08/2026 8:00 AM ESTAppointment [facility] [place] [phone] 06/10/2025 8:30 AM ESTHospital Encounter [facility] [address] [place] [phone] Ariel Caba MD [address] [place] [address] Persistent atrial fibrillation (CMS/HCC)06/10/2025 8:30 AM EST - 06/10/2025 12:00 PM ESTSurgery [facility] [address] [place] [address] Ariel Caba MD [address] [place] [address] Ablation atrial fibrillation [60921 (CPT??)]documented as of this encounter Visit Diagnoses Diagnosis Persistent atrial fibrillation (CMS/HCC)- Primary Atrial fibrillation Persistent atrial fibrillation (CMS/HCC)- Primary Atrial fibrillation Persistent atrial fibrillation (CMS/HCC) Atrial fibrillation documented in this encounter Care Teams Team MemberRelationshipSpecialtyStart [place] [address] [place] [address] PCP - General10/18/22 Addie Dickerson CNP [address] [place] [address] Nurse PractitionerHematology and Oncology10/19/22documented as of this encounter
--- OUTSIDE RECORDS SUMMARY | 2025-05-18 11:43 | XMS_ITS | Clinical Summary ---
Author Organization [facility] Address [address], [address] [place] [address] Care Team Providers Care Supervisor Contact Lens Name Role Phone Phillip Barnett MD Primary Care Provider [phone] Allergies Active AllergyReactionsCriticalityNoted YbsyGwyhvhhfIctvqkxkvhw94/04/2014 Medications MedicationSigDispense QuantityRefillsLast FilledStart DateEnd DateStatus ascorbic acid (VITAMIN C) 500 MG tablet Take 2 tablets by mouth dailyActive Cyanocobalamin (VITAMIN B 12 PO) Take 1 tablet by mouth dailyActive omeprazole (PRILOSEC OTC) 20 MG tablet Take 1 tablet by mouth daily 30 tablet Active amLODIPine (NORVASC) 5 MG tablet TAKE 1 TABLET BY MOUTH EVERY MEC49802/19/2019Active atorvastatin (LIPITOR) 20 MG tablet Take 1 tablet by mouth dailyActive metoprolol succinate (TOPROL XL) 50 MG extended release tablet Take 2 tablets by mouth daily01/25/2022ctive ELIQUIS 5 MG TABS tablet TAKE 1 TABLET BY MOUTH IN THE MORNING AND AT ZVTOGUF1910/22/2022ctive lisinopril (PRINIVIL;ZESTRIL) 20 MG tablet Take 1 tablet by mouth every zjiaxkz1110/22/2022ctive furosemide (LASIX) 40 MG tablet Take 1 tablet by mouth 2 times daily as rbgsmk5305/08/2024ctive amiodarone (CORDARONE) 200 MG tablet Take 1 tablet by mouth daily05/08/2024ctive diclofenac (CATAFLAM) 50 MG tablet Take 1 tablet by mouth 3 times dailyActive lisinopril-hydroCHLOROthiazide (PRINZIDE;ZESTORETIC) 20-25 MG per tablet TAKE 1 TABLET BY MOUTH EVERY DAY 90 tablet 108/21/2025Active Active Problems ProblemNoted DateDiagnosed DateEssential liqrgbywgdfz17/05/2018Marginal zone lymphoma of hldjqh9611/17/20159637Pkzyasxnkmktl71/16/2016Gastroesophageal reflux disease without zlpvqevujsp57/03/0994Azfnhqmzj17/24/2014 Resolved Problems ProblemNoted DateDiagnosed DateResolved DateNHL (non-Hodgkin's lymphoma) MARGINAL ZONE UGONXHKE18Leukocytosis Encounters DateTypeDepartmentCare SimuRvqazwipjch33/16/2025 10:45 AM EDTOffice Visit [place] [phone] Leah Lubin MD 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); Lymphocytosis; Paroxysmal atrial fibrillation (HCC)03/18/2025 10:21 AM EDT - 03/18/2025 11:59 PM EDTHospital Encounter [facility] [address] [place] [address] 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]; Lymphocytosis [D72.820]; Paroxysmal atrial fibrillation (HCC); Essential hypertension Discharge Disposition: Home or Self Care03/18/2025Telephone [facility] [address] [place] [address] Miriam Grimaldo MA avs1Telephone [facility] [address] [place] [address] Naomy Khan RN labfrom Last 3 Months Family History Medical HistoryRelationNameCommentsDiabetesFatherHeart DiseaseMotherHigh Blood PressureSisterRelationNameStatusCommentsFatherDeceasedMotherAliveSister Social History Tobacco UseTypesPacks/DayYears UsedDateSmoking Tobacco: HcpkpxFvucgypllh157 Smokeless Tobacco: Never Tobacco Cessation:Counseling Given: No Alcohol UseStandard Drinks/WeekCommentsNot Asked0 (1 standard drink = 0.6 oz pure alcohol)Sex and Gender InformationValueDate RecordedSex Assigned at Not on fileLegal IweMcwj6507/13/2012 5:43 PM ESTGender IdentityNot on fileSexual OrientationNot on file Last Filed Vital Signs Vital SignReadingTime TakenCommentsBlood Vryvovcj611/7603/18/2025 11:30 AM EDT Qxzov829803/18/2025 11:30 AM QKZYwbyqhogpaj24.2 ??C (97.2 ??F)03/18/2025 11:30 AM EDTRespiratory Sdkb5015 11:30 AM EDTOxygen Vnkygjnube00%03/18/2025 11:30 AM EDTInhaled Oxygen Concentration--Lgoxhh057 kg (253 lb 9.6 oz)03/18/2025 11:30 AM QRPXimvnd275.5 cm (6' 3 )09/15/2024 10:15 AM EDTBody Mass Index31.7 09/15/2024 10:15 AM EDT Plan of Treatment DateTypeDepartmentCare Team (Latest Contact Info)Nlynoklfqnb57/22/2026 8:15 AM ESTOffice Visit [facility] [address] [place], [place] [id number] Leah Lubin MD [address] [place] [address] 3 month f/uHealth MaintenanceDue DateLast MfycTpzujhbfRibofr28/28/1968Depression Gtpwjy5804/30/1970Hepatitis C qkcacs5704/30/1976Diabetes lsmsiv9804/30/1993 Jnpsgsocxxl52/28/2003Colorectal Cancer Xlhyiy1204/30/2003FIT/FOBT: Average risk 2003Fecal-DNA (Cologuard): Average risk2003Sigmoidoscopy/CT uqadbxetaclh34/28/2003AAA waaqmk66/, 05/20/2019, 12/22/2013 Annual Wellness Visit (Medicare Advantage)5COVID-19 Vaccine (6 - 2024- 25 season), 04/15/2023, 04/17/2021, Additional history existsDTaP/Tdap/Td vaccine (2 - Td or Tdap)Respiratory Syncytial Virus (RSV) or age 60 yrs+ (1 - 1-dose 75+ series)2033 Pneumococcal 0-49 years ScqqblbJhfykkzlxqfg23/13/2025Pneumococcal 50+ years RqcqbpkPztremasu31/13/2025Flu ksbshhfOkjmxpfgc43/14/2025Shingles vaccine Kvcutyyya25/14/2025, 12/13/2024GFR test (Diabetes, CKD 3-4, OR last GFR 15-59) Xvcacmkmjprn85/16/2025, 12/15/2024, 09/15/2024, Additional history exists Hepatitis A vaccineAged OutNo longer eligible based on patient's age to complete this topicHepatitis B vaccineAged OutNo longer eligible based on patient's age to complete this topicHib vaccineAged OutNo longer eligible based on patient's age to complete this topicMeningococcal (ACWY) vaccineAged OutNo longer eligible based on patient's age to complete this topicMeningococcal B vaccineAged OutNo longer eligible based on patient's age to complete this topicPolio vaccineAged OutNo longer eligible based on patient's age to complete this topic Procedures Procedure NamePriorityDate/TimeAssociated DiagnosisCommentsCBC WITH AUTO ZEQJZFNRXIQZQIKZ54/16/2025 10:22 AM EDT 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] Lymphocytosis [D72.820] Paroxysmal atrial fibrillation (HCC) Essential hypertension COMPREHENSIVE METABOLIC CYZMQBSUJ64/16/2025 10:22 AM EDT 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] Lymphocytosis [D72.820] Paroxysmal atrial fibrillation (HCC) Essential hypertension LACTATE REQSLFXDAPEXKRVRS03/16/2025 10:22 AM EDT 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] Lymphocytosis [D72.820] Paroxysmal atrial fibrillation (HCC) Essential hypertension CT CHEST ABDOMEN PELVIS W XGLNYJCLBfhxdrs13/25/2021 11:49 AM EDT Marginal zone lymphoma of spleen (HCC) from Last 3 Months or Most Recently Relevant to Health Maintenance Results * (ABNORMAL) CBC with Auto Differential (03/18/2025 10:22 AM EDT)ComponentValue Ref RangeTest MethodAnalysis TimePerformed AtPathologist AgsmnxaowDMF20.9(HH) 3.5 - 11.0 k/uL03/18/2025 10:22 AM [facility] Comment: TEST CONFIRMED RBC4.27(L)4.5 - 5.9 m/uL03/18/2025 10:22 AM [facility] MOETajsrkfbbi27.3(L)13.5 - 17.5 g/dL03/18/2025 10:22 AM [facility] ZATMfsifqvxii32.5(L)41 - 53 %03/18/2025 10:22 AM [facility] WWKZZC28.980 - 100 fL03/18/2025 10:22 AM [facility] PQCOEL10.226 - 34 pg03/18/2025 10:22 AM [facility] MYVJYEK77.831 - 37 g/dL03/18/2025 10:22 AM [facility] QKHBHM04.112.5 - 15.4 %03/18/2025 10:22 AM [facility] JBMPnltinsyf306630 - 450 k/uL03/18/2025 10:22 AM EDT [facility]MPV8.26.0 - 12.0 fL03/18/2025 10:22 AM EDT [facility] LABNeutrophils %11(L)36 - 66 %03/18/2025 10:22 AM [facility] LABLymphocytes %86(H)24 - 44 %03/18/2025 10:22 AM [facility] LABMonocytes %31 - 7 %03/18/2025 10:22 AM [facility] LABEosinophils %0(L)1 - 4 % 03/18/2025 10:22 AM [facility] LABBasophils %00 - 2 % 03/18/2025 10:22 AM [facility] LABNeutrophils Absolute 6.261.8 - 7.7 k/uL03/18/2025 10:22 AM [facility] Lymphocytes Rgdgkbcu55.93(H)1.0 - 4.8 k/uL03/18/2025 10:22 AM [facility] LABMonocytes Absolute1.71(H)0.1 - 0.8 k/uL03/18/2025 10:22 AM [facility] LABEosinophils Absolute0.000.0 - 0.4 k/uL 03/18/2025 10:22 AM [facility] LABBasophils Absolute 0.000.0 - 0.2 k/uL03/18/2025 10:22 AM [facility] YoqskqoiysPuvdxe05/16/2025 10:22 AM [facility] Specimen (Source)Anatomical Location / LateralityCollection Method / Volume Collection TimeReceived TimeBloodBLOOD SPECIMEN / Nrmepda8403/18/2025 10:22 AM EDT 03/18/2025 10:23 AM EDT Narrative Authorizing ProviderResult TypeResult StatusMohambrandon Lubin MDHEMATOLOGY ORDERABLESFinal ResultPerforming OrganizationAddressCity/State/ZIP CodePhone Number [place] [id number] [place] [address], [facility] [phone] [facility] [address] [place] [address], [facility] [phone] * Lactate Dehydrogenase (03/18/2025 10:22 AM EDT)ComponentValueRef RangeTest MethodAnalysis TimePerformed AtPathologist AztltcgxlRI266580 - 225 U/L 03/18/2025 10:22 AM [facility] LABSpecimen (Source) Anatomical Location / LateralityCollection Method / VolumeCollection Time Received TimeBloodBLOOD SPECIMEN / Glsuwla1503/18/2025 10:22 AM EDT1 10:23 AM EDT Narrative Authorizing ProviderResult TypeResult StatusMohammad A Alnsour MDCHEMISTRY ORDERABLESFinal ResultPerforming OrganizationAddressCity/State/ZIP CodePhone Number [facility] Profitect [address] [place] [address], [facility] [phone] [facility] [address] [place] [address], [facility] [phone] * (ABNORMAL) Comprehensive Metabolic Panel (03/18/2025 10:22 AM EDT)Component ValueRef RangeTest MethodAnalysis TimePerformed AtPathologist SignatureSodium 548397 - 145 mmol/L1 10:22 AM [facility] Potassium4.73.7 - 5.3 mmol/L1 10:22 AM [facility] NGBZqmlrcai5956 - 107 mmol/L1 10:22 AM [facility] TOLOX45071 - 31 mmol/L1 10:22 AM [facility] LABAnion Lrd015 - 16 mmol/L1 10:22 AM [facility] CYRPmsbqrk869(H)74 - 99 mg/dL03/18/2025 10:22 AM [facility] NKDCPQ650 - 23 mg/dL03/18/2025 10:22 AM [facility] LABCreatinine1.20.7 - 1.2 mg/dL03/18/2025 10:22 AM [facility] LABEst, Glom Filt Rate67>60 mL/min/1.01x85603/18/2025 10:22 AM [facility] Comment: ? These results are not intended for use in patients <18 years of age. ? eGFR results are calculated without a race factor using the 2020 CKD-EPI equation. Careful clinical correlation is recommended, particularly when comparing to results calculated using previous equations. The CKD-EPI equation is less accurate in patients with extremes of muscle mass, extra-renal metabolism of creatine, excessive creatine ingestion, or following therapy that affects renal tubular secretion. Calcium9.48.6 - 10.4 mg/dL03/18/2025 10:22 AM [facility] LABTotal Protein7.06.6 - 8.7 g/dL03/18/2025 10:22 AM [facility] LABAlbumin4.73.5 - 5.2 g/dL03/18/2025 10:22 AM [facility] LABAlbumin/Globulin Ratio2.01.0 - 2.510 10:22 AM [facility] LABTotal Bilirubin0.80.0 - 1.2 mg/dL 03/18/2025 10:22 AM [facility] LABAlkaline Phosphatase 7140 - 129 U/L1 10:22 AM [facility] SUQRTW8816 - 50 U/L1 10:22 AM [facility] DCJPEG7327 - 50 U/L1 10:22 AM [facility] LABSpecimen (Source) Anatomical Location / LateralityCollection Method / VolumeCollection Time Received TimeBloodBLOOD SPECIMEN / Htnmiqe4003/18/2025 10:22 AM EDT1 10:23 AM EDT Narrative Authorizing ProviderResult TypeResult StatusMohammad A Alnsour MDCHEMISTRY ORDERABLESFinal ResultPerforming OrganizationAddressCity/State/ZIP CodePhone Number [facility] Prof[address] [place] [id number], [facility] [phone] [facility] [address] [place] [address], [facility] [phone] * CT CHEST ABDOMEN PELVIS W CONTRAST (11/25/2020 11:49 AM EDT)Anatomical Region LateralityModalityComputed TomographySpecimen (Source)Anatomical Location / LateralityCollection Method / VolumeCollection TimeReceived Time11/25/2020 12:08 PM EDT Impressions 11/25/2020 12:41 PM EDT 1. No pathologically enlarged lymph nodes are seen within the chest, abdomen or pelvis. 2. Splenomegaly with minimal progression since the prior study. 3. Ill-defined consolidation superior segment left lower lobe. ??Developing pneumonia cannot be excluded. ??Repeat CT after therapy is recommended to ensure resolution. 4. Partially calcified soft tissue nodule involving the mesentery of the right lower quadrant grossly unchanged in size when compared to the prior study from 2019. ??There appears to be interval progression of the calcification since 2019. ??Carcinoid tumor cannot be excluded. 5. Prostatomegaly. Narrative 11/25/2020 12:41 PM EDT EXAMINATION: CT OF THE CHEST, ABDOMEN, AND [...] staging Reason for Exam: lymphoma of spleen ??staging Acuity: Unknown Type of Exam: Unknown FINDINGS: Chest: Mediastinum: Thoracic aorta demonstrates mild calcification without aneurysm. Pulmonary trunk appears nondilated. ??No pericardial effusion. ??No pathologically enlarged lymph nodes are seen within the chest. ??The esophagus is grossly unremarkable. Lungs/pleura: Ill-defined consolidation involving the superior segment of the left lower lobe. ??Atelectasis/scarring involving the superior segment of the right lower lobe. ??Bibasilar scarring. ??No pneumothorax or pleural effusion. No suspicious pulmonary nodule or mass. Soft Tissues/Bones: Visualized soft tissue surrounding chest wall demonstrate no acute findings. ??Osseous structures demonstrate degenerative change. Abdomen/Pelvis: Organs: Splenomegaly measuring 21.3 cm. ??Liver gallbladder portal vein pancreas adrenal glands and kidneys all appear unremarkable. ??Abdominal aorta appears normal in caliber. GI/Bowel: Stomach is grossly unremarkable. ??Small bowel appears nondilated. Oral contrast reached the colon. ??A partially calcified lesion is identified involving the mesentery of the right lower quadrant measuring 1.2 x 1.0 cm in greatest axial dimension similar in size to the prior study. ??There appears to be interval progression of the calcification since 2019. no acute colonic abnormality. Pelvis: Prostatomegaly. ??Urinary bladder is grossly unremarkable. Peritoneum/Retroperitoneum: No free air, free fluid or lymphadenopathy. Bones/Soft Tissues: Abdominal wall demonstrates no acute findings. Uncomplicated fat filled umbilical hernia. ??Osseous structures demonstrate degenerative changes. Procedure Note Gamal Cantu Jr., DO - 11/25/2020 EXAMINATION: CT OF THE CHEST, ABDOMEN, AND PELVIS WITH CONTRAST 11/25/2020 11:49 am TECHNIQUE: CT of the chest, abdomen and pelvis was performed with the administrationof intravenous contrast. Multiplanar reformatted images are provided forreview. Dose modulation, iterative reconstruction, and/or weight based adjustmentof the mA/kV was utilized to reduce the radiation dose to as low asreasonably achievable. COMPARISON: CT chest, abdomen and pelvis May 20, 2019. HISTORY: ORDERING SYSTEM PROVIDED HISTORY: Marginal zone lymphoma of spleen (HCC) TECHNOLOGIST PROVIDED HISTORY: marginal zone lymphoma, staging Reason for Exam: lymphoma of spleen staging Acuity: Unknown Type of Exam: Unknown FINDINGS: Chest: Mediastinum: Thoracic aorta demonstrates mild calcification withoutaneurysm. Pulmonary trunk appears nondilated. No pericardial effusion. No pathologically enlarged lymph nodes are seen within the chest. Theesophagus is grossly unremarkable. Lungs/pleura: Ill-defined consolidation involving the superior segment ofthe left lower lobe. Atelectasis/scarring involving the superior segment ofthe right lower lobe. Bibasilar scarring. No pneumothorax or pleuraleffusion. No suspicious pulmonary nodule or mass. Soft Tissues/Bones: Visualized soft tissue surrounding chest walldemonstrate no acute findings. Osseous structures demonstrate degenerative change. Abdomen/Pelvis: Organs: Splenomegaly measuring 21.3 cm. Liver gallbladder portal vein pancreas adrenal glands and kidneys all appear unremarkable. Abdominalaorta appears normal in caliber. GI/Bowel: Stomach is grossly unremarkable. Small bowel appearsnondilated. Oral contrast reached the colon. A partially calcified lesion isidentified involving the mesentery of the right lower quadrant measuring 1.2 x 1.0 cmin greatest axial dimension similar in size to the prior study. Thereappears to be interval progression of the calcification since 2019. no acutecolonic abnormality. Pelvis: Prostatomegaly. Urinary bladder is grossly unremarkable. Peritoneum/Retroperitoneum: No free air, free fluid or lymphadenopathy. Bones/Soft Tissues: Abdominal wall demonstrates no acute findings. Uncomplicated fat filled umbilical hernia. Osseous structuresdemonstrate degenerative changes. IMPRESSION: 1. No pathologically enlarged lymph nodes are seen within the chest,abdomen or pelvis. 2. Splenomegaly with minimal progression since the prior study. 3. Ill-defined consolidation superior segment left lower lobe.Developing pneumonia cannot be excluded. Repeat CT after therapy is recommended to ensure resolution. 4. Partially calcified soft tissue nodule involving the mesentery of the right lower quadrant grossly unchanged in size when compared to theprior study from 2019. There appears to be interval progression of the calcification since 2019. Carcinoid tumor cannot be excluded. 5. Prostatomegaly. Authorizing ProviderResult TypeResult StatusMohammad Chalo Lubin MDG CT ORDERABLESFinal Result from Last 3 Months or Most Recently Relevant to Health Maintenance Insurance Care Teams Team MemberRelationshipSpecialtyStart [place] [address] [place] [id number] PCP - GeneralFamily Kgxmazyl18/5/19
--- OUTSIDE RECORDS SUMMARY | 2025-05-18 11:43 | XMS_ITS | Clinical Summary ---
Author Organization [facility] tem Address [id number] [place] [address] Care Team Providers Care Pattern Cleaner Name Role Phone Unavailable Primary Care Provider Unavailabl e Allergies Active AllergyReactionsCriticalityNoted DateCommentsPenicillinsOther (See Comments)Low05/06/2014 Medications MedicationSigDispense QuantityRefillsLast FilledStart DateEnd DateStatus amLODIPine (NORVASC) 10 mg tablet Take 1 tablet (10 mg total) by mouth.5Active apixaban (ELIQUIS) 5 mg tablet Take 1 tablet (5 mg total) by mouth in the morning and 1 tablet (5 mg total) before bedtime./6Active ascorbic acid, vitamin C, 500 mg tablet,chewable Chew 2 tablets and swallow in the morning.Active atorvastatin (LIPITOR) 20 mg tablet Take 1 tablet (20 mg total) by mouth.Active furosemide (LASIX) 40 mg tablet Take 1 tablet (40 mg total) by mouth.Active lisinopril-hydroCHLOROthiazide (PRINZIDE,ZESTORETIC) 20-25 mg per tablet Take 1 tablet by mouth.5Active omeprazole (PriLOSEC) 20 mg capsule Take by mouth.Active amiodarone (PACERONE) 200 mg tablet Take 1 tablet (200 mg total) by mouth in the morning.4Active Active Problems No known active problems Encounters DateTypeDepartmentCare UihbWvhimmyerxx99/09/2025 2:45 PM EDTOphthalmology Imaging [facility], A Department of [facility] [address] [facility] [address] [place] [address] Retinal artery branch occlusion of right eye10/02/2025 2:40 PM EDTOphthalmology Imaging [facility], A Department of [facility] [address] [facility] [address] [place] [address] Retinal artery branch occlusion of right eye03/11/2025 2:00 PM EDTOffice Visit 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); Age-related nuclear cataract of both eyes; Dry eyes03/11/2025Travelfrom Last 3 Months Family History Medical HistoryRelationNameCommentsFuchs' dystrophyNeg HxGlaucomaNeg HxMacular degenerationNeg HxRetinal detachmentNeg Hx Social History Tobacco UseTypesPacks/DayYears UsedDateSmoking Tobacco: FormerCigarettes Smokeless Tobacco: Former Tobacco Cessation:Counseling Given: Not Answered Sex and Gender InformationValueDate RecordedSex Assigned at BirthNot on file Legal UqjIsha4611/06/2022 10:37 AM EDTGender IdentityNot on fileSexual Orientation Not on file Plan of Treatment DateTypeDepartmentCare Team (Latest Contact Info)Iwnjeezmgkh36/09/2026 10:00 AM EDTOffice Visit [facility], A Department of [facility] [address] [facility] [address] [place] [address] Philip Lima MD [address] [facility] [address] [place] [address] Health MaintenanceDue DateLast DoneCommentsDepression Vrrgdflfu74/28/1970Adult BMI Mhoskkgsd46/28/1976Abdominal Aortic Aneurysm (AAA) Ssggoi0904/30/2023Fall Risk Kfuamzztj04/28/2023OVID-19 Vaccine ( season), 04/15/2023, 04/17/2021, Additional history existsTobacco Nbrnxrxzr48/09/2026 03/11/2025DTaP,Tdap and Td Vaccines (2 - Td or Tdap)RSV ( or age 60+ yrs) (1 - 1-dose 75+ series)2033Influenza Vaccine Bjjjtvdim89/14/2025Zoster (Shingles) RnczpriIclmqjaxf54/14/2025, 12/13/2024 Medical Devices Not on file Procedures Procedure NamePriorityDate/TimeAssociated DiagnosisCommentsFUNDUS PHOTOS - OU - BOTH HCUECdwdyrz59/09/2025 2:35 PM EDT Retinal artery branch occlusion of right eye OCT, RETINA - OU - BOTH EFCDBtvsbnz00/09/2025 2:35 PM EDT Retinal artery branch occlusion of right eye from Last 3 Months Results * Fundus Photos - OU - Both Eyes (03/11/2025 2:35 PM EDT)Specimen (Source) Anatomical Location / LateralityCollection Method / VolumeCollection Time Received Time Narrative MANUALLY TRANSCRIBED RESULTS - 03/11/2025 11:13 PM EDT Right Eye Progression has no prior data. Disc findings include normal observations. Macula findings include normal observations. Vessel findings include normal observations. Periphery findings include normal observations. Follow up actions include observe and monitor, reviewed testing with the patient. Left Eye Progression has no prior data. Disc findings include normal observations. Macula findings include normal observations. Vessel findings include normal observations. Periphery findings include normal observations. Follow up actions include observe and monitor, reviewed testing with the patient. Authorizing ProviderResult TypeResult StatusStmaria l Lima MDOPHTHALMOLOGY SERVICES ORDERABLESFinal ResultPerforming OrganizationAddressCity/State/ZIP Code Phone Number MANUALLY TRANSCRIBED RESULTS * OCT, Retina - OU - Both Eyes (03/11/2025 2:35 PM EDT)Specimen (Source) Anatomical Location / LateralityCollection Method / VolumeCollection Time Received Time Narrative MANUALLY TRANSCRIBED RESULTS - 03/11/2025 11:13 PM EDT Right Eye Quality was good. Progression has no prior data. Findings include normal foveal contour. Plan: observe and monitor, reviewed testing with patient. Left Eye Quality was good. Progression has no prior data. Findings include normal foveal contour. Plan: observe and monitor, reviewed testing with patient. Authorizing ProviderResult TypeResult StatusStmaria l Lima MDOPHTHALMOLOGY SERVICES ORDERABLESFinal ResultPerforming OrganizationAddressCity/State/ZIP Code Phone Number MANUALLY TRANSCRIBED RESULTS from Last 3 Months Insurance
--- OUTSIDE RECORDS SUMMARY | 2025-05-18 11:44 | XMS_ITS | Clinical Summary ---
Author Organization [facility] Address [address] [place] [address] Care Team Providers Care Imaging System Administrator Name Role Phone Unavailable Primary Care Provider Unavailabl e Social History Tobacco UseTypesPacks/DayYears UsedDateSmoking Tobacco: Never AssessedSex and Gender InformationValueDate RecordedSex Assigned at BirthNot on fileLegal Sex Male08/15/2022 7:38 PM EDTGender IdentityNot on fileSexual OrientationNot on file Last Filed Vital Signs Vital SignReadingTime TakenCommentsBlood Pressure--Pulse--Temperature-- Respiratory Rate--Oxygen Saturation--Inhaled Oxygen Concentration--Tshkem663 kg (300 lb)07/25/2022 12:00 PM FURLsshao125.5 cm (6' 3 )07/25/2022 12:00 PM ESTBody Mass Index37. 12:00 PM EST Plan of Treatment Not on file
--- OUTSIDE RECORDS SUMMARY | 2025-05-18 11:44 | XMS_ITS | Clinical Summary ---
Author Organization [facility] Address [address] [place] [address] Care Team Providers Care Bordereau Clerk Name Role Phone Phillip Barnett MD Primary Care Provider [phone] Addie Dickerson SHOP FITTER Unavailable Unavailabl e Allergies Active AllergyReactionsCriticalityNoted DateCommentsPenicillinsUnknownLow 10/18/2022 Medications MedicationSigDispense QuantityRefillsLast FilledStart DateEnd DateStatus atorvastatin (Lipitor) 20 mg tablet Take 20 mg by mouth in the morning.Active omeprazole (PriLOSEC) [address] capsule Take 20 mg by mouth before breakfast. Do not crush or chew.Active diclofenac (Voltaren) 50 mg EC tablet Take 50 mg by mouth in the morning and at bedtime. Do not crush, chew, or split. Active metoprolol tartrate (Lopressor) 100 mg tablet Indications:Cellulitis of right upper extremityTake 1 tablet (100 mg) by mouth in the morning and at bedtime. 60 tablet 10/22/2022ctive amLODIPine (Norvasc) 10 mg tablet Indications:Cellulitis of right upper extremityTake 1 tablet (10 mg) by mouth in the morning. Do not start before October 23, 2022. 30 tablet 10/23/2022ctive ascorbic acid (Vitamin C) 500 mg chewable tablet Chew 2 tablets in the morning.Active lisinopriL-hydrochlorothiazide 20-25 mg tablet Take 1 tablet by mouth in the morning.10/17/2021ctive apixaban (Eliquis) 5 mg tablet Indications:Atrial fibrillation, unspecified type (CMS/HCC)Take 1 tablet (5 mg) by mouth two times daily. 180 tablet 304/24/ctive amiodarone (Pacerone) 200 mg tablet Indications:Paroxysmal atrial fibrillation (CMS/HCC)Take 1 tablet (200 mg) by mouth once daily as directed. 90 tablet 1105Active furosemide (Lasix) 40 mg tablet Indications:Acute on chronic heart failure with preserved ejection fraction (CMS/HCC)TAKE 1 TABLET BY MOUTH EVERY DAY IN THE MORNING 90 tablet 3115Active Additional Information Patient taking differently:40 mgAs needed, Reported on 05/18/2025 furosemide (Lasix) 40 mg tablet Indications:Acute on chronic heart failure with preserved ejection fraction (CMS/HCC)TAKE 1 TABLET BY MOUTH EVERY DAY IN THE MORNING 90 tablet 309411/Discontinued Active Problems ProblemNoted DateDiagnosed DateParoxysmal atrial qmhuoxhjrnty32/12/2024OE (dyspnea on exertion)02/17/2024 Assessment & Plan (02/17/2024 12:36 PM EDT): Significant shortness of breath with exertion and occasionally with rest worsening over the last month will order echocardiogram and again will order stress test to obtain cardiac function and perfusion along with valvular function. Discussed with patient my concerns of acute heart failure along with being in current A-fib although rate controlled he may have decreased LV function, he voiced understanding HLD (hyperlipidemia)02/12/2024 Assessment & Plan (02/17/2024 12:35 PM EDT): Continue statin Lipitor 20 mg daily Liver function stable Lipids stable BPH (benign prostatic hyperplasia)arotid artery disease Elevated PSAFebrile bxktljw1003/20/2023 03/20/2023Lymphoid ammgeeib66Osteoarthritis03/20/2023 03/20/2023 Overview (03/20/2023): knee Otitis mediaRetinal venous sqyfcpaenq76 Scalp pain31cute on chronic heart failure with preserved ejection /13/2023 Assessment & Plan (02/17/2024 12:35 PM EDT): [facility] III-patient is fluid overloaded per assessment, 3+ [...] please maintain K+>4 and Mg > 2 Assessment & Plan (11/13/2022 12:18 PM EDT): - stable NYHA I-II - has been developing LE edema which was likely exacerbated by his A-fib - start Lasix 40 mg daily for 2 days and then as needed for LE edema or LEWIS - GDMT: Metoprolol tartrat 100mg twice daily, lisinopril 20 mg daily, midodrine 10 mg, Lasix 40 mg daily/as needed, Eliquis 5 mg twice daily Wuunutyhhgyv03/22/2023ellulitis of right upper tbltczafl01/18/2023Marginal zone lymphoma of pyqxqs1811/17/2015Gastroesophageal reflux disease without esophagitis 05/05/20158000Itzghtubo69/24/2014Hypertension Assessment & Plan (02/17/2024 12:35 PM EDT): Hypertension is well-controlled 135/86 continue all current meds. Assessment & Plan (11/13/2022 12:17 PM EDT): - Discussed trending blood pressure returning as long - continue amlodipine 10 mg, metoprolol 25 mg twice daily, lisinopril 20 mg, Lasix 40 mg daily, Lipitor 20 mg Persistent atrial fibrillation Assessment & Plan (02/17/2024 12:39 PM EDT): RVN1YL7-TILo at least 3- Age, HTN, CHF Per EKG today he remains in A-fib, rate controlled heart rate 86 bpm Continue Eliquis anticoagulation, he denies any bleeding tendencies He remains on metoprolol 100 mg twice daily and remains rate controlled. Assessment & Plan (11/13/2022 12:21 PM EDT): - WSD7WI5-SQCg 1, was noted to during his inpatient stay but he is only 1 for hypertension and 2 ifincluding a diagnosis of HFpEF - continue Eliquis 5 mg twice daily, discussed with patient despite borderline score and recommended use of anticoagulation as he is in A-fib and as well as for his questionable TIA symptoms - rate controlled during visit, advised patient to buy pulse ox to monitor his heart rate - on follow-up with Dr. Pacheco to discuss antiarrhythmic medication and DCCV as he should be properly anticoagulated by the time Encounters DateTypeDepartmentCare HtqgHhmguuvnywd14/16/2025 11:00 AM ESTOffice [facility] [address] [place] [address] Ariel Caba MD Persistent atrial fibrillation (CMS/HCC) (Primary Dx)[facility] [address] [place] [address] Amina Coles CNP Acute on chronic heart failure with preserved ejection fraction (CMS/HCC) 03/18/[facility] [address] [place] [address] Ariel Caba MD Paroxysmal atrial fibrillation (CMS/HCC)from Last 3 Months Immunizations ImmunizationAdministration DatesNext DueModerna SARS-CoV-2 Hufrbxfpixc78/15/2021 ,09/14/2020,08/17/2020Tdap10/18/2022 Family History Medical HistoryRelationNameCommentsDiabetesFatherRelationNameStatusComments BrotherDeceasedFatherDeceasedMotherDeceasedSisterAlive Social History Tobacco UseTypesPacks/DayYears UsedDateSmoking Tobacco: YbgefoWwmnxgjean7811 - 1983Smokeless Tobacco: Never Tobacco Cessation:Counseling Given: Not Answered Alcohol UseStandard Drinks/WeekCommentsNot Currently0 (1 standard drink = 0.6 oz pure alcohol)Humiliation, Afraid, Rape, and Kick questionnaireAnswerDate RecordedWithin the last year, have you been afraid of your partner or ex-partner?No10/19/2022Emotionally AbusedNot on file10/19/2022hysically Abused Not on file10/19/2022Sexually AbusedNot on file10/19/2022Overall Financial Resource Strain (CARDIA)AnswerDate RecordedHow hard is it for you to pay for the very basics like food, housing, medical care, and heating?Not hard at all 10/19/2022HQ-2AnswerDate RecordedPatient Health Questionnaire-2 Score0 11/07/2022UT Safety & EnvironmentAnswerDate RecordedFear of Current or [...] steady place to sleep or slept in bentonelter (including now)?No 10/19/2022Hunger Vital SignAnswerDate RecordedWithin the past 12 months, you worried that your food would run out before you got the money to buymore.Never true10/19/2022Ran Out of Food in the Last YearNot on file10/19/2022Sex and Gender InformationValueDate RecordedSex Assigned at YgmdoDhdj09/07/2025 11:33 AM EDTLegal FulOcmy6310/18/2022 2:19 PM EDTGender GlpkhresAyeg72/07/2025 11:33 AM EDT Sexual OrientationHeterosexual or Lpmyyhzo33/07/2025 11:33 AM EDT Last Filed Vital Signs Vital SignReadingTime TakenCommentsBlood Pigjxltv302/7305/18/2025 10:54 AM EST Dkmda435305/18/2025 10:54 AM YTWRbtpxeaoiso86.2 ??C (97.2 ??F)08/19/2024 1:25 PM EDTRespiratory Xike636311/12/2024 9:45 AM EDTOxygen Pprnbmqyqj58%05/18/2025 10:54 AM ESTInhaled Oxygen Concentration--Oqxmyi973 kg (261 lb)05/18/2025 10:54 AM EST Pktnhi876.5 cm (6' 3 )05/18/2025 10:54 AM ESTBody Mass Index32.6205/18/2025 10:54 AM EST Plan of Treatment DateTypeDepartmentCare Team (Latest Contact Info)Vwmluksjote63/08/2026 8:00 AM ESTAppointment [facility] [address] [phone] 06/10/2025 8:30 AM ESTHospital Encounter [facility] [address] [place] [address] Ariel Caba MD [address] [place] [phone] Persistent atrial fibrillation (CMS/HCC)06/10/2025 8:30 AM EST - 06/10/2025 12:00 PM ESTSurgery [facility] [address] [place] [address] Ariel Caba MD [address] [place] [phone] Ablation atrial fibrillation [11662 (CPT??)]Health MaintenanceDue DateLast Done CommentsCT Ckhwroprgifg91/28/0045Rqstrfddbmc1958Colorectal Cancer Iokqzpdai1958FIT-DNA1958FIT1958FOBT1958Medicare Annual Wellness (AWV)1958 9631Mtlakofwnglzt1958Depression Vclhizhsr45/28/1970 Fall Risk Nxzgiaivg36/28/2023OVID-19 Vaccine (2024- season)2025 02/14/2025, 04/15/2023, 04/15/2023, Additional history existsAdult Tetanus /neumococcal Vaccine: 50+ QzbqtUeacivqlf28/13/2025Influenza CkeejryNmzfglajr29/14/2025Zoster SxvcrqpcTbamjztfa62/14/2025, 12/13/2024HIB VaccinesAged OutNo longer eligible based on patient's age to complete this topic HPV VaccinesAged OutNo longer eligible based on patient's age to complete this topicIPV VaccinesAged OutNo longer eligible based on patient's age to complete this topicMeningococcal B VaccineAged OutNo longer eligible based on patient's age to complete this topicMeningococcal VaccineAged OutNo longer eligible based on patient's age to complete this topicRotavirus VaccinesAged OutNo longer eligible based on patient's age to complete this topic Insurance Advance Directives * Full Code (Latest Code Status on File) Date ActivatedDate InactivatedComments10/18/2022 8:25 PM10/22/2022 6:46 PM Care Teams Team MemberRelationshipSpecialtyStart [place] [address] [place] [address] [phone] PCP - General10/18/22 Addie Dickerson CNP [address] [place] [address] Nurse PractitionerHematology and Oncology10/19/22
--- OUTSIDE RECORDS SUMMARY | 2025-05-18 11:44 | XMS_ITS | Patient Health Record ---
Author Organization [facility] [place] Address [address] [place] [address] Care Team Providers Care Behavioral Health Specialist Name Role Phone Blunt Phillip ANTONIO Primary Care Provider Unavailabl e Reason For Referral No Information Plan Of Treatment Pending Test Test Name Order Date XR Ankle LT AP & LATERAL 11/04/2018 [facility] 05/07/2019 CBC AND AUTO DIFF * 05/07/2019 COMPREHENSIVE METABOLIC PANEL 05/07/2019 Insurance Providers Payer Name Payer Address Payer Phone Subscriber Number Group Number Insured Name Patient Relationship to Insured Coverage Start Date Coverage End Date [employer] [place] [address] [place] [id number] [id number] Cristian Hernandez Self - patient is the insured 2018
--- OUTSIDE RECORDS SUMMARY | 2025-05-18 11:44 | XMS_ITS ---
Author Organization [facility] Address [address] [place] [address] Care Team Providers Care Insole And Outsole Preparer Name Role Phone Phillip Barnett MD Primary Care Provider [phone] Addie Dickerson SUPERVISOR [employer] EFFECTS Unavailable Unavailabl e Active Problems ProblemNoted DateDiagnosed DateParoxysmal atrial paqerkgxqpnl34/12/2024OE (dyspnea on exertion)02/17/2024 Assessment & Plan (02/17/2024 [...] (benign prostatic hyperplasia)arotid artery disease Elevated PSAFebrile anoxirg5403/20/2023 03/20/2023Lymphoid umugsqik14Osteoarthritis03/20/2023 03/20/2023 Overview (03/20/2023): knee Otitis mediaRetinal venous uqtenpsrox50 Scalp paincute on chronic heart failure with preserved ejection /13/2023 Assessment & Plan (02/17/2024 12:35 PM EDT): [facility] III-patient is fluid overloaded per [...] daily/as needed, Eliquis 5 mg twice daily Qffmtwxqsiau95/22/2023ellulitis of right upper /18/2023Marginal zone lymphoma of vekyip1111/17/2015Gastroesophageal reflux disease without esophagitis 05/05/20156323Gbrdmqqad77/24/2014Hypertension Assessment & Plan (02/17/2024 12:35 PM EDT): Hypertension is well-controlled 135/86 continue all current meds. Assessment & Plan (11/13/2022 12:17 PM EDT): - Discussed trending blood pressure returning as long - continue amlodipine 10 mg, metoprolol 25 mg twice daily, lisinopril 20 mg, Lasix 40 mg daily, Lipitor 20 mg Persistent atrial fibrillation Assessment & Plan (02/17/2024 12:39 PM EDT): QBS0UK6-EWEn at least 3- Age, HTN, CHF Per EKG today he remains in A-fib, rate controlled heart rate 86 bpm Continue Eliquis anticoagulation, he denies any bleeding tendencies He remains on metoprolol 100 mg twice daily and remains rate controlled. Assessment & Plan (11/13/2022 12:21 PM EDT): - VIV4TC6-KEVk 1, was noted to during his inpatient [...] should be properly anticoagulated by the time Current Treatment and Therapy Plans No current plan information found. Past Treatment and Therapy Plans No past plan information found. Lifetime Dose Tracking * ChemicalLifetime DoseAutomatic EntryManual EntryFluoro Time5.9 minutes0 minutes5.9 minutesAir Mfkgn816 mGy0 iWn524 mGyDose Area Dejhike62,700 mGy-cm20 mGy-cm213,700 mGy-cm2
[2025-05-18 12:22] LABS: Hematocrit 39.1 % (42.0-54.0); Hemoglobin 12.9 g/dL (14.0-18.0); Mean Corpuscular HGB Conc 33.0 g/dL (29.9-35.2); Mean Corpuscular Hemoglobin 31.2 pg (25.9-34.0); Mean Corpuscular Volume 94.4 fL (80.0-94.0); Platelet Count 155 10^3/uL (150-450); Red Blood Count 4.14 10^6/uL (4.70-6.10)
[2025-05-18 12:36] LABS: White Blood Count 48.4 10^3/uL (4.0-11.0)
[2025-05-18 12:46] LABS: Anion Gap 13.2; Blood Urea Nitrogen 14.0 mg/dL (7.0-18.0); Calcium 9.0 mg/dL (8.5-10.1); Carbon Dioxide 27.9 mmol/L (21.0-32.0); Chloride 102 mmol/L (98-107); Estimated GFR (African America >60 (>=60 mL/min/1.73m^2); Estimated GFR (Non-African Ame >60 (>=60 mL/min/1.73m^2); Glucose 93 mg/dL (74-106); Potassium 4.1 mmol/L (3.5-5.1); Sodium 139 mmol/L (136-145)
[2025-05-18 13:59] LABS: Basophils Abs Manual 0.00 10^3/uL (0.00-0.10); Eosinophils Absolute Manual 0.00 10^3/uL (0.00-0.70); Monocytes Absolute Manual 0.00 10^3/uL (0.30-0.80)
[2025-05-18 14:45] LABS: Atypical Lymphocytes % Manual 9.0 %; Atypical Lymphocytes Abs Man 4.35; Basophils Percent Manual 0.0 % (0.2-2.0); Lymphocytes Absolute Manual 37.75 10^3/uL (1.20-3.80); Lymphocytes Percent Manual 78.0 % (20.5-60.0); Segmented Neut Absolute Manual 6.29 10^3/uL (1.4-6.5); Segmented Neutrophils % Manual 13.0 (43.0-75.0)
[2025-05-18 14:46] LABS: Eosinophils Percent Manual 0.0 % (0.9-7.0); Monocytes Percent Manual 0.0 % (1.7-12.0)
== END 2025-05-18 11:38 | disposition home or self-care (01) ==
PROVIDERS: PCP Family Medicine; Visit Provider Internal Medicine Cardiovascular Disease
DX: I48.19 Other persistent atrial fibrillation (principal)
CPT/HCPCS: 36415; 80048; 85007; 85027